=== PATIENT | female | born 1945 | race Caucasian/White ===

== ENCOUNTER 2018-11-27 19:16 | Inpatient (IN) | payer OTHER ==
[2018-11-27] MEDS ORDERED: ONDANSETRON 4 MG/2 ML VIAL IV PRN (20:01)
[2018-11-27] MEDS ORDERED: INSULIN -REGULAR HUMAN 50 UNIT/0.5 ML ML SQ SCH (21:00)
[2018-11-27] MEDS: NA CHLORIDE 0.9% 1,000 ML IV SCH ×2 (21:00→22:12)
[2018-11-27 21:30] VITALS: BMI 28.9
[2018-11-27] MEDS ORDERED: MELATONIN 5 MG TABLET PO PRN (21:59)
[2018-11-27] MEDS ORDERED: CEFTRIAXONE/SWI 1gm 1 GM/10 ML SYR IV SCH (22:00)
[2018-11-27] MEDS: PROMETHAZINE 25 MG/ML VIAL IV PRN (22:13)
[2018-11-27] MEDS: MORPHINE 4 MG/ML SYR IV PRN (22:13)
[2018-11-27] MEDS: GABAPENTIN 300 MG CAP PO SCH (22:57)
[2018-11-27] MEDS: METOPROLOL TAR 50 MG TAB PO SCH (23:43)
[2018-11-27] MEDS: DOXAZOSIN 2 MG TAB PO SCH (23:43)
[2018-11-28] MEDS: METRONIDAZOLE 500mg IVPB 500 MG/100 ML BAG IV SCH ×3 (00:41→16:52)
[2018-11-28] MEDS: INSULIN -REGULAR HUMAN 50 UNIT/0.5 ML ML SQ SCH ×5 (05:37→21:00)
[2018-11-28] MEDS: NA CHLORIDE 0.9% 1,000 ML IV SCH ×3 (05:38→16:51)
[2018-11-28 06:23] LABS: Protime INR 1.06
[2018-11-28 06:29] LABS: Absolute Lymphocytes (CBC) 13.5 K/uL (0.7-4.9); Basophils % 0.7 % (0-1.3); Lymphocytes % 73.7 % (15.3-44.8); RBC Red Blood Cell Count 4.12 M/uL (3.86-4.86)
[2018-11-28 06:36] LABS: ALT/SGPT 15 U/L (12-78); AST/SGOT 10 U/L (15-37); Albumin 3.3 g/dL (3.4-5.0); Alkaline Phosphatase 50 U/L (45-117); BUN Blood Urea Nitrogen 5 mg/dL (7-18); Bicarbonate 24 mmol/L (21-32); Bilirubin Total 0.4 mg/dL (0.2-1.0); Glucose Level 104 mg/dL (74-106); Magnesium 1.6 mg/dL (1.8-2.4); Potassium 3.6 mmol/L (3.5-5.1); Protein, Total 6.1 g/dL (6.4-8.2); Sodium Level 143 mmol/L (136-145)
--- NOTE | 2018-11-28 07:26 | EKG ---
Test Date: 2018-11-28 Test Time: 01:31:53 [place] Trapper: GURINDER MEASUREMENT RESULTS: Intervals: Rate: 58 AL: 154 QRSD: 92 QT: 424 QTc: 416 [place]: P: 23 AL: 154 QRS: 37 T: 38 INTERPRETIVE STATEMENTS: Sinus bradycardia Low voltage QRS Borderline ECG No previous ECG available for comparison Electronically Signed On 11-28-18 07:26:08 CDT by Kapil Sprague
--- NOTE | 2018-11-28 07:46 | P.HP ---
Certification for Inpatient Patient admitted to: Inpatient With expected LOS: >2 Midnights Patient will require the following post-hospital care: None Practitioner: I am a practitioner with admitting privileges, knowledge of patient current condition, hospital course, and medical plan of care. Services: Services provided to patient in accordance with Admission requirements found in Title 42 Section 412.3 of the Code of Federal Regulations Patient History Date of Service: 11/27/18 Reason for admission: Abdominal pain/acute cholecystitis/pyelonephritis History of Present Illness: Patient is a 73-year-old female with a history of CLL and a prior left nephrectomy who comes into the hospital with complaints of abdominal pain and right flank pain. This is been going on for the last few days. She went to [facility] for further evaluation. She was told by her PCP, Dr. Roberson, that she had acute cholecystitis. She also was told she had a kidney infection. She was evaluated by surgery and brought to our hospital for further intervention. Currently, patient's labs are unremarkable. She is scheduled for a HIDA scan in the morning. Will make her NPO after midnight and hold her pain medications. Full liquid diet for now. Allergies levofloxacin [From Levaquin] Adverse Reaction (Verified 11/27/18 21:12) joint pain Penicillins Adverse Reaction (Verified 11/27/18 21:12) swealling Home Medications: Aspirin [Aspirin EC 81 MG] 1 tab PO DAILY 11/27/18 CEFTRIAXONE/SWI 1gm [Rocephin 1 gm/10 ml Swi Ivp] 1 gm IV Q24H 11/27/18 Cholecalciferol (Vitamin D3) [Vitamin D3] 1 cap PO DAILY 11/27/18 Clopidogrel Bisulfate [Plavix*] 1 tab PO DAILY 11/27/18 Cyclobenzaprine [Flexeril*] 1 tab PO Q8HP PRN 11/27/18 Doxazosin [Cardura*] 1 tab PO BID 11/27/18 Gabapentin 600 mg PO QID 11/27/18 Levothyroxine Sodium [Synthroid] 125 mcg PO DAILY 11/27/18 Lisinopril [Prinivil*] 1 tab PO DAILY 11/27/18 Metformin ER [Glucophage ER*] 1 tab PO BID 11/27/18 Metoprolol Tartrate 100 mg PO BID 11/27/18 Morphine [Morphine Sulfate*] 4 mg IV Q6HP PRN 11/27/18 Promethazine Inj [Phenergan -Inj*] 12.5 mg IV Q6HP PRN 11/27/18 Zolpidem Tartrate [Ambien] 10 mg PO BEDTIME 11/27/18 - Past Medical/Surgical History Has patient received pneumonia vaccine in the past: Yes Diabetic: Yes -: CLL -: DM -: neuropathy -: hypertension -: hypothyroid -: left kidney removed -: back surgeries -: hyterectomy -: hiatal hernia - Family History Mother Medical History: Cancer Father Medical History: Cancer - Social History Smoking Status: Former smoker Alcohol use: No CD- Drugs: No Caffeine use: Yes Place of Residence: Home Review of Systems 10-point ROS is otherwise unremarkable Physical Examination - Vital Signs Temperature: 98.6 F Blood Pressure: 171/74 Pulse: 55 Respirations: 19 Pulse Ox (%): 90 - Physical Exam General: Alert, In no apparent distress, Oriented x3 HEENT: Atraumatic, PERRLA, Mucous membr. moist/pink, EOMI, Sclerae nonicteric Neck: Supple, 2+ carotid pulse no bruit, No LAD, Without JVD or thyroid abnormality Respiratory: Clear to auscultation bilaterally, Normal air movement Cardiovascular: Regular rate/rhythm, Normal S1 S2, No murmurs Gastrointestinal: Normal bowel sounds, Soft and benign, Non-distended, Tenderness (Right flank tenderness and positive Huizar sign) Musculoskeletal: No clubbing, No swelling, No tenderness Integumentary: No rashes Neurological: Normal gait, Normal speech, Normal strength at 5/5 x4 extr, Normal tone, Sensation intact, Cranial nerves 3-12 intact, Normal affect Lymphatics: No axilla or inguinal lymphadenopathy - Studies Laboratory Data (last 24 hrs) 11/28/18 20:01: Lipase Cancelled 11/28/18 05:49: Sodium 143, Potassium 3.6, BUN 5 L, Creatinine 0.58, Glucose 104 , Phosphorus 3.0, Magnesium 1.6 L, Total Bilirubin 0.4, AST 10 L, ALT 15, Alkaline Phosphatase 50 11/28/18 05:49: PT 12.5, INR 1.06 11/28/18 05:49: WBC 18.3 H, Hgb 13.2, Hct 39.0, Plt Count 215 11/28/18 05:00: Triglycerides Cancelled, Cholesterol Cancelled, HDL Cholesterol Cancelled, Cholesterol/HDL Ratio Cancelled Assessment & Plan - Problems (Diagnosis) (1) Acute cholecystitis Current Visit: Yes Status: Acute (2) Pyelonephritis Current Visit: Yes Status: Acute (3) History of chronic lymphocytic leukemia Current Visit: Yes Status: Acute (4) History of chronic pain Current Visit: Yes Status: Acute (5) Hypertension Current Visit: Yes Status: Acute Qualifiers: Hypertension type: essential hypertension Qualified Code(s): I10 - Essential (primary) hypertension (6) Hypothyroidism Current Visit: Yes Status: Acute - Plan Plan: 1. IV hydration 2. Pain control 3. IV antibiotics 4. HIDA scan in the morning 5. General surgery has seen the patient and planning to do lap choly in a.m. pending HIDA scan 6. GI and DVT prophylaxis Discharge Plan: Home Plan to discharge in: Greater than 2 days - Advance Directives Does patient have a Living Will: No Does patient have a Durable POA for Healthcare: No - Code Status/Comfort Care Code Status Assessed: Yes Code Status: Full Code Critical Care: No Time Spent Managing PTS Care (In Minutes): 45
[2018-11-28] MEDS: PROMETHAZINE 25 MG/ML VIAL IV PRN ×2 (07:48→17:01)
[2018-11-28] MEDS: MORPHINE 4 MG/ML SYR IV PRN ×3 (07:49→21:14)
[2018-11-28] MEDS ORDERED: KCL 20 MEQ/100 mL IVPB 20 MEQ/100 ML BAG IV SCH (08:00)
[2018-11-28] MEDS: CEFTRIAXONE/SWI 1gm 1 GM/10 ML SYR IV SCH ×2 (08:00→21:14)
[2018-11-28] MEDS: LEVOTHYROXINE SOD 0.125 MG TAB PO SCH (08:00)
[2018-11-28] MEDS: GABAPENTIN 300 MG CAP PO SCH ×4 (08:01→21:13)
[2018-11-28] MEDS: METOPROLOL TAR 50 MG TAB PO SCH ×2 (08:01→21:12)
[2018-11-28] MEDS: DOXAZOSIN 2 MG TAB PO SCH ×2 (08:02→21:13)
--- NOTE | 2018-11-28 08:02 | RAD REPORT ---
EXAM DESCRIPTION: Bernabet Single View11/27/2018 8:40 pm CLINICAL HISTORY: Preop COMPARISON: none FINDINGS: Mild left lung opacities may represent areas of subsegmental atelectasis. The right lung appears clear of acute infiltrate. Heart is normal size Scoliosis involves the thoracolumbar spine
[2018-11-28] MEDS ORDERED: CEFTRIAXONE 1 GM/NS 50 ML 1 GM/50 ML BAG IV SCH (09:00)
--- NOTE | 2018-11-28 09:03 | RAD REPORT ---
EXAM DESCRIPTION: NM - Hepatobiliary System W/ Ph - 11/28/2018 7:56 am CLINICAL HISTORY: Abdominal pain TECHNIQUE: The patient was administered 6.3 millicuries technetium Choletec intravenous and images o f the abdomen obtained for 43 minutes. Patient was given 1.7 micrograms Kinevac intravenously and tanja ges of the gallbladder obtained for 30 minutes FINDINGS: Liver demonstrates prompt radiotracer uptake. Activity is seen within the gallbladder by 30 minutes. Uptake is not initially seen within small bowel but is then visualized after the administration of CC K After the administration of cck gallbladder ejection fraction equals 69 % (normal values greater than 35% Patient was asymptomatic prior to CCK. During the administration patient complained of pain 9 out of 10 and nausea IMPRESSION: No evidence of acute cholecystitis Gallbladder ejection fraction equals 69% which is within normal limits
--- NOTE | 2018-11-28 09:33 | CON ---
Date of Consultation: 11/27/2018 Brief History Of Present Illness: Patient is a 73-year-old female with history of CLL and a prior left nephrectomy, who comes to the hospital with complaints of abdominal pain, persistent nazia sea, vomiting, and right flank pain for several days prior to her admission to [facility]. She was seen in [facility] by Dr. Rm, who was concerned she might have acute cholecystitis and as such, he ordered a workup to include an ultrasound and a CT scan, which showed evidence of possible prominence of the gallbladder wall, but no obvious gallstones on that finding. Therefore, she was in need of a HIDA scan and as such, she was transferred to this facility for continued workup and possi ble cholecystectomy. She presented to the hospital with the above-stated complaints. She has had so me fever, chills, night sweats. She said she was severely dehydrated and she had very dark urine and some urinary tract symptoms which were treated at [facility]. Her hydration status was signifi cantly improved by her report and her voiding was much improved and her symptoms of urinary tract inf ections such as the itching and burning and frequency were resolved. She continued to have a global abdominal pain however and as such, she wanted to continue the workup. Past Medical History: Significant for CLL, diabetes, neuropathy, hypertension, hypothyroid. Past Surgical History: Includes a left nephrectomy, hysterectomy, oophorectomy, open hiatal hernia r epair, multiple back surgeries. Her mother and father both had cancer. She is a former smoker. She denies alcohol or recreational drug use. Home Medications: Include aspirin, vitamin D3, Plavix, Flexeril, Cardura, gabapentin, Synthroid, Ayse nivil, Glucophage, metoprolol, and Ambien. Physical Examination: Vital Signs: At time of my examination, her blood pressure is 160/80, pulse is 80, respiratory rate 16, temperature 98.4. General: She is awake, alert, oriented. Psychiatric: She is appropriate and conversive. HEENT: She is normocephalic. Sclerae icteric. Mucous membranes are moist. Oropharynx clear. Neck: Supple. No JVD. Chest: Normal expansion and excursion. Cardiovascular: Regular rate and rhythm. Pulmonary: Clear to auscultation bilaterally. Abdomen: Soft with mild global tenderness to palpation, worse in the epigastric area. No rebound. No guarding. No focal peritonitis. Negative Huizar sign. Extremities: No clubbing, cyanosis, or edema. Laboratory Data: Reveals a white blood count of 18.3, hemoglobin 13.2, hematocrit 39.0, platelet cou nt is 215, neutrophils 21%. PT 12.5, INR 1.06. Her sodium 143, potassium 3.6, chloride 111, carbon dioxide 24, BUN 5, creatinine 0.58, glucose was 104, phos is 3.0, magnesium is 1.6, total bilirubin 0 .4, AST 10, ALT 15, alkaline phosphatase is 50. Her lipase is currently pending. She had a HIDA sca n performed and a chest x-ray performed. The HIDA scan is currently pending and she had a chest x-ra y performed. The chest x-ray officially shows mild left lung opacities, may represent subsegmental a telectasis. Right lung appears to be clear of acute infiltrate. Heart is normal size. Scoliosis in volving the thoracolumbar spine. Assessment/plan: This 73-year-old female with possible early acute cholecystitis. 1.IV fluid hydration. 2.Antibiotic coverage. 3.Await HIDA scan results. 4.I have explained the risks, benefits, and alternatives of laparoscopic, possible open cholecystect kali including but not limited to bleeding, infection, damage to surrounding tissue, need for further operation or procedures. Patient agrees to proceed as indicated. FAVIO/LIAN Voice ID: [id number] Report ID: [id number]
[2018-11-28 09:41] LABS: Blood Morphology Comment NOT SEEN (NOT SEEN); Platelet Estimate ADEQ
--- NOTE | 2018-11-28 10:23 | P.PN ---
Subjective Date of Service: 11/28/18 Chief Complaint: Abdominal pain/acute cholecystitis/pyelonephritis Subjective: Improving (Patient feels much better today, no pain, no nausea or emesis, passing gas, appetite returning) Physical Examination - Vital Signs Temperature: 97.3 F Blood Pressure: 148/84 Pulse: 59 Respirations: 18 Pulse Ox (%): 95 - Physical Exam General: Alert, In no apparent distress, Oriented x3 HEENT: Atraumatic, Mucous membr. moist/pink Neck: Supple Respiratory: Clear to auscultation bilaterally Cardiovascular: No edema, Regular rate/rhythm Gastrointestinal: Soft and benign, Non-distended, No tenderness, No masses, No rebound, No guarding - Studies Laboratory Data (last 24 hrs) 11/28/18 20:01: Lipase Cancelled 11/28/18 05:49: Sodium 143, Potassium 3.6, BUN 5 L, Creatinine 0.58, Glucose 104 , Phosphorus 3.0, Magnesium 1.6 L, Total Bilirubin 0.4, AST 10 L, ALT 15, Alkaline Phosphatase 50 11/28/18 05:49: PT 12.5, INR 1.06 11/28/18 05:49: WBC 18.3 H, Hgb 13.2, Hct 39.0, Plt Count 215 11/28/18 05:00: Triglycerides Cancelled, Cholesterol Cancelled, HDL Cholesterol Cancelled, Cholesterol/HDL Ratio Cancelled Assessment And Plan - Plan Possible Enteritis, HIDA negative for cholecystitis - start clears and advance as tolerated - continue medical managmenet - likely DC in AM, will need outpatient endoscopy - I have discussed with patient
[2018-11-28] MEDS ORDERED: INFLUENZA VACCINE (for 3y+) 0.5 ML DOSE IMVAC ONE (13:00)
[2018-11-29] MEDS: PROMETHAZINE 25 MG/ML VIAL IV PRN ×3 (00:19→18:39)
[2018-11-29] MEDS: METRONIDAZOLE 500mg IVPB 500 MG/100 ML BAG IV SCH ×3 (00:19→16:26)
[2018-11-29] MEDS: NA CHLORIDE 0.9% 1,000 ML IV SCH ×3 (00:30→13:06)
[2018-11-29] MEDS: MORPHINE 4 MG/ML SYR IV PRN ×3 (04:35→19:25)
[2018-11-29 06:33] LABS: Absolute Lymphocytes (CBC) 10.9 K/uL (0.7-4.9); Basophils % 1.2 % (0-1.3); Hematocrit 38.3 % (36.0-45.0); Lymphocytes % 66.9 % (15.3-44.8); MPV 9.4 fL (7.6-11.3); RBC Red Blood Cell Count 4.09 M/uL (3.86-4.86)
[2018-11-29] MEDS: INSULIN -REGULAR HUMAN 50 UNIT/0.5 ML ML SQ SCH ×4 (07:30→21:00)
[2018-11-29 07:43] LABS: Potassium 3.7 mmol/L (3.5-5.1)
--- NOTE | 2018-11-29 08:45 | P.PN ---
Subjective Date of Service: 11/29/18 Chief Complaint: Abdominal pain/acute cholecystitis/pyelonephritis Subjective: Improving (Patient has no abdominal pain, but continues to have RIGHT flank pain, she believes to be kidney pain. Ambulatory, tolerating diet well. passing gas.) Physical Examination - Vital Signs Temperature: 97.9 F Blood Pressure: 172/82 Pulse: 65 Respirations: 18 Pulse Ox (%): 94 - Physical Exam General: Alert, In no apparent distress, Cooperative Gastrointestinal: Other (soft, mild Global abdominal TTP, more so on the RIGHT than left abdomen, but present in RUQ, RLQ. negative murphys, no rebound, no guarding) - Studies Laboratory Data (last 24 hrs) 11/29/18 06:57: Sodium 143, Potassium 3.7, BUN 7, Creatinine 0.67, Glucose 154 H 11/29/18 06:19: WBC 16.3 H, Hgb 13.0, Hct 38.3, Plt Count 243 11/28/18 20:03: Lipase 44 L 11/28/18 05:49: WBC 18.3 H, Hgb 13.2, Hct 39.0, Plt Count 215 Assessment And Plan - Plan Patient with Abdominal pain - HIDA negative for cholecystitis or biliary dyskinesia - will repeat ultrasound of Gallbladder, as ultrasound from outside facility showed possible GB wall thickening, but not stones - check hepatic panel, add pro-calcitonin level - serial exams - after ultrasound will re-assess - patient was scheduled for cardiac stress test on Saturday
[2018-11-29] MEDS: METOPROLOL TAR 50 MG TAB PO SCH ×2 (08:48→20:13)
[2018-11-29] MEDS: LEVOTHYROXINE SOD 0.125 MG TAB PO SCH (08:49)
[2018-11-29] MEDS: GABAPENTIN 300 MG CAP PO SCH ×4 (08:49→20:12)
[2018-11-29] MEDS: CEFTRIAXONE/SWI 1gm 1 GM/10 ML SYR IV SCH ×2 (08:49→20:14)
[2018-11-29] MEDS: DOXAZOSIN 2 MG TAB PO SCH ×2 (08:49→20:12)
[2018-11-29] MEDS ORDERED: POTASSIUM CL SA 10 MEQ TAB PO ONE (09:00)
[2018-11-29 09:08] LABS: ALT/SGPT 14 U/L (12-78); AST/SGOT 11 U/L (15-37); Albumin 3.3 g/dL (3.4-5.0); Alkaline Phosphatase 52 U/L (45-117); Bilirubin Direct < 0.1 mg/dL (0-0.2); Bilirubin Total 0.2 mg/dL (0.2-1.0); Protein, Total 6.3 g/dL (6.4-8.2)
--- NOTE | 2018-11-29 12:01 | RAD REPORT ---
EXAM DESCRIPTION: US - Abdomen Exam Complete - 11/29/2018 11:53 am CLINICAL HISTORY: Abdominal pain. abd pain, possible cholecystitis COMPARISON: Hepatobiliary System W/ Ph dated 11/28/2018 FINDINGS: The liver is normal in size, shape and echotexture. No focal liver lesions or intrahepatic biliary dilatation is seen. The gallbladder demonstrates no gallstones, pericholecystic fluid or gallbladder wall thickening. Co mmon bile duct is normal in caliber measuring 5 millimeters. The left kidney is absent. The right kidney is normal in size, shape and echotexture. No hydronephros is, focal lesion of concern or perinephric fluid. The spleen is normal in size measuring 12 cm. The pancreas and aorta are obscured by bowel gas. The visualized aspects of the IVC are grossly normal. IMPRESSION: Unremarkable study except for limited assessment of the pancreas and aorta due to bowel gas. The left kidney is absent.
[2018-11-29] MEDS ORDERED: ZOLPIDEM TARTRATE 10 MG TABLET PO PRN (21:52)
[2018-11-29 23:41] VITALS: O2SAT 96
[2018-11-30] MEDS: NA CHLORIDE 0.9% 1,000 ML IV SCH ×2 (00:17→09:00)
[2018-11-30] MEDS: METRONIDAZOLE 500mg IVPB 500 MG/100 ML BAG IV SCH ×2 (00:17→10:06)
[2018-11-30 03:44] LABS: Urine Appearance CLEAR; Urine Bilirubin NEGATIVE (NEG); Urine Blood NEGATIVE (NEG); Urine Color YELLOW; Urine Glucose NEGATIVE (NEG); Urine Protein NEGATIVE (NEG); Urine Specific Gravity <=1.005 (1.005-1.030); Urine Urobilinogen 0.2 mg/dL (0.2-1.0)
[2018-11-30 04:02] LABS: Urine Microscopic Reflex NO UMIC
[2018-11-30 07:07] LABS: Basophils % 0.7 % (0-1.3); Lymphocytes % 71.8 % (15.3-44.8); MPV 9.1 fL (7.6-11.3); RBC Red Blood Cell Count 4.09 M/uL (3.86-4.86)
[2018-11-30 07:11] LABS: ALT/SGPT 16 U/L (12-78); AST/SGOT 12 U/L (15-37); Albumin 3.3 g/dL (3.4-5.0); Alkaline Phosphatase 53 U/L (45-117); BUN Blood Urea Nitrogen 7 mg/dL (7-18); Bicarbonate 26 mmol/L (21-32); Bilirubin Total 0.3 mg/dL (0.2-1.0); Glucose Level 139 mg/dL (74-106); Magnesium 1.6 mg/dL (1.8-2.4); Phosphorus 3.1 mg/dL (2.5-4.9); Potassium 3.9 mmol/L (3.5-5.1); Protein, Total 6.1 g/dL (6.4-8.2); Sodium Level 143 mmol/L (136-145)
[2018-11-30] MEDS: MORPHINE 4 MG/ML SYR IV PRN (07:28)
[2018-11-30] MEDS: PROMETHAZINE 25 MG/ML VIAL IV PRN (07:28)
[2018-11-30] MEDS: INSULIN -REGULAR HUMAN 50 UNIT/0.5 ML ML SQ SCH ×2 (07:30→11:30)
[2018-11-30 09:40] VITALS: BP 177/84; TEMP 96.8
[2018-11-30] MEDS: GABAPENTIN 300 MG CAP PO SCH (10:04)
[2018-11-30] MEDS: LEVOTHYROXINE SOD 0.125 MG TAB PO SCH (10:05)
[2018-11-30] MEDS: DOXAZOSIN 2 MG TAB PO SCH (10:05)
[2018-11-30] MEDS: METOPROLOL TAR 50 MG TAB PO SCH (10:05)
[2018-11-30] MEDS: CEFTRIAXONE/SWI 1gm 1 GM/10 ML SYR IV SCH (10:06)
--- NOTE | 2018-11-30 10:08 | P.DS ---
Admission Date: 11/29/18 Discharge Date: 11/30/18 Disposition: ROUTINE DISCHARGE Discharge Condition: GOOD Reason for Admission: Abdominal pain/acute cholecystitis/pyelonephritis Consultations: hospitalist Procedures: None Brief History of Present Illness: Patient is a 73 year old woman who was transferred from [facility] with abdominal pain and several other medical issues. Hospital Course: Patient had a HIDA scan as well as a repeat ultrasound to rule out cholecystitis , and both were negative for biliary disease. Her symptoms improved and she only had some mild RIGHT flank pain and back pain which was more chronic. She has no other complaints and was tolerating diet well, ambulatory. Vital Signs/Physical Exam: Temp Pulse Resp BP Pulse Ox 96.8 F 67 18 177/84 H 94 11/30/18 08:00 11/30/18 08:00 11/30/18 08:00 11/30/18 08:00 11/30/18 08:00 General: Alert, In no apparent distress, Cooperative HEENT: Mucous membr. moist/pink Respiratory: Clear to auscultation bilaterally, Normal air movement Cardiovascular: No edema Gastrointestinal: Soft and benign, Non-distended, No ascites, No tenderness, No masses, No rebound, No guarding Musculoskeletal: No clubbing, No swelling Integumentary: No rashes Neurological: Normal speech Laboratory Data at Discharge: WBC 15.3 K/uL (4.3-10.9) H 11/30/18 06:41 Hgb 12.8 g/dL (12.0-15.0) 11/30/18 06:41 Hct 38.0 % (36.0-45.0) 11/30/18 06:41 Plt Count 229 K/uL (152-406) 11/30/18 06:41 PT 12.5 SECONDS (9.5-12.5) 11/28/18 05:49 INR 1.06 11/28/18 05:49 Sodium 143 mmol/L (136-145) 11/30/18 06:41 Potassium 3.9 mmol/L (3.5-5.1) 11/30/18 06:41 BUN 7 mg/dL (7-18) 11/30/18 06:41 Creatinine 0.57 mg/dL (0.55-1.3) 11/30/18 06:41 Glucose 139 mg/dL (74-106) H 11/30/18 06:41 Phosphorus 3.1 mg/dL (2.5-4.9) 11/30/18 06:41 Magnesium 1.6 mg/dL (1.8-2.4) L 11/30/18 06:41 Total Bilirubin 0.3 mg/dL (0.2-1.0) 11/30/18 06:41 AST 12 U/L (15-37) L 11/30/18 06:41 ALT 16 U/L (12-78) 11/30/18 06:41 Alkaline Phosphatase 53 U/L (45-117) 11/30/18 06:41 Triglycerides Cancelled 11/28/18 05:00 Cholesterol Cancelled 11/28/18 05:00 HDL Cholesterol Cancelled 11/28/18 05:00 Cholesterol/HDL Ratio Cancelled 11/28/18 05:00 Lipase 44 U/L (73-393) L 11/28/18 20:03 Home Medications: Aspirin [Aspirin EC 81 MG] 1 tab PO DAILY 11/27/18 CEFTRIAXONE/SWI 1gm [Rocephin 1 gm/10 ml Swi Ivp] 1 gm IV Q24H 11/27/18 Cholecalciferol (Vitamin D3) [Vitamin D3] 1 cap PO DAILY 11/27/18 Clopidogrel Bisulfate [Plavix*] 1 tab PO DAILY 11/27/18 Cyclobenzaprine [Flexeril*] 1 tab PO Q8HP PRN 11/27/18 Doxazosin [Cardura*] 1 tab PO BID 11/27/18 Gabapentin 600 mg PO QID 11/27/18 Levothyroxine Sodium [Synthroid] 125 mcg PO DAILY 11/27/18 Lisinopril [Prinivil*] 1 tab PO DAILY 11/27/18 Metformin ER [Glucophage ER*] 1 tab PO BID 11/27/18 Metoprolol Tartrate 100 mg PO BID 11/27/18 Morphine [Morphine Sulfate*] 4 mg IV Q6HP PRN 11/27/18 Promethazine Inj [Phenergan -Inj*] 12.5 mg IV Q6HP PRN 11/27/18 Zolpidem Tartrate [Ambien] 10 mg PO BEDTIME 11/27/18 Patient Discharge Instructions: -Follow up in [place] in 1-2 weeks Diet: [place] Activity: Ad ann Followup: Clay Reynolds MD [ACTIVE - CAN ADMIT] -
[2018-11-30] MEDS ORDERED: TRAMADOL HCL 50 MG TAB PO ONE (12:00)
--- NOTE | 2018-11-30 12:08 | P.PN ---
Subjective Date of Service: 11/29/18 Chief Complaint: Abdominal pain/acute cholecystitis/pyelonephritis Patient seen and examined at bedside. No family at bedside. Chart reviewed and case discussed with nursing staff. Improved, no complaints this morning Review of Systems 10-point ROS is otherwise unremarkable Physical Examination - Vital Signs Temperature: 96.8 F Blood Pressure: 177/84 Pulse: 67 Respirations: 18 Pulse Ox (%): 94 - Physical Exam General: Alert, In no apparent distress, Oriented x3 HEENT: Atraumatic, PERRLA, EOMI Neck: Supple, JVD not distended Respiratory: Clear to auscultation bilaterally, Normal air movement Cardiovascular: Regular rate/rhythm, Normal S1 S2 Gastrointestinal: Normal bowel sounds, No tenderness Musculoskeletal: No tenderness Integumentary: No rashes Neurological: Normal speech, Normal tone, Normal affect Lymphatics: No axilla or inguinal lymphadenopathy - Studies Laboratory Data (last 24 hrs) 11/30/18 06:41: Sodium 143, Potassium 3.9, BUN 7, Creatinine 0.57, Glucose 139 H , Phosphorus 3.1, Magnesium 1.6 L, Total Bilirubin 0.3, AST 12 L, ALT 16, Alkaline Phosphatase 53 11/30/18 06:41: WBC 15.3 H, Hgb 12.8, Hct 38.0, Plt Count 229 Assessment And Plan - Current Problems (Diagnosis) (1) Acute cholecystitis Current Visit: Yes Status: Acute (2) Hypertension Current Visit: Yes Status: Acute Qualifiers: Hypertension type: essential hypertension Qualified Code(s): I10 - Essential (primary) hypertension (3) Hypothyroidism Current Visit: Yes Status: Acute (4) Pyelonephritis Current Visit: Yes Status: Acute - Plan - general surgery consulted, recommendations appreciated - continue IV antibiotics, pain control on IV hydration - HIDA negative for cholecystitis or biliary dyskinesia - Repeat ultrasound of Gallbladder pending, as ultrasound from outside facility showed possible GB wall thickening, but not stones - serial abdominal exams - advance diet, per surgery
--- NOTE | 2018-11-30 12:10 | P.PN ---
Subjective Date of Service: 11/30/18 Chief Complaint: Abdominal pain/acute cholecystitis/pyelonephritis Subjective: No C/O voiced, Improving Patient seen and examined at bedside. No family at bedside. Chart reviewed and case discussed with nursing staff. Improved, no complaints this morning Tolerating a diet, no complaints of abdominal pain or nausea at this time. Complains of back pain, which is more chronic for her. Review of Systems 10-point ROS is otherwise unremarkable Physical Examination - Vital Signs Temperature: 96.8 F Blood Pressure: 177/84 Pulse: 67 Respirations: 18 Pulse Ox (%): 94 - Physical Exam General: Alert, In no apparent distress, Oriented x3 HEENT: Atraumatic, PERRLA, EOMI Neck: Supple, JVD not distended Respiratory: Clear to auscultation bilaterally, Normal air movement Cardiovascular: Regular rate/rhythm, Normal S1 S2 Gastrointestinal: Normal bowel sounds, No tenderness Musculoskeletal: No tenderness Integumentary: No rashes Neurological: Normal speech, Normal tone, Normal affect Lymphatics: No axilla or inguinal lymphadenopathy - Studies Laboratory Data (last 24 hrs) 11/30/18 06:41: Sodium 143, Potassium 3.9, BUN 7, Creatinine 0.57, Glucose 139 H , Phosphorus 3.1, Magnesium 1.6 L, Total Bilirubin 0.3, AST 12 L, ALT 16, Alkaline Phosphatase 53 11/30/18 06:41: WBC 15.3 H, Hgb 12.8, Hct 38.0, Plt Count 229 Assessment And Plan - Current Problems (Diagnosis) (1) Acute cholecystitis Current Visit: Yes Status: Acute (2) Hypertension Current Visit: Yes Status: Acute Qualifiers: Hypertension type: essential hypertension Qualified Code(s): I10 - Essential (primary) hypertension (3) Hypothyroidism Current Visit: Yes Status: Acute (4) Pyelonephritis Current Visit: Yes Status: Acute - Plan - general surgery consulted, recommendations appreciated - HIDA negative for cholecystitis or biliary dyskinesia - Repeat ultrasound negative for biliary disease Patient seen and examined this morning at bedside. She seems to be doing well, endorses no complaints of abdominal pain and nausea. Tolerating a oral diet. She is hemodynamically stable. Labs also stable. Repeat imaging negative for acute cholecystitis or biliary disease. Patient complained more of back pain, which is more chronic for her. She was instructed to follow up with her primary care physician, resume home medications and also follow up with general surgery in 1-2 weeks. She is cleared discharge from medical point of view.
== END 2018-11-30 12:02 | disposition home or self-care (01) | DRG 392 ==
LOC: 2ND 19:16 → INTOOBSV 19:16 → OBSVTOIN 11-29 14:52
PROVIDERS: ADMIT Surgery; ATTEND Hospitalist
DX: K52.9 Noninfective gastroenteritis and colitis, unspecified (principal); N10 Acute pyelonephritis; I10 Essential (primary) hypertension; E03.9 Hypothyroidism, unspecified; Z85.6 Personal history of leukemia; Z90.5 Acquired absence of kidney; E11.9 Type 2 diabetes mellitus without complications; Z88.0 Allergy status to penicillin; Z79.82 Long term (current) use of aspirin; Z23 Encounter for immunization
CPT/HCPCS: 36415; 71045; 76700; 78227; 80048; 80053; 80076; 81003; 82962; 83690; 83735; 84100; 84145; 85025; 85610; 90471; 93005; A9537; J0696; J2550; J2805; J7030; Q2035

== ENCOUNTER 2021-11-06 14:18 | Observation (INO) | payer OTHER ==
--- OUTSIDE RECORDS SUMMARY | 2021-11-06 14:24 | XMS REPORT | Continuity of Care Document ---
:1945 Author Organization [facility] Address [address] [place] [address] Care Team Providers Name Role Phone Rick Harrison Attending Clinician Unavailable Rick Harrison Attending Clinician Unavailable Tk Fermin Attending Clinician Unavailable REBA_T Attending Clinician Unavailable Clay Reynolds Attending Clinician [phone] Jamie Lora Attending Clinician Unavailable Jamie Lora Attending Clinician Unavailable Rick Harrison Admitting Clinician Unavailable Tk Fermin Admitting Clinician Unavailable MYKE Admitting Clinician Unavailable Jamie Lora Admitting Clinician Unavailable Payers Payer Name Policy Type Policy Number Effective Date Expiration Date Barby suggs AEMyrtleHOMERO (POS) [id number] 2015 00:00:00 MEDICARE B-[place]: [id number] 2011 [employer] 00:00:00 Problems This patient has no known problems. Allergies, Adverse Reactions, Alerts Allergy Allergy Status Severity Reaction(s) Onset Inactive Treating Comm ents Source Name Type Date Date Clinician [place] DA Active [place] 2019-02 [facility] 04[facility]: [place] [facility] levoflox DA Active [place] 2019- [facility] [place] 00:[facility]: [address] Pen[place] DA Active [place] HIVES 2019- [facility] 04[facility] 00:00: [address] levoflox DA Active [place] JOINT PAIN 2019- [facility] 00:[facility]: [address] penicill Drug Active [facility] in [facility] Levaquin Drug Active [facility] penicill Drug Active [facility] in [facility] Levaquin Drug Active [facility] penicill Drug Active [facility] in [facility] Lev[facility] Drug Active [facility] penicill [facility] Drug Active [facility]ic[facility] Drug Active [facility] penic[facility] Lev[facility] Drug Active [facility] penicill [facility] Drug Active [facility] penicill [facility] Levaquin Drug Active [facility] penicill [facility] Levaquin Drug Active [facility] penicill [facility] Levaquin Drug Active [facility] penicill [facility] Levaquin Drug Active [facility] penicill [facility] Levaquin Drug Active [facility] penicill [facility] Levaquin Drug Active [facility] penicill [facility] Levaquin Drug Active [facility] penicill [facility] Drug [facility] Levaquin Drug Active [facility] penicill [facility] Leva[facility] Drug Active [facility] penicill [facility] Levaquin Drug Active [facility] penicill Drug Active [facility] in [facility] Levaquin Drug Active [facility] penicill Drug Active [facility] in [facility] Levaquin Drug Active [facility] Medications This patient has no known medications. Vital Signs Vital Name Observation Time Observation Value Comments Source Height/Length Measured 2019-03-17 23:20:55 Height/Length Measured 2021-03-07 09:11:22 157 cm Weight Dosing 2021-03-07 09:11:22 75.00 kg Height/Length Measured 2021-03-07 08:54:18 157 cm Weight Dosing 2021-03-07 08:54:18 75.00 kg Height/Length Measured 2021-03-07 08:52:18 157 cm Weight Dosing 2021-03-07 08:52:18 75.00 kg Height/Length Measured 2021-03-07 08:51:33 157 cm Weight Dosing 2021-03-07 08:51:33 75.00 kg Height/Length Measured 2021-03-07 08:50:37 157 cm Weight Dosing 2021-03-07 08:50:37 75.00 kg Height/Length Measured 2021-03-07 08:50:29 157 cm Weight Dosing 2021-03-07 08:50:29 75.00 kg Height/Length Measured 2021-03-07 08:50:24 157 cm Weight Dosing 2021-03-07 08:50:24 75.00 kg Height/Length Measured 2021-03-07 08:50:23 157 cm Weight Dosing 2021-03-07 08:50:23 75.00 kg Height/Length Measured 2021-03-07 08:50:22 157 cm Weight Dosing 2021-03-07 08:50:22 75.00 kg Height/Length Measured 2021-03-07 08:50:20 157 cm Weight Dosing 2021-03-07 08:50:20 75.00 kg Height/Length Measured 2021-03-07 08:50:09 157 cm Weight Dosing 2021-03-07 08:50:09 75.00 kg Height/Length Measured 2021-03-07 08:50:00 157 cm Weight Dosing 2021-03-07 08:50:00 75.00 kg Height/Length Measured 2021-03-07 08:49:44 157 cm Weight Dosing 2021-03-07 08:49:44 75.00 kg Height/Length Measured 2021-03-07 11:52:07 157.48 cm Weight Dosing 2021-03-07 11:52:07 69.399 kg Height/Length Measured 2019-10-02 07:52:55 Weight Dosing 2019-10-02 07:52:55 Procedures Procedure Date / Time Performed Performing Clinician Sour pippa [id number] 2020-02-10 00:00:00 [facility] [id number] 2020-02-10 00:00:00 [facility] [id number] 2020-02-10 00:00:00 [facility] [id number] 2020-02-10 00:00:00 [facility] Encounters Start End Encounter Admission Attending Care Care Encounter Source Date/Time Date/Time Type Type Clinicians Facility Department ID 2020-02-07 Inpatient [facility] INA [id number] [facility] 21:10:00 07 [facility] 2019-03-17 Inpatient 2 Chan Harrisoned [facility] TEL [id number] 21:33:00 Rick Harrison -[id number] [facility] 2019-03-17 [id number] 16:03:00 [facility] 2021-03-10 2021-03-10 Outpatient KOVACEV_T [facility] 9929- [place] 05:34:00 05:34:00 [facility] 2020-09-08 2020-09-08 Outpatient KOVACEV_T [facility] 9929- [id number] [place] 11:50:00 11:50:00 [facility] 2020-09-08 2020-09-08 Outpatient KOVACEV_T [facility] 9929- [id number] [place] 11:50:00 11:50:00 [facility] 2020-08-31 2020-08-31 Outpatient KOVACEV_T [facility] 9929- [id number] [place] 06:16:00 06:16:00 [facility] 2020-08-09 2020-08-09 Outpatient KOVACEV_T [facility] 9929- [place] 05:02:00 05:02:00 [facility] 2020-07-15 2020-07-15 Outpatient KOVACEV_T [facility] 9929- [place] 05:19:00 05:19:00 [facility] 2020-07-07 2020-07-07 Outpatient KOVACEV_T [facility] 9929- [place] 06:28:00 06:28:00 [facility] 2020-05-27 2020-05-27 Outpatient KOVACEV_T [facility] 9929- [place] 06:08:00 06:08:00 409 [facility] 2020-05-16 2020-05-16 Outpatient KOVACEV_T [facility] 9929- [place] 05:20:00 05:20:00 [facility] 2020-05-13 2020-05-13 Outpatient KOVACEV_T [facility] 9929- [place] 04:29:00 04:29:00 [facility] 2020-04-19 2020-04-19 Outpatient GERARDVACEV_T [facility] 9929- [place] 10:52:00 10:52:00 [facility] 2020-04-19 2020-04-19 Outpatient Reba [facility] [id number] 00:00:00 00:00:00 Clay [id number] Snyder [id number] 2020-03-17 2020-03-17 Outpatient KOVACEV_T [facility] 9929- [place] 05:08:00 05:08:00 [facility] 2020-03-17 2020-03-17 Outpatient Gerardconi [facility] [id number] 00:00:00 00:00:00 Clay [id number] Snyder [id number] 2020-03-14 2020-03-14 Outpatient KOVACEV_T [facility] 9929- [id number] [place] 03:51:00 03:51:00 126 [facility] 2020-03-14 2020-03-14 Outpatient KOVACEV_T [facility] 9929- [id number] [place] 03:51:00 03:51:00 125 [facility] 2020-03-11 2020-03-11 Outpatient KOVACEV_T [facility] 9929- [id number] [place] 12:48:00 12:48:00 122 [facility] 2020-03-09 2020-03-09 Outpatient KOVACEV_T [facility] 9929- [id number] [place] 11:15:00 11:15:00 120 [facility] 2020-02-25 2020-02-25 Outpatient KOVACEV_T [facility] 9929- [id number] [place] 03:36:00 03:36:00 107 [facility] 2020-02-25 2020-02-25 Outpatient Reba [facility] [id number] 00:00:00 00:00:00 Clay [id number] Snyder [id number] 2020-02-02 2020-02-02 Outpatient Reba [facility] [id number] 00:00:00 00:00:00 Clay [id number] Snyder [id number] 2019-10-02 2019-10-02 Outpatient 3 [facility]THEW [id number] 05:32:00 13:20:00 [facility] 2019-10-02 2019-10-02 Outpatient 3 [facility]THEW [id number] 05:32:00 05:32:00 Jamie Lora -[id number] [address] [place] [address] 2018-12-18 2018-12-18 Outpatient 3 Jamie Lora [facility]BS [id number] 09:52:00 23:59:00 GenoJamie [facility] Results Test Description Test Time Test Comments Results Result Comments Source GLUCOSE BEDSIDE TESTING 2020-03-02 10:23:00 Test Item Value Reference Range Interpretation [facility] GLUCOSE BEDSIDE TESTING (test code = GLUBED) 126 MG/DL 60-99 H COLON,[id number] 15:59:00 Test Item Value Reference Range Interpretation Comments COLON,BIOPSY (test code = COLONBX) -----RUN DATE: 02/11/20 [place] [employer] [facility] PAGE 1 RUN TIME: 1600 Specimen Inquiry RUN USER: INTERFACE -----PATIENT: RAO CADENA LOC: Z5 U #: [id number] AGE/SX: 74/F ROOM: [facility] RE02/07/20REG DR: Tayla Turcios MD : 46 BED: A DIS: 02/10/20 STATUS: DIS IN TLOC: ----- SPEC #: [id number]:[id number] RECD: 02/10/20 STATUS: ALLEN NAVARRO #: [id number] DENIS: 02/10/[address] [facility] [address]: Tayla Turcios MD ENTERED: 02/10/20 SP TYPE: COLONBX OTHR DR: No Primary or Family Physician Self Referred Mark Treviño MD, Eseroghene MD Rance, Ronald MDORDERED: SURG PATH LVL 4 CODES: [id number] - DESCENDING COLO BIOPSY, NOS [id number] - DESCENDING COLO INFLAMMATION, N COPIES TO: No Primary or Family Physician Self Referred Tayla Turcios MD [address] [facility] [place] [address] [place] [address] [facility] [address] [place] [address] Michelle Muñoz MD [address] [address] Brian Nuñez MD [address] [facility] [address] [place] [address] PROCEDURES: SURG PATH LVL 4 (02/10/20) TISSUES: A. DESCENDING COLON - DESCENDING COLON BX CONTINUED ON NEXT PAGE -----RUN DATE: 02/11/20 [facility] PAGE 2 RUN TIME: 1600 Specimen Inquiry RUN USER: INTERFACE -----SPEC #: [id number]:[id number] PATIENT: RAO CADENA #[id number] (Continued) CPT CODES CPT CODE(S): 84824 , , , , , , FINAL DIAGNOSIS Colon, descending, biopsy: CONSISTENT WITH RESOLVING COLITIS GROSS DESCRIPTION Descending colon biopsy. The specimen consists of three fragments measuring 1 mm, 1 mm and 2 mm, submitted as A1. /tc/pdb MICROSCOPIC DESCRIPTION Descending colon biopsy. The colonic mucosa displays an intact crypt architecture. There is mild expansion of the lamina propria. A lymphoplasmacytic infiltrate is seen and focal neutrophils and lymphocytes are present in the surface epithelium. The collagen table is of normal thickness and significantly increased numbers of intraepithelial lymphocytes are not identified. Granulomas are not present. There is no evidence of dysplasia or malignancy. /pdb --------- Signed SIGNATURE ON FILE China Rasmussenissa 02/11/20 1559 ----- END OF REPORT GLUCOSE BEDSIDE [id number] 15:37:00 Test Item Value Reference Range Interpretation Comments GLUCOSE BEDSIDE TESTING (test code 134 MG/DL 60-99 H = GLUBED) BASIC METABOLIC [id number] 12:30:00 Test Item Value Reference Range Interpretation Comments SODIUM (test code = 138 MMOL/L 137-145 N NA) POTASSIUM (test code = 3.4 MMOL/L 3.5-5.1 L K) CHLORIDE (test code = 105 MMOL/L 98-107 N CL) CARBON DIOXIDE (test 28 MMOL/L 22-30 N code = CO2) GLUCOSE (test code = 154 MG/DL 74-106 H GLU) BLOOD UREA NITROGEN 6 MG/DL 7-17 L (test code = BUN) GLOMERULAR FILTRATION > 60 Report ing units: RATE (test code = GFR) ml/mi n/1.73 m2 (Modified MDRD Formula)Referen ce Range: > or = 6 0 ml/min/1.73 m2 CREATININE (test code 0.50 MG/DL 0.52-1.04 L = CREAT) CALCIUM (test code = 8.0 MG/DL 8.4-10.2 L CA) BASIC METABOLIC [id number] 12:27:00 Test Item Value Reference Range Interpretation Comments SODIUM (test code = NA) 138 MMOL/L 137-145 N POTASSIUM (test code = K) 3.4 MMOL/L 3.5-5.1 L CHLORIDE (test code = CL) 105 MMOL/L 98-107 N CARBON DIOXIDE (test code = CO2) MMOL/L 22-30 GLUCOSE (test code = GLU) MG/DL 74-106 BLOOD UREA NITROGEN (test code = MG/DL 7-17 BUN) GLOMERULAR FILTRATION RATE (test code = GFR) CREATININE (test code = CREAT) MG/DL 0.52-1.04 CALCIUM (test code = CA) MG/DL 8.7-9.7 GLUCOSE BEDSIDE [id number] 10:38:00 Test Item Value Reference Range Interpretation Comments GLUCOSE BEDSIDE TESTING (test code 153 MG/DL 60-99 H = GLUBED) CBC W/O [id number] 08:45:00 Test Item Value Reference Range Interpretation Comments WHITE BLOOD CELL (test code = 27.3 K/MM3 3.8-9.8 H WBC) RED BLOOD CELL (test code = 3.44 M/MM3 3.58-4.97 L RBC) HEMOGLOBIN (test code = HGB) 10.5 G/DL 11.2-14.9 L HEMATOCRIT (test code = HCT) 33.4 % 33.2-43.5 MEAN CELL VOLUME (test code = 97 fL 80.7-99.1 N MCV) MEAN CELL HGB (test code = MCH) 30.5 pg 27.0-34.1 N MEAN CELL HGB CONCETRATION 31.4 % 32.2-35.7 L (test code = MCHC) RED CELL DISTRIBUTION WIDTH 15.2 % 12.1-15.2 N (test code = RDW) PLATELET COUNT (test code = 268 K/MM3 129-368 N PLT) NEUTROPHIL # (test code = NT#) 5.23 K/mm3 2.0-7.6 N IMMATURE GRANULOCYTE # (test 0.23 x10 3/uL 0-0.03 H code = IG#) LYMPHOCYTE # (test code = LY#) 19.58 K/mm3 1.0-3.8 H MONOCYTE # (test code = MO#) 1.94 K/mm3 0.1-0.8 H EOSINOPHIL # (test code = EO#) 0.17 K/mm3 0.0-0.2 N BASOPHIL # (test code = BA#) 0.10 K/mm3 0.0-0.2 N NUCLEATED RBC # (test code = 0.00 K/mm3 0.0-0.1 N NRBC#) WBC [id number] 08:45:00 Test Item Value Reference Range Interpretation Comments RBC MORPHOLOGY REQUIRED (test code NORMAL = RBCM) TOTAL CELLS COUNTED (test code = 130 #CELLS TCC) SEGMENTED NEUTROPHILS (test code = 38.5 % 36.2-73.8 N SEG) BAND NEUTROPHIL (test code = BAND) 5.8 % 0-10 N LYMPHOCYTE (test code = LYMPH) 45.2 % 12.9-45.1 H ATYPICAL LYMPH (test code = 2.9 % 0-0 H ALYMPH) MONOCYTE (test code = MON) 5.8 % 0-11 N EOSINOPHIL (test code = EOS) 0.9 % 1-7 L MYELOCYTE (test code = MYELO) 0.9 % 0-0 H PLATELET ESTIMATE (test code = ADEQUATE ADEQUATE PLTEST) PLATELET MORPHOLOGY (test code = NORMAL NORMAL PLTMORPH) BASIC METABOLIC [id number] 06:55:00 Test Item Value Reference Range Interpretation Comments SODIUM (test code = 139 MMOL/L 137-145 N NA) POTASSIUM (test code = 2.6 MMOL/L 3.5-5.1 LL GRIER D TO ANIYA L & K) READBACK ON AT 0654 BY Rolando Hanks CHLORIDE (test code = 106 MMOL/L 98-107 N CL) CARBON DIOXIDE (test 27 MMOL/L 22-30 N code = CO2) ANION GAP (test code = 9 MMOL/L 14-24 L GAP) GLUCOSE (test code = 170 MG/DL 74-106 H GLU) BLOOD UREA NITROGEN 6 MG/DL 7-17 L (test code = BUN) GLOMERULAR FILTRATION > 60 Report ing units: RATE (test code = GFR) ml/mi n/1.73 m2 (Modified MDRD Formula)Referen ce Range: > or = 6 0 ml/min/1.73 m2 CREATININE (test code 0.50 MG/DL 0.52-1.04 L = CREAT) CALCIUM (test code = 7.9 MG/DL 8.4-10.2 L CA) [id number] 06:55:00 Test Item Value Reference Range Interpretation Comments MAGNESIUM (test code = MAG) 2.0 MG/DL 1.6-2.3 N GLUCOSE BEDSIDE [id number] 06:08:00 Test Item Value Reference Range Interpretation Comments GLUCOSE BEDSIDE TESTING (test code 150 MG/DL 60-99 H = GLUBED) CBC W/O [id number] 05:51:00 Test Item Value Reference Range Interpretation Comments WHITE BLOOD CELL (test code = 27.3 K/MM3 3.8-9.8 H WBC) RED BLOOD CELL (test code = 3.44 M/MM3 3.58-4.97 L RBC) HEMOGLOBIN (test code = HGB) 10.5 G/DL 11.2-14.9 L HEMATOCRIT (test code = HCT) 33.4 % 33.2-43.5 MEAN CELL VOLUME (test code = 97 fL 80.7-99.1 N MCV) MEAN CELL HGB (test code = MCH) 30.5 pg 27.0-34.1 N MEAN CELL HGB CONCETRATION 31.4 % 32.2-35.7 L (test code = MCHC) RED CELL DISTRIBUTION WIDTH 15.2 % 12.1-15.2 N (test code = RDW) PLATELET COUNT (test code = 268 K/MM3 129-368 N PLT) NEUTROPHIL # (test code = NT#) 5.23 K/mm3 2.0-7.6 N IMMATURE GRANULOCYTE # (test 0.23 x10 3/uL 0-0.03 H code = IG#) LYMPHOCYTE # (test code = LY#) 19.58 K/mm3 1.0-3.8 H MONOCYTE # (test code = MO#) 1.94 K/mm3 0.1-0.8 H EOSINOPHIL # (test code = EO#) 0.17 K/mm3 0.0-0.2 N BASOPHIL # (test code = BA#) 0.10 K/mm3 0.0-0.2 N NUCLEATED RBC # (test code = 0.00 K/mm3 0.0-0.1 N NRBC#) WBC [id number] 05:51:00 Test Item Value Reference Range Interpretation Comments RBC MORPHOLOGY REQUIRED (test code = RBCM) TOTAL CELLS COUNTED (test code = TCC) #CELLS SEGMENTED NEUTROPHILS (test code = % 36.2-73.8 SEG) LYMPHOCYTE (test code = LYMPH) % 12.9-45.1 MONOCYTE (test code = MON) % 0-11 PLATELET ESTIMATE (test code = ADEQUATE PLTEST) PLATELET MORPHOLOGY (test code = NORMAL PLTMORPH) CBC W/AUTO [id number] 05:51:00 Test Item Value Reference Range Interpretation Comments WHITE BLOOD CELL (test code = 27.3 K/MM3 3.8-9.8 H WBC) RED BLOOD CELL (test code = 3.44 M/MM3 3.58-4.97 L RBC) HEMOGLOBIN (test code = HGB) 10.5 G/DL 11.2-14.9 L HEMATOCRIT (test code = HCT) 33.4 % 33.2-43.5 MEAN CELL VOLUME (test code = 97 fL 80.7-99.1 N MCV) MEAN CELL HGB (test code = MCH) 30.5 pg 27.0-34.1 N MEAN CELL HGB CONCETRATION 31.4 % 32.2-35.7 L (test code = MCHC) RED CELL DISTRIBUTION WIDTH 15.2 % 12.1-15.2 N (test code = RDW) PLATELET COUNT (test code = 268 K/MM3 129-368 N PLT) MEAN PLATELET VOLUME (test code 10.8 fl 7.4-10.4 H = MPV) NEUTROPHIL % (test code = NT%) 19.2 % 43-75 L IMMATURE GRANULOCYTE % (test 0.8 % 0.0-2.0 N code = IG%) LYMPHOCYTE % (test code = LY%) 71.9 % 14-44 H MONOCYTE % (test code = MO%) 7.1 % 4-13 N EOSINOPHIL % (test code = EO%) 0.6 % 0-6 N BASOPHIL % (test code = BA%) 0.4 % 0-2 N NUCLEATED RBC % (test code = 0.0 % 0-1.0 N NRBC%) NEUTROPHIL # (test code = NT#) 5.23 K/mm3 2.0-7.6 N IMMATURE GRANULOCYTE # (test 0.23 x10 3/uL 0-0.03 H code = IG#) LYMPHOCYTE # (test code = LY#) 19.58 K/mm3 1.0-3.8 H MONOCYTE # (test code = MO#) 1.94 K/mm3 0.1-0.8 H EOSINOPHIL # (test code = EO#) 0.17 K/mm3 0.0-0.2 N BASOPHIL # (test code = BA#) 0.10 K/mm3 0.0-0.2 N NUCLEATED RBC # (test code = 0.00 K/mm3 0.0-0.1 N NRBC#) WBC [id number] 05:51:00 Test Item Value Reference Range Interpretation Comments RBC MORPHOLOGY REQUIRED (test code = RBCM) TOTAL CELLS COUNTED (test code = TCC) #CELLS SEGMENTED NEUTROPHILS (test code = % 36.2-73.8 SEG) LYMPHOCYTE (test code = LYMPH) % 12.9-45.1 MONOCYTE (test code = MON) % 0-11 PLATELET ESTIMATE (test code = ADEQUATE PLTEST) PLATELET MORPHOLOGY (test code = NORMAL PLTMORPH) GLUCOSE BEDSIDE [id number] 20:09:00 Test Item Value Reference Range Interpretation Comments GLUCOSE BEDSIDE TESTING (test code 181 MG/DL 60-99 H = GLUBED) GLUCOSE BEDSIDE [id number] 16:00:00 Test Item Value Reference Range Interpretation Comments GLUCOSE BEDSIDE TESTING (test code 151 MG/DL 60-99 H = GLUBED) CBC W/O [id number] 12:34:00 Test Item Value Reference Range Interpretation Comments WHITE BLOOD CELL (test code = 25.0 K/MM3 3.8-9.8 H WBC) RED BLOOD CELL (test code = 3.96 M/MM3 3.58-4.97 N RBC) HEMOGLOBIN (test code = HGB) 12.0 G/DL 11.2-14.9 N HEMATOCRIT (test code = HCT) 38.0 % 33.2-43.5 N MEAN CELL VOLUME (test code = 96 fL 80.7-99.1 N MCV) MEAN CELL HGB (test code = MCH) 30.3 pg 27.0-34.1 N MEAN CELL HGB CONCETRATION 31.6 % 32.2-35.7 L (test code = MCHC) RED CELL DISTRIBUTION WIDTH 15.3 % 12.1-15.2 H (test code = RDW) PLATELET COUNT (test code = 303 K/MM3 129-368 N PLT) NEUTROPHIL # (test code = NT#) 7.35 K/mm3 2.0-7.6 N IMMATURE GRANULOCYTE # (test 0.20 x10 3/uL 0-0.03 H code = IG#) LYMPHOCYTE # (test code = LY#) 14.85 K/mm3 1.0-3.8 H MONOCYTE # (test code = MO#) 2.46 K/mm3 0.1-0.8 H EOSINOPHIL # (test code = EO#) 0.02 K/mm3 0.0-0.2 N BASOPHIL # (test code = BA#) 0.11 K/mm3 0.0-0.2 N NUCLEATED RBC # (test code = 0.03 K/mm3 0.0-0.1 N NRBC#) WBC [id number] 12:34:00 Test Item Value Reference Range Interpretation Comments RBC MORPHOLOGY REQUIRED (test code NORMAL = RBCM) TOTAL CELLS COUNTED (test code = 130 #CELLS TCC) SEGMENTED NEUTROPHILS (test code = 29.8 % 36.2-73.8 L SEG) BAND NEUTROPHIL (test code = BAND) 16.7 % 0-10 H LYMPHOCYTE (test code = LYMPH) 43.8 % 12.9-45.1 ATYPICAL LYMPH (test code = 0.0 % 0-0 N ALYMPH) MONOCYTE (test code = MON) 7.0 % 0-11 N BASOPHIL (test code = BASO) 0.9 % 0-2 N MYELOCYTE (test code = MYELO) 0.9 % 0-0 H PLASMA CELL (test code = LORENZO) 0.9 % 0-0 H ANISOCYTOSIS (test code = ANISO) SLIGHT NONE PLATELET ESTIMATE (test code = ADEQUATE ADEQUATE PLTEST) PLATELET MORPHOLOGY (test code = NORMAL NORMAL PLTMORPH) GLUCOSE BEDSIDE [id number] 10:47:00 Test Item Value Reference Range Interpretation Comments GLUCOSE BEDSIDE TESTING (test code 219 MG/DL 60-99 H = GLUBED) BASIC METABOLIC [id number] 07:26:00 Test Item Value Reference Range Interpretation Comments SODIUM (test code = 134 MMOL/L 137-145 L NA) POTASSIUM (test code = 3.5 MMOL/L 3.5-5.1 N K) CHLORIDE (test code = 104 MMOL/L 98-107 N CL) CARBON DIOXIDE (test 21 MMOL/L 22-30 L code = CO2) ANION GAP (test code = 13 MMOL/L 14-24 L GAP) GLUCOSE (test code = 250 MG/DL 74-106 H GLU) BLOOD UREA NITROGEN 12 MG/DL 7-17 N (test code = BUN) GLOMERULAR FILTRATION > 60 Report ing units: RATE (test code = GFR) ml/mi n/1.73 m2 (Modified MDRD Formula)Referen ce Range: > or = 6 0 ml/min/1.73 m2 CREATININE (test code 0.60 MG/DL 0.52-1.04 N = CREAT) CALCIUM (test code = 8.0 MG/DL 8.4-10.2 L CA) [id number] 07:26:00 Test Item Value Reference Range Interpretation Comments MAGNESIUM (test code = MAG) 2.6 MG/DL 1.6-2.3 H BASIC METABOLIC [id number] 07:05:00 Test Item Value Reference Range Interpretation Comments SODIUM (test code = 134 MMOL/L 137-145 L NA) POTASSIUM (test code = 3.5 MMOL/L 3.5-5.1 N K) CHLORIDE (test code = 104 MMOL/L 98-107 N CL) CARBON DIOXIDE (test 21 MMOL/L 22-30 L code = CO2) ANION GAP (test code = 13 MMOL/L 14-24 L GAP) GLUCOSE (test code = 250 MG/DL 74-106 H GLU) BLOOD UREA NITROGEN 12 MG/DL 7-17 N (test code = BUN) GLOMERULAR FILTRATION > 60 Report ing units: RATE (test code = GFR) ml/mi n/1.73 m2 (Modified MDRD Formula)Referen ce Range: > or = 6 0 ml/min/1.73 m2 CREATININE (test code 0.60 MG/DL 0.52-1.04 N = CREAT) CALCIUM (test code = 8.0 MG/DL 8.4-10.2 L CA) [id number] 07:05:00 Test Item Value Reference Range Interpretation Comments MAGNESIUM (test code = MAG) MG/DL 1.6-2.3 PROTHROMBIN [id number] 06:16:00 Test Item Value Reference Range Interpretation Comments PROTHROMBIN TIME 12.6 SECONDS 9.4-12.5 H PATIENT (test code = PTP) INTERNATIONAL NORMAL 1.1 The INR is to be RATIO (test code = used only for INR) monitoring oral anticoagulantth erap y. INDICATION I NR VALUE ---- ---- ---- -------1. Prophylaxis, de ep venous thrombos is, including high risk surgery. 2.0 - 3.0 2. Prophylaxis, deep venous thrombosis, hip surgery, treatm ent for deep venous thrombosis or pulmonary prevention of systemic emboli sm in patients wit h valvular heart disease, atrial fibrillation, tissue heart va lve, or acute myocar dial infarction. 2.0 - 3.0 3. Couturiere al prosthesis hear t valves, recurre nt systemic emboli sm. 3.0 - 4.5 Comments to [employer]: ON PLAVIX AT HOME AND LOVENOX IN THE HOSPPTT ACTIVATED 2020-02-09 06:16:00 Test Item Value Reference Range Interpretation Comments PTT ACTIVATED (test code = APTT) 27.9 SECONDS 25.1-36.5 N Comments to [employer]: ON PLAVIX AT HOME AND LOVENOX IN THE HOSPCBC W/O DIFF 2020-02-09 06:05:00 Test Item Value Reference Range Interpretation Comments WHITE BLOOD CELL (test code = 25.0 K/MM3 3.8-9.8 H WBC) RED BLOOD CELL (test code = 3.96 M/MM3 3.58-4.97 N RBC) HEMOGLOBIN (test code = HGB) 12.0 G/DL 11.2-14.9 N HEMATOCRIT (test code = HCT) 38.0 % 33.2-43.5 N MEAN CELL VOLUME (test code = 96 fL 80.7-99.1 N MCV) MEAN CELL HGB (test code = MCH) 30.3 pg 27.0-34.1 N MEAN CELL HGB CONCETRATION 31.6 % 32.2-35.7 L (test code = MCHC) RED CELL DISTRIBUTION WIDTH 15.3 % 12.1-15.2 H (test code = RDW) PLATELET COUNT (test code = 303 K/MM3 129-368 N PLT) NEUTROPHIL # (test code = NT#) 7.35 K/mm3 2.0-7.6 N IMMATURE GRANULOCYTE # (test 0.20 x10 3/uL 0-0.03 H code = IG#) LYMPHOCYTE # (test code = LY#) 14.85 K/mm3 1.0-3.8 H MONOCYTE # (test code = MO#) 2.46 K/mm3 0.1-0.8 H EOSINOPHIL # (test code = EO#) 0.02 K/mm3 0.0-0.2 N BASOPHIL # (test code = BA#) 0.11 K/mm3 0.0-0.2 N NUCLEATED RBC # (test code = 0.03 K/mm3 0.0-0.1 N NRBC#) WBC [id number] 06:05:00 Test Item Value Reference Range Interpretation Comments RBC MORPHOLOGY REQUIRED (test code = RBCM) TOTAL CELLS COUNTED (test code = TCC) #CELLS SEGMENTED NEUTROPHILS (test code = % 36.2-73.8 SEG) LYMPHOCYTE (test code = LYMPH) % 12.9-45.1 MONOCYTE (test code = MON) % 0-11 PLATELET ESTIMATE (test code = ADEQUATE PLTEST) PLATELET MORPHOLOGY (test code = NORMAL PLTMORPH) CBC W/AUTO [id number] 06:05:00 Test Item Value Reference Range Interpretation Comments WHITE BLOOD CELL (test code = 25.0 K/MM3 3.8-9.8 H WBC) RED BLOOD CELL (test code = 3.96 M/MM3 3.58-4.97 N RBC) HEMOGLOBIN (test code = HGB) 12.0 G/DL 11.2-14.9 N HEMATOCRIT (test code = HCT) 38.0 % 33.2-43.5 N MEAN CELL VOLUME (test code = 96 fL 80.7-99.1 N MCV) MEAN CELL HGB (test code = MCH) 30.3 pg 27.0-34.1 N MEAN CELL HGB CONCETRATION 31.6 % 32.2-35.7 L (test code = MCHC) RED CELL DISTRIBUTION WIDTH 15.3 % 12.1-15.2 H (test code = RDW) PLATELET COUNT (test code = 303 K/MM3 129-368 N PLT) MEAN PLATELET VOLUME (test code 10.9 fl 7.4-10.4 H = MPV) NEUTROPHIL % (test code = NT%) 29.5 % 43-75 L IMMATURE GRANULOCYTE % (test 0.8 % 0.0-2.0 N code = IG%) LYMPHOCYTE % (test code = LY%) 59.4 % 14-44 H MONOCYTE % (test code = MO%) 9.8 % 4-13 N EOSINOPHIL % (test code = EO%) 0.1 % 0-6 N BASOPHIL % (test code = BA%) 0.4 % 0-2 N NUCLEATED RBC % (test code = 0.1 % 0-1.0 N NRBC%) NEUTROPHIL # (test code = NT#) 7.35 K/mm3 2.0-7.6 N IMMATURE GRANULOCYTE # (test 0.20 x10 3/uL 0-0.03 H code = IG#) LYMPHOCYTE # (test code = LY#) 14.85 K/mm3 1.0-3.8 H MONOCYTE # (test code = MO#) 2.46 K/mm3 0.1-0.8 H EOSINOPHIL # (test code = EO#) 0.02 K/mm3 0.0-0.2 N BASOPHIL # (test code = BA#) 0.11 K/mm3 0.0-0.2 N NUCLEATED RBC # (test code = 0.03 K/mm3 0.0-0.1 N NRBC#) WBC [id number] 06:05:00 Test Item Value Reference Range Interpretation Comments RBC MORPHOLOGY REQUIRED (test code = RBCM) TOTAL CELLS COUNTED (test code = TCC) #CELLS SEGMENTED NEUTROPHILS (test code = % 36.2-73.8 SEG) LYMPHOCYTE (test code = LYMPH) % 12.9-45.1 MONOCYTE (test code = MON) % 0-11 PLATELET ESTIMATE (test code = ADEQUATE PLTEST) PLATELET MORPHOLOGY (test code = NORMAL PLTMORPH) GLUCOSE BEDSIDE [id number] 05:55:00 Test Item Value Reference Range Interpretation Comments GLUCOSE BEDSIDE TESTING (test code 231 MG/DL 60-99 H = GLUBED) GLUCOSE BEDSIDE [id number] 22:14:00 Test Item Value Reference Range Interpretation Comments GLUCOSE BEDSIDE TESTING (test code 221 MG/DL 60-99 H = GLUBED) COVID 19 Asymptomatic IH [id number] 17:16:00 Test Item Value Reference Range Interpretation Comments COVID 19 NEGATIVE Negative "Negative resul ts from Asymptomatic IH AG patients with symptom (test code = onset beyondfiv e days, COVNONPUIAG) should be treat ed as presumptive, andconfirmation with a molecular assay , if necessary forpa tient management may be performed. Nega tive results do notr ule out COVID-19 and sh ould not be used as the sole basisfor treatm ent or patient managem ent decisions, includinginfect ion control decisio ns. Negative result s should beconsidered in the context of a pa tients recent exposure s,history, and the presenc e of clinical signs and symptomsconsist ent with COVID-19.This t est detects both vi able andnon-viable S ARS-CoV and SARS CoV-2. Test performance dep endson the amount of virus (antigen) in the sample." URINALYSIS [id number] 05:11:00 Test Item Value Reference Range Interpretation Comments UA COLOR (test code = YELLOW YELLOW COLU) UA APPEARANCE (test code CLEAR CLEAR = APPU) UA GLUCOSE DIPSTICK (test 50 MG/DL NORMAL A code = DGLUU) UA BILIRUBIN DIPSTICK NEGATIVE MG/DL NEGATIVE (test code = BILU) UA KETONE DIPSTICK (test 150 MG/DL NEGATIVE A code = KETU) UA SPECIFIC GRAVITY (test 1.010 1.003-1.030 N code = SGU) UA BLOOD DIPSTICK (test 25 Jamison/mm3 NEGATIVE A code = LUIS) UA PH DIPSTICK (test code 5.0 5.0-9.0 N = NEENA) UA PROTEIN DIPSTICK (test NEGATIVE MG/DL NEGATIVE code = PROU) UA UROBILINIOGEN DIPSTICK NORMAL MG/DL NORMAL (test code = URO) UA NITRITE DIPSTICK (test NEGATIVE NEGATIVE code = FARIBA) UA LEUKOCYTE ESTERASE TRACE /mm3 NEGATIVE A DIPSTICK (test code = LEUU) UA CULTURE NEEDED? (test NO, WBC<10 Criteria Culture Chk code = UACULT) Spec Comments: FROM [facility] URINE: FREDERICK CATHETERUA MICROSCOPIC 2020-02-08 05:11:00 Test Item Value Reference Range Interpretation Comments UA RBC (test code = RBCU) 3-5 RBC/HPF 0-3 A UA WBC (test code = XWBCU) 3-5 WBC/HPF 0-5 UA EPITHELIAL CELLS (test code = RARE EPI/HPF FEW EPIU) UA BACTERIA (test code = XBACU) RARE NONE Spec Comments: FROM [facility] URINE: FREDERICK CATHETERURINALYSIS COMPLETE 2020-02-08 04:43:00 Test Item Value Reference Range Interpretation Comments UA COLOR (test code = COLU) YELLOW YELLOW UA APPEARANCE (test code = CLEAR CLEAR APPU) UA GLUCOSE DIPSTICK (test code 50 MG/DL NORMAL A = DGLUU) UA BILIRUBIN DIPSTICK (test NEGATIVE MG/DL NEGATIVE code = BILU) UA KETONE DIPSTICK (test code 150 MG/DL NEGATIVE A = KETU) UA SPECIFIC GRAVITY (test code 1.010 1.003-1.030 N = SGU) UA BLOOD DIPSTICK (test code = 25 Jamison/mm3 NEGATIVE A LUIS) UA PH DIPSTICK (test code = 5.0 5.0-9.0 N NEENA) UA PROTEIN DIPSTICK (test code NEGATIVE MG/DL NEGATIVE = PROU) UA UROBILINIOGEN DIPSTICK NORMAL MG/DL NORMAL (test code = URO) UA NITRITE DIPSTICK (test code NEGATIVE NEGATIVE = FARIBA) UA LEUKOCYTE ESTERASE DIPSTICK TRACE /mm3 NEGATIVE A (test code = LEUU) UA CULTURE NEEDED? (test code Criteria Culture Chk = UACULT) Spec Comments: [facility]: FREDERICK CATHETERUA MICROSCOPIC 2020-02-08 04:43:00 Test Item Value Reference Range Interpretation Comments UA RBC (test code = RBCU) RBC/HPF 0-3 UA WBC (test code = XWBCU) WBC/HPF 0-5 UA EPITHELIAL CELLS (test code = EPI/HPF FEW EPIU) UA BACTERIA (test code = XBACU) NONE Spec Comments: [facility] UR[facility]: FREDERICK CATHETERURINALYSIS COMPLETE 2020-02-08 04:43:00 Test Item Value Reference Range Interpretation Comments UA COLOR (test code = COLU) YELLOW YELLOW UA APPEARANCE (test code = CLEAR CLEAR APPU) UA GLUCOSE DIPSTICK (test code 50 MG/DL NORMAL A = DGLUU) UA BILIRUBIN DIPSTICK (test NEGATIVE MG/DL NEGATIVE code = BILU) UA KETONE DIPSTICK (test code 150 MG/DL NEGATIVE A = KETU) UA SPECIFIC GRAVITY (test code 1.010 1.003-1.030 N = SGU) UA BLOOD DIPSTICK (test code = 25 Jamison/mm3 NEGATIVE A LUIS) UA PH DIPSTICK (test code = 5.0 5.0-9.0 N NEENA) UA PROTEIN DIPSTICK (test code NEGATIVE MG/DL NEGATIVE = PROU) UA UROBILINIOGEN DIPSTICK NORMAL MG/DL NORMAL (test code = URO) UA NITRITE DIPSTICK (test code NEGATIVE NEGATIVE = FARIBA) UA LEUKOCYTE ESTERASE DIPSTICK TRACE /mm3 NEGATIVE A (test code = LEUU) UA CULTURE NEEDED? (test code Criteria Culture Chk = UACULT) Spec Comments: FROM [facility] URINE: FREDERICK CATHETERUA MICROSCOPIC 2020-02-08 04:43:00 Test Item Value Reference Range Interpretation Comments UA RBC (test code = RBCU) RBC/HPF 0-3 UA WBC (test code = XWBCU) WBC/HPF 0-5 UA EPITHELIAL CELLS (test code = EPI/HPF FEW EPIU) UA BACTERIA (test code = XBACU) NONE Spec Comments: [facility] URINE: FREDERICK CATHETERCBC W/O DIFF 2020-02-07 23:55:00 Test Item Value Reference Range Interpretation Comments WHITE BLOOD CELL (test code = 25.6 K/MM3 3.8-9.8 H WBC) RED BLOOD CELL (test code = 3.91 M/MM3 3.58-4.97 N RBC) HEMOGLOBIN (test code = HGB) 12.1 G/DL 11.2-14.9 N HEMATOCRIT (test code = HCT) 37.0 % 33.2-43.5 N MEAN CELL VOLUME (test code = 95 fL 80.7-99.1 N MCV) MEAN CELL HGB (test code = MCH) 30.9 pg 27.0-34.1 N MEAN CELL HGB CONCETRATION 32.7 % 32.2-35.7 N (test code = MCHC) RED CELL DISTRIBUTION WIDTH 15.0 % 12.1-15.2 N (test code = RDW) PLATELET COUNT (test code = 270 K/MM3 129-368 N PLT) NEUTROPHIL # (test code = NT#) 7.21 K/mm3 2.0-7.6 N IMMATURE GRANULOCYTE # (test 0.10 x10 3/uL 0-0.03 H code = IG#) LYMPHOCYTE # (test code = LY#) 17.08 K/mm3 1.0-3.8 H MONOCYTE # (test code = MO#) 1.08 K/mm3 0.1-0.8 H EOSINOPHIL # (test code = EO#) 0.02 K/mm3 0.0-0.2 N BASOPHIL # (test code = BA#) 0.06 K/mm3 0.0-0.2 N NUCLEATED RBC # (test code = 0.00 K/mm3 0.0-0.1 N NRBC#) WBC [id number] 23:55:00 Test Item Value Reference Range Interpretation Comments RBC MORPHOLOGY REQUIRED (test code NORMAL = RBCM) TOTAL CELLS COUNTED (test code = 130 #CELLS TCC) SEGMENTED NEUTROPHILS (test code = 18.3 % 36.2-73.8 L SEG) BAND NEUTROPHIL (test code = BAND) 29.6 % 0-10 H LYMPHOCYTE (test code = LYMPH) 1.7 % 12.9-45.1 L ATYPICAL LYMPH (test code = 42.6 % 0-0 H ALYMPH) MONOCYTE (test code = MON) 7.8 % 0-11 N PLATELET ESTIMATE (test code = ADEQUATE ADEQUATE PLTEST) PLATELET MORPHOLOGY (test code = NORMAL NORMAL PLTMORPH) - CT ABD PELVIS [id number] 23:23:00 [facility] 1945 Sex: F Patient Name: RAO CADENA Unit No: [id number] EXAMS: CPT CODE: [id number] CT ABD PELVIS W/CONT 25814 CT OF THE ABDOMEN AND PELVIS WITH CONTRAST Location code:J9 CLINICAL HISTORY:abd pain/n/v COMPARISON: None TECHNIQUE:Multiple transaxial images of the abdomen and pelvis were obtained after 100 mL of Isovue 300 contrast . Coronal reformatted images were obtained. CT imaging performed at this location utilizes radiation dose optimization techniques which include one or more of the following: -Automated exposure control -Adjustment of the mA and/or kV according to patient size -Use of iterative reconstruction technique CT Radiation Dose DLP mGy-cm FINDINGS: Abdomen There is bibasilar atelectasis and scarring. Soft t issue swelling with fat stranding is noted in the right breast. The gallbladder is distended. No gallbladder wall thickening or pericholecystic fluid. Low- attenuation indeterminate right adrenal gland mass is noted measuring 2.3 x 3.6 cm. Low-attenuation left adrenal gland mass is noted measuring 1.7 x 1.6 cm. The left kidney is not identified. The liver, spleen, pancreas, right kidney are within normal limits. No bowel obstruction. The colon is distended with gas and stool measuring up to 10 cm. Nomesenteric or retroperitoneal lymphadenopathy is found. There is no free intraperitoneal air or fluid. Visualized abdominal aorta is within normal limits. FINDINGS: Pelvis Prior hysterectomy. Urinary bladder contains contrast and is partially collapsed runner Frederick catheter. No evidence of acute fracture. Marked levoscoliosis of the lower lumbar spine is noted. Scoliosis surgery hardware is noted. IMPRESSION: 1. Distention of the colon is noted concerning for constipation. No bowel obstruction. 2. Bilateral indeterminate adrenal gland lesions are noted. Consider further evaluation with contrast-enhanced adrenal gland protocol CT or [facility] NAME: RAO CADENA PHYS: [place] [address] : 1945 AGE: 74 SEX: F LOC: [facility] PHONE #: [phone] EXAM DATE: 02/07/2020 STATUS: REG ER FAX #: [phone] RAD #: D/C DT PAGE 1 Signed R eport (CONTINUED) Patient Name: RAO CADENA Unit No: [id number] EXAMS: CPT CODE: [id number] CT ABD PELVIS W/CONT 97856 (Continued) MRI. 3. Soft tissue swelling of the right breast is noted. Asymmetry correlate with mammographic history. at 2323 Reported and signed by: Conner Muniz M.D. CC: Alfred Arevalo MD Technologist: Mando Estrada RT (R) (CT); [place] CTDI: DLP: Trnscrpt: 02/07/2020 (2323) [id number] [facility] NAME: RAO CADENA PHYS: [place] [address] : 1945 AGE: 74 SEX: F LOC: [facility] PHONE #: [phone] EXAM DATE: 02/07/2020 STATUS: REG ER FAX #: [phone] RAD #: D/C DT PAGE 2 Signed Report Patient Name: RAO CADENA Unit No: [id number] EXAMS: CPT CODE: [id number] CT ABD PELVIS W/CONT 88510 (Continued) Orig Print D/T: S: 02/07/2020 (2326) [facility] NAME: RAO CADENA PHYS: [place] [address] : 1945 AGE: 74 SEX:F LOC: [facility] PHONE #: [phone] EXAM DATE: 02/07/2020 STATUS: REG ER FAX #:[phone] RAD #: D/C DT PAGE 3 Signed ReportCOMPREHENSIVE METABOLIC [id number] 22:32:00 Test Item Value Reference Range Interpretation Comments SODIUM (test code 135 MMOL/L 137-145 L = NA) POTASSIUM (test 3.5 MMOL/L 3.5-5.1 N code = K) CHLORIDE (test 106 MMOL/L 98-107 N code = CL) CARBON DIOXIDE 21 MMOL/L 22-30 L (test code = CO2) ANION GAP (test 12 MMOL/L 14-24 L code = GAP) GLUCOSE (test 161 MG/DL 74-106 H code = GLU) BLOOD UREA 15 MG/DL 7-17 N NITROGEN (test code = BUN) GLOMERULAR > 60 Reporting units : FILTRATION RATE ml/min/1.73 m2 (Modified (test code = GFR) MDRD Formu la)Reference Range: > or = 6 0 ml/min/1.73 m2 CREATININE (test 0.70 MG/DL 0.52-1.04 N code = CREAT) TOTAL PROTEIN 6.0 G/DL 6.3-8.2 L [facility] Clinical Diagnostic (test code = has made us fernie re of a PROT) newinformation regarding the potential i nterference ofEltrombopag a (Bone marrow stimulan t used to treatthrombocyt onmenia and aplastic anemia ) with specific assays on the Vitros 5600 of which Total Protein is one of thoseassays per formed in our lab.Interfe rence testing perform ed at Ortho determined that Eltrombopag does interfere with Vitros Total Protein asfollowsEltrom bopag Interference fo r Vitros Product Total Protein:======= Eltrombopag Max Observed Av g. BiasConcentrati on Concentration Concentration== ==== 2.5 mg/dl 6.0 g/dl +0.41 +0.34 3.5 mg/dl 6.0 g/dl +0.50 +0.45 5 mg/dl 6 .0 g/dl +0.73 +0.65 2.5 mg/dl 8.0 g/dl +0.44 +0.4 1 3.5 mg/dl 8.0 g/dl +0.55 +0.52 5 mg/dl 8.0 g/dl +0.86 +0.77 ALBUMIN (test 3.3 G/DL 3.5-5.0 L code = ALB) CALCIUM (test 7.9 MG/DL 8.4-10.2 L code = CA) BILIRUBIN TOTAL 0.5 MG/DL 0.2-1.3 N Eltrombopag Interference (test code = for Vitros Prod uct TBil, BILT) BuBc: Assa y Eltrombopag Nita lyte/ Max Observed Avg. B ias Concentration C oncentration Concentration== ====TBil 7mg/dl TBil/ 1. 2mg/dl +0.23mg.dl +0.2 0mg/dlBuBc 3.5mg/dl Bu/0.8 mg/dl +0.25mg/dl +0.2 4mg/dlBuBc 7 mg/dl Bu/14.2mg /dl +0.38mg/dl +0.2 5mg/dlBuBc 5mg/dl Bc/0mg/d l +0.25mg/dl +0.15mg/dlBuBc 3.5mg/dl Bc/2.8mg/dl +0. 25mg/dl +0.23mg/dl SGOT/AST (test 19 UNITS/L 14-36 N code = AST) SGPT/ALT (test 7 UNITS/L <35 code = ALT) ALKALINE 74 UNITS/L 38-126 N PHOSPHATASE (test code = ALKP) [id number] 22:32:00 Test Item Value Reference Range Interpretation Comments TROPONIN-I (test code = TROPI) < 0.012 NG/ML 0.012-0.033 L URINALYSIS [id number] 22:21:00 Test Item Value Reference Range Interpretation Comments UA COLOR (test code = ABEL YELLOW COLU) UA APPEARANCE (test code CLEAR CLEAR = APPU) UA GLUCOSE DIPSTICK (test 250 MG/DL NORMAL A code = DGLUU) UA BILIRUBIN DIPSTICK NEGATIVE MG/DL NEGATIVE (test code = BILU) UA KETONE DIPSTICK (test 150 MG/DL NEGATIVE A code = KETU) UA SPECIFIC GRAVITY (test 1.025 1.003-1.030 N code = SGU) UA BLOOD DIPSTICK (test 25 Jamison/mm3 NEGATIVE A code = LUIS) UA PH DIPSTICK (test code 5.0 5.0-9.0 N = NEENA) UA PROTEIN DIPSTICK (test 30 MG/DL NEGATIVE A code = PROU) UA UROBILINIOGEN DIPSTICK NORMAL MG/DL NORMAL (test code = URO) UA NITRITE DIPSTICK (test NEGATIVE NEGATIVE code = FARIBA) UA LEUKOCYTE ESTERASE TRACE /mm3 NEGATIVE A DIPSTICK (test code = LEUU) UA CULTURE NEEDED? (test NO, WBC<10 Criteria Culture Chk code = UACULT) SOURCE OF URINE: CLEAN CATCHUA [id number] 22:21:00 Test Item Value Reference Range Interpretation Comments UA RBC (test code = RBCU) 0-3 RBC/HPF 0-3 UA WBC (test code = XWBCU) 3-5 WBC/HPF 0-5 UA EPITHELIAL CELLS (test code = FEW EPI/HPF FEW EPIU) UA BACTERIA (test code = XBACU) FEW NONE SOURCE OF URINE: CLEAN CATCHCOMPREHENSIVE METABOLIC [id number] 22:19:00 Test Item Value Reference Range Interpretation Comments SODIUM (test code 135 MMOL/L 137-145 L = NA) POTASSIUM (test 3.5 MMOL/L 3.5-5.1 N code = K) CHLORIDE (test 106 MMOL/L 98-107 N code = CL) CARBON DIOXIDE 21 MMOL/L 22-30 L (test code = CO2) ANION GAP (test 12 MMOL/L 14-24 L code = GAP) GLUCOSE (test 161 MG/DL 74-106 H code = GLU) BLOOD UREA 15 MG/DL 7-17 N NITROGEN (test code = BUN) GLOMERULAR > 60 Reporting units : FILTRATION RATE ml/min/1.73 m2 (Modified (test code = GFR) MDRD Formu la)Reference Range: > or = 6 0 ml/min/1.73 m2 CREATININE (test 0.70 MG/DL 0.52-1.04 N code = CREAT) TOTAL PROTEIN 6.0 G/DL 6.3-8.2 L [facility] Clinical Diagnostic (test code = has made us fernie re of a PROT) newinformation regarding the potential i nterference ofEltrombopag a (Bone marrow stimulan t used to treatthrombocyt onmenia and aplastic anemia ) with specific assays on the Vitros 5600 of which Total Protein is one of thoseassays per formed in our lab.Interfe rence testing perform ed at Ortho determined that Eltrombopag does interfere with Vitros Total Protein asfollowsEltrom bopag Interference fo r Vitros Product Total Protein:======= Eltrombopag Max Observed Av g. BiasConcentrati on Concentration Concentration== ==== 2.5 mg/dl 6.0 g/dl +0.41 +0.34 3.5 mg/dl 6.0 g/dl +0.50 +0.45 5 mg/dl 6 .0 g/dl +0.73 +0.65 2.5 mg/dl 8.0 g/dl +0.44 +0.4 1 3.5 mg/dl 8.0 g/dl +0.55 +0.52 5 mg/dl 8.0 g/dl +0.86 +0.77 ALBUMIN (test 3.3 G/DL 3.5-5.0 L code = ALB) CALCIUM (test 7.9 MG/DL 8.4-10.2 L code = CA) BILIRUBIN TOTAL 0.5 MG/DL 0.2-1.3 N Eltrombopag Interference (test code = for Vitros Prod uct TBil, BILT) BuBc: Assa y Eltrombopag Ntia lyte/ Max Observed Avg. B ias Concentration C oncentration Concentration== ====TBil 7mg/dl TBil/ 1. 2mg/dl +0.23mg.dl +0.2 0mg/dlBuBc 3.5mg/dl Bu/0.8 mg/dl +0.25mg/dl +0.2 4mg/dlBuBc 7 mg/dl Bu/14.2mg /dl +0.38mg/dl +0.2 5mg/dlBuBc 5mg/dl Bc/0mg/d l +0.25mg/dl +0.15mg/dlBuBc 3.5mg/dl Bc/2.8mg/dl +0. 25mg/dl +0.23mg/dl SGOT/AST (test 19 UNITS/L 14-36 N code = AST) SGPT/ALT (test 7 UNITS/L <35 code = ALT) ALKALINE 74 UNITS/L 38-126 N PHOSPHATASE (test code = ALKP) [id number] 22:19:00 Test Item Value Reference Range Interpretation Comments TROPONIN-I (test code = TROPI) NG/ML 0.0-0.045 CBC W/O [id number] 21:56:00 Test Item Value Reference Range Interpretation Comments WHITE BLOOD CELL (test code = 25.6 K/MM3 3.8-9.8 H WBC) RED BLOOD CELL (test code = 3.91 M/MM3 3.58-4.97 N RBC) HEMOGLOBIN (test code = HGB) 12.1 G/DL 11.2-14.9 N HEMATOCRIT (test code = HCT) 37.0 % 33.2-43.5 N MEAN CELL VOLUME (test code = 95 fL 80.7-99.1 N MCV) MEAN CELL HGB (test code = MCH) 30.9 pg 27.0-34.1 N MEAN CELL HGB CONCETRATION 32.7 % 32.2-35.7 N (test code = MCHC) RED CELL DISTRIBUTION WIDTH 15.0 % 12.1-15.2 N (test code = RDW) PLATELET COUNT (test code = 270 K/MM3 129-368 N PLT) NEUTROPHIL # (test code = NT#) 7.21 K/mm3 2.0-7.6 N IMMATURE GRANULOCYTE # (test 0.10 x10 3/uL 0-0.03 H code = IG#) LYMPHOCYTE # (test code = LY#) 17.08 K/mm3 1.0-3.8 H MONOCYTE # (test code = MO#) 1.08 K/mm3 0.1-0.8 H EOSINOPHIL # (test code = EO#) 0.02 K/mm3 0.0-0.2 N BASOPHIL # (test code = BA#) 0.06 K/mm3 0.0-0.2 N NUCLEATED RBC # (test code = 0.00 K/mm3 0.0-0.1 N NRBC#) WBC [id number] 21:56:00 Test Item Value Reference Range Interpretation Comments RBC MORPHOLOGY REQUIRED (test code = RBCM) TOTAL CELLS COUNTED (test code = TCC) #CELLS SEGMENTED NEUTROPHILS (test code = % 36.2-73.8 SEG) LYMPHOCYTE (test code = LYMPH) % 12.9-45.1 MONOCYTE (test code = MON) % 0-11 PLATELET ESTIMATE (test code = ADEQUATE PLTEST) PLATELET MORPHOLOGY (test code = NORMAL PLTMORPH) URINALYSIS [id number] 21:56:00 Test Item Value Reference Range Interpretation Comments UA COLOR (test code = COLU) ABEL YELLOW UA APPEARANCE (test code = CLEAR CLEAR APPU) UA GLUCOSE DIPSTICK (test code 250 MG/DL NORMAL A = DGLUU) UA BILIRUBIN DIPSTICK (test NEGATIVE MG/DL NEGATIVE code = BILU) UA KETONE DIPSTICK (test code 150 MG/DL NEGATIVE A = KETU) UA SPECIFIC GRAVITY (test code 1.025 1.003-1.030 N = SGU) UA BLOOD DIPSTICK (test code = 25 Jamison/mm3 NEGATIVE A LUIS) UA PH DIPSTICK (test code = 5.0 5.0-9.0 N NEENA) UA PROTEIN DIPSTICK (test code 30 MG/DL NEGATIVE A = PROU) UA UROBILINIOGEN DIPSTICK NORMAL MG/DL NORMAL (test code = URO) UA NITRITE DIPSTICK (test code NEGATIVE NEGATIVE = FARIBA) UA LEUKOCYTE ESTERASE DIPSTICK TRACE /mm3 NEGATIVE A (test code = LEUU) UA CULTURE NEEDED? (test code Criteria Culture Chk = UACULT) SOURCE OF URINE: CLEAN CATCHUA [id number] 21:56:00 Test Item Value Reference Range Interpretation Comments UA RBC (test code = RBCU) RBC/HPF 0-3 UA WBC (test code = XWBCU) WBC/HPF 0-5 UA EPITHELIAL CELLS (test code = EPI/HPF FEW EPIU) UA BACTERIA (test code = XBACU) NONE SOURCE OF URINE: CLEAN CATCHCBC W/AUTO [id number] 21:56:00 Test Item Value Reference Range Interpretation Comments WHITE BLOOD CELL (test code = 25.6 K/MM3 3.8-9.8 H WBC) RED BLOOD CELL (test code = 3.91 M/MM3 3.58-4.97 N RBC) HEMOGLOBIN (test code = HGB) 12.1 G/DL 11.2-14.9 N HEMATOCRIT (test code = HCT) 37.0 % 33.2-43.5 N MEAN CELL VOLUME (test code = 95 fL 80.7-99.1 N MCV) MEAN CELL HGB (test code = MCH) 30.9 pg 27.0-34.1 N MEAN CELL HGB CONCETRATION 32.7 % 32.2-35.7 N (test code = MCHC) RED CELL DISTRIBUTION WIDTH 15.0 % 12.1-15.2 N (test code = RDW) PLATELET COUNT (test code = 270 K/MM3 129-368 N PLT) MEAN PLATELET VOLUME (test code 10.4 fl 7.4-10.4 N = MPV) NEUTROPHIL % (test code = NT%) 28.3 % 43-75 L IMMATURE GRANULOCYTE % (test 0.4 % 0.0-2.0 N code = IG%) LYMPHOCYTE % (test code = LY%) 66.8 % 14-44 H MONOCYTE % (test code = MO%) 4.2 % 4-13 N EOSINOPHIL % (test code = EO%) 0.1 % 0-6 N BASOPHIL % (test code = BA%) 0.2 % 0-2 N NUCLEATED RBC % (test code = 0.0 % 0-1.0 N NRBC%) NEUTROPHIL # (test code = NT#) 7.21 K/mm3 2.0-7.6 N IMMATURE GRANULOCYTE # (test 0.10 x10 3/uL 0-0.03 H code = IG#) LYMPHOCYTE # (test code = LY#) 17.08 K/mm3 1.0-3.8 H MONOCYTE # (test code = MO#) 1.08 K/mm3 0.1-0.8 H EOSINOPHIL # (test code = EO#) 0.02 K/mm3 0.0-0.2 N BASOPHIL # (test code = BA#) 0.06 K/mm3 0.0-0.2 N NUCLEATED RBC # (test code = 0.00 K/mm3 0.0-0.1 N NRBC#) WBC [id number] 21:56:00 Test Item Value Reference Range Interpretation Comments RBC MORPHOLOGY REQUIRED (test code = RBCM) TOTAL CELLS COUNTED (test code = TCC) #CELLS SEGMENTED NEUTROPHILS (test code = % 36.2-73.8 SEG) LYMPHOCYTE (test code = LYMPH) % 12.9-45.1 MONOCYTE (test code = MON) % 0-11 PLATELET ESTIMATE (test code = ADEQUATE PLTEST) PLATELET MORPHOLOGY (test code = NORMAL PLTMORPH) URINALYSIS [id number] 21:56:00 Test Item Value Reference Range Interpretation Comments UA COLOR (test code = COLU) ABEL YELLOW UA APPEARANCE (test code = CLEAR CLEAR APPU) UA GLUCOSE DIPSTICK (test code 250 MG/DL NORMAL A = DGLUU) UA BILIRUBIN DIPSTICK (test NEGATIVE MG/DL NEGATIVE code = BILU) UA KETONE DIPSTICK (test code 150 MG/DL NEGATIVE A = KETU) UA SPECIFIC GRAVITY (test code 1.025 1.003-1.030 N = SGU) UA BLOOD DIPSTICK (test code = 25 Jamison/mm3 NEGATIVE A LUIS) UA PH DIPSTICK (test code = 5.0 5.0-9.0 N NEENA) UA PROTEIN DIPSTICK (test code 30 MG/DL NEGATIVE A = PROU) UA UROBILINIOGEN DIPSTICK NORMAL MG/DL NORMAL (test code = URO) UA NITRITE DIPSTICK (test code NEGATIVE NEGATIVE = FARIBA) UA LEUKOCYTE ESTERASE DIPSTICK TRACE /mm3 NEGATIVE A (test code = LEUU) UA CULTURE NEEDED? (test code Criteria Culture Chk = UACULT) SOURCE OF URINE: CLEAN CATCHUA [id number] 21:56:00 Test Item Value Reference Range Interpretation Comments UA RBC (test code = RBCU) RBC/HPF 0-3 UA WBC (test code = XWBCU) WBC/HPF 0-5 UA EPITHELIAL CELLS (test code = EPI/HPF FEW EPIU) UA BACTERIA (test code = XBACU) NONE SOURCE OF URINE: CLEAN CATCHManual [id number] 11:30:29 Test Item Value Reference Range Interpretation Comments Segs Man (test code = 15.0 % 36.0-70.0 L Segs Man) Band Man (test code = 2.0 % 0.0-6.0 Band Man) Lymph Man (test code 76.0 % 12.0-44.0 H = Lymph Man) Monocyte Man (test 6.0 % 0.0-11.0 code = Monocyte Man) Eos Man (test code = 1.0 % 0.0-7.0 Eos Man) Basophil Man (test 0.0 0.0-2.0 code = Basophil Man) Neut Man Abs (test 4.6 x10 1.6-7.4 code = Neut Man Abs) Lymph Man Abs (test 20.4 x10 0.5-4.6 H code = Lymph Man Abs) [place] Man Abs (test 1.6 x10 0.0-1.2 H code = [place] Man Abs) Eos Man Abs (test 0.27 x10 0.00-0.74 code = Eos Man Abs) Baso Man Abs (test 0.00 x10 0.00-0.21 code = Baso Man Abs) RBC Morph (test code Normal Normal = RBC Morph) Hypochromia (test None Seen None Seen code = Hypochromia) Anisocyte (test code None None = Anisocyte) Microcyte (test code None Seen None Seen = Microcyte) Macrocyte (test code None Seen None Seen = Macrocyte) Poik (test code = None Seen None Seen Poik) Polychrom (test code None Seen None Seen = Polychrom) Acanthocyte (test None Seen None Seen code = Acanthocyte) Baso Stippling RBC None Seen None Seen (test code = Baso Stippling RBC) Plt Estimation (test Normal Normal code = Plt Estimation) Path Rev (test code = Indicated A There is leukocytosis Path Rev) with absolute lymphocytosis consisting of citculating aty pical lymphocytes. 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 IG [id number] 11:30:29 Test Item Value Reference Range Interpretation Comments IG (test code = IG) 0.4 % 0.0-5.0 IG Abs (test code = IG Abs) 0 x10 N Partial Thromboplastin [id number] 08:31:14 Test Item Value Reference Range Interpretation Comments Partial Thromboplastin Time 31.30 seconds 24.39-37.25 (test code = Partial Thromboplastin Time) Prothrombin Time and [id number] 08:31:12 Test Item Value Reference Range Interpretation Comments Prothrombin Time (test code = 11.6 seconds 9.8-13.4 Prothrombin Time) INR (test code = INR) 1.0 ratio 0.6-1.2 Comprehensive Metabolic [id number] 08:29:31 Test Item Value Reference Range Interpretation Comments Sodium Level (test code = Sodium 142.0 mmol/L 136.0-145.0 Level) Potassium Level (test code = 4.20 mmol/L 3.50-5.10 Potassium Level) Chloride Level (test code = 109.0 mmol/L 98.0-107.0 H Chloride Level) CO2 (test code = CO2) 25 mmol/L 20-31 Anion Gap (test code = Anion 7.7 mmol/L 5.0-15.0 Gap) BUN (test code = BUN) 14 mg/dL 9-23 Creatinine Level (test code = 0.71 mg/dL 0.55-1.02 Creatinine Level) BUN/Creat Ratio (test code = 19.7 ratio 10.0-20.0 BUN/Creat Ratio) Glucose Level (test code = 188 mg/dL 74-106 H Glucose Level) Calcium Level (test code = 8.9 mg/dL 8.3-10.6 Calcium Level) Alk Phos (test code = Alk Phos) 62 U/L 46-116 Bilirubin Total (test code = 0.2 mg/dL 0.2-1.1 Bilirubin Total) Albumin Level (test code = 4.3 g/dL 3.2-4.8 Albumin Level) Protein Total (test code = 6.2 g/dL 5.7-8.2 Protein Total) ALT (test code = ALT) 7 U/L 10-49 L AST (test code = AST) 11 U/L <=34 Globulin (test code = Globulin) 1.9 g/dL 2.3-3.5 L A/G Ratio (test code = A/G 2.3 g/dL 0.8-2.0 H Ratio) Hemolysis (test code = 0 g/dL 1-2 H Hemolysis) Icterus (test code = Icterus) 0 g/dL 1-2 H Lipemia (test code = Lipemia) 0 g/dL 1-2 H Comprehensive Metabolic [id number] 08:29:31 Test Item Value Reference Range Interpretation Comments Sodium Level (test 142.0 mmol/L 136.0-145.0 code = Sodium Level) Potassium Level 4.20 mmol/L 3.50-5.10 (test code = Potassium Level) Chloride Level (test 109.0 mmol/L 98.0-107.0 H code = Chloride Level) CO2 (test code = 25 mmol/L 20-31 CO2) Anion Gap (test code 7.7 mmol/L 5.0-15.0 = Anion Gap) BUN (test code = 14 mg/dL 9-23 BUN) Creatinine Level 0.71 mg/dL 0.55-1.02 (test code = Creatinine Level) BUN/Creat Ratio 19.7 ratio 10.0-20.0 (test code = BUN/Creat Ratio) Glucose Level (test 188 mg/dL 74-106 H code = Glucose Level) Calcium Level (test 8.9 mg/dL 8.3-10.6 code = Calcium Level) Alk Phos (test code 62 U/L 46-116 = Alk Phos) Bilirubin Total 0.2 mg/dL 0.2-1.1 (test code = Bilirubin Total) Albumin Level (test 4.3 g/dL 3.2-4.8 code = Albumin Level) Protein Total (test 6.2 g/dL 5.7-8.2 code = Protein Total) ALT (test code = 7 U/L 10-49 L ALT) AST (test code = 11 U/L <=34 AST) Globulin (test code 1.9 g/dL 2.3-3.5 L = Globulin) A/G Ratio (test code 2.3 g/dL 0.8-2.0 H = A/G Ratio) eGFR AA (test code = >60 >=60 eGFR (e stimated eGFR AA) mL/min/1.73 m2 Glomerular Filtration Rate ) is an estimated va lue, calculated from the patient's serum creatinine usin g the MDRD equation. It is NOT the patient 's actual GFR. The eGFR provides a more clinically usef ul measure of kidn ey disease than se rum creatinine alone.This calculation андрей es sex and race in to account, if the information is provided. If th e race is not provided, and t he patient is -Марина n, multiply by 1.2 12. If sex is not provided, and t he patient is fema le, multiply by 0.7 42. Results for pat ients <18 years of ag e have not been validated by th e MDRD study and should be interpreted wit h caution. eGFR R esult Interpretation: eGFR > or = 60 is in the Normal RangeeGF R < 60 may mean kid kiran diseaseeGFR < 1 5 may mean kidney failure Rang es recommended by the National Kidney Foundation, http://nkdep.ni h.gov Hemolysis (test code 0 g/dL 1-2 H = Hemolysis) Icterus (test code = 0 g/dL 1-2 H Icterus) Lipemia (test code = 0 g/dL 1-2 H Lipemia) Comprehensive Metabolic [id number] 08:29:31 Test Item Value Reference Range Interpretation Comments Sodium Level (test 142.0 mmol/L 136.0-145.0 code = Sodium Level) Potassium Level 4.20 mmol/L 3.50-5.10 (test code = Potassium Level) Chloride Level (test 109.0 mmol/L 98.0-107.0 H code = Chloride Level) CO2 (test code = 25 mmol/L 20-31 CO2) Anion Gap (test code 7.7 mmol/L 5.0-15.0 = Anion Gap) BUN (test code = 14 mg/dL 9-23 BUN) Creatinine Level 0.71 mg/dL 0.55-1.02 (test code = Creatinine Level) BUN/Creat Ratio 19.7 ratio 10.0-20.0 (test code = BUN/Creat Ratio) Glucose Level (test 188 mg/dL 74-106 H code = Glucose Level) Calcium Level (test 8.9 mg/dL 8.3-10.6 code = Calcium Level) Alk Phos (test code 62 U/L 46-116 = Alk Phos) Bilirubin Total 0.2 mg/dL 0.2-1.1 (test code = Bilirubin Total) Albumin Level (test 4.3 g/dL 3.2-4.8 code = Albumin Level) Protein Total (test 6.2 g/dL 5.7-8.2 code = Protein Total) ALT (test code = 7 U/L 10-49 L ALT) AST (test code = 11 U/L <=34 AST) Globulin (test code 1.9 g/dL 2.3-3.5 L = Globulin) A/G Ratio (test code 2.3 g/dL 0.8-2.0 H = A/G Ratio) eGFR AA (test code = >60 >=60 eGFR (e stimated eGFR AA) mL/min/1.73 m2 Glomerular Filtration Rate ) is an estimated va lue, calculated from the patient's serum creatinine usin g the MDRD equation. It is NOT the patient 's actual GFR. The eGFR provides a more clinically usef ul measure of kidn ey disease than se rum creatinine alone.This calculation андрей es sex and race in to account, if the information is provided. If th e race is not provided, and t he patient is -Марина n, multiply by 1.2 12. If sex is not provided, and t he patient is fema le, multiply by 0.7 42. Results for pat ients <18 years of ag e have not been validated by [facility] MDRD study and should be interpreted wit h caution. eGFR R esult Interpretation: eGFR > or = 60 is in the Normal RangeeGF R < 60 may mean kid kiran diseaseeGFR < 1 5 may mean kidney failure Rang es recommended by the National Kidney Foundation, http://nkdep.ni h.gov eGFR Non-AA (test >60.00 >=60.00 eGFR (ava mated code = eGFR Non-AA) mL/min/1.73 m2 Glomer ular Filtration Rate ) is an estimated va lue, calculated from the patient's serum creatinine usin g the MDRD equation. It is NOT the patient 's actual GFR. The eGFR provides a more clinically usef ul measure of kidn ey disease than se rum creatinine alone.This calculation андрей es sex and race in to account, if the information is provided. If th e race is not provided, and t he patient is -Марина n, multiply by 1.2 12. If sex is not provided, and t he patient is fema le, multiply by 0.7 42. Results for pat ients <18 years of ag e have not been validated by [facility] MDRD study and should be interpreted wit h caution. eGFR R esult Interpretation: eGFR > or = 60 is in the Normal RangeeGF R < 60 may mean kid kiran diseaseeGFR < 1 5 may mean kidney failure Rang es recommended by the National Kidney Foundation, http://nkdep.ni h.gov Hemolysis (test code 0 g/dL 1-2 H = Hemolysis) Icterus (test code = 0 g/dL 1-2 H Icterus) Lipemia (test code = 0 g/dL 1-2 H Lipemia) Complete Blood Count with [id number] 08:08:50 Test Item Value Reference Range Interpretation Comments WBC (test code = WBC) 26.9 x10 4.4-10.5 H RBC (test code = RBC) 3.90 x10 3.75-5.20 Hgb (test code = Hgb) 12.8 g/dL 12.2-14.8 Hct (test code = Hct) 39.2 % 36.5-44.4 MCV (test code = MCV) 100.50 fL 80.00-100.00 H MCHC (test code = 32.70 g/dL 32.00-37.50 MCHC) RDW CV (test code = 14.2 % 11.5-14.5 RDW CV) MCH (test code = MCH) 32.8 pg 27.0-32.5 H Platelets (test code = 262.0 x10 140.0-440.0 Platelets) MPV (test code = MPV) 10.2 fL N Slide Review (test Manual Auto A Result cr eated by code = Slide Review) GL_SJM_ SLIDE_REV_AUTO GL_SJM_XN_RFLX IPF (test code = IPF) 0 % N Complete Blood Count with [id number] 08:08:50 Test Item Value Reference Range Interpretation Comments WBC (test code = WBC) 26.9 x10 4.4-10.5 H RBC (test code = RBC) 3.90 x10 3.75-5.20 Hgb (test code = Hgb) 12.8 g/dL 12.2-14.8 Hct (test code = Hct) 39.2 % 36.5-44.4 MCV (test code = MCV) 100.50 fL 80.00-100.00 H MCHC (test code = 32.70 g/dL 32.00-37.50 MCHC) RDW CV (test code = 14.2 % 11.5-14.5 RDW CV) MCH (test code = MCH) 32.8 pg 27.0-32.5 H Platelets (test code = 262.0 x10 140.0-440.0 Platelets) MPV (test code = MPV) 10.2 fL N Slide Review (test Manual Auto A Result cr eated by code = Slide Review) GL_SJM_ SLIDE_REV_AUTO GL_SJM_XN_RFLX nRBC (test code = 0 N nRBC) NRBC Abs (test code = 0.00 x10 N NRBC Abs) Pos Diff XN (test code A N = Pos Diff XN) Pos Morph XN (test A N code = Pos Morph XN) Pos Count XN (test A N code = Pos Count XN) IPF (test code = IPF) 0 % N Resp Virus Panel (RVP) PCR [id number] 08:14:35 Test Item Value Reference Range Interpretation Comments Influenza A (test code = Positive Negative A Pos itive for Influenza A) Influenza A 200 9 H1N1 Influenza B (test code = Negative Negative N Influenza B) RSV A (test code = RSV A) Negative Negative N RSV B (test code = RSV B) Negative Negative N Parainfluenza 1 (test code Negative Negative N = Parainfluenza 1) Parainfluenza 2 (test code Negative Negative N = Parainfluenza 2) Parainfluenza 3 (test code Negative Negative N = Parainfluenza 3) Rhinovirus (test code = Negative Negative N Rhinovirus) Metapneumovirus (test code Negative Negative N = Metapneumovirus) Adenovirus (test code = Negative Negative N Perf ormed At: [facility] Adenovirus) [facility] [id number] ra Zak DAILEY Ph:[phone] POC [id number] 08:24:15 Test Item Value Reference Range Interpretation Comments Glucose POC (test 79 mg/dL 70-115 Notify RN or MDIf you code = Glucose POC) consider your patient critically ill, the Sukhdev-Accu Chec k Infrom II meter should not be used for Glucos e determination. Draw a venous Glucose and send to the main Lab for analysis. Respiratory Culture w/ Gram [id number] 06:44:30 Test Item Value Reference Range Interpretation Comments Final Report (test Normal angela at 24 hours code = Final Report) Normal angela at 48 hours Few Yeast Gram Stain Report Few epithelial cells (test code = Gram Grams morphology Stain Report) consistent with normal angela with: Moderate White Blood Cells POC [id number] 20:50:19 Test Item Value Reference Range Interpretation Comments Glucose POC (test 85 mg/dL 70-115 If you con component design engineer your code = Glucose POC) patient critically ill, the Sukhdev-Accu Check Infrom II meter should not be used for Glucose determination. Draw a venous Glucose and send to the main Lab for analysis. POC [id number] 17:42:46 Test Item Value Reference Range Interpretation Comments Glucose POC (test 69 mg/dL 70-115 L Notify RN or MDIf you code = Glucose POC) consider your patient critically ill, the Sukhdev-Accu Chec k Infrom II meter should not be used for Glucos e determination. Draw a venous Glucose and send to the main Lab for analysis. POC [id number] 12:21:21 Test Item Value Reference Range Interpretation Comments Glucose POC (test 76 mg/dL 70-115 If you con component design engineer your code = Glucose POC) patient critically ill, the Sukhdev-Accu Check Infrom II meter should not be used for Glucose determination. Draw a venous Glucose and send to the main Lab for analysis. POC [id number] 09:01:48 Test Item Value Reference Range Interpretation Comments Glucose POC (test 89 mg/dL 70-115 If you con component design engineer your code = Glucose POC) patient critically ill, the Sukhdev-Accu Check Infrom II meter should not be used for Glucose determination. Draw a venous Glucose and send to the main Lab for analysis. Basic Metabolic [id number] 08:53:37 Test Item Value Reference Range Interpretation Comments Sodium Level (test code = Sodium 139.0 mmol/L 135.0-145.0 Level) Potassium Level (test code = 3.9 mmol/L 3.5-5.1 Potassium Level) Chloride Level (test code = 106 mmol/L 98-105 H Chloride Level) CO2 (test code = CO2) 21 mmol/L 22-29 L Anion Gap (test code = Anion 12 mmol/L 7-16 Gap) BUN (test code = BUN) 14.00 mg/dL 8.00-23.00 Creatinine Level (test code = 0.50 mg/dL 0.50-0.90 Creatinine Level) BUN/Creat Ratio (test code = 28 N BUN/Creat Ratio) Glucose Level (test code = 100 mg/dL 70-115 Glucose Level) Calcium Level (test code = 8.2 mg/dL 8.3-10.5 L Calcium Level) Basic Metabolic [id number] 08:53:37 Test Item Value Reference Range Interpretation Comments Sodium Level (test 139.0 mmol/L 135.0-145.0 code = Sodium Level) Potassium Level 3.9 mmol/L 3.5-5.1 (test code = Potassium Level) Chloride Level (test 106 mmol/L 98-105 H code = Chloride Level) CO2 (test code = 21 mmol/L 22-29 L CO2) Anion Gap (test code 12 mmol/L 7-16 = Anion Gap) BUN (test code = 14.00 mg/dL 8.00-23.00 BUN) Creatinine Level 0.50 mg/dL 0.50-0.90 (test code = Creatinine Level) BUN/Creat Ratio 28 N (test code = BUN/Creat Ratio) Glucose Level (test 100 mg/dL 70-115 code = Glucose Level) Calcium Level (test 8.2 mg/dL 8.3-10.5 L code = Calcium Level) eGFR AA (test code = >60 N eGFR (e stimated eGFR AA) mL/min/1.73 m2 Glomerular Filtration Rate ) is an estimated va lue, calculated from the patient's serum creatinine usin g the MDRD equation. It is NOT the patient 's actual GFR. The eGFR provides a more clinically usef ul measure of kidn ey disease than se rum creatinine alone.This calculation андрей es sex and race in to account, if the information is provided. If th e race is not provided, and t he patient is -Марина n, multiply by 1.2 12. If sex is not provided, and t he patient is fema le, multiply by 0.7 42. Results for pat ients <18 years of ag e have not been validated by th e MDRD study and should be interpreted wit h caution. eGFR R esult Interpretation: eGFR > or = 60 is in the Normal RangeeGF R < 60 may mean kid kiran diseaseeGFR < 1 5 may mean kidney failure Rang es recommended by the National Kidney Foundation, http://nkdep.ni h.gov Basic Metabolic [id number] 08:53:37 Test Item Value Reference Range Interpretation Comments Sodium Level (test 139.0 mmol/L 135.0-145.0 code = Sodium Level) Potassium Level 3.9 mmol/L 3.5-5.1 (test code = Potassium Level) Chloride Level (test 106 mmol/L 98-105 H code = Chloride Level) CO2 (test code = 21 mmol/L 22-29 L CO2) Anion Gap (test code 12 mmol/L 7-16 = Anion Gap) BUN (test code = 14.00 mg/dL 8.00-23.00 BUN) Creatinine Level 0.50 mg/dL 0.50-0.90 (test code = Creatinine Level) BUN/Creat Ratio 28 N (test code = BUN/Creat Ratio) Glucose Level (test 100 mg/dL 70-115 code = Glucose Level) Calcium Level (test 8.2 mg/dL 8.3-10.5 L code = Calcium Level) eGFR AA (test code = >60 N eGFR (e stimated eGFR AA) mL/min/1.73 m2 Glomerular Filtration Rate ) is an estimated va lue, calculated from the patient's serum creatinine usin g the MDRD equation. It is NOT the patient 's actual GFR. The eGFR provides a more clinically usef ul measure of kidn ey disease than se rum creatinine alone.This calculation андрей es sex and race in to account, if the information is provided. If th e race is not provided, and t he patient is -Марина n, multiply by 1.2 12. If sex is not provided, and t he patient is fema le, multiply by 0.7 42. Results for pat ients <18 years of ag e have not been validated by th e MDRD study and should be interpreted wit h caution. eGFR R esult Interpretation: eGFR > or = 60 is in the Normal RangeeGF R < 60 may mean kid kiran diseaseeGFR < 1 5 may mean kidney failure Rang es recommended by the National Kidney Foundation, http://nkdep.ni h.gov eGFR Non-AA (test >60.00 N eGFR (ava mated code = eGFR Non-AA) mL/min/1.73 m2 Glomer ular Filtration Rate ) is an estimated va lue, calculated from the patient's serum creatinine usin g the MDRD equation. It is NOT the patient 's actual GFR. The eGFR provides a more clinically usef ul measure of kidn ey disease than se rum creatinine alone.This calculation андрей es sex and race in to account, if the information is provided. If th e race is not provided, and t he patient is -Марина n, multiply by 1.2 12. If sex is not provided, and t he patient is fema le, multiply by 0.7 42. Results for pat ients <18 years of ag e have not been validated by th e MDRD study and should be interpreted wit h caution. eGFR R esult Interpretation: eGFR > or = 60 is in the Normal RangeeGF R < 60 may mean kid kiran diseaseeGFR < 1 5 may mean kidney failure Rang es recommended by the National Kidney Foundation, http://nkdep.ni h.gov Complete Blood Count without [id number] 06:22:01 Test Item Value Reference Range Interpretation Comments WBC (test code = WBC) 14.9 x10 4.4-10.5 H RBC (test code = RBC) 3.45 x10 3.75-5.20 L Hgb (test code = Hgb) 11.0 g/dL 12.2-14.8 L Hct (test code = Hct) 33.0 % 36.5-44.4 L MCV (test code = MCV) 95.70 fL 80.00-100.00 MCH (test code = MCH) 31.9 pg 27.0-32.5 MCHC (test code = MCHC) 33.30 g/dL 32.00-37.50 RDW CV (test code = RDW CV) 14.7 % 11.5-14.5 H Platelets (test code = Platelets) 220.0 x10 140.0-440.0 MPV (test code = MPV) 10.4 fL N nRBC (test code = nRBC) 0 N NRBC Abs (test code = NRBC Abs) 0.00 x10 N IPF (test code = IPF) 0 % N POC [id number] 20:35:15 Test Item Value Reference Range Interpretation Comments Glucose POC (test 122 mg/dL 70-115 H If you con component design engineer your code = Glucose POC) patient critically ill, the Sukhdev-Accu Check Infrom II meter should not be used for Glucose determination. Draw a venous Glucose and send to the main Lab for analysis. Urinalysis with Culture, if [id number] 18:32:30 Test Item Value Reference Range Interpretation Comments UA Color (test code = YELLO Yellow UA Color) UA Appear (test code = CLEAR Clear UA Appear) UA pH (test code = UA 5 N pH) UA Spec Grav (test 1.016 1.001-1.035 code = UA Spec Grav) UA Glucose (test code 100 mg/dL Negative A = UA Glucose) UA Bili (test code = NEG Negative UA Bili) UA Ketones (test code 5 mg/dL Negative = UA Ketones) UA Blood (test code = NEG Negative UA Blood) UA Protein (test code NEG Negative = UA Protein) UA Urobilinogen (test 0.2 mg/dL N code = UA Urobilinogen) UA Nitrite (test code NEG Negative = UA Nitrite) UA Leuk Est (test code NEG Negative = UA Leuk Est) UA Micro Ind? (test Not Indicated Not Indicated Result created by code = UA Micro Ind?) rule GL_SJM_UA_MICRO _IN D POC [id number] 17:51:41 Test Item Value Reference Range Interpretation Comments Glucose POC (test 112 mg/dL 70-115 If you con component design engineer your code = Glucose POC) patient critically ill, the Sukhdev-Accu Check Infrom II meter should not be used for Glucose determination. Draw a venous Glucose and send to the main Lab for analysis. POC [id number] 12:25:12 Test Item Value Reference Range Interpretation Comments Glucose POC (test 133 mg/dL 70-115 H If you con component design engineer your code = Glucose POC) patient critically ill, the Sukhdev-Accu Check Infrom II meter should not be used for Glucose determination. Draw a venous Glucose and send to the main Lab for analysis. POC [id number] 08:57:45 Test Item Value Reference Range Interpretation Comments Glucose POC (test 92 mg/dL 70-115 If you con component design engineer your code = Glucose POC) patient critically ill, the Sukhdev-Accu Check Infrom II meter should not be used for Glucose determination. Draw a venous Glucose and send to the main Lab for analysis. Troponin [id number] 08:30:54 Test Item Value Reference Range Interpretation Comments Troponin-T (test 50.130 ng/L 0.000-14.000 Critical re sults called code = Troponin-T) to nurse Kelly Navarrete at 03/18/2019 08 :30:47 LAP CUTTER by SOPHIE. Read back and verified? YESTh e CV of the assay at 99 th percentile for both male and female abdulaziz ent population is < 10%. A rise and fall i n THOMAS with at least o ne value above the 99th percentile with clinical evidence of leo cardial ischemia would support a diagnosis of AM I. A delta of at [address] st 20% is recommended to assess acute changes i n results above the 99th percentile in s erial measurements. S table THOMAS levels (<20%) d elta above the 99th percentile URL would support a diagn osis of chronic myocard ial injury. Basic Metabolic [id number] 08:17:38 Test Item Value Reference Range Interpretation Comments Sodium Level (test code = Sodium 141.0 mmol/L 135.0-145.0 Level) Potassium Level (test code = 4.5 mmol/L 3.5-5.1 Potassium Level) Chloride Level (test code = 109 mmol/L 98-105 H Chloride Level) CO2 (test code = CO2) 20 mmol/L 22-29 L Anion Gap (test code = Anion 12 mmol/L 7-16 Gap) BUN (test code = BUN) 11.90 mg/dL 8.00-23.00 Creatinine Level (test code = 0.40 mg/dL 0.50-0.90 L Creatinine Level) BUN/Creat Ratio (test code = 30 N BUN/Creat Ratio) Glucose Level (test code = 88 mg/dL 70-115 Glucose Level) Calcium Level (test code = 8.5 mg/dL 8.3-10.5 Calcium Level) Basic Metabolic [id number] 08:17:38 Test Item Value Reference Range Interpretation Comments Sodium Level (test 141.0 mmol/L 135.0-145.0 code = Sodium Level) Potassium Level 4.5 mmol/L 3.5-5.1 (test code = Potassium Level) Chloride Level (test 109 mmol/L 98-105 H code = Chloride Level) CO2 (test code = 20 mmol/L 22-29 L CO2) Anion Gap (test code 12 mmol/L 7-16 = Anion Gap) BUN (test code = 11.90 mg/dL 8.00-23.00 BUN) Creatinine Level 0.40 mg/dL 0.50-0.90 L (test code = Creatinine Level) BUN/Creat Ratio 30 N (test code = BUN/Creat Ratio) Glucose Level (test 88 mg/dL 70-115 code = Glucose Level) Calcium Level (test 8.5 mg/dL 8.3-10.5 code = Calcium Level) eGFR AA (test code = >60 N eGFR (e stimated eGFR AA) mL/min/1.73 m2 Glomerular Filtration Rate ) is an estimated va lue, calculated from the patient's serum creatinine usin g the MDRD equation. It is NOT the patient 's actual GFR. The eGFR provides a more clinically usef ul measure of kidn ey disease than se rum creatinine alone.This calculation андрей es sex and race in to account, if the information is provided. If th e race is not provided, and t he patient is -Марина n, multiply by 1.2 12. If sex is not provided, and t he patient is fema le, multiply by 0.7 42. Results for pat ients <18 years of ag e have not been validated by th e MDRD study and should be interpreted wit h caution. eGFR R esult Interpretation: eGFR > or = 60 is in the Normal RangeeGF R < 60 may mean kid kiran diseaseeGFR < 1 5 may mean kidney failure Rang es recommended by the National Kidney Foundation, http://nkdep.ni h.gov Basic Metabolic [id number] 08:17:38 Test Item Value Reference Range Interpretation Comments Sodium Level (test 141.0 mmol/L 135.0-145.0 code = Sodium Level) Potassium Level 4.5 mmol/L 3.5-5.1 (test code = Potassium Level) Chloride Level (test 109 mmol/L 98-105 H code = Chloride Level) CO2 (test code = 20 mmol/L 22-29 L CO2) Anion Gap (test code 12 mmol/L 7-16 = Anion Gap) BUN (test code = 11.90 mg/dL 8.00-23.00 BUN) Creatinine Level 0.40 mg/dL 0.50-0.90 L (test code = Creatinine Level) BUN/Creat Ratio 30 N (test code = BUN/Creat Ratio) Glucose Level (test 88 mg/dL 70-115 code = Glucose Level) Calcium Level (test 8.5 mg/dL 8.3-10.5 code = Calcium Level) eGFR AA (test code = >60 N eGFR (e stimated eGFR AA) mL/min/1.73 m2 Glomerular Filtration Rate ) is an estimated va lue, calculated from the patient's serum creatinine usin g the MDRD equation. It is NOT the patient 's actual GFR. The eGFR provides a more clinically usef ul measure of kidn ey disease than se rum creatinine alone.This calculation андрей es sex and race in to account, if the information is provided. If th e race is not provided, and t he patient is -Марина n, multiply by 1.2 12. If sex is not provided, and t he patient is fema le, multiply by 0.7 42. Results for pat ients <18 years of ag e have not been validated by [facility] MDRD study and should be interpreted wit h caution. eGFR R esult Interpretation: eGFR > or = 60 is in the Normal RangeeGF R < 60 may mean kid kiran diseaseeGFR < 1 5 may mean kidney failure Rang es recommended by the National Kidney Foundation, http://nkdep.ni h.gov eGFR Non-AA (test >60.00 N eGFR (ava mated code = eGFR Non-AA) mL/min/1.73 m2 Glomer ular Filtration Rate ) is an estimated va lue, calculated from the patient's serum creatinine usin g the MDRD equation. It is NOT the patient 's actual GFR. The eGFR provides a more clinically usef ul measure of kidn ey disease than se rum creatinine alone.This calculation андрей es sex and race in to account, if the information is provided. If th e race is not provided, and t he patient is -Марина n, multiply by 1.2 12. If sex is not provided, and t he patient is fema le, multiply by 0.7 42. Results for pat ients <18 years of ag e have not been validated by [facility] MDRD study and should be interpreted wit h caution. eGFR R esult Interpretation: eGFR > or = 60 is in the Normal RangeeGF R < 60 may mean kid kiran diseaseeGFR < 1 5 may mean kidney failure Rang es recommended by the National Kidney Foundation, http://nkdep.ni h.gov Manual [id number] 07:40:33 Test Item Value Reference Range Interpretation Comments Segs Man (test code = Segs Man) 49.0 % 36.0-70.0 Band Man (test code = Band Man) 0.0 % 0.0-6.0 Lymph Man (test code = Lymph Man) 48.0 % 12.0-44.0 H Monocyte Man (test code = Monocyte 2.0 % 0.0-11.0 Man) Eos Man (test code = Eos Man) 0.0 % 0.0-7.0 Basophil Man (test code = Basophil 0.0 0.0-2.0 Man) Lymph, Atyp Manual (test code = 1.0 % 0.0-0.0 H Lymph, Atyp Manual) Neut Man Abs (test code = Neut Man 5.9 x10 1.6-7.4 Abs) Lymph Man Abs (test code = Lymph Man 5.8 x10 0.5-4.6 H Abs) [place] Man Abs (test code = [place] Man 0.2 x10 0.0-1.2 Abs) RBC Morph (test code = RBC Morph) Normal Normal Plt Estimation (test code = Plt Normal Normal Estimation) Complete Blood Count with [id number] 06:50:27 Test Item Value Reference Range Interpretation Comments WBC (test code = WBC) 12.1 x10 4.4-10.5 H RBC (test code = RBC) 3.33 x10 3.75-5.20 L Hgb (test code = Hgb) 10.5 g/dL 12.2-14.8 L MCV (test code = MCV) 96.40 fL 80.00-100.00 Hct (test code = Hct) 32.1 % 36.5-44.4 L MCHC (test code = 32.70 g/dL 32.00-37.50 MCHC) RDW CV (test code = 14.9 % 11.5-14.5 H RDW CV) MCH (test code = MCH) 31.5 pg 27.0-32.5 Platelets (test code = 212.0 x10 140.0-440.0 Platelets) MPV (test code = MPV) 10.4 fL N Slide Review (test Manual Auto A Result cr eated by code = Slide Review) GL_SJM_ SLIDE_REV_AUTO GL_SJM_XN_RFLX nRBC (test code = 0 N nRBC) NRBC Abs (test code = 0.00 x10 N NRBC Abs) Pos Diff XN (test code A N = Pos Diff XN) Pos Morph XN (test A N code = Pos Morph XN) IPF (test code = IPF) 0 % N IG [id number] 06:50:27 Test Item Value Reference Range Interpretation Comments IG (test code = IG) 0.2 % 0.0-5.0 IG Abs (test code = IG Abs) 0 x10 N XR Chest 1 View [id number] 02:24:19Patient: RAO CADENA Date/Time03/18/2019 02:17 CSTReason for ExamChest painReportL ocation: [id number], FRONTAL VIEWHISTORY: Chest painCOMPARISON: NoneFINDINGS:The lungs are underinflated with scattered areas of atelectasis. The more focal opacity in the right upper lobe. The heart size is normal. Mild scoliosis.IMPRESSION:Possible right upper lobe pneumonia. Final Dictated by: MD Graeme, Susana DT/TM: 03/18/2019 2:23 amSigned by: MD Graeme, Tiffanie(Electronic Signature): 03/18/2019 2:24 amComprehensive Metabolic [id number] 00:39:20 Test Item Value Reference Range Interpretation Comments Sodium Level (test code = Sodium 138.0 mmol/L 135.0-145.0 Level) Potassium Level (test code = 4.7 mmol/L 3.5-5.1 Potassium Level) Chloride Level (test code = 105 mmol/L 98-105 Chloride Level) CO2 (test code = CO2) 22 mmol/L 22-29 Anion Gap (test code = Anion 11 mmol/L 7-16 Gap) BUN (test code = BUN) 12.90 mg/dL 8.00-23.00 Creatinine Level (test code = 0.60 mg/dL 0.50-0.90 Creatinine Level) BUN/Creat Ratio (test code = 22 N BUN/Creat Ratio) Glucose Level (test code = 104 mg/dL 70-115 Glucose Level) Calcium Level (test code = 8.4 mg/dL 8.3-10.5 Calcium Level) Alk Phos (test code = Alk Phos) 42 U/L 35-104 Bilirubin Total (test code = <0.1 mg/dL 0.1-0.9 Bilirubin Total) Albumin Level (test code = 3.2 g/dL 3.5-5.2 L Albumin Level) Protein Total (test code = 5.1 g/dL 6.4-8.3 L Protein Total) ALT (test code = ALT) 8 U/L 1-33 AST (test code = AST) 15 U/L 1-32 Globulin (test code = Globulin) 1.9 g/dL 2.9-3.1 L A/G Ratio (test code = A/G 1.7 ratio N Ratio) Thyroid Stimulating [id number] 00:39:20 Test Item Value Reference Range Interpretation Comments TSH (test code = TSH) 0.656 mIU/mL 0.270-4.200 Comprehensive Metabolic [id number] 00:39:20 Test Item Value Reference Range Interpretation Comments Sodium Level (test 138.0 mmol/L 135.0-145.0 code = Sodium Level) Potassium Level 4.7 mmol/L 3.5-5.1 (test code = Potassium Level) Chloride Level (test 105 mmol/L 98-105 code = Chloride Level) CO2 (test code = 22 mmol/L 22-29 CO2) Anion Gap (test code 11 mmol/L 7-16 = Anion Gap) BUN (test code = 12.90 mg/dL 8.00-23.00 BUN) Creatinine Level 0.60 mg/dL 0.50-0.90 (test code = Creatinine Level) BUN/Creat Ratio 22 N (test code = BUN/Creat Ratio) Glucose Level (test 104 mg/dL 70-115 code = Glucose Level) Calcium Level (test 8.4 mg/dL 8.3-10.5 code = Calcium Level) Alk Phos (test code 42 U/L 35-104 = Alk Phos) Bilirubin Total <0.1 mg/dL 0.1-0.9 (test code = Bilirubin Total) Albumin Level (test 3.2 g/dL 3.5-5.2 L code = Albumin Level) Protein Total (test 5.1 g/dL 6.4-8.3 L code = Protein Total) ALT (test code = 8 U/L 1-33 ALT) AST (test code = 15 U/L 1-32 AST) Globulin (test code 1.9 g/dL 2.9-3.1 L = Globulin) A/G Ratio (test code 1.7 ratio N = A/G Ratio) eGFR AA (test code = >60 N eGFR (e stimated eGFR AA) mL/min/1.73 m2 Glomerular Filtration Rate ) is an estimated va lue, calculated from the patient's serum creatinine usin g the MDRD equation. It is NOT the patient 's actual GFR. The eGFR provides a more clinically usef ul measure of kidn ey disease than se rum creatinine alone.This calculation андрей es sex and race in to account, if the information is provided. If e race is not provided, and t he patient is -Марина n, multiply by 1.2 12. If sex is not provided, and t he patient is fema le, multiply by 0.7 42. Results for pat ients <18 years of ag e have not been validated by [facility] MDRD study and should be interpreted wit h caution. eGFR R esult Interpretation: eGFR > or = 60 is in the Normal RangeeGF R < 60 may mean kid kiran diseaseeGFR < 1 5 may mean kidney failure Rang es recommended by the National Kidney Foundation, http://nkdep.ni h.gov Troponin [id number] 00:39:20 Test Item Value Reference Range Interpretation Comments Troponin-T (test 57.940 ng/L 0.000-14.000 Critical re sults called code = Troponin-T) to bobbi roy at 03/18/2019 00:39:13 LAP CUTTER by og. Read back and verifi ed? yesThe CV of e assay at 99th percent ile for both male and f emale patient populat ion is < 10%. A rise and fall in THOMAS with at [address] one value above the 99th percentile with clinical evidence of leo cardial ischemia would support a diagnosis of AM I. A delta of at [address] 20% is recommended to assess acute changes i n results above the 99th percentile in s erial measurements. S table THOMAS levels (<20%) d elta above the 99th percentile URL would support a diagn osis of chronic myocard ial injury. Comprehensive Metabolic [id number] 00:39:20 Test Item Value Reference Range Interpretation Comments Sodium Level (test 138.0 mmol/L 135.0-145.0 code = Sodium Level) Potassium Level 4.7 mmol/L 3.5-5.1 (test code = Potassium Level) Chloride Level (test 105 mmol/L 98-105 code = Chloride Level) CO2 (test code = 22 mmol/L 22-29 CO2) Anion Gap (test code 11 mmol/L 7-16 = Anion Gap) BUN (test code = 12.90 mg/dL 8.00-23.00 BUN) Creatinine Level 0.60 mg/dL 0.50-0.90 (test code = Creatinine Level) BUN/Creat Ratio 22 N (test code = BUN/Creat Ratio) Glucose Level (test 104 mg/dL 70-115 code = Glucose Level) Calcium Level (test 8.4 mg/dL 8.3-10.5 code = Calcium Level) Alk Phos (test code 42 U/L 35-104 = Alk Phos) Bilirubin Total <0.1 mg/dL 0.1-0.9 (test code = Bilirubin Total) Albumin Level (test 3.2 g/dL 3.5-5.2 L code = Albumin Level) Protein Total (test 5.1 g/dL 6.4-8.3 L code = Protein Total) ALT (test code = 8 U/L 1-33 ALT) AST (test code = 15 U/L 1-32 AST) Globulin (test code 1.9 g/dL 2.9-3.1 L = Globulin) A/G Ratio (test code 1.7 ratio N = A/G Ratio) eGFR AA (test code = >60 N eGFR (e stimated eGFR AA) mL/min/1.73 m2 Glomerular Filtration Rate ) is an estimated va lue, calculated from the patient's serum creatinine usin g the MDRD equation. It is NOT the patient 's actual GFR. The eGFR provides a more clinically usef ul measure of kidn ey disease than se rum creatinine alone.This calculation андрей es sex and race in to account, if the information is provided. If th e race is not provided, and t he patient is -Марина n, multiply by 1.2 12. If sex is not provided, and t he patient is fema le, multiply by 0.7 42. Results for pat ients <18 years of ag e have not been validated by th e MDRD study and should be interpreted wit h caution. eGFR R esult Interpretation: eGFR > or = 60 is in the Normal RangeeGF R < 60 may mean kid kiran diseaseeGFR < 1 5 may mean kidney failure Rang es recommended by the National Kidney Foundation, http://nkdep.ni h.gov eGFR Non-AA (test >60.00 N eGFR (ava mated code = eGFR Non-AA) mL/min/1.73 m2 Glomer ular Filtration Rate ) is an estimated va lue, calculated from the patient's serum creatinine usin g the MDRD equation. It is NOT the patient 's actual GFR. The eGFR provides a more clinically usef ul measure of kidn ey disease than se rum creatinine alone.This calculation андрей es sex and race in to account, if the information is provided. If e race is not provided, and t he patient is -Марина n, multiply by 1.2 12. If sex is not provided, and t he patient is fema le, multiply by 0.7 42. Results for pat ients <18 years of ag e have not been validated by [facility] MDRD study and should be interpreted wit h caution. eGFR R esult Interpretation: eGFR > or = 60 is in the Normal RangeeGF R < 60 may mean kid kiran diseaseeGFR < 1 5 may mean kidney failure Rang es recommended by the National Kidney Foundation, http://nkdep. h.gov Manual [id number] 00:28:13 Test Item Value Reference Range Interpretation Comments Segs Man (test code = Segs Man) 40.0 % 36.0-70.0 Band Man (test code = Band Man) 0.0 % 0.0-6.0 Lymph Man (test code = Lymph Man) 55.0 % 12.0-44.0 H Monocyte Man (test code = Monocyte 4.0 % 0.0-11.0 Man) Eos Man (test code = Eos Man) 0.0 % 0.0-7.0 Basophil Man (test code = Basophil 0.0 0.0-2.0 Man) Jayess Man (test code = Jayess Man) 1 % 0-2 Neut Man Abs (test code = Neut Man 4.8 x10 1.6-7.4 Abs) Lymph Man Abs (test code = Lymph Man 6.5 x10 0.5-4.6 H Abs) [place] Man Abs (test code = [place] Man 0.5 x10 0.0-1.2 Abs) Eos Man Abs (test code = Eos Man 0.00 x10 0.00-0.74 Abs) Baso Man Abs (test code = Baso Man 0.00 x10 0.00-0.21 Abs) RBC Morph (test code = RBC Morph) Normal Normal Plt Estimation (test code = Plt Normal Normal Estimation) Prothrombin Time and [id number] 00:19:37 Test Item Value Reference Range Interpretation Comments Prothrombin Time (test code = 13.9 seconds 9.8-13.4 H Prothrombin Time) INR (test code = INR) 1.2 ratio 0.6-1.2 D-Dimer [id number] 00:17:40 Test Item Value Reference Range Interpretation Comments D Dimer, (Quant.) (test code = D 503 ng/mL 0-500 H Dimer, (Quant.)) Complete Blood Count with [id number] 00:01:05 Test Item Value Reference Range Interpretation Comments WBC (test code = WBC) 11.8 x10 4.4-10.5 H RBC (test code = RBC) 3.27 x10 3.75-5.20 L Hgb (test code = Hgb) 10.3 g/dL 12.2-14.8 L MCV (test code = MCV) 96.30 fL 80.00-100.00 Hct (test code = Hct) 31.5 % 36.5-44.4 L MCHC (test code = 32.70 g/dL 32.00-37.50 MCHC) RDW CV (test code = 14.8 % 11.5-14.5 H RDW CV) MCH (test code = MCH) 31.5 pg 27.0-32.5 Platelets (test code = 212.0 x10 140.0-440.0 Platelets) MPV (test code = MPV) 10.3 fL N Slide Review (test Manual Auto A Result cr eated by code = Slide Review) GL_SJM_ SLIDE_REV_AUTO GL_SJM_XN_RFLX nRBC (test code = 0 N nRBC) NRBC Abs (test code = 0.00 x10 N NRBC Abs) Pos Diff XN (test code A N = Pos Diff XN) Pos Morph XN (test A N code = Pos Morph XN) IPF (test code = IPF) 0 % N IG [id number] 00:01:05 Test Item Value Reference Range Interpretation Comments IG (test code = IG) 0.5 % 0.0-5.0 IG Abs (test code = IG Abs) 0 x10 N POC [id number] 21:01:45 Test Item Value Reference Range Interpretation Comments Glucose POC (test 160 mg/dL 70-115 H Notify RN or MDIf you code = Glucose POC) consider your patient critically ill, the Sukhdev-Accu Chec k Infrom II meter should not be used for Glucos e determination. Draw a venous Glucose and send to the main Lab for analysis. Lipid [id number] 20:18:39 Test Item Value Reference Range Interpretation Comments Cholesterol Total 164 mg/dL 0-200 RISK OF HE ART (test code = DISEASEPublishe d by Cholesterol Total) [place] [employer] Nita lyte Optimal Borderl ine Increased RiskC HOL <200 200-239 >240TRI G <150 150-199 >200HDL Male >60 <40HDL Fema le >60 <50LDL <100 130 -159 >160LDL [facility]129 Triglycerides (test 161 mg/dL 9-200 code = Triglycerides) HDL (test code = HDL) 45 mg/dL 50-60 L LDL (test code = LDL) 87 mg/dL 0-130 The eq uation being used in this calcula tion is LDL = (Chol - H DL) - (Trig / 5) VLDL (test code = 32 mg/dL 5-40 The equati on being used VLDL) in this calcula tion is VLDL = Trig / 5 Chol/HDL (test code = 3.6 ratio 0.0-4.4 Chol/HDL) LDL/HDL Ratio (test 2 N The equa tion being used code = LDL/HDL Ratio) in thi s calculation is LDL/HDL Ratio=L DL Calc/HDL Chol
[2021-11-06] MEDS ORDERED: ONDANSETRON 4 MG/2 ML VIAL IV PRN (14:28)
[2021-11-06] MEDS ORDERED: Levofloxacin 750mg IV 750 MG/150 ML BAG IV SCH (15:00)
[2021-11-06] MEDS: ACETAMINOPHEN 500 MG TAB PO PRN (15:10)
[2021-11-06 15:17] VITALS: BMI 25.0
[2021-11-06] MEDS: ALBUTEROL 2.5 MG/3 ML NEB SOL NEB SCH (20:50)
[2021-11-06] MEDS: IPRATROPIUM BROM 0.5MG/2.5ML NEB SCH (20:50)
[2021-11-06] MEDS ORDERED: BACLOFEN 10 MG TAB PO PRN (22:53)
[2021-11-06] MEDS: lisinopriL 20 MG TAB PO SCH (23:45)
[2021-11-07] MEDS: GABAPENTIN 300 MG CAP PO SCH ×6 (00:07→21:30)
[2021-11-07] MEDS: BACLOFEN 10 MG TAB PO PRN ×2 (00:08→21:29)
[2021-11-07] MEDS: ZOLPIDEM TARTRATE 10 MG TABLET PO PRN ×2 (00:08→21:29)
[2021-11-07] MEDS: IPRATROPIUM BROM 0.5MG/2.5ML NEB SCH ×4 (02:48→20:40)
[2021-11-07] MEDS: ALBUTEROL 2.5 MG/3 ML NEB SOL NEB SCH ×4 (02:48→20:40)
[2021-11-07 04:00] LABS: Absolute Lymphocytes (CBC) 24.1 K/uL (0.7-4.9); Hematocrit 28.7 % (36.0-45.0); Lymphocytes % 74.5 % (15.3-44.8); MCV 96.8 fL (80-100); MPV 7.8 fL (7.6-11.3); RBC Red Blood Cell Count 2.96 M/uL (3.86-4.86)
[2021-11-07 04:08] LABS: Albumin 3.1 g/dL (3.4-5.0); Bilirubin Total 0.2 mg/dL (0.2-1.0); Magnesium 2.3 mg/dL (1.8-2.4); Potassium 4.4 mmol/L (3.5-5.1); Protein, Total 5.9 g/dL (6.4-8.2)
[2021-11-07] MEDS ORDERED: NA CHLORIDE 0.9% 1,000 ML IV ONE (04:51)
[2021-11-07] MEDS ORDERED: DIPHENHYDRAMINE 50 MG/ML VIAL IV PRN (04:58)
[2021-11-07 05:01] LABS: Blood Morphology Comment NOT SEEN (NOT SEEN); Platelet Estimate ADEQ; Smudge Cells 20
--- NOTE | 2021-11-07 07:00 | RAD REPORT ---
EXAM DESCRIPTION: RAD - Chest Single View - 11/07/2021 5:32 am CLINICAL HISTORY: pneumonia COMPARISON: Portable 11/27/2018 TECHNIQUE: AP portable chest image was obtained 11/07/2021 5:32 am . FINDINGS: Lung volumes are very low. No dense consolidation is seen. Interstitial and patchy alveola r opacities are present in the right lung field believed be mostly affects of shallow inspiration. Li near atelectasis is present. Heart and vasculature are normal. No measurable pleural effusion and no pneumothorax. No acute bony abnormality seen. No acute aortic findings suspected. IMPRESSION: No dense consolidation is seen though right lung markings are increased slightly. A mild right lung infiltrate is not excluded. If tolerable by the patient, follow-up two view imaging could be performed for better overall evaluat ion.
[2021-11-07] MEDS: LEVOTHYROXINE SOD 0.125 MG TAB PO SCH (07:28)
[2021-11-07] MEDS: METFORMIN ER 500 MG TAB PO SCH ×2 (08:00→17:00)
[2021-11-07] MEDS: ENOXAPARIN 40 MG/0.4 ML SQ SCH (08:59)
[2021-11-07] MEDS: lisinopriL 20 MG TAB PO SCH ×2 (09:00→21:30)
[2021-11-07] MEDS ORDERED: CEFEPIME 1 GM in NA CHLORIDE 0.9% 100 ML IV SCH ×4 (09:00)
[2021-11-07] MEDS ORDERED: lisinopriL 20 MG TAB PO SCH (09:00)
[2021-11-07] MEDS ORDERED: CEFEPIME 1 GM in NA CHLORIDE 0.9% 100 ML IV ONE (11:00)
--- NOTE | 2021-11-07 12:02 | P.CNS ---
Date of Consult: 11/07/21 Reason for Consult: Shortness of breath Chief Complaint: Shortness of breath and cough History of Present Illness: Patient is 76 years of age heavy smoker admitted with acute onset of shortness of breath chest congestion cough happened right after congregational on Saturday admitted to the emergency room is feeling better. She has had a last history of bronchitis about a year ago similar episode does have intermittent episodes of bronchitis and never been diagnosed with COPD does not take any inhalers at home Allergies cefepime Allergy (Verified 11/07/21 10:35) Anaphylaxis levofloxacin [From Levaquin] Adverse Reaction (Verified 11/27/18 21:12) joint pain Penicillins Adverse Reaction (Verified 11/27/18 21:12) swealling Home Medications: Aspirin [Aspirin EC 81 MG] 1 tab PO DAILY 11/27/18 Clopidogrel Bisulfate [Plavix*] 1 tab PO DAILY 11/27/18 Doxazosin [Cardura*] 1 tab PO BID 11/27/18 Gabapentin 600 mg PO QID 11/27/18 Levothyroxine Sodium [Synthroid] 125 mcg PO DAILY 11/27/18 Metformin ER [Glucophage ER*] 2 tab PO BID 11/27/18 Metoprolol Tartrate 100 mg PO BID 11/27/18 Zolpidem Tartrate [Ambien] 10 mg PO BEDTIME 11/27/18 lisinopriL [Prinivil*] 1 tab PO BID 11/27/18 Baclofen [Lioresal] 10 mg PO BID PRN 11/06/21 Semaglutide [Ozempic] 5 mg SQ SEECOM 11/06/21 Zolpidem Tartrate 5 mg PO BEDTIME 11/06/21 - Past Medical/Surgical History Diabetic: Yes -: CLL -: DM -: neuropathy -: hypertension -: hypothyroid -: HLD -: left kidney removed -: back surgeries -: hyterectomy -: hiatal hernia -: 2 stents placed in 2019 - Family History Mother Medical History: Cancer Father Medical History: Cancer - Social History Alcohol use: No CD- Drugs: No Caffeine use: Yes Place of Residence: Home Review of Systems 10-point ROS is otherwise unremarkable General: Weakness Respiratory: Cough, Shortness of Breath Physical Examination Temp Pulse Resp BP Pulse Ox 98.3 F 92 H 16 127/60 95 11/07/21 08:00 11/07/21 09:00 11/07/21 08:00 11/07/21 09:00 11/07/21 08:00 General: Alert, In no apparent distress, Cooperative Neck: Supple Respiratory: Expiratory wheezes Gastrointestinal: Normal bowel sounds, Soft and benign, No tenderness Musculoskeletal: No clubbing Integumentary: No rashes, No breakdown Laboratory Data (last 24 hrs) 11/07/21 03:32: Sodium 136, Potassium 4.4, BUN 30 H, Creatinine 1.20, Glucose 369 H, Magnesium 2.3, Total Bilirubin 0.2, AST 6 L, ALT 12, Alkaline Phosphatase 60, Triglycerides 119, Cholesterol 214 H, HDL Cholesterol 37 L, Cholesterol/HDL Ratio 5.78 11/07/21 03:32: WBC 32.40 H*, Hgb 9.6 L, Hct 28.7 L, Plt Count 211 - Problems (1) COPD exacerbation Current Visit: Yes Status: Acute Plan: Patient is 76 years of age heavy smoker admitted with COPD exacerbation chest x- ray reduced lung volumes labs reviewed white count is elevated no evidence of sepsis change to p.o. doxycycline patient is allergic to levofloxacin and cefepime changed to p.o. prednisone discharge tomorrow follow-up with me in 2 weeks will need outpatient PFT has been counseled not to smoke labs reviewed
[2021-11-07 12:19] LABS: Specific Gravity 1.026 (1.005-1.030); Urine Bilirubin NEGATIVE (Negative); Urine Blood Negative (Negative); Urine Clarity Clear (Clear); Urine Color Light-Yellow (Yellow); Urine Glucose 4+ (Over) (Negative); Urine Protein NEGATIVE (Negative); Urine Urobilinogen Normal (Normal); Urine pH 5.5 (5.0-7.0)
--- NOTE | 2021-11-07 13:06 | P.HP ---
Certification for Inpatient Patient admitted to: Observation With expected LOS: <2 Midnights Patient will require the following post-hospital care: None Practitioner: I am a practitioner with admitting privileges, knowledge of patient current condition, hospital course, and medical plan of care. Services: Services provided to patient in accordance with Admission requirements found in Title 42 Section 412.3 of the Code of Federal Regulations Patient History Date of Service: 11/06/21 Reason for admission: Shortness of breath and cough History of Present Illness: Patient is a 76-year-old female who was transferred from [facility] because of cough and congestion. She had a history of COPD and was having a COPD exacerbation. Her white count was elevated but she has a history of CLL. This is uncommon. She is feeling well and she is wanting to go home. She is slightly hypoxic on arrival but today she looks like she is doing really well. We will check room air O2 sats. If her room air O2 sats are greater than 92% she should be stable for discharge. She will continue with nebs, steroids, and antibiotics at discharge. She will follow-up with pulmonary. She also need to follow-up with hematology/oncology for her CLL. Allergies cefepime Allergy (Verified 11/07/21 10:35) Anaphylaxis levofloxacin [From Levaquin] Adverse Reaction (Verified 11/27/18 21:12) joint pain Penicillins Adverse Reaction (Verified 11/27/18 21:12) swealling Home Medications: Aspirin [Aspirin EC 81 MG] 1 tab PO DAILY 11/27/18 Clopidogrel Bisulfate [Plavix*] 1 tab PO DAILY 11/27/18 Doxazosin [Cardura*] 1 tab PO BID 11/27/18 Gabapentin 600 mg PO QID 11/27/18 Levothyroxine Sodium [Synthroid] 125 mcg PO DAILY 11/27/18 Metformin ER [Glucophage ER*] 2 tab PO BID 11/27/18 Metoprolol Tartrate 100 mg PO BID 11/27/18 Zolpidem Tartrate [Ambien] 10 mg PO BEDTIME 11/27/18 lisinopriL [Prinivil*] 1 tab PO BID 11/27/18 Baclofen [Lioresal] 10 mg PO BID PRN 11/06/21 Semaglutide [Ozempic] 5 mg SQ SEECOM 11/06/21 Zolpidem Tartrate 5 mg PO BEDTIME 11/06/21 - Past Medical/Surgical History Has patient received pneumonia vaccine in the past: Yes Diabetic: Yes -: CLL -: DM -: neuropathy -: hypertension -: hypothyroid -: HLD -: left kidney removed -: back surgeries -: hyterectomy -: hiatal hernia -: 2 stents placed in 2019 - Family History Mother Medical History: Cancer Father Medical History: Cancer - Social History Smoking Status: Never smoker Alcohol use: No CD- Drugs: No Caffeine use: Yes Place of Residence: Home Review of Systems 10-point ROS is otherwise unremarkable Physical Examination - Vital Signs Temperature: 97.4 F Blood Pressure: 113/53 Pulse: 95 Respirations: 16 Pulse Ox (%): 94 - Physical Exam General: Alert, In no apparent distress, Oriented x3 HEENT: Atraumatic, PERRLA, Mucous membr. moist/pink, EOMI, Sclerae nonicteric Neck: Supple, 2+ carotid pulse no bruit, No LAD, Without JVD or thyroid abnormality Respiratory: Diminished, Expiratory wheezes Cardiovascular: Regular rate/rhythm, Normal S1 S2, No murmurs Gastrointestinal: Normal bowel sounds, Soft and benign, Non-distended, No tenderness Musculoskeletal: No clubbing, No swelling, No tenderness Integumentary: No rashes Neurological: Normal gait, Normal speech, Normal strength at 5/5 x4 extr, Normal tone, Sensation intact, Cranial nerves 3-12 intact, Normal affect Lymphatics: No axilla or inguinal lymphadenopathy - Studies Laboratory Data (last 24 hrs) 11/07/21 03:32: Sodium 136, Potassium 4.4, BUN 30 H, Creatinine 1.20, Glucose 369 H, Magnesium 2.3, Total Bilirubin 0.2, AST 6 L, ALT 12, Alkaline Phosphatase 60, Triglycerides 119, Cholesterol 214 H, HDL Cholesterol 37 L, Cholesterol/HDL Ratio 5.78 11/07/21 03:32: WBC 32.40 H*, Hgb 9.6 L, Hct 28.7 L, Plt Count 211 Assessment & Plan - Problems (Diagnosis) (1) COPD exacerbation Current Visit: Yes Status: Acute (2) History of chronic lymphocytic leukemia Current Visit: No Status: Acute (3) Hypertension Current Visit: No Status: Acute Qualifiers: Hypertension type: essential hypertension Qualified Code(s): I10 - Essential (primary) hypertension (4) Hypothyroidism Current Visit: No Status: Acute - Plan Plan: 1. Continue with albuterol and Atrovent nebs 2. Continue with IV steroids 3. Outpatient pulmonary function testing 4. Pulmonary follow-up if symptoms do not improve 5. Room air O2 sats 6. Repeat chest x-ray in the morning 7. GI and DVT prophylaxis Discharge Plan: Home Plan to discharge in: 24 Hours - Advance Directives Does patient have a Living Will: No Does patient have a Durable POA for Healthcare: No - Code Status/Comfort Care Code Status Assessed: Yes Code Status: Full Code Critical Care: No Time Spent Managing PTS Care (In Minutes): 35
[2021-11-07] MEDS ORDERED: GLUCAGON 1 MG/VIAL IM PRN (17:35)
[2021-11-07] MEDS ORDERED: INSULIN 70/30 100 UNITS/ML SQ ONE (17:48)
[2021-11-07] MEDS ORDERED: DEXTROSE 10%-WATER 500 ML IV BAG IV PRN (17:49)
[2021-11-07] MEDS ORDERED: CEFEPIME 2 GM in NA CHLORIDE 0.9% 100 ML IV SCH (21:00)
[2021-11-07] MEDS: DOXYCYCLINE 100 MG CAP PO SCH (21:29)
[2021-11-07] MEDS: predniSONE 20 MG TAB PO SCH (21:30)
[2021-11-08] MEDS: IPRATROPIUM BROM 0.5MG/2.5ML NEB SCH ×3 (02:08→15:03)
[2021-11-08] MEDS: ALBUTEROL 2.5 MG/3 ML NEB SOL NEB SCH ×3 (02:08→15:03)
[2021-11-08] MEDS: ACETAMINOPHEN 500 MG TAB PO PRN ×2 (05:35→09:34)
[2021-11-08] MEDS: LEVOTHYROXINE SOD 0.125 MG TAB PO SCH (07:30)
[2021-11-08 08:35] VITALS: BP 135/64; TEMP 97.8
[2021-11-08] MEDS: GABAPENTIN 300 MG CAP PO SCH ×2 (08:56→11:56)
[2021-11-08] MEDS: METFORMIN ER 500 MG TAB PO SCH (08:56)
[2021-11-08] MEDS: ENOXAPARIN 40 MG/0.4 ML SQ SCH (08:56)
[2021-11-08] MEDS: DOXYCYCLINE 100 MG CAP PO SCH (08:56)
[2021-11-08] MEDS: predniSONE 20 MG TAB PO SCH (08:56)
[2021-11-08] MEDS: lisinopriL 20 MG TAB PO SCH (08:57)
[2021-11-08 10:16] VITALS: O2SAT 96
[2021-11-08] MEDS: BACLOFEN 10 MG TAB PO PRN (11:00)
[2021-11-08] MEDS ORDERED: ACETAMIN/CAFFEINE/BUTALB TAB PO ONE (11:25)
--- NOTE | 2021-11-08 12:00 | P.PN ---
Subjective Date of Service: 11/08/21 Chief Complaint: COPD exacerbation Subjective: Improving (Patient is improving doing well has hypoxic awaiting O2) Review of Systems General: Weakness Respiratory: Cough, Shortness of Breath Physical Examination - Vital Signs Temperature: 97.8 F Blood Pressure: 135/64 Pulse: 89 Respirations: 18 Pulse Ox (%): 97 - Physical Exam General: Alert, In no apparent distress, Oriented x3 Respiratory: Expiratory wheezes Cardiovascular: No edema, Regular rate/rhythm Assessment And Plan - Current Problems (Diagnosis) (1) COPD exacerbation Current Visit: Yes Status: Acute Plan: Patient admitted with presumed COPD exacerbation doing better plan to discharge home on low-dose prednisone inhaled bronchodilator White count was elevated recheck again is 96% on room air vital signs stable stable for discharge plan to follow-up with me in 2 weeks need outpatient work-up still not to smoke
[2021-11-08] MEDS ORDERED: METOPROLOL TAR 50 MG TAB PO ONE (14:05)
[2021-11-08 14:43] LABS: Absolute Lymphocytes (CBC) 19.7 K/uL (0.7-4.9); Hematocrit 31.7 % (36.0-45.0); Lymphocytes % 67.3 % (15.3-44.8); MCV 98.8 fL (80-100); MPV 8.3 fL (7.6-11.3); RBC Red Blood Cell Count 3.21 M/uL (3.86-4.86)
[2021-11-08] MEDS ORDERED: INSULIN 70/30 100 UNITS/ML SQ ONE (15:59)
== END 2021-11-08 16:22 | disposition home or self-care (01) ==
LOC: 4TH 14:18 → INTOOBSV 14:18
PROVIDERS: ADMIT Hospitalist; ATTEND Hospitalist
DX: J44.1 Chronic obstructive pulmonary disease with (acute) exacerbation (principal); R09.02 Hypoxemia; E11.40 Type 2 diabetes mellitus with diabetic neuropathy, unspecified; I10 Essential (primary) hypertension; C91.10 Chronic lymphocytic leukemia of B-cell type not having achieved remission; R53.1 Weakness; E03.9 Hypothyroidism, unspecified; E78.5 Hyperlipidemia, unspecified; F17.210 Nicotine dependence, cigarettes, uncomplicated; Z71.6 Tobacco abuse counseling; Z79.82 Long term (current) use of aspirin; Z79.02 Long term (current) use of antithrombotics/antiplatelets; Z79.899 Other long term (current) drug therapy; Z88.1 Allergy status to other antibiotic agents; Z90.710 Acquired absence of both cervix and uterus; Z90.5 Acquired absence of kidney; Z88.0 Allergy status to penicillin; Z80.9 Family history of malignant neoplasm, unspecified
CPT/HCPCS: 87040; 85025 ×2; 36415 ×2; 83735; 80061; 82947 ×8; 83605 ×2; 81003; 80053; 83880; 71045; 94640 ×8; 94760 ×6; G0379; J1200; J1815 ×2; J7512 ×2; J1650 ×2; J7030; J0692; G0378 ×3

== ENCOUNTER → 2022-08-13 | Day surgery (SDC) | payer OTHER ==
[2022-08-06 16:15] LABS: Absolute Lymphocytes (CBC) 69.4 K/uL (0.7-4.9); Hematocrit 34.2 % (36.0-45.0); Lymphocytes % 90.5 % (15.3-44.8); MCV 97.6 fL (80-100); MPV 7.3 fL (7.6-11.3)
[2022-08-06 16:27] LABS: Potassium 4.4 mEq/L (3.5-5.1)
[2022-08-06 20:21] LABS: Blood Morphology Comment NOT SEEN (NOT SEEN)
[2022-08-06 20:23] LABS: Platelet Estimate ADEQ
--- NOTE | 2022-08-06 20:29 | RAD REPORT ---
EXAM DESCRIPTION: Elsa Pa And Lat (2 Views)08/06/2022 4:01 pm CLINICAL HISTORY: pre op pending proctoscopy. Hypertension COMPARISON: Chest Single View dated 11/07/2021; Chest Single View dated 11/27/2018 TECHNIQUE: Portable AP view of the chest. FINDINGS: The lungs are clear. No pneumothorax or effusion. The cardiomediastinal contours are unre markable. Stable midthoracic scoliosis. Thoracolumbar ronda in place. IMPRESSION: No acute cardiopulmonary process.
[~2022-08-13] MED LIST: CEFAZOLIN SODIUM 1 GM/VIAL ONE; HYDROCODONE/APAP 5/325 MG TAB ONE; HYDROMORPHONE HCL 1 MG/ML INJ ONE; KETOROLAC 30 MG/ML INJ ONE; LIDOCAINE 2% MPF 5 ML VIAL ONE; METRONIDAZOLE 500mg IVPB 500 MG/100 ML BAG IV ONE; NA CHLORIDE 0.9% 1,000 ML ONE; ONDANSETRON 4 MG/2 ML VIAL ONE; dexAMETHasone 4 MG/ML VIAL ONE; propofoL 200 MG/20 ML VIAL IV ONE
--- NOTE | 2022-08-13 12:59 | P.BOP ---
Preoperative diagnosis: perianal pain, fissure, prolapse thrombosed hemorrhoid, Postoperative diagnosis: same Primary procedure: EUA, anoscopy, rigid proctoscopy, hemorrhoidectomy external one bundle Estimated blood loss: <10cc Specimen: hemorrhoid Findings: as above , internal and external hemorrhoids Anesthesia: General Complications: None Drain(s): Other (surgicell) Transferred to: Recovery Room Condition: Good
[2022-08-13] MEDS: FENTANYL CITR 100 MCG/2 ML ONE ×4 (13:11→13:28)
--- NOTE | 2022-08-13 13:25 | OP ---
Date of Procedure: 08/13/2022 Surgeon: Santi Reich MD Preoperative Diagnoses: Perianal pain, fissure, prolapsed and thrombosed hemorrhoid. Postoperative Diagnoses: Perianal pain, fissure, prolapsed and thrombosed hemorrhoid. Procedures: Examination under anesthesia, anoscopy, rigid proctoscopy, hemorrhoidectomy external. Estimated Blood Loss: Less than 10 mL. Specimen: Hemorrhoids. Finding: As above plus internal and external hemorrhoids. Anesthesia: General plus local. Complications: None. Packing: Surgicel, gauze. Indication: This is the case of a 77-year-old patient, who comes to us due to perianal tenderness. She was seen several months ago at [facility] with prolapsed bleeding hemorrhoids. We treated h er with steroid creams. At that moment, she also had a fissure. We recommended her to have colonosc opies done and also have an EUA, anoscopy, rigid proctoscopy, possible hemorrhoidectomy or fistulecto my found. At that moment, it was difficult to see. She was therefore some other problems including the leg issue, so now we have a better visualization of the area. The patient has been trying to con trol any constipation, avoid any damage to that region. The benefits, alternatives, and risks of EUA , anoscopy, rigid proctoscopy, possible hemorrhoidectomy fully explained, which include, but not limi holly to infection, bleeding, damage to adjacent structures, anesthesia complication, anal stricture, a nal incontinence, NH, and even . She also understands this may not relieve any symptoms. She m ight need more than one surgical intervention. She understood and signed a consent. Procedure In Detail: The patient was brought to the operating room, placed in supine position. Anes thesia was done without complication. The patient was placed in lithotomy position with proper prote ction. Perianal area was prepped and draped in the usual sterile fashion. A time-out was called. F irst, we did a rigid proctoscopy all the way to about 12-15 cm. No masses found in the area. We fou nd internal and external hemorrhoids. The area that previously we were concerned several months ago has still prolapsed hemorrhoid present, friable bleeding by touch, so that area we are going to remov e today. We did an anoscopy with a window on the side. This allowed me to once again confirm the fi ndings. At that moment, I proceeded to open the anoderm in that region, separate the hemorrhoid from the sphincter and transect the hemorrhoidal plexus with the help of Harmonic Scalpel. Hemostasis wa s obtained. The anoderm was approximated with 3-0 chromic. A Surgicel placed over that area. The p atient tolerated the procedure well. No bleeding. Sponge count, instrument counts correct. The pat ient sent to recovery in stable condition. ADILIA/LIAN Voice ID: [id number] Report ID: [id number]
--- NOTE | 2022-08-13 13:25 | DS ---
Diagnoses: Perianal pain, fissure, prolapsed thrombosed hemorrhoid, internal and external hemorrhoid s. Procedures: EUA, anoscopy, rigid proctoscopy, hemorrhoidectomy. Disposition: Home. Activity: As tolerated. No heavy lifting. Plan: Follow up in my office in 1 week. Sitz baths 4 times a day and after every bowel movement. W e are going to give her Flagyl and Vicodin for medications. ADILIA/LIAN Voice ID: [id number] Report ID: [id number]
[2022-08-13 14:46] VITALS: O2SAT 99
[2022-08-13 14:47] VITALS: BP 153/93; TEMP 98
== END | disposition home or self-care (01) ==
LOC: OR 09:23
PROVIDERS: ATTEND Surgery
PROC: 06BY0ZC Excision of Hemorrhoidal Plexus, Open Approach (ICD-10-PCS; 2022-08-13)
PROC: 0DJD8ZZ Inspection of Lower Intestinal Tract, Via Natural or Artificial Opening Endoscopic (ICD-10-PCS; principal; 2022-08-13 12:30)
DX: K64.5 Perianal venous thrombosis (principal); K62.89 Other specified diseases of anus and rectum; K60.2 Anal fissure, unspecified; K64.8 Other hemorrhoids
CPT/HCPCS: 85025; 80048; 36415 ×2; 84295; 82947 ×2; 88304; 71046; 45300; 46320; J2704; J1100; J2001; J3010; J1170; J2405; J7030; J0690

== ENCOUNTER 2022-09-30 18:51 | Inpatient (IN) | payer OTHER ==
--- OUTSIDE RECORDS SUMMARY | 2022-09-30 18:58 | XMS REPORT | Continuity of Care Document ---
:1945 Author Organization [facility] t Address [address] [place] [address] Care Team Providers Name Role Phone Karol GALAN MD, Tristian Zuñiga Primary Care Physician [phone] Hunter, Rick H Attending Clinician Unavailable Hunter, Rick H Attending Clinician Unavailable Tk Fermin Attending Clinician Unavailable Gena Webster MA Attending Clinician Unavailable Amaya Garcia MA Attending Clinician Unavailable Nahid Oseguera MD Attending Clinician Alexandre Rivas MD Attending Clinician ESTEBAN EVANS Attending Clinician Unavailable LEI HUANG Attending Clinician Unavailable Ishan Valenzuela MD Attending Clinician Gianni Enamorado MD Attending Clinician Yuli Piper Attending Clinician Provider, Unknown Attending Clinician Unavailable Shubham Sprague MD Attending Clinician Kajal Garibay Attending Clinician Nicolas Cox MA Attending Clinician Unavailable JUVENTINO DE LEON Attending Clinician Unavailable Jaylen Lora Attending Clinician Unavailable Jaylen Lora Attending Clinician Unavailable Hunter, Rick H Admitting Clinician Unavailable kT Fermin Admitting Clinician Unavailable JUAN OCONNELL Admitting Clinician Unavailable ISHAN VALENZUELA Admitting Clinician Unavailable Jaylen Lora Admitting Clinician Unavailable Payers Payer Name Policy Type Policy Number Effective Date Expiration Date Corey GUZMAN CHOICE POS [id number] 2020 00:00:00 II Problems Condition Condition Condition Status Onset Resolution Last Treating Co mments Source Name Details Category Date Date Treatment Clinician Date Primary Primary Disease Active 2021-02 [facility] osteoarthr osteoarthr 03-21 [facility] 00:[facility]: Hospita left hip left hip 00 l Allergies, Adverse Reactions, Alerts Allergy Allergy Status Severity Reaction(s) Onset Inactive Treating Comm ents Source Name Type Date Date Clinician Levoflox Propensi Active Other (See Sever Me thodi acin ty to Comments) 1-[address] adverse 00:00: pains Hospita reaction 00 l s to drug Penicill Propensi Active Swelling 2021-02 Meth racheal ins ty to 02-24 st adverse 00:00: Hospita reaction 00 l s to drug Penicill DA Active [place] 2019-02 [facility] [place] 00:[facility]: [address] levoflox DA Active [place] 2019-02 [facility] acin [facility] [place] 00:[facility]: [address] Penicill DA Active [place] HIVES 2019-02 [facility] [place] 00:[facility]: [address] levoflox DA Active MO JOINT PAIN 2019-02 [facility] acin 2-20 [place] 00:00: [address] Penicill Propensi Active Swelling Meth racheal in G ty to 9-10 st adverse 00:00: Hospita reaction 00 l s to drug penicill Drug Active [facility]. in [facility] Levaquin Drug Active [facility] penicill Drug Active [facility] in [facility] Levaquin Drug Active [facility] penicill Drug Active [facility] Levaquin Drug Active [facility] penicill Drug [facility] Levaquin Drug Active [facility] penicill Drug Active [facility] in [facility] Levaquin Drug Active [facility] penicill Drug Active [facility] in [facility] Levaquin Drug Active [facility] penicill Drug Active [facility] in [facility] Lev[facility]quin Drug Active [facility] penicill Drug Active [facility] in [facility] Levaquin Drug Active [facility] penicill Drug Active [facility] in [facility] Levaquin Drug Active [facility] penicill Drug Active [facility] in [facility] Levaquin Drug Active [facility] penicill Drug [facility] Levaquin Drug Active [facility] penicill Drug [facility] Levaquin Drug Active [facility] penicill Drug [facility] Levaquin Drug Active [facility] penicill Drug [facility] Levaquin Drug Active [facility] penicill Drug [facility] Levaquin Drug Active [facility] penicill Drug [facility] Levaquin Drug Active [facility] penicill Drug [facility] Levaquin Drug Active [facility] penicill Drug [facility] Levaquin Drug Active [facility] penicill Drug [facility] in [facility] Levaquin Drug Active [facility] penicill Drug Active [facility] in [facility] Levaquin Drug Active [facility] penicill Drug Active [facility] in [facility] Levaquin Drug Active [facility] Family History Family Member Diagnosis Comments Start Date Stop Date Source Natural father Cancer [facility] Natural father Diabetes [facility] Grandchild Diabetes [facility] Natural mother Cancer [facility] Natural son Cancer [facility] Natural son Diabetes [facility] Social History Social Habit Start Date Stop Date Quantity Comments Source Gender identity 2018-10-24 Identifies as [facility] 09:19:13 female gender Hospital (finding) Sexual orientation 2018-10-24 Heterosexual [facility]ist 09:19:13 (finding) Hospital History of tobacco Smokes tobacco [facility] use daily Hospital Alcohol intake 2022-06-15 2022-06-15 Lifetime Sabianism 00:00:00 00:00:00 non-drinker Hospital (finding) History of Social 2022-06-15 2022-06-[address] function 00:00:00 00:00:00 Hospital Tobacco use and 2022-01-26 2022-01-26 Smokeless tobacco [facility] exposure 00:00:00 00:00:00 non-user Hospital Sex Ass[birth year] At [birth year] ROSA Shaikh kecorey 00:00:00 [facility]00 [facility] Smoking Status Start Date Stop Date Source Smokes tobacco daily 2022-01-26 00:00:00 [facility] Medications Ordered Filled Start Stop Current Ordering Indication Dosage Frequency Signature Comments Components Source Medication Medication Date Date Medication? Clinician (SIG) Name Name aspirin Yes 81mg QD Take 1 [facility] (ECOTRIN) - tablet (81 st 81 MG 14:00: mg total) Hospita enteric 59 by mouth l coated daily. tablet Last dose 03/18/22 in prep for surgery per cardiologi esther n. semaglutide Yes 1{tbl} QD Take 1 Me thodi (Rybelsus) -[address] 3 mg tablet 14:00: mouth Hospi ta 59 daily l before breakfast. baclofen Yes 10mg Take 1 [facility] (LIORESAL) - tablet (10 st 10 MG 14:00: mg total) Hospita tablet 59 by mouth l as needed for muscle spasms. primidone Yes 250mg QD Take 1 Metho di (MYSOLINE) 4-[address] 250 MG 14:00: (250 mg Hospita tablet 59 total) by l mouth nightly. Takes nightly for tremors insulin Yes Inject Methodi ASPART - under the st (NovoLOG) 14:00: skin as Hospi ta 100 unit/mL 59 needed for l injection high blood sugar (uses sliding scale). Only takes if elevated sugar. Hasn't needed in months. Sugar running around 140. insulin Yes Inject [facility]i DETEMIR -[address] (Levemir 14:00: skin. Hospita FlexPen) 59 l 100 unit/mL (3 mL) insulin pen metoprolol Yes bid Methodi [place]-hydrochl - st orothiaz 14:00: Hospita 100-12.5 mg 59 l tablet extended release 24 hr tamsulosin 0 Yes .4mg QD Take 1 Metho di (FLOMAX) 4-[address] 0.4 mg 14:00: (0.4 mg Hospita capsule 59 total) by l mouth daily with dinner. atorvastati 0 Yes 20mg QD Take 1 Meth racheal n (LIPITOR) 4-28 tablet (20 st 20 mg 14:00: mg total) Hospita tablet 59 by mouth l daily. temazepam 0 Yes 7.5mg QD Take 1 Metho di (RESTORIL) 4-[address] 7.5 MG 14:00: (7.5 mg Hospita capsule 59 total) by l mouth nightly as needed for sleep. Lactobacill Yes Take by Met ara us 4-[address] acidophilus 14:00: Hospit a (Probiotic) 59 l 10 billion cell capsule cyanocobala 0 Yes 100ug QD Take 1 Met bettiei min 100 MCG 4-[address] tablet 14:00: (100 mcg Hospita 59 total) by l mouth daily. cetirizine 0 Yes 10mg QD Take 1 Metho di (ZyrTEC) 10 4-28 tablet (10 st MG tablet 14:00: mg total) Hos hermes 59 by mouth l daily. pumpkin 0 Yes Take by Methodi seed 4-[address] extract/soy 14:00: Hospit a germ (AZO 59 l BLADDER CONTROL ORAL) diphenhydra 0 Yes Take by Met ara mine HCl 4-[address] (BENADRYL 14:00: Hospita ALLERGY 59 l ORAL) clopidogreL 0 Yes 75mg QD Take 1 Meth racheal (PLAVIX) 75 4-28 tablet (75 st mg tablet 14:00: mg total) Hos hermes 59 by mouth l daily. Last dose 03/18/22 in prep for surgery per cardiologi st montserratio n. levothyroxi 0 Yes 150ug QD Take 1 Met hodi ne 4-[address] (SYNTHROID) 14:00: (150 mcg Ho spita 150 mcg 59 total) by l tablet mouth daily. doxazosin 0 Yes 4mg QD Take 1 Method i (CARDURA) 4 06-15 tablet (4 st MG tablet 14:00: mg total) Hos hermes 59 by mouth l nightly. gabapentin Yes 600mg Q.25D Take 1 Met hodi (NEURONTIN) 06-[address] 600 mg 14:00: (600 mg Hospita tablet 59 total) by l mouth 4 (four) times a day. metoprolol 2022- No 100mg Q.5D Take 1 Met hodi tartrate 06-[address] (LOPRESSOR) 14:00: 00:00 (100 mg Ho spita 100 mg 58 :00 total) by l tablet mouth 2 (two) times a day. metFORMIN 2022- No 1000mg Q.5D Take 2 Met hodi (GLUCOPHAGE 06-[address] ) 500 mg 14:00: 00:00 (1,000 mg Hos hermes tablet 48 :00 total) by l mouth 2 (two) times a day with meals. lisinopriL 2022- No 1{tbl} Q.5D Take 1 Me thodi 20 mg 06-[address] tablet 20 14:00: 00:00 mouth 2 Hosp sudha mg, 37 :00 (two) l hydroCHLORO times a thiazide 25 day. MG tablet 12.5 mg HYDROcodone 2022- [place] [address] 1{tbl} Q6H Take 1 Methodi -acetaminop 06-[address] hen (NORCO) 13:53: 00:00 mouth Hosp sudha 5-325 mg 08 :00 every 6 l per tablet (six) hours as needed for moderate pain .acute pain. Pt takes mostly at bedtime only if needed Max Daily Amount: 4 tablets evolocumab 2022- No 140mg Q14D Inject 1 M ethodi (Repatha 06-15 mL ([address] SureClick) 13:53: 00:00 total) Hosp sudha 140 mg/mL 01 :00 under the l pen skin every injector 14 injection (fourteen) days. Takes every 2 weeks levothyroxi 2022- No Metho di ne -[address] (SYNTHROID) 14:05: 00:00 Hospi ta 125 mcg 44 :00 l tablet zolpidem 2022- No 5mg QD Take 1 Method i (AMBIEN) 5 03-05 tablet (5 st MG tablet 10:27: 00:00 mg total) Ho spita 49 :00 by mouth l nightly as needed for sleep. GABAPENTIN 2022- No Method i ENACARBIL 03-05 st ORAL 07:35: 00:00 Hospita 48 :00 l clopidogrel 2022- No Metho di bisulfate 03-05 st (CLOPIDOGRE 07:35: 00:00 Hospi ta L ORAL) 38 :00 l lidocaine 2021-02- No 1{patch QD Place 1 M ethodi (LIDODERM) 02-24 } patch on st 5 % 00:00: 05:59 the skin Hospita 00 :00 daily for l 30 days. Remove & Discard patch within 12 hours or as directed by lisinopriL 2018-02 Yes 20mg 1 tablet Met hodi (PRINIVIL) 0-10 ([address] 20 mg 00:00: total). Hospita tablet 00 l zolpidem 2022- No QD nightly as Me thodi (AMBIEN) 10 10-[address] mg tablet 00:00: 00:00 Hospita 00 :00 l metoprolol 2022- No Method i tartrate 8-30 03-05 st (LOPRESSOR) 00:00: 00:00 Hospi ta 100 mg 00 :00 l tablet simvastatin 2022- Metho di (ZOCOR) 40 7-20 03-05 st MG tablet 00:00: 00:00 Hospita 00 :00 l metFORMIN 2022- No Methodi XR 6-12 03-05 st (GLUCOPHAGE 00:00: 00:00 Hospi ta -XR) 500 mg 00 :00 l 24 hr tablet Immunizations Ordered Immunization Filled Immunization Date Status Commen ts Source Name Name [employer] COVID-19 MRNA 2020-11-23 Completed [facility] VACCINATION 00:00:00 [facility] [employer] COVID-19 MRNA 2020-05-23 Completed [facility] VACCINATION 00:00:00 [facility] [employer] COVID-19 MRNA 2020-04-29 Completed [facility] VACCINATION 00:00:00 Hospital Vital Signs Vital Name Observation Time Observation Value Comments Source Height/Length 2019-03-17 23:20:55 Measured Height/Length 2021-03-07 09:11:22 157 cm Measured Weight Dosing 2021-03-07 09:11:22 75.00 kg Height/Length 2021-03-07 08:54:18 157 cm Measured Weight Dosing 2021-03-07 08:54:18 75.00 kg Height/Length 2021-03-07 08:52:18 157 cm Measured Weight Dosing 2021-03-07 08:52:18 75.00 kg Height/Length 2021-03-07 08:51:33 157 cm Measured Weight Dosing 2021-03-07 08:51:33 75.00 kg Height/Length 2021-03-07 08:50:37 157 cm Measured Weight Dosing 2021-03-07 08:50:37 75.00 kg Height/Length 2021-03-07 08:50:29 157 cm Measured Weight Dosing 2021-03-07 08:50:29 75.00 kg Height/Length 2021-03-07 08:50:24 157 cm Measured Weight Dosing 2021-03-07 08:50:24 75.00 kg Height/Length 2021-03-07 08:50:23 157 cm Measured Weight Dosing 2021-03-07 08:50:23 75.00 kg Height/Length 2021-03-07 08:50:22 157 cm Measured Weight Dosing 2021-03-07 08:50:22 75.00 kg Height/Length 2021-03-07 08:50:20 157 cm Measured Weight Dosing 2021-03-07 08:50:20 75.00 kg Height/Length 2021-03-07 08:50:09 157 cm Measured Weight Dosing 2021-03-07 08:50:09 75.00 kg Height/Length 2021-03-07 08:50:00 157 cm Measured Weight Dosing 2021-03-07 08:50:00 75.00 kg Height/Length 2021-03-07 08:49:44 157 cm Measured Weight Dosing 2021-03-07 08:49:44 75.00 kg Height/Length 2021-03-07 11:52:07 157.48 cm Measured Weight Dosing 2021-03-07 11:52:07 69.399 kg Height/Length 2019-10-02 07:52:55 Measured Weight Dosing 2019-10-02 07:52:55 Systolic blood 2022-06-15 19:07:00 155 mm[Hg] [facility] pressure Diastolic blood 2022-06-15 19:07:00 70 mm[Hg] [facility] pressure Heart rate 2022-06-15 19:07:00 65 /min [facility] Body temperature 2022-06-15 19:07:[address] [facility] Respiratory rate 2022-06-15 19:07:00 16 /min [facility] Body height 2022-06-15 19:07:00 157.5 cm [facility] Body weight 2022-06-15 19:07:00 60.328 kg [facility] BMI 2022-06-15 19:07:00 24.33 kg/m2 [facility] Oxygen saturation in 2022-06-15 19:07:00 100 /min [facility] Arterial blood by Pulse oximetry Procedures Procedure Date / Time Performing Clinician Source Performed CBC WITH PLATELET AND 2022-06-15 19:25:[address] [facility] DIFFERENTIAL COMPREHENSIVE METABOLIC 2022-06-15 19:25:00 Kevin Treviño Irma [facility] PANEL HEMOGLOBIN A1C 2022-06-15 19:25:00 Irma Arechiga [facility] TYPE AND SCREEN 2022-06-15 19:25:00 Irma Arechiga [facility] ESTIMATED GFR 2022-06-15 19:25:00 Irma Arechiga [facility] MANUAL DIFFERENTIAL 2022-06-15 19:25:[address] [facility] PATHOLOGIST REVIEW OF 2022-06-15 19:25:[address] [facility] PERIPHERAL SMEAR URINE CULTURE 2022-03-19 21:20:00 Irma Arechiga [facility] URINALYSIS SCREEN AND 2022-03-19 21:20:[address] [facility] MICROSCOPY, WITH REFLEX TO CULTURE CBC WITH PLATELET AND 2022-03-19 21:15:[address] [facility] DIFFERENTIAL COMPREHENSIVE METABOLIC 2022-03-19 21:15:[address] [facility] PANEL HEMOGLOBIN A1C 2022-03-19 21:15:00 Irma Arechiga Hospital TYPE AND SCREEN 2022-03-19 21:15:00 Irma Arechiga [facility] ESTIMATED GFR 2022-03-19 21:15:00 Irma Arechiga Hospital MANUAL DIFFERENTIAL 2022-03-19 21:15:[address] [facility] OR [place] < 1 HOUR 2022-03-05 15:20:00 Ishan Valenzuela ospital INJECTION, STEROID, 2022-03-05 [facility] SPINE, LUMBAR, EPIDURAL, SINGLE POC GLUCOSE 2022-03-05 13:38:[address] LUMBAR SPINE WO 2022-03-01 21:33:02 [facility] CONTRAST MRI THORACIC SPINE WO 2022-03-01 20:54:53 [facility] CONTRAST MRI LUMBAR SPINE WO 2022-01-03 17:55:00 Shubham Sprague [facility] CONTRAST MRI LOWER EXTREMITY 2022-01-03 17:55:00 Shubham Sprague Met [facility] JOINT WO CONTRAST LEFT XR HIP 4 VIEWS LEFT 2021-12-25 18:33:55 Shubham Sprague Met [facility] [id number] 2020-02-10 00:00:[address] [facility] [id number] 2020-02-10 00:00:[address] [facility] [id number] 2020-02-10 00:00:[address] [facility] [id number] 2020-02-10 00:00:[address] [facility] Plan of Care Planned Activity Planned Date Details Comments Source Future Scheduled 2022-09-19 65+ PNEUMOCOCCAL [facility] Test 22:42:09 VACCINE (1 - PCV) [code = 65+ PNEUMOCOCCAL VACCINE (1 - PCV)] Future Scheduled 2022-09-19 DIABETES: RETINAL EYE [facility] Test 22:42:09 EXAM [code = DIABETES: RETINAL EYE EXAM] Future Scheduled 2022-09-19 DIABETIC FOOT EXAM [facility] Test 22:42:09 [code = DIABETIC FOOT EXAM] Future Scheduled 2022-09-19 Hepatitis C screening [facility] Test 22:42:09 (procedure) [code = 654273709] Future Scheduled 2022-09-19 SHINGLES VACCINES (1 Met [facility] Test 22:42:09 of 2) [code = SHINGLES VACCINES (1 of 2)] Future Scheduled 2022-09-19 COVID-19 VACCINE (4 - [facility] Test 22:42:09 Booster for Pfizer series) [code = COVID-19 VACCINE (4 - Booster for Pfizer series)] Future Scheduled 2022-09-19 INFLUENZA VACCINE [facility] Test 22:42:09 [code = INFLUENZA VACCINE] Encounters Start End Encounter Admission Attending Care Care Encounter Source Date/Time Date/Time Type Type Clinicians Facility Department ID 2022-09-30 [facility] [id number] [facility] 00:00:00 Encounter [facility] 2022-04-23 Outpatient [facility] [id number] [place] 16:29:37 [id number] [facility] 2022-04-18 Outpatient [facility] [id number] [place] 10:46:18 [id number] [facility] 2022-04-17 Outpatient [facility] [id number] [place] 11:43:29 [id number] [facility] 2022-04-10 Outpatient [facility] [id number] [place] 12:20:21 [id number] [facility] 2020-02-07 Inpatient [facility] [id number] [facility] 21:10:[address] [place] [address] 2019-03-17 Inpatient 2 Rcik Harrison [facility] TEL [id number] 21:33:00 Rick Harrison -[id number] [facility] 2019-03-17 Inpatient 2 Zander [facility] MED [id number] St. 16:03:00 [facility] 2022-07-09 2022-07-09 Telephone Eleanor, 1.2.840.1 [id number] Methodi 00:00:00 00:00:[address] 3.430.2.7 Hospit a .3.911168 l .8 2022-07-02 2022-07-02 Telephone Jose, 1.2.840.1 [id number] Methodi 00:00:00 00:00:[address] 3.430.2.7 Hospit a .3.752478 l .8 2022-06-15 2022-06-15 Pre-Admiss Tim, 1.2.840.1 [id number] Methodi 11:40:00 12:40:00 ion Nahid 52353.1.[address] Testing Kapil 3.430.2.7 Hospit a .3.295873 l .8 2022-06-15 2022-06-15 Office Tim, 1.2.840.1 [id number] Methodi 09:45:00 12:37:18 Visit Nahid 36995.1.[address] Kapil 3.430.2.7 Hospit a .3.031482 l .8 2022-06-15 2022-06-15 Telephone Tim, 1.2.840.1 [id number] Methodi 00:00:00 00:00:[address] Kapil 3.430.2.7 Hospit a .3.331544 l .8 2022-06-15 2022-06-15 Travel 1.2.840.1 1.2.241.022 [id number] Methodi 00:00:00 00:00:[address] 3.430.2.7 0.2.7.3.698 Ho spita .3.165105 084.8 l .8 2022-06-15 2022-06-15 Outpatient [facility] [id number] [place] 00:00:00 00:00:00 NAHID [address] 2022-06-15 2022-06-15 Outpatient [facility] [id number] [place] 00:00:00 00:00:00 NAHID [address] 2022-06-15 2022-06-15 Outpatient TIM, [facility] [id number] [address] [place] 00:00:00 00:00:00 NAHID [address] 2022-06-11 2022-06-11 Telephone Tim, 1.2.840.1 [id number] Methodi 00:00:00 00:00:[address] Kapil 3.430.2.7 Hospit a .3.618630 l .8 2022-05-03 2022-05-03 Office Saifi, 1.2.840.1 [id number] Methodi 11:30:00 11:44:10 Visit Comron 89327.1.[address] 3.430.2.7 Hospit a .3.151595 l .8 2022-05-03 2022-05-03 Orders Saifi, 1.2.840.1 [id number] Methodi 00:00:00 00:00:00 Only Comron 27420.1.[address] 3.430.2.7 Hospit a .3.649014 l .8 2022-05-03 2022-05-03 Orders Saifi, 1.2.840.1 [id number] Methodi 00:00:00 00:00:00 Only Comron 95547.1.[address] 3.430.2.7 Hospit a .3.260739 l .8 2022-05-03 2022-05-03 Outpatient SAIFI, [facility] [id number] [place] 00:00:00 00:00:00 COMRON [address] 2022-05-03 2022-05-03 Outpatient SAIFI, [facility] [id number] [address] [place] 00:00:00 00:00:00 COMRON [address] 2022-04-18 2022-04-18 Outpatient CRISTINA [facility] [id number] [place] 10:30:00 10:30:00 [facility] 2022-04-05 2022-04-10 Inpatient U REINA, [facility] [id number] [facility] 13:37:00 16:11:00 LEI 2022-03-19 2022-03-19 Pre-Admiss Tim, 1.2.840.1 [id number] Methodi 13:20:00 14:20:00 ion Nahid 40794.1.[address] Testing Kapil 3.430.2.7 Hospit a .3.796608 l .8 2022-03-19 2022-03-19 Travel 1.2.840.1 1.2.196.273 [id number] Methodi 00:00:00 00:00:[address] 3.430.2.7 0.2.7.3.698 Ho spita .3.727123 084.8 l .8 2022-03-19 2022-03-19 Outpatient [facility] [id number] [place] 00:00:00 00:00:00 NAHID [address] 2022-03-05 2022-03-05 [facility] 1.2.840.1 [id number] Methodi 06:27:00 10:20:00 Encounter Ishan Davies 11082.1.[address] 3.430.2.7 Hospit a .3.852011 l .8 2022-03-05 2022-03-05 Anesthesia Kelsea Gianni 1.2.840.1 [id number] Methodi 09:01:00 09:20:00 Event Yuli Barron 54731.1.[address] 3.430.2.7 Hospit a .3.232267 l .8 2022-03-05 2022-03-05 Surgery [facility] 1.2.840.1 [id number] Methodi 08:33:00 08:44:00 Ishan Davies 15148.1.[address] 3.430.2.7 Hospit a .3.489767 l .8 2022-03-05 2022-03-05 Travel 1.2.840.1 1.2.095.252 [id number] Methodi 00:00:00 00:00:[address] 3.430.2.7 0.2.7.3.698 Ho spita .3.428518 084.8 l .8 2022-03-05 2022-03-05 Outpatient VALENZUELA, [facility] [id number] [address] [place] 00:00:00 00:00:00 ISHAN [address] 2022-03-01 2022-03-01 [facility], 1.2.840.1 [id number] Methodi 12:59:55 23:59:00 Encounter Comron 07859.1.[address] 3.430.2.7 Hospit a .3.515422 l .8 2022-03-01 2022-03-01 [facility], 1.2.840.1 [id number] Methodi 12:59:30 23:59:00 Encounter Comron [address]358.1.[address] 3.430.2.7 Hospit a .3.559387 l .8 2022-03-01 2022-03-01 Travel 1.2.840.1 1.2.478.395 [id number] Methodi 00:00:00 00:00:[address] 3.430.2.7 0.2.7.3.698 Ho spita .3.311372 084.8 l .8 2022-03-01 2022-03-01 [facility], [facility] [id number] [address] [place] 00:00:00 00:00:00 COMRON 690 Method i 2022-03-01 2022-03-01 Outpatient [facility], [facility] [id number] [address] [place] 00:00:00 00:00:00 COMRON [address] 2022-02-28 2022-02-28 Documentat Provider, 1.2.840.1 [id number] Methodi 00:00:00 00:00:00 ion Unknown 26813.1.[address] 3.430.2.7 Hospit a .3.453658 l .8 2022-02-28 2022-02-28 Jana Garcia, 1.2.840.1 [id number] Methodi 00:00:00 00:00:00 Only Amaya 48542.1.[address] 3.430.2.7 Hospit a .3.445239 l .8 2022-02-13 2022-02-13 Travel 1.2.840.1 1.2.712.227 [id number] Methodi 00:00:00 00:00:[address] 3.430.2.7 0.2.7.3.698 Ho spita .3.069484 084.8 l .8 2022-01-26 2022-01-26 Office Saifi, 1.2.840.1 [id number] Methodi 09:30:00 12:00:18 Visit Comron 54832.1.[address] 3.430.2.7 Hospit a .3.836338 l .8 2022-01-26 2022-01-26 Orders Saifi, 1.2.840.1 [id number] [id number] 7633 Methodi 00:00:00 00:00:00 Only [place] [address]258.1.[address] 3.430.2.7 Hospit a .3.099779 l .8 2022-01-26 2022-01-26 Orders Saifi, 1.2.840.1 [id number] 599059 3025 Methodi 00:00:00 00:00:00 Only [place] [address]509.1.[address] 3.430.2.7 Hospit a .3.416843 l .8 2022-01-26 2022-01-26 Outpatient SAIFI, [facility] [id number] [address] [place] 00:00:00 00:00:00 [place] [address] 2022-01-26 2022-01-26 Outpatient SAIFI, [facility] [id number] [address] [place] 00:00:00 00:00:00 COMRON [address] 2022-01-18 2022-01-18 Office Brown, 1.2.840.1 [id number] 7881 Methodi 11:00:00 11:30:00 Visit Nahid 62749.1.[address] Kapil 3.430.2.7 Hospit a .3.121611 l .8 2022-01-18 2022-01-18 Travel 1.2.840.1 1.2.107.106 4150 [id number] Methodi 00:00:00 00:00:[address] 3.430.2.7 0.2.7.3.698 Ho spita .3.102421 084.8 l .8 2022-01-18 2022-01-18 Outpatient [facility] [id number] [address] 00:00:00 00:00:00 NAHID [address] 2022-01-03 2022-01-03 [facility], 1.2.840.1 [id number] 47821 60104 Methodi 10:43:22 23:59:00 Encounter Shubham 80859.1.[address] Kervin 3.430.2.7 Hospit a .3.314078 l .8 2022-01-03 2022-01-03 [facility], 1.2.840.1 [id number] 11917 Methodi 10:12:03 10:42:00 Encounter Shubham 24088.1.[address] Kervin 3.430.2.7 Hospit a .3.592711 l .8 2022-01-03 2022-01-03 Travel 1.2.840.1 1.2.593.716 5915 171999 Methodi 00:00:00 00:00:[address] 3.430.2.7 0.2.7.3.698 Ho spita .3.358779 084.8 l .8 2022-01-03 2022-01-03 Outpatient [facility] [id number] [address] [place] 00:00:00 00:00:00 SHUBHAM [address] 2022-01-03 2022-01-03 Outpatient [facility] [id number] [address] [place] 00:00:00 00:00:00 SHUBHAM [address] 2021-12-25 2021-12-25 Office [place], 1.2.840.1 [id number] 2100 574887 Methodi 12:00:00 14:50:29 Visit Kajal 13358.1.[address] 3.430.2.7 Hospit a .3.037648 l .8 2021-12-25 2021-12-25 Travel 1.2.840.1 1.2.785.053 0909 [id number] Methodi 00:00:00 00:00:[address] 3.430.2.7 0.2.7.3.698 Ho spita .3.245458 084.8 l .8 2021-12-25 2021-12-25 Outpatient [facility] [id number] [address] [place] 00:00:00 00:00:[address] 2021-12-25 2021-12-25 Outpatient SPRAGUE, [facility] [id number] [address] [place] 00:00:00 00:00:00 SHUBHAM [address] 2021-12-21 2021-12-21 Orders Kenny 1.2.840.1 [id number] 032 [id number] Methodi 00:00:00 00:00:00 Only Nicolas 61204.1.[address] 3.430.2.7 Hospit a .3.604938 l .8 2021-12-19 2021-12-19 Jana Cox 1.2.840.1 [id number] 677 [id number] Methodi 00:00:00 00:00:00 Only Nicolas 86438.1.[address] 3.430.2.7 Hospit a .3.927567 l .8 2020-11-23 2020-11-23 Outpatient [facility] [id number] [address] [place] 00:00:00 00:00:[address] 2020-05-23 2020-05-23 Outpatient HALEY [facility] [id number] [address] [place] 00:00:00 00:00:00 JUVENTINO 944 [address] th[address] 2020-04-29 2020-04-29 Outpatient [facility] [id number] [address] [place] 00:00:00 00:00:[address] 2019-10-02 2019-10-02 Outpatient 3 [facility] MATTHEW [id number] 05:32:00 13:20:00 Geno, [facility] 2019-10-02 2019-10-02 Outpatient 3 [facility] MATTHEW [id number] 05:32:00 05:32:00 [facility] -[id number] [address] [place] [address] 2018-12-18 2018-12-18 Outpatient 3 [facility] LBS [id number] 09:52:00 23:59:00 [facility] Results Test Description Test Time Test Comments Results Result Comments Source Urine culture 2022-03-19 23:42:00 Test Item Value Reference Range Interpretation Comme nts Urine culture (test code = 1154416) SEE COMMENT Bacteriuria screen negative. [facility] [id number] 13:39:00 Test Item Value Reference Range Interpretation Comments POC glucose (test code 173 mg/dL 65-99 H Opera tor Name: Robel = [id number]) Savanna Chin D: [id number] able: RN Notified Lab Interpretation Abnormal (test code = 77255-0) [facility] [id number] 10:23:00 Test Item Value Reference Range Interpretation Comments GLUCOSE BEDSIDE TESTING (test code 126 MG/DL 60-99 H = GLUBED) COLON,[id number] 15:59:00 Test Item Value Reference Range Interpretation Comments COLON,BIOPSY (test code = COLONBX) -----RUN DATE: 02/11/20 [place] - LAB PAGE 1 RUN TIME: 1600 Specimen Inquiry RUN USER: INTERFACE -----PATIENT: ADRIANA CADENA LOC: Z.5MU U #: [id number] AGE/SX: 74/F ROOM: [facility] RE02/07/20REG DR: Tayla Turcios MD : 46 BED: A DIS: 02/10/20 STATUS: DIS IN TLOC: ----- SPEC #: [id number]:FELDMAN:[id number] RECD: 02/10/20 STATUS: ALLEN REQ #: [id number] DENIS: 02/10/20 [facility] DR: Tayla Turcios MD ENTERED: 02/10/20 SP TYPE: COLONBX OTHR DR: No Primary or Family Physician Self Referred Mark Treviño MD, Eseroghene MD Rance, Ronald MDORDERED: SURG PATH LVL 4 CODES: [id number] - DESCENDING COLO BIOPSY, NOS [id number] - DESCENDING COLO INFLAMMATION, N COPIES TO: No Primary or Family Physician Self Referred Tayla Turcios MD [address] [place], [place] [address] [place] [address] [facility] [address] [place], [place] [id number] Michelle Muñoz MD [address] [place] [address] Brian Nuñez MD [address] [facility] [address] [place], [place] [id number] PROCEDURES: SURG PATH LVL 4 (02/10/20-1621) TISSUES: A. DESCENDING COLON - DESCENDING COLON BX CONTINUED ON NEXT PAGE -----RUN DATE: 02/11/20 [place] - LAB PAGE 2 RUN TIME: 1600 Specimen Inquiry RUN USER: INTERFACE -----SPEC #: [id number]:FELDMAN:[id number] PATIENT: ADRIANA CADENA #[id number] (Continued) CPT CODES CPT CODE(S): 50186 , , , , , , FINAL [...] or malignancy. /pdb --------- Signed SIGNATURE ON Arin Butcher 02/11/20 1559 ----- END OF REPORT GLUCOSE BEDSIDE [id number] 15:37:00 Test Item Value Reference Range Interpretation Comments GLUCOSE BEDSIDE TESTING (test code 134 MG/DL 60-99 H = GLUBED) BASIC METABOLIC [id number] 12:30:00 Test Item Value Reference Range Interpretation [...] 8.0 MG/DL 8.4-10.2 L CA) BASIC METABOLIC [id number] 12:27:00 Test Item Value Reference Range Interpretation [...] code = CA) MG/DL 8.7-9.7 GLUCOSE BEDSIDE [id number] 10:38:00 Test Item Value Reference Range Interpretation Comments GLUCOSE BEDSIDE TESTING (test code 153 MG/DL 60-99 H = GLUBED) CBC W/O [id number] 08:45:00 Test Item Value Reference Range Interpretation [...] = 0.00 K/mm3 0.0-0.1 N NRBC#) WBC [id number] 08:45:00 Test Item Value Reference Range Interpretation [...] code = NORMAL NORMAL PLTMORPH) BASIC METABOLIC [id number] 06:55:00 Test Item Value Reference Range Interpretation Comments SODIUM (test code = 139 MMOL/L 137-145 N NA) POTASSIUM (test code = 2.6 MMOL/L 3.5-5.1 LL GRIER D TO LIEZEL L & K) READBACK ON AT 0654 [...] code = 7.9 MG/DL 8.4-10.2 L CA) [id number] 06:55:00 Test Item Value Reference Range Interpretation Comments MAGNESIUM (test code = MAG) 2.0 MG/DL 1.6-2.3 N GLUCOSE BEDSIDE [id number] 06:08:00 Test Item Value Reference Range Interpretation Comments GLUCOSE BEDSIDE TESTING (test code 150 MG/DL 60-99 H = GLUBED) CBC W/O [id number] 05:51:00 Test Item Value Reference Range Interpretation [...] = 0.00 K/mm3 0.0-0.1 N NRBC#) WBC [id number] 05:51:00 Test Item Value Reference Range Interpretation Comments RBC MORPHOLOGY REQUIRED (test code = RBCM) TOTAL CELLS COUNTED (test code = TCC) #CELLS SEGMENTED NEUTROPHILS (test code = % 36.2-73.8 SEG) LYMPHOCYTE (test code = LYMPH) % 12.9-45.1 MONOCYTE (test code = MON) % 0-11 PLATELET ESTIMATE (test code = ADEQUATE PLTEST) PLATELET MORPHOLOGY (test code = NORMAL PLTMORPH) CBC W/AUTO [id number] 05:51:00 Test Item Value Reference Range Interpretation [...] = 0.00 K/mm3 0.0-0.1 N NRBC#) WBC [id number] 05:51:00 Test Item Value Reference Range Interpretation Comments RBC MORPHOLOGY REQUIRED (test code = RBCM) TOTAL CELLS COUNTED (test code = TCC) #CELLS SEGMENTED NEUTROPHILS (test code = % 36.2-73.8 SEG) LYMPHOCYTE (test code = LYMPH) % 12.9-45.1 MONOCYTE (test code = MON) % 0-11 PLATELET ESTIMATE (test code = ADEQUATE PLTEST) PLATELET MORPHOLOGY (test code = NORMAL PLTMORPH) GLUCOSE BEDSIDE [id number] 20:09:00 Test Item Value Reference Range Interpretation Comments GLUCOSE BEDSIDE TESTING (test code 181 MG/DL 60-99 H = GLUBED) GLUCOSE BEDSIDE [id number] 16:00:00 Test Item Value Reference Range Interpretation Comments GLUCOSE BEDSIDE TESTING (test code 151 MG/DL 60-99 H = GLUBED) CBC W/O [id number] 12:34:00 Test Item Value Reference Range Interpretation [...] = 0.03 K/mm3 0.0-0.1 N NRBC#) WBC [id number] 12:34:00 Test Item Value Reference Range Interpretation [...] code = NORMAL NORMAL PLTMORPH) GLUCOSE BEDSIDE [id number] 10:47:00 Test Item Value Reference Range Interpretation Comments GLUCOSE BEDSIDE TESTING (test code 219 MG/DL 60-99 H = GLUBED) BASIC METABOLIC [id number] 07:26:00 Test Item Value Reference Range Interpretation [...] code = 8.0 MG/DL 8.4-10.2 L CA) [id number] 07:26:00 Test Item Value Reference Range Interpretation Comments MAGNESIUM (test code = MAG) 2.6 MG/DL 1.6-2.3 H BASIC METABOLIC [id number] 07:05:00 Test Item Value Reference Range Interpretation [...] code = 8.0 MG/DL 8.4-10.2 L CA) [id number] 07:05:00 Test Item Value Reference Range Interpretation Comments MAGNESIUM (test code = MAG) MG/DL 1.6-2.3 PROTHROMBIN [id number] 06:16:00 Test Item Value Reference Range Interpretation [...] myocar dial infarction. 2.0 - 3.0 3. Glass Tube Bender al prosthesis hear t valves, recurre nt systemic emboli sm. 3.0 - 4.5 Comments to Plant Quality Manager: ON PLAVIX AT HOME AND LOVENOX IN THE HOSPPTT ACTIVATED 2020-02-09 06:16:00 Test Item Value Reference Range Interpretation Comments PTT ACTIVATED (test code = APTT) 27.9 SECONDS 25.1-36.5 N Comments to Plant Quality Manager: ON PLAVIX AT HOME AND LOVENOX IN THE [facility] W/O DIFF 2020-02-09 06:05:00 Test Item Value [...] = 0.03 K/mm3 0.0-0.1 N NRBC#) WBC [id number] 06:05:00 Test Item Value Reference Range Interpretation Comments RBC MORPHOLOGY REQUIRED (test code = RBCM) TOTAL CELLS COUNTED (test code = TCC) #CELLS SEGMENTED NEUTROPHILS (test code = % 36.2-73.8 SEG) LYMPHOCYTE (test code = LYMPH) % 12.9-45.1 MONOCYTE (test code = MON) % 0-11 PLATELET ESTIMATE (test code = ADEQUATE PLTEST) PLATELET MORPHOLOGY (test code = NORMAL PLTMORPH) CBC W/AUTO [id number] 06:05:00 Test Item Value Reference Range Interpretation [...] = 0.03 K/mm3 0.0-0.1 N NRBC#) WBC [id number] 06:05:00 Test Item Value Reference Range Interpretation Comments RBC MORPHOLOGY REQUIRED (test code = RBCM) TOTAL CELLS COUNTED (test code = TCC) #CELLS SEGMENTED NEUTROPHILS (test code = % 36.2-73.8 SEG) LYMPHOCYTE (test code = LYMPH) % 12.9-45.1 MONOCYTE (test code = MON) % 0-11 PLATELET ESTIMATE (test code = ADEQUATE PLTEST) PLATELET MORPHOLOGY (test code = NORMAL PLTMORPH) GLUCOSE BEDSIDE [id number] 05:55:00 Test Item Value Reference Range Interpretation Comments GLUCOSE BEDSIDE TESTING (test code 231 MG/DL 60-99 H = GLUBED) GLUCOSE BEDSIDE [id number] 22:14:00 Test Item Value Reference Range Interpretation Comments GLUCOSE BEDSIDE TESTING (test code 221 MG/DL 60-99 H = GLUBED) COVID 19 Asymptomatic IH [id number] 17:16:00 Test Item Value Reference Range Interpretation [...] of virus (antigen) in the sample." URINALYSIS [id number] 05:11:00 Test Item Value Reference Range Interpretation [...] code = UACULT) Spec Comments: FROM THE FOLEYSOURCE OF URINE: FREDERICK CATHETERUA MICROSCOPIC 2020-02-08 05:11:00 Test Item Value Reference Range Interpretation Comments UA RBC (test code = RBCU) 3-5 RBC/HPF 0-3 A UA WBC (test code = XWBCU) 3-5 WBC/HPF 0-5 UA EPITHELIAL CELLS (test code = RARE EPI/HPF FEW EPIU) UA BACTERIA (test code = XBACU) RARE NONE Spec Comments: FROM THE FOLEYSOURCE OF URINE: FREDERICK CATHETERURINALYSIS COMPLETE 2020-02-08 04:43:00 [...] = XBACU) NONE Spec Comments: FROM THE FOLEYSOURCE OF URINE: FREDERICK CATHETERURINALYSIS COMPLETE 2020-02-08 04:43:00 [...] Chk = UACULT) Spec Comments: [facility]INE: FREDERICK CATHETERUA MICROSCOPIC 2020-02-08 04:43:00 Test Item Value Reference Range Interpretation Comments UA RBC (test code = RBCU) RBC/HPF 0-3 UA WBC (test code = XWBCU) WBC/HPF 0-5 UA EPITHELIAL CELLS (test code = EPI/HPF FEW EPIU) UA BACTERIA (test code = XBACU) NONE Spec Comments: [facility] URINE: FREDERICK CATHETERCBC W/O DIFF [...] = 0.00 K/mm3 0.0-0.1 N NRBC#) WBC [id number] 23:55:00 Test Item Value Reference Range Interpretation [...] NORMAL NORMAL PLTMORPH) - CT ABD PELVIS [id number] 23:23:00 [facility] : 1945 Sex: F Patient Name: ADRIANA CADENA Unit No: [id number] EXAMS: CPT CODE: [id number] CT ABD PELVIS W/CONT 22848 CT OF THE ABDOMEN AND PELVIS WITH [...] There is bibasilar atelectasis and scarring. Soft tissue swelling with fat stranding is noted in [...] gas and stool measuring up to 10 cm.No mesenteric or retroperitoneal lymphadenopathy is found. There is no free intraperitoneal air or fluid. Visualized abdominal aorta is within normal limits. FINDINGS: Pelvis Prior hysterectomy. Urinary bladder contains contrast and is partially collapsed runner Frederick catheter. No evidence of acute fracture. Marked levoscoliosis of the lower lumbar spine is noted. Scoliosis surgery hardware is noted.IMPRESSION: 1. Distention of the colon is noted concerning for constipation. No bowel obstruction. 2. Bilateral indeterminate adrenal gland lesions are noted. Consider further evaluation with contrast-enhanced adrenal gland protocol CT or [facility] NAME: ADRIANA CADENA [address] PHYS: [id number] - [place] [address] : 1945 AGE: 74 SEX: F LOC: TOM PHONE #: [phone] EXAM DATE: 02/07/2020 STATUS: REG ER FAX #: [phone] RAD #: D/C DT PAGE 1 Signed Report (CONTINUED) Patient Name: ADRIANA CADENA Unit No: [id number] EXAMS: CPT CODE: [id number] CT ABD PELVIS W/CONT 69625 (Continued) MRI. 3. Soft tissue swelling of the right breast is noted. Asymmetry correlate with mammographic history. at 2323 Reported and signed by: Conner Muniz M.D. CC: Alfred Arevalo MD Technologist: Mando Estrada RT (R) (CT); Bronson CTDI: DLP: Trnscrpt: 02/07/2020 (2323) [id number] [facility] NAME: ADRIANA CADENA [id number] PHYS: [id number] - Arevalo,[place] [address] : 1945 AGE: 74 SEX: F : TOM PHONE #: [phone] EXAM DATE: 02/07/2020 STATUS: REG ER FAX #: [phone] RAD #: D/C DT PAGE 2 Signed Report Patient Name: ADRIANA CADENA Unit No: [id number] EXAMS: CPT CODE: [id number] CT ABD PELVIS W/CONT 43861 (Continued) Orig Print D/T: S: 02/07/2020 (2325) [facility] NAME: HAYLIE CADENAE[address] PHYS: CARMEN - [place] [address] : 1945 AGE: 74 SEX: F LOC: HollieERS PHONE #: [phone] EXAM DATE: 02/07/2020 STATUS: REG ER FAX #: [phone] RAD #: D/C DT PAGE 3 Signed ReportCOMPREHENSIVE METABOLIC [id number] 22:32:00 Test Item Value Reference Range Interpretation [...] one of thoseassays per formed in our lab.[facility] testing perform ed at [facility] determined that Eltrombopag does interfere with Vitros Total Protein asfollowsEltrom bopag Interference fo r Vitros Product Total Protein:======= Eltrombopag Max Observed Av g. BiasConcentrati on Concentration Concentration== ==== 2.5 mg/dl 6.0 g/dl +0.41 +0.34 3.5 mg/dl 6.0 g /dl +0.50 +0.45 5 mg/dl 6 .0 g/dl +0.73 +0.65 2. 5 mg/dl 8.0 g/dl +0.44 +0.4 1 3.5 [...] 38-126 N PHOSPHATASE (test code = ALKP) [id number] 22:32:00 Test Item Value Reference Range Interpretation Comments TROPONIN-I (test code = TROPI) < 0.012 NG/ML 0.012-0.033 L URINALYSIS [id number] 22:21:00 Test Item Value Reference Range Interpretation [...] = UACULT) SOURCE OF URINE: CLEAN CATCHUA [id number] 22:21:00 Test Item Value Reference Range Interpretation Comments UA RBC (test code = RBCU) 0-3 RBC/HPF 0-3 UA WBC (test code = XWBCU) 3-5 WBC/HPF 0-5 UA EPITHELIAL CELLS (test code = FEW EPI/HPF FEW EPIU) UA BACTERIA (test code = XBACU) FEW NONE SOURCE OF URINE: CLEAN CATCHCOMPREHENSIVE METABOLIC [id number] 22:19:00 Test Item Value Reference Range Interpretation [...] our lab.Interfe rence testing perform ed at [facility] determined that Eltrombopag does interfere with Vitros Total Protein asfollowsEltrom bopag Interference fo r Vitros Product Total Protein:======= Eltrombopag Max Observed Av g. BiasConcentrati on Concentration Concentration== ==== 2.5 mg/dl 6.0 g/dl +0.41 +0.34 3.5 mg/dl 6.0 g /dl +0.50 +0.45 5 mg/dl 6 .0 g/dl +0.73 +0.65 2. 5 mg/dl 8.0 g/dl +0.44 +0.4 1 3.5 [...] 38-126 N PHOSPHATASE (test code = ALKP) [id number] 22:19:00 Test Item Value Reference Range Interpretation Comments TROPONIN-I (test code = TROPI) NG/ML 0.0-0.045 CBC W/O [id number] 21:56:00 Test Item Value Reference Range Interpretation [...] = 0.00 K/mm3 0.0-0.1 N NRBC#) WBC [id number] 21:56:00 Test Item Value Reference Range Interpretation Comments RBC MORPHOLOGY REQUIRED (test code = RBCM) TOTAL CELLS COUNTED (test code = TCC) #CELLS SEGMENTED NEUTROPHILS (test code = % 36.2-73.8 SEG) LYMPHOCYTE (test code = LYMPH) % 12.9-45.1 MONOCYTE (test code = MON) % 0-11 PLATELET ESTIMATE (test code = ADEQUATE PLTEST) PLATELET MORPHOLOGY (test code = NORMAL PLTMORPH) URINALYSIS [id number] 21:56:00 Test Item Value Reference Range Interpretation [...] = UACULT) SOURCE OF URINE: CLEAN CATCHUA [id number] 21:56:00 Test Item Value Reference Range Interpretation Comments UA RBC (test code = RBCU) RBC/HPF 0-3 UA WBC (test code = XWBCU) WBC/HPF 0-5 UA EPITHELIAL CELLS (test code = EPI/HPF FEW EPIU) UA BACTERIA (test code = XBACU) NONE SOURCE OF URINE: CLEAN CATCHCBC W/AUTO [id number] 21:56:00 Test Item Value Reference Range Interpretation [...] = 0.00 K/mm3 0.0-0.1 N NRBC#) WBC [id number] 21:56:00 Test Item Value Reference Range Interpretation Comments RBC MORPHOLOGY REQUIRED (test code = RBCM) TOTAL CELLS COUNTED (test code = TCC) #CELLS SEGMENTED NEUTROPHILS (test code = % 36.2-73.8 SEG) LYMPHOCYTE (test code = LYMPH) % 12.9-45.1 MONOCYTE (test code = MON) % 0-11 PLATELET ESTIMATE (test code = ADEQUATE PLTEST) PLATELET MORPHOLOGY (test code = NORMAL PLTMORPH) URINALYSIS [id number] 21:56:00 Test Item Value Reference Range Interpretation [...] = UACULT) SOURCE OF URINE: CLEAN CATCHUA [id number] 21:56:00 Test Item Value Reference Range Interpretation Comments UA RBC (test code = RBCU) RBC/HPF 0-3 UA WBC (test code = XWBCU) WBC/HPF 0-5 UA EPITHELIAL CELLS (test code = EPI/HPF FEW EPIU) UA BACTERIA (test code = XBACU) NONE SOURCE OF URINE: CLEAN CATCHManual [id number] 11:30:29 Test Item Value Reference Range Interpretation [...] 0.5-4.6 H code = Lymph Man Abs) [place] Man Abs (test 1.6 x10 0.0-1.2 H code = [place] Man Abs) Eos Man Abs (test 0.27 [...] co nsistent with 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 IG [id number] 11:30:29 Test Item Value Reference Range Interpretation Comments IG (test code = IG) 0.4 % 0.0-5.0 IG Abs (test code = IG Abs) 0 x10 N Partial Thromboplastin [id number] 08:31:14 Test Item Value Reference Range Interpretation Comments Partial Thromboplastin Time 31.30 seconds 24.39-37.25 (test code = Partial Thromboplastin Time) Prothrombin Time and [id number] 08:31:12 Test Item Value Reference Range Interpretation Comments Prothrombin Time (test code = 11.6 seconds 9.8-13.4 Prothrombin Time) INR (test code = INR) 1.0 ratio 0.6-1.2 Comprehensive Metabolic [id number] 08:29:31 Test Item Value Reference Range Interpretation [...] Lipemia) 0 g/dL 1-2 H Comprehensive Metabolic [id number] 08:29:31 Test Item Value Reference Range Interpretation [...] 0 g/dL 1-2 H Lipemia) Comprehensive Metabolic [id number] 08:29:31 Test Item Value Reference Range Interpretation [...] 1-2 H Lipemia) Complete Blood Count with [id number] 08:08:50 Test Item Value Reference Range Interpretation [...] 0 % N Complete Blood Count with [id number] 08:08:50 Test Item Value Reference Range Interpretation [...] % N Resp Virus Panel (RVP) PCR [id number] 08:14:35 Test Item Value Reference Range Interpretation [...] Negative N Perf ormed At: BN Adenovirus) [facility] [address] [place], [place] [id number] ra Zak DAILEY Ph:[phone] POC [id number] 08:24:15 Test Item Value Reference Range Interpretation Comments Glucose POC (test 79 mg/dL 70-115 Notify RN or MDIf you code = Glucose POC) consider your patient critically ill, the Sukhdev-Accu Chec k Infrom II meter should not be used for Glucos e determination. Draw a venous Glucose and send to the main Lab for analysis. Respiratory Culture w/ Gram [id number] 06:44:30 Test Item Value Reference Range Interpretation Comments Final Report (test Normal angela at 24 hours code = Final Report) Normal angela at 48 hours Few Yeast Gram Stain Report Few epithelial cells (test code = Gram Grams morphology Stain Report) consistent with normal angela with: Moderate White Blood Cells POC [id number] 20:50:19 Test Item Value Reference Range Interpretation Comments Glucose POC (test 85 mg/dL 70-115 If you con marine steward your code = Glucose POC) patient critically ill, the Sukhdev-Accu Check Infrom II meter should not be used for Glucose determination. Draw a venous Glucose and send to the main Lab for analysis. POC [id number] 17:42:46 Test Item Value Reference Range Interpretation Comments Glucose POC (test 69 mg/dL 70-115 L Notify RN or MDIf you code = Glucose POC) consider your patient critically ill, the Sukhdev-Accu Chec k Infrom II meter should not be used for Glucos e determination. Draw a venous Glucose and send to the main Lab for analysis. POC [id number] 12:21:21 Test Item Value Reference Range Interpretation Comments Glucose POC (test 76 mg/dL 70-115 If you con marine steward your code = Glucose POC) patient critically ill, the Sukhdev-Accu Check Infrom II meter should not be used for Glucose determination. Draw a venous Glucose and send to the main Lab for analysis. POC [id number] 09:01:48 Test Item Value Reference Range Interpretation Comments Glucose POC (test 89 mg/dL 70-115 If you con marine steward your code = Glucose POC) patient critically ill, the Sukhdev-Accu Check Infrom II meter should not be used for Glucose determination. Draw a venous Glucose and send to the main Lab for analysis. Basic Metabolic [id number] 08:53:37 Test Item Value Reference Range Interpretation [...] mg/dL 8.3-10.5 L Calcium Level) Basic Metabolic [id number] 08:53:37 Test Item Value Reference Range Interpretation [...] ag e have not been validated by e MDRD study and should be interpreted wit h caution. eGFR R esult Interpretation: eGFR > or = 60 is in the Normal RangeeGF R < 60 may mean kid kiran diseaseeGFR < 1 5 may mean kidney failure Rang es recommended by the [employer], http://nkdep.ni h.gov Basic Metabolic [id number] 08:53:37 Test Item Value Reference Range Interpretation [...] ag e have not been validated by [facility] MDRD study and should be interpreted wit [...] ag e have not been validated by [facility] MDRD study and should be interpreted wit h caution. eGFR R esult Interpretation: eGFR > or = 60 is in the Normal RangeeGF R < 60 may mean kid kiran diseaseeGFR < 1 5 may mean kidney failure Rang es recommended by the [employer], http://nkdep.ni h.gov Complete Blood Count without [id number] 06:22:01 Test Item Value Reference Range Interpretation [...] code = IPF) 0 % N POC [id number] 20:35:15 Test Item Value Reference Range Interpretation Comments Glucose POC (test 122 mg/dL 70-115 H If you con marine steward your code = Glucose POC) patient critically ill, the Sukhdev-Accu Check Infrom II meter should not be used for Glucose determination. Draw a venous Glucose and send to the main Lab for analysis. Urinalysis with Culture, if [id number] 18:32:30 Test Item Value Reference Range Interpretation [...] Micro Ind?) rule GL_SJM_UA_MICRO _IN D POC [id number] 17:51:41 Test Item Value Reference Range Interpretation Comments Glucose POC (test 112 mg/dL 70-115 If you con marine steward your code = Glucose POC) patient critically ill, the Sukhdev-Accu Check Infrom II meter should not be used for Glucose determination. Draw a venous Glucose and send to the main Lab for analysis. POC [id number] 12:25:12 Test Item Value Reference Range Interpretation Comments Glucose POC (test 133 mg/dL 70-115 H If you con marine steward your code = Glucose POC) patient critically ill, the Sukhdev-Accu Check Infrom II meter should not be used for Glucose determination. Draw a venous Glucose and send to the main Lab for analysis. POC [id number] 08:57:45 Test Item Value Reference Range Interpretation Comments Glucose POC (test 92 mg/dL 70-115 If you con marine steward your code = Glucose POC) patient critically ill, the Sukhdev-Accu Check Infrom II meter should not be used for Glucose determination. Draw a venous Glucose and send to the main Lab for analysis. Troponin [id number] 08:30:54 Test Item Value Reference Range Interpretation Comments Troponin-T (test 50.130 ng/L 0.000-14.000 Critical re sults called code = Troponin-T) to nurse Kelly Navarrete at 03/18/2019 08 :30:47 INDUSTRIAL SERVICES WORKER by SOPHIE. Read back and verified? YESTh [...] percentile in s erial measurements. S table TOHMAS levels (<20%) d elta above the 99th percentile URL would support a diagn osis of chronic myocard ial injury. Basic Metabolic [id number] 08:17:38 Test Item Value Reference Range Interpretation [...] 8.5 mg/dL 8.3-10.5 Calcium Level) Basic Metabolic [id number] 08:17:38 Test Item Value Reference Range Interpretation [...] National Kidney Foundation, http://nkdep.ni h.gov Basic Metabolic [id number] 08:17:38 Test Item Value Reference Range Interpretation [...] the National Kidney Foundation, http://nkdep.ni h.gov Manual [id number] 07:40:33 Test Item Value Reference Range Interpretation [...] Lymph Man 5.8 x10 0.5-4.6 H Abs) [place] Man Abs (test code = [place] Man 0.2 x10 0.0-1.2 Abs) RBC Morph (test code = RBC Morph) Normal Normal Plt Estimation (test code = Plt Normal Normal Estimation) Complete Blood Count with [id number] 06:50:27 Test Item Value Reference Range Interpretation [...] code = IPF) 0 % N IG [id number] 06:50:27 Test Item Value Reference Range Interpretation Comments IG (test code = IG) 0.2 % 0.0-5.0 IG Abs (test code = IG Abs) 0 x10 N XR Chest 1 View [id number] 02:24:19Patient: ADRIANA CADENA Date/Time03/18/2019 02:17 CSTReason for ExamChest painReportL ocation: [id number], FRONTAL VIEWHISTORY: Chest painCOMPARISON: NoneFINDINGS:The lungs are underinflated with scattered areas of atelectasis. The more focal opacity in the right upper lobe. The heart size is normal. Mild scoliosis.IMPRESSION:Possible right upper lobe pneumonia. Final Dictated by: MD Bedolla SankamanDictated DT/TM: 03/18/2019 2:23 amSigned by: MD Bedolla SankamanSigned(Electronic Signature): 03/18/2019 2:24 amComprehensive Metabolic [id number] 00:39:20 Test Item Value Reference Range Interpretation [...] A/G 1.7 ratio N Ratio) Thyroid Stimulating [id number] 00:39:20 Test Item Value Reference Range Interpretation Comments TSH (test code = TSH) 0.656 mIU/mL 0.270-4.200 Comprehensive Metabolic [id number] 00:39:20 Test Item Value Reference Range Interpretation [...] the National Kidney Foundation, http://nkdep.ni h.gov Troponin [id number] 00:39:20 Test Item Value Reference Range Interpretation Comments Troponin-T (test 57.940 ng/L 0.000-14.000 Critical re sults called code = Troponin-T) to bobbi roy at 03/18/2019 00:39:13 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 Read back and verifi ed? yesThe CV of th e assay at 99th percent ile for [...] of chronic myocard ial injury. Comprehensive Metabolic [id number] 00:39:20 Test Item Value Reference Range Interpretation [...] ag e have not been validated by [facility] MDRD study and should be interpreted wit [...] ag e have not been validated by [facility] MDRD study and should be interpreted wit h caution. eGFR R esult Interpretation: eGFR > or = 60 is in the Normal RangeeGF R < 60 may mean kid kiran diseaseeGFR < 1 5 may mean kidney failure Rang es recommended by the National Kidney Foundation, http://nkdep.ni h.gov Manual [id number] 00:28:13 Test Item Value Reference Range Interpretation [...] (test code = Basophil 0.0 0.0-2.0 Man) [place] Man (test code = [place] Man) 1 % 0-2 Neut Man Abs (test code = Neut Man 4.8 x10 1.6-7.4 Abs) Lymph Man Abs (test code = Lymph Man 6.5 x10 0.5-4.6 H Abs) [place] Man Abs (test code = [place] Man 0.5 x10 0.0-1.2 Abs) Eos Man Abs (test code = Eos Man 0.00 x10 0.00-0.74 Abs) Baso Man Abs (test code = Baso Man 0.00 x10 0.00-0.21 Abs) RBC Morph (test code = RBC Morph) Normal Normal Plt Estimation (test code = Plt Normal Normal Estimation) Prothrombin Time and [id number] 00:19:37 Test Item Value Reference Range Interpretation Comments Prothrombin Time (test code = 13.9 seconds 9.8-13.4 H Prothrombin Time) INR (test code = INR) 1.2 ratio 0.6-1.2 D-Dimer [id number] 00:17:40 Test Item Value Reference Range Interpretation Comments D Dimer, (Quant.) (test code = D 503 ng/mL 0-500 H Dimer, (Quant.)) Complete Blood Count with [id number] 00:01:05 Test Item Value Reference Range Interpretation [...] code = IPF) 0 % N IG [id number] 00:01:05 Test Item Value Reference Range Interpretation Comments IG (test code = IG) 0.5 % 0.0-5.0 IG Abs (test code = IG Abs) 0 x10 N POC [id number] 21:01:45 Test Item Value Reference Range Interpretation Comments Glucose POC (test 160 mg/dL 70-115 H Notify RN or MDIf you code = Glucose POC) consider your patient critically ill, the Sukhdev-Accu Chec k Infrom II meter should not be used for Glucos e determination. Draw a venous Glucose and send to the main Lab for analysis. Lipid [id number] 20:18:39 Test Item Value Reference Range Interpretation Comments Cholesterol Total 164 mg/dL 0-200 RISK OF HE ART (test code = DISEASEPublishe d by Cholesterol Total) [employer] Nita lyte Optimal Borderl ine Increased RiskC HOL <200 200-239 >240TRI G <150 150-199 >200HDL Male >60 <40HDL Fema le >60 <50LDL <100 130 -159 >160LDL Near op timal is 100-129 Triglycerides (test 161 mg/dL 9-200 [...] calculation is LDL/HDL Ratio=L DL Calc/HDL Chol Notes Date/Time Note Provider Source 2020-02-17 16:47:00-00:00 [id number] [place] [address] PATIENT NAME: ADRIANA CADENA ADMIT DATE: 02/07/20 ACCOUNT NO: [id number] ROOM NO: [facility] AGE: 75 REPORT TYPE: DISCHARGE SUMMARY REPORT SEX: F ADMITTING PHYSICIAN:Tayla Turcios MD ATTENDING PHYSICIAN:Tayla Turcios MD ADMISSION DATE: 02/07/2020 DISCHARGE DATE: 02/10/2020 DISCHARGE DIAGNOSES: 1. Urinary tract infection. 2. Constipation. 3. Hypertension. 4. Type 2 diabetes. 5. 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 HOSPITAL COURSE: This is a 74-year-old f emale who came in our institution from [facility] for further evaluation of paral ytic colon ileus and moderate degree of fecal burden. The patient underwent a colonoscopy. According to the results, no further intervention is needed. The patient was not discharged properly. The patient was advised to sta y and be observed in the next 24 hours as the patient's Plavix has been held from the [facility]. The patient appears to have a history of coronary ar phyllis disease. We advised the patient to stay overnight to resume the Plavix and make sure that there are no other complications; however, the patient is ada mant to go home. Hence, the patient was not discharged properly. Dictated By: Tyler Colón NP for Tayla Turcios MD WT: DS:NAIMA/ABHINAV/LIN Conf#: [id number]/DID#: [id number] Authenticated by Tyler Colón NP On 2020 11:34:17 AM Authenticated by Tayla Turcios MD On 02/23/2020 02:24:56 PM at 1425 at 1425 PATIENT NAME: ADRIANA CADENA 2020-02-10 16:36:00-00:00 [facility] General Surgery Progress Note REPORT#:[id number] REPORT STATUS: Signed DATE:02/10/20 TIME: 163 PATIENT: ADRIANA CADENA UNIT #: [id number] ROOM/BED: [address] : 46 AGE: 74 SEX: F ATTEND: Tayla Turcios MD ADM AUTHOR: Michelle Muñoz MD * ALL edits or amendments must be made on the [employer]/computer document * Subjective Patient reports: Yes: bowel movement, flatus. No: abdominal pain. Objective General VS/I O: Last Documented: Result Date Time Pulse Ox 94 02/09 1537 B/P 155/86 02/09 1537 B/P Mean 108.8 02/09 1537 O2 Delivery Room air 02/09 1537 Temp 97.5 02/09 1537 Pulse 98 02/09 1537 Resp 16 02/09 1537 O2 Flow Rate 10 02/09 1407 Vital Signs Date Temp Pulse Resp B/P B/P Mean Pulse Ox FiO2 02/08-02/09 97.1-98.2 82-112 15-24 129-162/63-96 88.3-115.7 91-98 24 hour I O ending at 0700: 02/09 0700 02/08 1900 Intake Total 1500.00 120.00 Output Total 400 400 Balance 1100.00 -280.00 Intake, IV 500.00 120.00 Intake, Other 1000 Number 5 5 Bowel Movements Output, Urine 400 400 PATIENT WEIGHT: Weight (lb): Weight (oz): Weight (kg): 70.455 Medications: Active Meds + DC'd Last 24 Hrs Aspirin 81 MG DAILY PO Clopidogrel Bisulfate 75 MG DAILY PO Atorvastatin Calcium 20 MG BEDTIME PO Doxazosin Mesylate 2 MG BID PO Famotidine 20 MG BID PO Metoprolol Tartrate 100 MG BID PO Gabapentin 600 MG QID PO Levothyroxine Sodium 125 MCG DAILY@0630 PO Lisinopril 20 MG DAILY PO Insulin Glargine 25 UNITS DAILY SUBQ Propofol 0 .STK-MED ONE .ROUTE (DC) Lidocaine HCl 5 ML .STK-MED ONE IV (DC) Propofol 0 .STK-MED ONE .ROUTE (DC) Clopidogrel Bisulfate 75 MG ONCE ONE PO (DC) Propofol 0 .STK-MED ONE .ROUTE (DC) Lidocaine HCl 5 ML .STK-MED ONE IV (DC) Potassium Chloride 40 MEQ NOW ONE PO (DC) Sodium Chloride 10 ML .STK-MED ONE IV (DC) Dextrose/Sodium Chloride 1,000 ML Q13H IV Potassium Chloride 100 ML Q2H IV (DC) Aztreonam 1,000 MG Q8H IV Sodium Chloride 10 ML Metoclopramide HCl 10 MG Q6HR IV Polyethylene Glycol 340 GM ASDIR PO (DC) Acetaminophen 650 MG Q4H PRN PRN PO Acetaminophen/Codeine Phosphate 1 UDTAB Q4H PRN PRN PO Labetalol HCl 5 MG Q6H PRN PRN IV Ondansetron HCl 4 MG Q6H PRN PRN IV Atorvastatin Calcium 80 MG BEDTIME PO (DC) Insulin Human Lispro LOW DOSE SLIDING SCALE AC HS SUBQ Dextrose/Water 12.5 GM ASDIR PRN IV Dextrose/Water 25 GM ASDIR PRN IV Aspirin 325 MG DAILY PO (DC) Famotidine 20 MG Q12HR IV (DC) Alprazolam 0.25 MG BID PRN PRN PO Dextrose/Sodium Chloride 1,000 ML Q13H IV (DC) Docusate Sodium 100 MG BID PRN PRN PO Hydralazine HCl 10 MG Q6H PRN PRN IV Morphine Sulfate 4 MG Q3H PRN PRN IV Enoxaparin Sodium 70 MG Q12H SUBQ Physical Exam General appearance: alert, awake, oriented Cardiovascular: normal S1/S2 Respiratory: clear to auscultation Abdomen: non-tender, normal bowel sounds, soft, no rebound Extremities: no edema Results Findings/Data: Laboratory Tests 02/10/20 1205: [Embedded Image Not Available] 02/10/20 0450: [Embedded Image Not Available] Laboratory Tests 02/09 02/09 02/09 02/09 02/09 1536 1205 1037 0607 0450 Chemistry Sodium (137 - 145 MMOL/L) 138 139 Potassium (3.5 - 5.1 MMOL/L) 3.4 L 2.6 *L Chloride (98 - 107 MMOL/L) 105 106 Carbon Dioxide (22 - 30 MMOL/L) 28 27 Anion Gap (14 - 24 MMOL/L) 9 L BUN (7 - 17 MG/DL) 6 L 6 L Creatinine (0.52 - 1.04 MG/DL) 0.50 L 0.50 L Glomerular Filtr Rate > 60 > 60 Glucose (74 - 106 MG/DL) 154 H 170 H POC Glucose (60 - 99 MG/DL) 134 H 153 H 150 H Calcium (8.4 - 10.2 MG/DL) 8.0 L 7.9 L Magnesium (1.6 - 2.3 MG/DL) 2.0 02/09 2008 Chemistry POC Glucose (60 - 99 MG/DL) 181 H Laboratory Tests 02/09 450 Hematology WBC (3.8 - 9.8 K/MM3) 27.3 H RBC (3.58 - 4.97 M/MM3) 3.44 L Hgb (11.2 - 14.9 G/DL) 10.5 L Hct (33.2 - 43.5 %) 33.4 MCV (80.7 - 99.1 fL) 97 MCH (27.0 - 34.1 pg) 30.5 MCHC (32.2 - 35.7 %) 31.4 L RDW (12.1 - 15.2 %) 15.2 Plt Count (129 - 368 K/MM3) 268 Neut # (Auto) (2.0 - 7.6 K/mm3) 5.23 Lymph # (Auto) (1.0 - 3.8 K/mm3) 19.58 H [place] # (Auto) (0.1 - 0.8 K/mm3) 1.94 H Eos # (Auto) (0.0 - 0.2 K/mm3) 0.17 Baso # (Auto) (0.0 - 0.2 K/mm3) 0.10 Total Counted (#CELLS) 130 Seg Neutrophils % (36.2 - 73.8 %) 38.5 Band Neutrophils % (0 - 10 %) 5.8 Lymphocytes % (Manual) (12.9 - 45.1 %) 45.2 H Atypical Lymphs % (0 - 0 %) 2.9 H Monocytes % (Manual) (0 - 11 %) 5.8 Eosinophils % (Manual) (1 - 7 %) 0.9 L Myelocytes (0 - 0 %) 0.9 H Nucleated RBCs # (Man) (0.0 - 0.1 K/mm3) 0.00 Platelet Estimate (ADEQUATE) ADEQUATE Plt Morphology Comment (NORMAL) NORMAL Diagnosis, Assessment Plan Problem List/A P: 1. Constipation Free Text A P: Colonoscopy results reviewed. Patient has divert iculosis with evidence of diverticular bleed. Patient also noted to have s everal areas of colonic ulceration without bleed. Patient has been start ed on regular diet. If she tolerates she can be discharged home. No surgica l intervention required. at 1638 RPT #:[id number] END OF REPORT 2020-02-10 12:43:00-00:00 [id number] [place] [address] PATIENT NAME: ADRIANA CADENA ADMIT DATE: 02/07/20 ACCOUNT NO: [id number] ROOM NO: Z.530 AGE: 74 REPORT TYPE: ENDOSCOPY REPORT SEX: F ADMITTING PHYSICIAN:Tayla Turcios MD ATTENDING PHYSICIAN:Tayla Turcios MD Endoscopy Patient Name: Adrinaa Cadena Procedure Date: 2019 12:43 PM Date of : 1945 Admit Type: Inpatient Age: 74 Room: Room 2 Gender: Female Attending MD: Brian Nuñez MD Instrument Name: [id number] Procedure: Colonoscopy Providers: Brian Nuñez MD, Ayesha Tate RN (Annalee trejo), Amanda Carrero (Registered Veterinary Technician) Referring MD: Self Referred Medicines: See the Anesthesia note for documenta tion of the administered medications Complications: No immediate complications. Procedure: Pre-Anesthesia Assessment: - Prior to the procedure, a History and Physica l was performed, and patient medications, allergies a nd sensitivities were reviewed. The patient's tole delvin of previous anesthesia was reviewed. - The risks and benefits of the procedure and t he sedation options and risks were discussed with the patient. All questions were answered and inform ed consent was obtained. - Patient identification and proposed procedure were verified prior to the procedure by the physicia n and the nurse. The procedure was verified in the proced ure room. - ASA Grade Assessment: IV - A patient with sev ere systemic disease that is a constant threat to l brayan. - Airway Examination: normal oropharyngeal airw ay and neck mobility. After I obtained informed consent, the scope wa s passed under direct vision. Throughout the procedure, the patient's blood pressure, pulse, and oxygen sat urations were monitored continuously. The Colonoscope wa s introduced through the anus and advanced to the ascending colon. The colonoscopy was performed without difficulty. The patient tolerated the procedure well. The quality of the bowel preparation was good. The PATIENT NAME: ADRIANA CADENA entire colon was well visualized. The quality o f the bowel preparation was evaluated using the BBPS ([place] Bowel Preparation Scale) with scores of: Right Colon = 3 (entire mucosa seen well with no residual stain ing, small fragments of stool or opaque liquid), Tra nsverse Colon = 3 (entire mucosa seen well with no resi dual staining, small fragments of stool or opaque li quid) and Left Colon = 3 (entire mucosa seen well with no residual staining, small fragments of stool or opaque li quid). The total BBPS score equals 9. The quality of t he bowel preparation was good. Findings: Multiple medium-mouthed diverticula were found in the sigmoid colon, descending colon and transverse colon. There wa s no evidence of diverticular bleeding. A continuous area of nonbleeding ulcerated muco sa with no stigmata of recent bleeding was present in the sigmoid colo n, in the descending colon and in the ascending colon. Biopsies were taken with a cold forceps for histology. Verification of patient identification for the specimen was done by the physician, nurse and t echnician using the patient's name, date and medical record n umber. Impression: - Diverticulosis in the sigmoid colo n, in the descending colon and in the transverse colon. There was no evidence of diverticular bleeding. - Mucosal ulceration. Biopsied. Recommendation: - Return patient to floor for on going care. - Continue present medications. - Resume previous diet. Procedure Code(s): --- Professional --- 55140, 52, Colonoscopy, flexible; with biopsy, single or multiple Diagnosis Code(s): --- Professional --- K63.3, Ulcer of intestine K57.30, Diverticulosis of large intestine witho ut perforation or abscess without bleeding CPT copyright 2018 [employer]. All rights reserved. The codes documented in this report are prelimin alfredo and upon road patcher review may be revised to meet current compliance requiremen ts. Brian Nuñez MD Brian Nuñez MD 02/10/2020 2:19:45 PM This report has been signed electronically. Number of Addenda: 0 Note Initiated On: 02/10/2020 12:43 PM Procedure Date: 02/10/2020 12:43:52 PM PATIENT NAME: ADRIANA CADENA Estimated Blood Loss: Estimated blood loss: none. [address] [address] Provation {[id number]}.pdf ProVation FT PDF Electronically Signed by Brian Nuñez MD on at 1420 PATIENT NAME: ADRIANA CADENA 7 2020-02-10 12:42:00-00:00 [id number] [place] [address] PATIENT NAME: ADRIANA CADENA ADMIT DATE: 02/07/20 ACCOUNT NO: [id number] ROOM NO: [facility] AGE: 74 REPORT TYPE: ENDOSCOPY REPORT SEX: F ADMITTING PHYSICIAN:Tayla Turcios MD ATTENDING PHYSICIAN:Tayla Turcios MD Endoscopy Patient Name: Adriana Cadena Procedure Date: 020 12:42 PM Date of : 1945 Admit Type: Inpatient Age: 74 Room: Room 2 Gender: Female Attending MD: Brian Nuñez MD Instrument Name: [id number] Procedure: Upper GI endoscopy Indications: Recent gastrointestinal bleeding Providers: Brian Nuñez MD, Ayesha Tate RN (N urse), Amanda Carrero (Registered Veterinary Technician) Referring MD: Self Referred Medicines: See the Anesthesia note for document ation of the administered medications Complications: No immediate complications. Procedure: Pre-Anesthesia Assessment: - Prior to the procedure, a History and Physica l was performed, and patient medications, allergies a nd sensitivities were reviewed. The patient's tole delvin of previous anesthesia was reviewed. - The risks and benefits of the procedure and the sedation options and risks were discussed with the patient. All questions were answered and inform ed consent was obtained. - Patient identification and proposed procedure were verified prior to the procedure by the physicia n and the nurse. The procedure was verified in the proced ure room. - ASA Grade Assessment: IV - A patient with sev ere systemic disease that is a constant threat to life. - Airway Examination: normal oropharyngeal airw ay and neck mobility. After obtaining informed consent, the endoscop e was passed under direct vision. Throughout the proc edure, the patient's blood pressure, pulse, and oxygen saturations were monitored continuously. The En doscope was introduced through the mouth, and advanced to the third part of duodenum. The upper GI endoscopy was accomplished without difficulty. The patient to lerated PATIENT NAME: ADRIANA CADENA the procedure well. Findings: LA Grade A (one or more mucosal breaks less kathrin n 5 mm, not extending between tops of 2 mucosal folds) esophagitis wi th no bleeding was found in the lower third of the esophagus. One localized, 2 mm non-bleeding erosion was fo und on the anterior wall of the stomach. There were no stigmata of recen t bleeding. A few localized erosions without bleeding were found in the duodenal bulb. Biopsies were taken with a cold forceps f or Helicobacter pylori testing. Impression: - LA Grade A reflux esophagitis. - Non-bleeding erosive gastropathy. - Duodenal erosions without bleeding. Biopsied. Recommendation: - Return patient to floor for on going care. - Resume previous diet. - Continue present medications. Procedure Code(s): --- Professional --- 41090, Esophagogastroduodenoscopy, flexible, tr ansoral; with biopsy, single or multiple Diagnosis Code(s): --- Professional --- K21.0, Gastro-esophageal reflux disease with es ophagitis K31.89, Other diseases of stomach and duodenum K26.9, Duodenal ulcer, unspecified as acute or chronic, without hemorrhage or perforation K92.2, Gastrointestinal hemorrhage, unspecified CPT copyright 2018 [employer]. All rights reserved. The codes documented in this report are prelimin alfredo and upon road patcher review may be revised to meet current compliance requiremen ts. Brian Nuñez MD Brian Nuñez MD 02/10/2020 2:12:17 PM This report has been signed electronically. Number of Addenda: 0 Note Initiated On: 02/10/2020 12:42 PM Procedure Date: 02/10/2020 12:42:30 PM Estimated Blood Loss: Estimated blood loss: none. [address] [place] [address] Provation {[id number]}.pdf ProVation FT PDF PATIENT NAME: ADRIANA CADENA Electronically Signed by Brian Nuñez MD on at 1412 PATIENT NAME: ADRIANA CADENA 2020-02-10 11:19:00-00:00 [id number] [place] [address] PATIENT NAME: ADRIANA CADENA ADMIT DATE: 02/07/20 ACCOUNT NO: [id number] ROOM NO: Z.530 AGE: 75 REPORT TYPE: PROGRESS NOTE SEX: F ADMITTING PHYSICIAN:Tayla Turcios MD ATTENDING PHYSICIAN:Tayla Turcios MD DATE: 02/10/2020 INTERNAL MEDICINE PROGRESS NOTE SUBJECTIVE: The patient was seen and examined at the bedside. The patient is still currently on NG tube, but not suction to the wall. The patient is pending an endoscopy as well as colonoscopy today. The p atient denies any new complaints. OBJECTIVE: VITAL SIGNS: Blood pressure 146/76, respirations 16, heart rate of 108, and temperature 97.5, and oxygen saturation is 95% o n room air. GENERAL: The patient does not appear in acute di stress. NEUROLOGIC: Awake, alert, and oriented x4. HEENT: Atraumatic and normocephalic. HEART: S1 and S2 are normal. LUNGS: Fair entry bilaterally. ABDOMEN: Soft. Normal bowel sounds. EXTREMITIES: No clubbing, no cyanosis and no gris ma noted. GENITOURINARY: With Frederick catheter. LABORATORY DATA: Has been reviewed. Magnesium of 2.0. Sodium 139, potassium 2.6, chloride 106, CO2 of 27, BUN of 6, creatini ne 0.50, and ____. Calcium level of 7.9. WBC count is 27.3, hemoglobin of 1 0.5, hematocrit of 33.4, and platelet of 268. Microbiology report is still pending. IMPRESSION: 1. Hypokalemia. 2. Leukocytosis. 3. Suspected urinary tract infection. Urinalysis positive for leukocyte esterase that is high. 4. Constipation. 5. Coronary artery disease with previous stents. 6. Hypertension. 7. Type 2 diabetes. 8. History of renal disease. 9. Suspected involving paralytic ileus. PLAN AND RECOMMENDATIONS: 1. For endoscopy as well as colonoscopy today. PATIENT NAME: ADRIANA CADENA 2. Replace potassium today with 40 mEq IV as wel l as 40 mEq p.o. per GI. 3. We will obtain blood culture x2 for the leuko cytosis. 4. Continue n.p.o. until the procedure. 5. We will follow recommendations from the GI in terms of the diet post-procedure. DISPOSITION: Inpatient. Discharge planning in the next 1 to 2 days. I do not think the patient is stable to be discharged yet as the patient's pot assium level is at 2.6. Case discussed with the patient, nursing staff, and torey Turcios. Dictated By: Tyler Colón NP for Tayla Turcios MD WT: PN:NAIMA/ASHLEY.ELEKENIA/NTS Conf#: [id number]/DID#: [id number] Authenticated by Tyler Colón NP On 2020 11:34:16 AM Authenticated by Tayla Turcios MD On 02/23/2020 02:24:55 PM at 1425 at 1425 PATIENT NAME: ADRIANA CADENA 2020-02-10 09:31:00-00:00 [phone] [place] [address] PATIENT NAME: ADRIANA CADENA ADMIT DATE: 02/07/20 ACCOUNT NO: [id number] ROOM NO: [facility] AGE: 74 REPORT TYPE: ECHOCARDIOGRAM SEX: F ADMITTING PHYSICIAN:Tayla Turcios MD ATTENDING PHYSICIAN:Tayla Turcios MD *[facility]* [address] [place] [id number] Transthoracic Echocardiogram Patient: Adriana Cadena Study Date: 02/08/2020 BP: 151 / 82 Location: [facility] URN: [id number] : 1945 Age: 74 Height: 62 in / 157.5 cm Gender: F Weight: 15 5 lb / 70.5 kg BMI/BSA: 28.4 kg/m 2 / 1.78 m 2 *Ordering Physician: * Mark Treviño MD *Interpreting Physician: * Mark Treviño MD *Supervisor Webbing: * Florinda Arevalo RVT Indications: Pre-operative Cardiovascular Evalua tion. Study data: Transthoracic echocardiogram. Proced ure: Transthoracic echocardiography was performed. Images were obta ined using a [employer] cardiac ultrasound machine. Image quality was suboptimal . Complete 2D, complete spectral Doppler, and color Doppler. Location: [facility]. Patient status: Inpatient. Patient room number: 530. Adrian dy status: Routine. Findings Left ventricle: The cavity size is normal. Wall thickness is normal. Systolic function is normal. The estimated eject ion fraction is 65-69%. Wall motion is normal; there are no regional wal l motion abnormalities. Doppler parameters are consistent with abnormal left ventricular relaxation (grade 1 diastolic dysfunction). Right ventricle: Poorly visualized. The cavity s ize is normal. Systolic PATIENT NAME: ADRIANA CADENA function is normal. Left atrium: The atrium is normal in size. Right atrium: The atrium is normal in size. Atrial septum: Not well visualized. Aorta: The aorta is not visualized. The aortic r oot is not dilated. Aortic valve: The leaflets are mildly thickened. Thickening, consistent with sclerosis. There is no evidence of stenosis. Mitral valve: The annulus is mildly calcified. T he leaflets are mildly thickened. There is no regurgitation. Tricuspid valve: Not well visualized. There is n o regurgitation. Pulmonic valve: Not well visualized. There is no regurgitation. Pericardium: A trivial pericardial effusion is i dentified. No evidence of pleural fluid accumulation. Systemic veins: Inferior vena cava: Not well visualized. Baseline ECG: Sinus tachycardia. Measurements Left ventricle Value Ref KEVIN, LAX 3.3 cm 3.8 - 5.2 ESD, LAX 2.3 cm 2.2 - 3.5 ESD/bsa, LAX 1.3 cm/m 2 1.3 - 2.1 FS, LAX 31 % 27 - 45 PW, ED 1.1 cm 0.6 - 0.9 PW, ES 1.3 cm --------- IVS/PW, ED 1 --------- EF 60 % 54 - 74 IVRT 93 ms --------- E', lat german, 10.0 cm/sec >=10.0 TDI E/e', lat german, 5 --------- TDI E', med german, 8.0 cm/sec >=7.0 TDI E/e', med german, 7 --------- TDI E', avg, TDI 9.0 cm/sec --------- E/e', avg, TDI 6 <=14 LVOT Value Ref Diam, S 1.91 cm --------- Area 2.9 cm 2 --------- Peak mani, S 1.14 m/sec --------- Mean mani, S 0.72 m/sec --------- VTI, S 20.4 cm --------- Peak grad, S 5 mm Hg --------- Mean grad, S 5 mm Hg --------- SV 59 ml --------- Qs 6.59 L/min --------- Qs/bsa 3.7 L/(min-m 2) --------- PATIENT NAME: ADRIANA CADENA 7 SV/bsa 33 ml/m 2 --------- Ventricular septum Value Ref IVS, ED 1.1 cm 0.6 - 0.9 IVS, ES 1.3 cm --------- Right ventricle Value Ref KEVIN, LAX 2.3 cm --------- RVOT Value Ref Peak v, S 1.1 m/sec --------- Peak grad, S 5 mm Hg --------- Left atrium Value Ref AP dim, ES 3.23 cm 2.70 - 3.80 Area ES, A4C 14 cm 2 <=20 AP dim, ES MM 3.6 cm 2.7 - 3.8 LA/Ao root 1.06 --------- ratio, MM Right atrium Value Ref Area, ES, A4C 10 cm 2 10 - 18 Aortic valve Value Ref Leaflet sep, MM 2.02 cm --------- Peak v, S 1.27 m/sec --------- Mean v, S 0.92 m/sec --------- VTI, S 20.6 cm --------- Mean grad, S 3.6 mm Hg --------- Peak grad, S 6.5 mm Hg --------- LVOT/AV, VTI 0.99 --------- ratio JENNYFER, VTI 2.84 cm 2 --------- LVOT/AV, Vpeak 0.9 --------- ratio JENNYFER, Vmax 2.58 cm 2 --------- Mitral valve Value Ref Peak E 0.55 m/sec --------- Peak A 1.13 m/sec --------- Mean v, D 1.02 m/sec --------- VTI leaflet 23.3 cm --------- coapt Decel time 65 ms --------- PHT 55 ms --------- Mean grad, D 4.6 mm Hg --------- Peak grad, D 10.1 mm Hg --------- Peak E/A ratio 0.49 --------- MVA, PHT 4.0 cm 2 --------- Pulmonic valve Value Ref DC v, ED 1.13 m/sec --------- DC grad, ED 5 mm Hg --------- PATIENT NAME: ADRIANA CADENA Aortic root Value Ref Root diam 3.2 cm <4.0 Root diam, ED 3.38 cm --------- MM Conclusions Summary: 1. Left ventricle: The cavity size is normal. Wa ll thickness is normal. Systolic function is normal. The estimated ejec tion fraction is 65-69%. Wall motion is normal; there are no reg ional wall motion abnormalities. Doppler parameters are consisten t with abnormal left ventricular relaxation (grade 1 diastolic dysfu nction). 2. Aortic valve: Thickening, consistent with scl erosis. 3. Pericardium, extracardiac: A trivial pericard ial effusion is identified. Prepared and electronically signed by Mark Treviño MD 02/10/2020 09:31 at 0932 PATIENT NAME: ADRIANA CADENA 2020-02-09 20:08:00-00:00 [facility] General Surgery Progress Note REPORT#:[id number] REPORT STATUS: Signed DATE:02/09/20 TIME: 2007 PATIENT: ADRIANA CADENA UNIT #: [id number] ROOM[facility]BED: [facility]-A : 46 AGE: 74 SEX: F ATTEND: Tayla Turcios MD ADM AUTHOR: Michelle Muñoz MD * ALL edits or amendments must be made on the [employer]/computer document * Subjective Patient reports: Yes: bowel movement, diarrhea, feeling better. Comments: Patient on golytely and having loose stool. She report less abdominal pain. Objective General VS/I O: Last Documented: Result Date Time Pulse Ox 93 02/08 1602 B/P 154/83 02/08 1602 B/P Mean 107.0 02/08 1602 O2 Delivery Room air 02/08 1602 Temp 97.9 02/08 1602 Pulse 115 02/08 1602 Resp 16 02/08 1602 Vital Signs Date Temp Pulse Resp B/P B/P Mean Pulse Ox FiO2 02/08 97.7-98.1 114-152 16 123-174/74-97 90.0-1 22.8 92-93 24 hour I O ending at 0700: 02/08 0700 02/07 1900 Intake Total 900.00 Output Total 650 Balance 250.00 Intake, IV 900.00 Number 2 Bowel Movements Output, 150 Gastric Drainage Output, Urine 500 PATIENT WEIGHT: Weight (lb): Weight (oz): Weight (kg): 70.455 Medications: Active Meds + DC'd Last 24 Hrs Aztreonam 1,000 MG Q8H IV Sodium Chloride 10 ML Polyethylene Glycol/Electrolytes 4,000 ML ONCE O NE PO (DC) Metoclopramide HCl 10 MG Q6HR IV Polyethylene Glycol 340 GM ASDIR PO (CKD) Acetaminophen 650 MG Q4H PRN PRN PO Acetaminophen/Codeine Phosphate 1 UDTAB Q4H PRN PRN PO Labetalol HCl 5 MG Q6H PRN PRN IV Ondansetron HCl 4 MG Q6H PRN PRN IV Digoxin 0.25 MG ONCE ONE IV (DC) Metoclopramide HCl 10 MG Q6HR IV (DC) Sodium Chloride 0 .STK-MED ONE IV (DC) Atorvastatin Calcium 80 MG BEDTIME PO Insulin Human Lispro LOW DOSE SLIDING SCALE AC HS SUBQ Polyethylene Glycol 340 GM ASDIR FEED-TUBE (DC) Dextrose/Water 12.5 GM ASDIR PRN IV Dextrose/Water 25 GM ASDIR PRN IV Aspirin 325 MG DAILY PO Famotidine 20 MG Q12HR IV Aztreonam 1,000 MG Q12HR IV (DC) Sodium Chloride 10 ML Alprazolam 0.25 MG BID PRN PRN PO Dextrose/Sodium Chloride 1,000 ML Q13H IV Docusate Sodium 100 MG BID PRN PRN PO Hydralazine HCl 10 MG Q6H PRN PRN IV Morphine Sulfate 4 MG Q3H PRN PRN IV Ondansetron HCl 4 MG Q6H PRN PRN IV (DC) Enoxaparin Sodium 70 MG Q12H SUBQ Physical Exam General appearance: alert, awake, oriented Cardiovascular: normal S1/S2 Respiratory: clear to auscultation Abdomen: non-tender, normal bowel sounds, soft, no rebound Extremities: no edema Results Findings/Data: Laboratory Tests 02/09/20423: [Embedded Image Not Available] Laboratory Tests 02/08 02/08 02/08 02/08 02/07 1600 1046 0553 0424 2212 Chemistry Sodium (137 - 145 MMOL/L) 134 L Potassium (3.5 - 5.1 MMOL/L) 3.5 Chloride (98 - 107 MMOL/L) 104 Carbon Dioxide (22 - 30 MMOL/L) 21 L Anion Gap (14 - 24 MMOL/L) 13 L BUN (7 - 17 MG/DL) 12 Creatinine (0.52 - 1.04 MG/DL) 0.60 Glomerular Filtr Rate > 60 Glucose (74 - 106 MG/DL) 250 H POC Glucose (60 - 99 MG/DL) 151 H 219 H 231 H 2 21 H Calcium (8.4 - 10.2 MG/DL) 8.0 L Magnesium (1.6 - 2.3 MG/DL) 2.6 H Laboratory Tests 02/09 424 Coagulation INR 1.1 APTT (25.1 - 36.5 SECONDS) 27.9 PT Patient/Control Mix (9.4 - 12.5 SECONDS) 12. 6 H Laboratory Tests 02/09 424 Hematology WBC (3.8 - 9.8 K/MM3) 25.0 H RBC (3.58 - 4.97 M/MM3) 3.96 Hgb (11.2 - 14.9 G/DL) 12.0 Hct (33.2 - 43.5 %) 38.0 MCV (80.7 - 99.1 fL) 96 MCH (27.0 - 34.1 pg) 30.3 MCHC (32.2 - 35.7 %) 31.6 L RDW (12.1 - 15.2 %) 15.3 H Plt Count (129 - 368 K/MM3) 303 Neut # (Auto) (2.0 - 7.6 K/mm3) 7.35 Lymph # (Auto) (1.0 - 3.8 K/mm3) 14.85 H [place] # (Auto) (0.1 - 0.8 K/mm3) 2.46 H Eos # (Auto) (0.0 - 0.2 K/mm3) 0.02 Baso # (Auto) (0.0 - 0.2 K/mm3) 0.11 Total Counted (#CELLS) 130 Seg Neutrophils % (36.2 - 73.8 %) 29.8 L Band Neutrophils % (0 - 10 %) 16.7 H Lymphocytes % (Manual) (12.9 - 45.1 %) 43.8 Atypical Lymphs % (0 - 0 %) 0.0 Monocytes % (Manual) (0 - 11 %) 7.0 Basophils % (Manual) (0 - 2 %) 0.9 Plasma Cell % (Manual) (0 - 0 %) 0.9 H Myelocytes (0 - 0 %) 0.9 H Nucleated RBCs # (Man) (0.0 - 0.1 K/mm3) 0.03 Platelet Estimate (ADEQUATE) ADEQUATE Plt Morphology Comment (NORMAL) NORMAL Anisocytosis (NONE) SLIGHT Diagnosis, Assessment Plan Problem List/A P: 1. Constipation Free Text A P: Patient has nearly completed golytely fo r prep. Dr. Nuñez's notes reviewed. He plan colonoscopy /EGD pending patient agreeing t o procedure tommorow. at 2010 RPT #:[id number] END OF REPORT 2020-02-09 12:40:00-00:00 [id number] [address] PATIENT NAME: ADRIANA CADENA ADMIT DATE: 02/07/20 ACCOUNT NO: [id number] ROOM NO: Z.530 AGE: 75 REPORT TYPE: CONSULTATION REPORT SEX: F ADMITTING PHYSICIAN:Tayla Turcios MD ATTENDING PHYSICIAN:Tayla Turcios MD CONSULTATION DATE: CONSULTING PHYSICIAN: Brian Nuñez MD HISTORY OF PRESENT ILLNESS: Comes in with cinthya garcia and generalized abdominal pain, nausea, vomiting, leukocytosis, hypertension, diabetes, and chronic back pain. Discussed with Dr. Muñoz, she has NG tube to suctioning. If we are able to evaluate the upper and lower GI t ract ____ prep her. She is denying any abdominal pain or nausea. Sh pippa has NG tube to suctioning and giving her prep through the NG tube; however, she is no w refusing. SOCIAL HISTORY: Does not smoke or drink. REVIEW OF SYSTEMS: A 14-point review of systems, no additional information. LABORATORY DATA: White count remains 25,000, 12 g hemoglobin, 38 hematocrit, 96 MCV, and 303,000 platelet count with nor mal coagulations. Chemistries, glucose 250, otherwise stable. PHYSICAL EXAMINATION: HEENT: PERRLA. Nonicteric sclerae. Nose and thro at negative. NECK: Supple. Nontender. No JVD, lymphadenopathy , or bruit palpable. LUNGS: Good air exchange. HEART: Regular rhythm, S1 and S2. There is no ga llop or murmur audible. ABDOMEN: Soft, nontender. No organomegaly palpab le. Bowel sounds are normal. EXTREMITIES: No cyanosis, clubbing, or edema. IMPRESSION: History of sinus tachycardia , cardiology involved. Suspect urinary tract infection, constipatio n, change in bowel habit, nausea, vomiting, possibly ____ colon. PLAN: Continue prep on her a nd evaluate the upper and lower GI tract pathology. At this point, she is refusing. I am going to t alk to her again to ____. If she does not, we will just treat conservatively and follow clinically. Dictated By: Brian Nuñez MD WT: CON:NAIMA/MARCY/LIN Conf#: [id number]/DID#: [id number] PATIENT NAME: ADRIANA CADENA 7 Authenticated by Brian Nuñez MD On 1 11:25:06 AM Electronically Signed by Brian Nuñez MD on at 1125 PATIENT NAME: ADRIANA CADENA 2020-02-09 12:09:00-00:00 [id number] [place] [id number] PATIENT NAME: ADRIANA CADENA ADMIT DATE: 02/07/20 ACCOUNT NO: [id number] ROOM NO: Z.530 AGE: 74 REPORT TYPE: ELECTROCARDIOGRAM SEX: F ADMITTING PHYSICIAN:Tayla Turcios MD ATTENDING PHYSICIAN:Tayla Turcios MD Order: [id number] Test Reason : ARRYTHMMIA Test Date/Time Stamp: SatFeb 09 2020 12:09:03 Blood Pressure : / mmHG Vent. Rate : 117 BPM Atrial Rate : 117 BPM P-R Int : 096 ms QRS Dur : 094 ms QT Int : 452 ms P-R-T Axes : 007 029 065 degree s QTc Int : 630 ms Sinus tachycardia with short DC Nonspecific T wave abnormality Abnormal ECG No previous ECGs available Confirmed by MD ECTOR, MARK EDWARD ([id number]) on 02/10/2020 9:34:47 AM Referred By: Tayla Turcios Confirmed by:MARK TREVIÑO MD at 0935 PATIENT NAME: ADRIANA CADENA 2020-02-09 11:29:00-00:00 [phone] [address] PATIENT NAME: ADRIANA CADENA ADMIT DATE: 02/07/20 ACCOUNT NO: [id number] ROOM NO: Z.530 AGE: 74 REPORT TYPE: PROGRESS NOTE SEX: F ADMITTING PHYSICIAN:Tayla Turcios MD ATTENDING PHYSICIAN:Tayla Turcios MD DATE: 02/09/2020 INTERNAL MEDICINE PROGRESS NOTE SUBJECTIVE: The patient was seen and examined at the bedside. I answered all the questions appropriately to my best o f knowledge. The patient is to undergo an EGD and colonoscopy. According to the nursing report, they are still doing the bowel preps. The patient denies any new acute events but still complaining of discomfort on the abdominal site. OBJECTIVE: VITAL SIGNS: Blood pressure of 149/81, respirati ons of 16, heart rate of 127, and temperature 36.7. Oxygen saturation 92% on room air. PHYSICAL EXAMINATION: GENERAL: The patient does not appear in acute di stress. NEUROLOGIC: Awake, alert, and oriented x4. NECK: No JVD. HEART: S1 and S2 normal. LUNGS: Fair entry bilaterally. ABDOMEN: Soft, nontender, and nondistended. Norm al bowel sounds. EXTREMITIES: No clubbing, no cyanosis. No edema noted. LABORATORY DATA: Reviewed. WBC count of 25, hemo globin of 12, hematocrit of 38, and platelets of 303, CO2 of 21, chl oride of 104. Sodium of 134, potassium of 3.5, chloride of 12, and creatinine of 0.60, blood glucose level of 250. IMPRESSION: 1. Sinus tachycardia. 2. Suspected urinary tract infection as the abdulaziz ent's urinalysis is positive for leukocyte esterase that is high. 3. Constipation. 4. Coronary artery disease with previous stents. 5. Hypertension. 6. Type 2 diabetes. 7. History of renal disease. 8. Suspected involving paralytic colonic ileus. PLAN AND RECOMMENDATIONS: 1. To keep the patient n.p.o. with NG tube sucti on to the wall. PATIENT NAME: ADRIANA CADENA 2. Plan for EGD and colonoscopy today. 3. Diet as recommended by the GI after the proce dure. 4. Appreciate recommendations from the general s urgeon. 5. To obtain EKG as the patient's heart rhythm i s elevated. 6. Continue with DVT prophylaxis of Lovenox. 7. GI prophylaxis of Pepcid 20 mg IV q. 12. 8. To increase the IV fluids to 100 mL per hour as the patient remains to be n.p.o. and the patient is currently on tachycard ia. DISPOSITION: Inpatient. Discharge planning in the next 3 to 5 days once the patient remains to be hemodynamically stable and cleared from all the consultants. Case discussed with the nursing team, the jakob george, and Dr. Tayla Turcios. Dictated By: Tyler Colón NP for Tayla Turcios MD WT: PN:NAIMA/ASHLEY.01-ELEJO/NTS Conf#: [id number]/DID#: [id number] Authenticated by Tayla Turcios MD On 02/09/2020 02:39:46 PM Authenticated by Tyler Colón NP On 2019 11:52:22 AM at 1152 at 1152 PATIENT NAME: ADRIANA CADENA 2020-02-08 13:56:00-00:00 [id number] [place] [address] PATIENT NAME: ADRIANA CADENA ADMIT DATE: 02/07/20 ACCOUNT NO: [id number] ROOM NO: Z.530 AGE: 75 REPORT TYPE: CONSULTATION REPORT SEX: F ADMITTING PHYSICIAN:Tayla Turcios MD ATTENDING PHYSICIAN:Tayla Turcios MD CONSULTATION DATE: 02/08/2020 CONSULTING PHYSICIAN: Michelle Muñoz MD REASON FOR CONSULTATION: Evaluation for constipa tion and ileus. HISTORY OF PRESENT ILLNESS: The patient is a 74- year-old female who was transferred from [place] for findings of ileus. A ccording to the ER physician, there was no gastroenterolog ist available, so the patient was transferred to our ER for further evaluation. T he patient reports 10 days of generalized abdominal pain associated with nausea and vomiting. She paulson s not had any bowel movements for the past 5 days. She has had a CT scan of abdomen and pelvis, which showed constipation with fec al impaction. The gallbladder was distended with no gallstones or pericholecystic fluid. She has no bowel obstruction. The colon is distended up to 10 cm wit h both gas and stool. The patient has a nasogastric tube in place. She has put out 400 mL from the l ast shift. Contents of the canister did not appear feculent. PAST MEDICAL HISTORY: Significant for: 1. Diabetes mellitus type 2. 2. Hypertension. 3. Chronic back pain. PAST SURGICAL HISTORY: Significant for: 1. Hiatal hernia repair. 2. Hysterectomy. 3. Spinal surgeries. MEDICATIONS: MAR reviewed. ALLERGIES: 1. PENICILLIN. 2. LEVAQUIN. FAMILY HISTORY: Significant for: 1. Colon cancer. 2. Lung cancer. 3. Diabetes mellitus type 1. 4. Diabetes mellitus type 2. REVIEW OF SYSTEMS: CONSTITUTIONAL: The patient denies fever or chil ls. PATIENT NAME: ADRIANA CADENA RESPIRATORY: Denies cough, wheezing, or sputum p roduction. CARDIOVASCULAR: She denies chest pain or palpita tions. GASTROINTESTINAL: Reports abdominal pain, consti pation, obstipation. Denies hematemesis. Did have vomiting. GENITOURINARY: Denies dysuria, hematuria, or maria isabel yuria. PHYSICAL EXAMINATION: GENERAL: The patient appears in no acute distres s. VITAL SIGNS: Show temperature 98.2, puls e 114, respirations 14, blood pressure 157/92. CARDIOVASCULAR: S1 and S2. LUNGS: Clear to auscultation. ABDOMEN: Diffusely tender. No guarding. No rebou nd. No masses appreciated. EXTREMITIES: No edema, clubbing, or cyanosis. LABORATORY DATA: White cell count 25.6, platelet count 270, hemoglobin 12.1, hematocrit 37. Sodium 135, potassium 3.5, chlori de 106, CO2 is 21, BUN 15, creatinine 0.7, glucose 161. ASSESSMENT: 1. Constipation. 2. Generalized abdominal pain. 3. Nausea and vomiting. 4. Leukocytosis. 5. Hypertension. 6. Diabetes mellitus type 2. 7. Chronic back pain. PLAN: GI has been consulted. The patient to be s cheduled for EGD and colonoscopy. I recommend continue laxative use t hrough NG tube. Dictated By: Michelle Muñoz MD WT: CON:NAIMA/OPAL/LIN Conf#: [id number]/DID#: [id number] Authenticated by Michelle Muñoz MD On 03/21/19 09:41:10 AM at 0941 PATIENT NAME: ADRIANA CADENA 2020-02-08 12:39:00-00:00 [facility] ([facility]) Cardiology Consultation REPORT#:[id number] REPORT STATUS: Signed DATE:02/08/20 TIME: 1239 PATIENT: ADRIANA CADENA UNIT #: [id number] ROOM/BED: [address] : 46 AGE: 74 SEX: F ATTEND: Tayla Turcios MD ADM AUTHOR: Mark Treviño MD * ALL edits or amendments must be made on the [employer]/computer document * History - Adult longitudinal Allergies: Coded Allergies: Penicillins (Intermediate, HIVES 02/07/20) levofloxacin (From LEVAQUIN) (Intermediate, JOIN T PAIN 02/07/20) Diagnosis, Assessment Plan Free Text DxA P Notes Free Text DxA P Notes: pt seen and examined. finds c/w paralytic ileus. ?bowel obstruction?? continue monitering support.full note dictated. at 1241 RPT #:[id number] END OF REPORT 2020-02-08 12:39:00-00:00 [id number] [place] [address] PATIENT NAME: ADRIANA CADENA ADMIT DATE: 02/07/20 ACCOUNT NO: [id number] ROOM NO: [facility] AGE: 74 REPORT TYPE: CONSULTATION REPORT SEX: F ADMITTING PHYSICIAN:Tayla Turcios MD ATTENDING PHYSICIAN:Tayla Turcios MD CONSULTATION DATE: CONSULTING PHYSICIAN: Mark Treviño MD CARDIOLOGY CONSULTATION HISTORY OF PRESENT ILLNESS: A 74-year-old female comes in through the [facility] referral involving paralytic colon, ile us, and a moderate degree of fecal burden with significant distention of the cecum and proximal ascending order colon without definite findings of obstruc tion. The patient is admitted for further observation and treatment for abdomi nal pain. PAST MEDICAL HISTORY: History of coronary artery disease, previous stents, history of hypertension, his tory of left renal removal. The patient has history of hypertension, diabetes mellitus type 2. REVIEW OF SYSTEMS: Denies chest pain, shortness of breath, or palpitations. Does have significant abdominal discomfort at th e time of my evaluation. PHYSICAL EXAMINATION: VITAL SIGNS: Include a blood pressure of 140/80, respiration rate 16, heart rate of 112-118, sinus tachycardia. GENERAL: She is an ill-appearing white female. SKIN: Normal. HEENT: Within normal limits. NECK: Supple. No JVD or carotid bruit. Trachea m idline. No thyromegaly. LUNGS: Clear to auscultation and percussion. HEART: Regular rhythm. S1 and S2 are normal with tachycardia. ABDOMEN: Obviously tender, especially with palpa tion. Bowel sounds were extremely hypoactive, but no rebound was noted. EXTREMITIES: Negative. NEUROLOGIC: Physiologic. IMPRESSION AND PLAN: Paralytic colonic ileus, qu estion of course is, should exploratory lap be entertained. The patient had a 2D echo with excellent ejection fraction. The patie nt is cleared for surgery or exploratory surgery at this time should that decision will be made. His tory of coronary artery disease, previous stents wit h ejection fraction, which is normal at 55%, history of hypertension, diabetes mellitus type 2, and history of renal disease with a left renal nephrectomy in the past. For now, we will continue to monitor. Agree with your management and discussed the drake e with the nurse. PATIENT NAME: ADRIANA CADENA Dictated By: Mark Treviño MD WT: CON:ZVINCENZO/LUIS ANGEL/LIN Conf#: [id number]/DID#: [id number] Authenticated by Mark Treviño MD On 020 01:20:09 PM at 1320 PATIENT NAME: ADRIANA CADENA 2020-02-08 08:45:00-00:00 [facility] ([facility]) Hospitalist Progress Note REPORT#:[id number] REPORT STATUS: Signed DATE:02/08/20 TIME: 0845 PATIENT: ADRIANA CADENA UNIT #: [id number] ROOM/BED: [address] : 46 AGE: 74 SEX: F ATTEND: Tayla Turcios MD ADM AUTHOR: Tyler Colón NP * ALL edits or amendments must be made on the el [employer]/computer document * Subjective Free Text Subj Notes Free Text Subj Notes: SEEN AND EXAMINED AT THE BEDSIDE. REVIEWED CHART FROM [facility] ON HER ACTUAL CHART. SPOKE TO THE NURSE. HP DICTATED [id number] MELIZA ALEXANDRO BIOSTATISTICIAN/ DR TAYLA TURCIOS Electronically Signed by Tyler Colón BIOSTATISTICIAN on 1 04/10/19 at 0846 RPT #:[id number] END OF REPORT 2020-02-08 08:45:00-00:00 [id number] [place] [address] PATIENT NAME: ADRIANA CADENA ADMIT DATE: 02/07/20 ACCOUNT NO: [id number] ROOM NO: [facility] AGE: 74 REPORT TYPE: HISTORY AND PHYSICAL SEX: F ADMITTING PHYSICIAN:Tayla Turcios MD ATTENDING PHYSICIAN:Tayla Turcios MD ADMISSION DATE: 02/07/2020 INTERNAL MEDICINE HISTORY AND PHYSICAL REASON FOR ADMISSION: Abdominal pain. HISTORY OF PRESENT ILLNESS: This is a 74-year-ol d female who does have past medical history of hypertension, coronar y artery disease with previous stents, status post kidney removal came into our institu tion with 10/10 generalized aching pain abdominal area. She had stated that she has been having her bowel movement every week, which i s normal for her. Yesterday morning she experienced a severe abdominal pain unrelieved by nothing, n ot worsened by anything. She was initially seen at [facility] with x-ra y of the abdomen showing probable evolving paralytic colonic ileus in add ition to significant moderate degree at least of fecal burden and significant distention of the cecum and proximal ascending colon to 11 to 12 cm in trans verse breath without definite free air identified. Her CT scan of the abdomen and pelvis also showed an evolving fecal burden particularly trans verse colon, no high-grade obstruction is seen, colonic diverticulosis without definite findings for acute diverticulitis. Absence of visualization again o f the left kidney was noted. No definite right renal mass or hydronephrosis. Coronary artery vascular calcification or possible stents in particular a long the distribution of the LAD. REVIEW OF SYSTEMS: A 14-point review of systems were all reviewed. The patient denies any chest pain. No shortness of breath. SOCIAL HISTORY: Positive for smoking. PAST MEDICAL HISTORY: 1. Hypertension. 2. Type 2 diabetes. 3. Renal disease. FAMILY HISTORY: Noncontributory. PHYSICAL EXAMINATION: VITAL SIGNS: Blood pressure 142/82, respirations 14, heart rate 112, temperature 97.5, and oxygen saturation 94% on r oom air. GENERAL: The patient does not appear in acute di stress. NEUROLOGIC: Awake, alert, and oriented x4. HEENT: Atraumatic, normocephalic. NG tube was no holly. Suction to the wall. PATIENT NAME: ADRIANA CADENA HEART: S1 and S2 are normal. Sinus tachycardia. LUNGS: Clear upon auscultation bilaterally. ABDOMEN: Tenderness noted upon palpation. Hypoac tive bowel sounds were noted. EXTREMITIES: No clubbing. No cyanosis. LABORATORY DATA: WBC count of 25.6, hemoglobin o f 12.1, hematocrit of 37, and platelets of 270. Sodium of 135, potassi um of 3.5, chloride of 106, CO2 of 21, BUN of 15, creatinine of 0.70. Blood sugar level of 161. IMPRESSION: 1. Suspected evolving paralytic colonic ileus. 2. Constipation. 3. Coronary artery disease with previous stents. 4. Hypertension. 5. Type 2 diabetes. 6. History of renal disease. PLAN AND RECOMMENDATIONS: 1. Based on above findings, the patient to be kept n.p.o. with NG tube suction to the wall until further recommendations from [facility] general surgeon as well as the GI doctor. 2. Consult made to the tie carrier, GI, and gen eral surgeon. 3. Continue with GI prophylaxis, PPI IV. 4. Deep venous thrombosis prophylaxis, SCDs. 5. Hold off any oral medications for now as the patient is currently n.p.o. 6. Continue with supportive care. The eliazar mulligan is currently on IV fluids normal saline at 75 mL per hour as well as morphine. Total time spent in this enc ounter is greater than 2 hours and 20 minutes which includes initiating the arevalo sfer from one hospital to the other; speaking to the transfer center household manager; coordinating p toño with the nursing team, consultants, and with my supervising physician, Dr. Tayla Turcios. Dictated By: Tyler Colón NP for Tayla Turcios MD WT: HP:NAIMA/CELSO-YOEL/LIN Conf#: [id number]/DID#: [id number] Authenticated by Tayla Turcios MD On 02/09/2020 02:39:44 PM Authenticated by Tyler Colón NP On 2019 11:52:21 AM at 1152 at 1152 PATIENT NAME: ADRIANA CADENA 2020-02-07 21:21:00-00:00 [facility] ([facility]) EMERGENCY PROVIDER REPORT REPORT#:[id number] REPORT STATUS: Signed DATE:02/07/20 TIME: 2120 PATIENT: ADRIANA CADENA UNIT #: [id number] ROOM/BED: [address] AGE: 74 SEX: F PCP PHYS: No Primary or Family Ph ysician SERVICE AUTHOR: Alfred Arevalo MD LOCATION: [facility] [place] * ALL edits or amendments must be made on the [employer]/computer document * HPI-Abd Pain F 40 and Over General Confirmed Patient Yes Patient Type New patient Initial Greet Date/Time 02/07/202111 Presentation Chief Complaint Abdominal pain Sudden in Onset? No Free Text HPI Notes Free Text HPI Notes This is a 74-year-old female with a history of leukemia, diabetes, hypertension who presents emergency department for 10 days of generalized abdominal pain, nausea, and vomiting fecal material. Elise schneider was transferred here from [facility] for ileus as well as obstipation. Patient states that she is able to pass gas but unable to have a bowel movement. Paperwork a t bedside reveals a CT scan showing fecal impaction of the left colon, eleva holly creatinine and elevated troponin. Patient denies any chest pain or short ness of breath at this time. Risk-Abd Pain F 40 and Over )( Abdominal Aortic Aneurysm Risk factors review ed Review of Systems ROS Statements All systems rev neg except as marked. Basic Review of Systems Basic ROS EYES: No redness, ENT: No sore throat, HEM: No bleeding/bruising, SKIN : No rash, NEURO: No change MS, NEURO: No focal deficit, PSYCH: NL thought content Past Medical History - Adult Stated Complaint TRANSFER, ABD PAIN R/O BOWEL OB STRUCTION Allergies Coded Allergies: Penicillins (Intermediate, HIVES 02/07/20) levofloxacin (From LEVAQUIN) (Intermediate, JOIN T PAIN 02/07/20) Pt reports no significant: Past medical history, Past surgical history, Family history, Social history Smoking status for patients 13 years old or olde r: Never Smoker Physical Exam Vital Signs Vital Signs First Documented: Result Date Time Pulse Ox 97 02/07 2140 B/P 154/67 02/07 2140 B/P Mean 96 02/07 2140 O2 Delivery Room air 02/07 2140 Temp 36.4 02/07 2140 Pulse 98 02/07 2140 Resp 02/06 Last Documented: Result Date Time Pulse Ox 97 02/07 2140 B/P 154/67 02/07 2140 B/P Mean 96 02/07 2140 O2 Delivery Room air 02/07 2140 Temp 36.4 02/07 2140 Pulse 98 02/07 2140 Resp 18 02/07 2140 Review of Vital Signs Reviewed Basic Physical Exam Basic PE HEAD: Atraumatic/NC, EYES: PERRL, conj clear, ENT: Membranes moist, NECK: Supple, EXT: No gross abnormality, SKIN: No rashes, warm/dry, NEURO: alert oriented, NEURO: gross movement NL Interpretation Diagnostics Lab Results Interpretation Results Laboratory Tests 02/07/202139: [Embedded Image Not Available] Laboratory Tests: 02/07 2140 Chemistry Sodium (137 - 145 MMOL/L) 135 L Potassium (3.5 - 5.1 MMOL/L) 3.5 Chloride (98 - 107 MMOL/L) 106 Carbon Dioxide (22 - 30 MMOL/L) 21 L Anion Gap (14 - 24 MMOL/L) 12 L BUN (7 - 17 MG/DL) 15 Creatinine (0.52 - 1.04 MG/DL) 0.70 Glomerular Filtr Rate > 60 Glucose (74 - 106 MG/DL) 161 H Calcium (8.4 - 10.2 MG/DL) 7.9 L Total Bilirubin (0.2 - 1.3 MG/DL) 0.5 AST (14 - 36 UNITS/L) 19 ALT (<35 UNITS/L) 7 Total Alk Phosphatase (38 - 126 UNITS/L) 74 Troponin I (0.012 - 0.033 NG/ML) < 0.012 L Total Protein (6.3 - 8.2 G/DL) 6.0 L Albumin (3.5 - 5.0 G/DL) 3.3 L Hematology WBC (3.8 - 9.8 K/MM3) 25.6 H RBC (3.58 - 4.97 M/MM3) 3.91 Hgb (11.2 - 14.9 G/DL) 12.1 Hct (33.2 - 43.5 %) 37.0 MCV (80.7 - 99.1 fL) 95 MCH (27.0 - 34.1 pg) 30.9 MCHC (32.2 - 35.7 %) 32.7 RDW (12.1 - 15.2 %) 15.0 Plt Count (129 - 368 K/MM3) 270 Neut # (Auto) (2.0 - 7.6 K/mm3) 7.21 Lymph # (Auto) (1.0 - 3.8 K/mm3) 17.08 H [place] # (Auto) (0.1 - 0.8 K/mm3) 1.08 H Eos # (Auto) (0.0 - 0.2 K/mm3) 0.02 Baso # (Auto) (0.0 - 0.2 K/mm3) 0.06 Nucleated RBCs # (Man) (0.0 - 0.1 K/mm3) 0.00 Urines Urine Color (YELLOW) ABEL Urine Appearance (CLEAR) CLEAR Urine pH (5.0 - 9.0) 5.0 Ur Specific [place] (1.003 - 1.030) 1.025 Urine Protein (NEGATIVE MG/DL) 30 H Urine Glucose (UA) (NORMAL MG/DL) 250 H Urine Ketones (NEGATIVE MG/DL) 150 H Urine Blood (NEGATIVE Jamison/mm3) 25 H Urine Nitrite (NEGATIVE) NEGATIVE Urine Bilirubin (NEGATIVE MG/DL) NEGATIVE Urine Urobilinogen (NORMAL MG/DL) NORMAL Ur Leukocyte Esterase (NEGATIVE /mm3) TRACE H Urine RBC (0 - 3 RBC/HPF) 0-3 Urine WBC (0 - 5 WBC/HPF) 3-5 Ur Epithelial Cells (FEW EPI/HPF) FEW Urine Bacteria (NONE) FEW Urine Culture Screen (Culture Chk Criteria) NO, WBC<10 Recent Impressions: CAT SCAN - CT ABD PELVIS W/CONT 02/06 2253 Report Impression - Status: SIGNED Entered: 02/07/20202325 IMPRESSION: 1. Distention of the colon is noted concerning f or constipation. No bowel obstruction. 2. Bilateral indeterminate adrenal gland lesions are noted. Consider further evaluation with contrast-enhanced adrena l gland protocol CT or MRI. 3. Soft tissue swelling of the right breast is n oted. Asymmetry correlate with mammographic history. Impression By: [email or web address] Ted Muniz M.D. Lab Imaging Statement Laboratory radiographic studies reviewed and co nsidered in the medical decision-making. ECG #1 Interpretation Date 02/07/20 Time 2155 Interpreted by ED physician NL ECG Interpretation No STEMI, Normal QRS, Adeq uate tracing Rate 102 Rhythm Tachycardia Re-Evaluation MDM Free Text MDM Notes Additional Text February 07, 2020, 2133, discussed case with general surgery recommend NG tube with GoLYTELY through tube. Discussed case with GI will require cardiac clearance before further intervention. Patient w ill likely need enema. )( Re-Evaluation/Progress #1 )( Re-Eval Status Improved ED Course Medication(s) Ordered Medication(s) Ordered: Anti-Infective Agents Sig/Blanca Start time Last Medication Dose Route Stop Time Status Admin Vancomycin HCl 0 .STK-MED ONE 02/06 2158 DC IV Cefepime HCl 1,000 MG X1ED STA 02/06 2133 DC Sodium Chloride 10 ML IV 02/06 Vancomycin HCl 1,000 MG X1ED STA 02/06 2133 DC 02/06 Sodium Chloride 250 ML IV 02/06 Blood Formation,Coagulation Sig/Blanca Start time Last Medication Dose Route Stop Time Status Admin Enoxaparin Sodium 70 MG Q12H 02/06 2200 AC 12/ 0 SUBQ 03/08 2201 2221 Enoxaparin Sodium 70 MG Q12H 02/06 2140 DC SUBQ 03/08 214 Diagnostic Agents Sig/Blanca Start time Last Medication Dose Route Stop Time Status Admin Iopamidol 100 ML .STK-MED ONE 02/06 2302 DC INJ 02/06 2303 2302 Electrolytic, Caloric, And Usman Sig/Blanca Start time Last Medication Dose Route Stop Time Status Admin Sodium Chloride 1,000 ML BOLUS ONCE ONE 02/06 2 135 DC 02/06 IV 02/06 2235 2203 Gastrointestinal Drugs Sig/Blanca Start time Last Medication Dose Route Stop Time Status Admin Polyethylene Glycol/ 240 ML X1ED STA 02/06 2235 DC Electrolytes FEED-TUBE 02/07 2236 Patient Discharge Departure Vital Signs/Condition Vital Signs First Documented: Result Date Time Pulse Ox 97 02/06 2140 B/P 154/67 02/06 2140 B/P Mean 96 02/06 2140 O2 Delivery Room air 02/06 214 Temp 36.4 02/06 214 Pulse 98 02/06 214 Resp 18 02/07 2140 Last Documented: Result Date Time Pulse Ox 97 02/06 2140 B/P 154/67 02/06 2140 B/P Mean 96 02/06 2140 O2 Delivery Room air 02/06 214 Temp 36.4 02/06 214 Pulse 98 02/07 2140 Resp 18 02/07 2140 All vital signs available at the time of this en try have been reviewed. Clinical Impression Clinical Impression Primary Impression: Dehydration Secondary Impressions: Constipation Disposition Decision Admit Admit Physician Name Tayla Turcios MD Admit Physician Hospitalist Request Time 2335 Request Date 02/07/20 )( Admission Accepts Yes )( Accepted Time 2335 )( Accepted Date 02/07/20 Call Information will see patient Electronically Signed by Alfred Arevalo MD on 01/19 07/07 at 1505 RPT #:[id number] END OF REPORT
[2022-09-30] MEDS ORDERED: ONDANSETRON 4 MG/2 ML VIAL IV PRN (20:14)
[2022-09-30] MEDS ORDERED: ALBUTEROL 2.5 MG/3 ML NEB SOL NEB PRN (20:14)
[2022-09-30] MEDS ORDERED: ACETAMINOPHEN 325 MG TABLET PO PRN (20:25)
--- NOTE | 2022-09-30 20:25 | P.HP ---
Date of Service: 09/30/22 Patient is a 77-year-old female who was transferred from outside hospital with COVID pneumonia. Patient was severely hypoxic during her hospitalization but she is improving. She had bilateral infiltrates on recent CT scan. Patient has been treated with antibiotics and steroids along with neb treatments. She has been slow to improve. Will continue with current plan of care at this time to treat her COVID pneumonia. This is complicated with her history of CLL and her severe lymphocytosis. She sees Dr. Calvo for her treatment of her CLL. Will check uric acid and phosphurus levels. We will also consult Pulmonary Dr. German for further care. Currently treated with antibiotics-check a procalcitonin level along with lactic acid level. If her procalcitonin is negative we should be able to discontinue her antibiotics. She is outside the window for Paxlovid. Will discuss with Pulmonary regarding starting Remdesivir even though it has been over 3 days since she has had COVID pneumonia.
[2022-09-30] MEDS ORDERED: Levofloxacin 750mg IV 750 MG/150 ML BAG IV SCH ×2 (21:00)
[2022-09-30] MEDS ORDERED: NA CHLORIDE 0.9% 1,000 ML IV SCH (21:00)
[2022-09-30 23:00] LABS: Absolute Lymphocytes (CBC) 46.7 K/uL (0.7-4.9); Hematocrit 27.9 % (36.0-45.0); MCV 96.3 fL (80-100); MPV 7.6 fL (7.6-11.3); Platelets 280 thou/uL (152-406)
[2022-09-30] MEDS ORDERED: DOXYCYCLINE 100 MG in NA CHLORIDE 0.9% 100 ML IVPB ONE (23:00)
[2022-09-30] MEDS ORDERED: PRIMIDONE 50 MG TAB PO ONE (23:00)
[2022-09-30] MEDS ORDERED: BACLOFEN 10 MG TAB PO PRN (23:40)
[2022-09-30 23:45] LABS: Albumin 2.3 g/dL (3.4-5.0); Bilirubin Total 0.3 mg/dL (0.2-1.0); Magnesium 1.9 mg/dL (1.6-2.4); Phosphorus 2.3 mg/dL (2.5-4.9); Potassium 4.2 mEq/L (3.5-5.1); Protein, Total 5.5 g/dL (6.4-8.2); Uric Acid 4.1 mg/dL (2.6-6.0)
[2022-09-30] MEDS ORDERED: GUAIFENESIN/CODEINE 5ML UCUP PO PRN (23:56)
[2022-10-01] MEDS ORDERED: ZOLPIDEM TARTRATE 10 MG TABLET PO ONE (00:15)
[2022-10-01] MEDS: FUROSEMIDE 40 MG/4 ML VIAL IV SCH (00:19)
[2022-10-01] MEDS: dexAMETHasone 4 MG/ML VIAL IV SCH ×3 (00:21→16:35)
[2022-10-01] MEDS: HYDROCODONE/APAP 5/325 MG TAB PO PRN ×4 (00:25→22:21)
[2022-10-01 00:35] LABS: Blood Morphology Comment NOT SEEN (NOT SEEN); Platelet Estimate ADEQ
[2022-10-01 03:13] VITALS: BMI 25.0
[2022-10-01 03:58] LABS: Absolute Lymphocytes (CBC) 24.7 K/uL (0.7-4.9); Hematocrit 24.7 % (36.0-45.0); MCV 95.1 fL (80-100); MPV 7.4 fL (7.6-11.3); Platelets 243 thou/uL (152-406)
[2022-10-01 04:09] LABS: Lymphocytes % 69.8 % (15.3-44.8)
[2022-10-01 04:29] LABS: Potassium 3.7 mEq/L (3.5-5.1)
[2022-10-01 04:30] LABS: Bilirubin Total 0.4 mg/dL (0.2-1.0); Magnesium 1.4 mg/dL (1.6-2.4); Phosphorus 1.8 mg/dL (2.5-4.9)
[2022-10-01] MEDS ORDERED: Magnesium Sulfate 2gm IVPB 2 G/50 ML BAG IV ONE (06:05)
[2022-10-01] MEDS ORDERED: POTASS/SODIUM PHOSPHATE 1 PKT POWD.PACK PO SCH (07:00)
--- NOTE | 2022-10-01 07:32 | RAD REPORT ---
EXAM DESCRIPTION: RADChest Single View10/01/2022 5:16 am CLINICAL HISTORY: pneumonia COMPARISON: Chest Pa And Lat (2 Views) dated 08/06/2022; Chest Single View dated 11/07/2021; Chest Sin gle View dated 11/27/2018 TECHNIQUE: Portable AP view of the chest. FINDINGS: Central interstitial prominence and basal predominant fluffy opacities with small bilatera l layering effusions. No pneumothorax. The cardiomediastinal contours are unremarkable. IMPRESSION: Findings suggestive of pulmonary edema as above.
[2022-10-01] MEDS: IPRATROPIUM BROM 0.5MG/2.5ML NEB PRN ×2 (08:05→13:45)
--- NOTE | 2022-10-01 08:12 | P.HP ---
Certification for Inpatient Patient admitted to: Inpatient With expected LOS: >2 Midnights Patient will require the following post-hospital care: None Practitioner: I am a practitioner with admitting privileges, knowledge of patient current condition, hospital course, and medical plan of care. Services: Services provided to patient in accordance with Admission requirements found in Title 42 Section 412.3 of the Code of Federal Regulations Patient History Date of Service: 10/01/22 Reason for admission: Dyspnea History of Present Illness: Patient is a 77-year-old female who was transferred from outside hospital with COVID pneumonia. Patient received COVID vaccine is when it 1st came mail. She received the Pfizer vaccine. She started having symptoms about 10 days ago. She went to local hospital but she was not started on any antiviral therapy. Patient was severely hypoxic during her hospitalization but she is improving. She had bilateral infiltrates on recent CT scan. Patient has been treated with antibiotics and steroids along with neb treatments. She has been slow to improve. Will continue with current plan of care at this time to treat her COVID pneumonia. This is complicated with her history of CLL and her severe lymphocytosis. She sees Dr. Calvo for her treatment of her CLL. Will check uric acid and phosphurus levels. We will also consult Pulmonary Dr. German for further care. Currently treated with antibiotics-check a procalcitonin level along with lactic acid level. If her procalcitonin is negative we should be able to discontinue her antibiotics. She is outside the window for Paxlovid. Will discuss with Pulmonary regarding starting Remdesivir even though it has been over 3 days since she has had COVID pneumonia. Allergies azithromycin Allergy (Verified 09/30/22 22:27) Anaphylaxis cefepime Allergy (Verified 09/30/22 22:29) Anaphylaxis levofloxacin [From Levaquin] Adverse Reaction (Verified 09/30/22 22:29) joint pain Penicillins Adverse Reaction (Verified 09/30/22 22:29) swelling Home Medications: Aspirin [Aspirin EC 81 MG] 1 tab PO DAILY 11/27/18 Clopidogrel Bisulfate [Plavix*] 1 tab PO DAILY 11/27/18 Gabapentin 600 mg PO BID 11/27/18 Levothyroxine Sodium [Synthroid] 150 mcg PO DAILY 11/27/18 Metoprolol Tartrate 100 mg PO BID 11/27/18 Baclofen [Lioresal*] 10 mg PO BID PRN 11/06/21 Lisinopril/Hydrochlorothiazide [Lisinopril-Hctz 20-12.5 mg Tab] 1 each PO BEDTIME 08/06/22 Primidone [Mysoline] 50 mg PO BID 08/06/22 Atorvastatin Calcium [Lipitor] 20 mg PO BEDTIME 09/30/22 Codeine Phosphate/Guaifenesin [Codeine-Guaifen 10-100 mg/5 ml] 5 ml PO Q4H PRN 09/30/22 Doxazosin [Cardura] 4 mg PO BEDTIME 09/30/22 Hydrocodone/Acetaminophen [Hydrocodon-Acetaminophen 5-325] 1 each PO Q6H PRN 09/30/22 Zolpidem Tartrate [Ambien] 10 mg PO BEDTIME 09/30/22 - Past Medical/Surgical History Has patient received pneumonia vaccine in the past: Yes Diabetic: Yes -: CLL -: DM -: neuropathy -: hypertension -: hypothyroid -: HLD -: left kidney removed -: back surgeries -: hyterectomy -: hiatal hernia -: 2 stents placed in 2019 - Family History Mother Medical History: Cancer Father Medical History: Cancer - Social History Smoking Status: Former smoker Alcohol use: No CD- Drugs: No Caffeine use: Yes Place of Residence: Home Review of Systems 10-point ROS is otherwise unremarkable Physical Examination - Vital Signs Temperature: 98.3 F Blood Pressure: 161/72 Pulse: 101 Respirations: 20 Pulse Ox (%): 92 - Physical Exam General: Alert, In no apparent distress, Oriented x3 HEENT: Atraumatic, PERRLA, Mucous membr. moist/pink, EOMI, Sclerae nonicteric Neck: Supple, 2+ carotid pulse no bruit, No LAD, Without JVD or thyroid abnormality Respiratory: Diminished, Expiratory wheezes Cardiovascular: Regular rate/rhythm, Normal S1 S2 Gastrointestinal: Normal bowel sounds, Soft and benign, Non-distended, No tenderness Musculoskeletal: No clubbing, No swelling, No tenderness Integumentary: No rashes Neurological: Normal gait, Normal speech, Normal strength at 5/5 x4 extr, Normal tone, Normal affect Lymphatics: No axilla or inguinal lymphadenopathy - Studies Laboratory Data (last 24 hrs) 10/01/22 10/01/22 09/30/22 03:25 03:25 22:45 WBC 35.40 H Hgb 8.0 L D Hct 24.7 L Plt Count 243 Sodium 137 137 Potassium 3.7 4.2 BUN 14 17 Creatinine 0.54 L 0.70 Glucose 198 H 194 H Uric Acid 4.1 Phosphorus 1.8 L 2.3 L Magnesium 1.4 L 1.9 Total Bilirubin 0.4 0.3 AST 8 L 13 L ALT 11 L 14 Alkaline Phosphatase 56 68 Triglycerides 82 Cholesterol 105 HDL Cholesterol 35 L Cholesterol/HDL Ratio 3.00 09/30/22 22:45 WBC 56.90 H Hgb 8.9 L Hct 27.9 L Plt Count 280 Sodium Potassium BUN Creatinine Glucose Uric Acid Phosphorus Magnesium Total Bilirubin AST ALT Alkaline Phosphatase Triglycerides Cholesterol HDL Cholesterol Cholesterol/HDL Ratio Assessment & Plan - Problems (Diagnosis) (1) Pneumonia due to COVID-19 virus Current Visit: Yes Status: Acute (2) COPD exacerbation Current Visit: No Status: Acute (3) History of chronic lymphocytic leukemia Current Visit: No Status: Acute (4) History of chronic pain Current Visit: No Status: Acute (5) Hypertension Current Visit: No Status: Acute (6) Hypothyroidism Current Visit: No Status: Acute - Plan 1. Continue with IV antibiotics; check procalcitonin 2. Awaiting sputum and blood culture 3. Repeat chest x-ray 4. Will proceed with CT scan of the chest if pneumonia is not improved to evaluate 5. Respiratory isolation 6. Continue with nebs as needed 7. O2 per protocol 8. Continue with gentle hydration; if BNP elevated Heplock and get Echo 9. Repeat labs including CBC and renal function in a.m. 10. Pulmonary consultation 11. GI and DVT prophylaxis Discharge Plan: Home Plan to discharge in: Greater than 2 days - Advance Directives Does patient have a Living Will: No Does patient have a Durable POA for Healthcare: No - Code Status/Comfort Care Code Status Assessed: Yes Code Status: Full Code Critical Care: No Time Spent Managing PTS Care (In Minutes): 45
[2022-10-01] MEDS ORDERED: ASPIRIN EC 81 MG TAB PO SCH (09:00)
[2022-10-01] MEDS: METOPROLOL TAR 50 MG TAB PO SCH ×2 (09:21→22:06)
[2022-10-01] MEDS: LEVOTHYROXINE SOD 0.075 MG TAB PO SCH (09:21)
[2022-10-01] MEDS: CLOPIDOGREL 75 MG TABLET PO SCH (09:21)
[2022-10-01] MEDS: GABAPENTIN 300 MG CAP PO SCH ×2 (09:21→22:06)
[2022-10-01] MEDS: PRIMIDONE 50 MG TAB PO SCH ×2 (09:21→22:07)
[2022-10-01] MEDS: DOXYCYCLINE 100 MG in NA CHLORIDE 0.9% 100 ML IVPB SCH ×2 (09:22→22:08)
[2022-10-01] MEDS: ENOXAPARIN 40 MG/0.4 ML SQ SCH (09:23)
[2022-10-01] MEDS ORDERED: FUROSEMIDE 20 MG/ 2ML VIAL IV ONE (12:00)
--- NOTE | 2022-10-01 12:02 | P.CNS ---
Date of Consult: 10/01/22 Reason for Consult: Shortness of breath Chief Complaint: Dyspnea History of Present Illness: Patient is 77 years of age was diagnosed with COVID about 2 weeks ago she has been sick complaining of cough congestion shortness of breath was in [facility] for 10 days and was discharged did not improve ended up here back in this hospital former smoker quit 3 years ago denies any fever chills history of coronary artery disease she had some stents placed Allergies azithromycin Allergy (Verified 09/30/22 22:27) Anaphylaxis cefepime Allergy (Verified 09/30/22 22:29) Anaphylaxis levofloxacin [From Levaquin] Adverse Reaction (Verified 09/30/22 22:29) joint pain Penicillins Adverse Reaction (Verified 09/30/22 22:29) swelling Home Medications: Aspirin [Aspirin EC 81 MG] 1 tab PO DAILY 11/27/18 Clopidogrel Bisulfate [Plavix*] 1 tab PO DAILY 11/27/18 Gabapentin 600 mg PO BID 11/27/18 Levothyroxine Sodium [Synthroid] 150 mcg PO DAILY 11/27/18 Metoprolol Tartrate 100 mg PO BID 11/27/18 Baclofen [Lioresal*] 10 mg PO BID PRN 11/06/21 Lisinopril/Hydrochlorothiazide [Lisinopril-Hctz 20-12.5 mg Tab] 1 each PO BEDTIME 08/06/22 Primidone [Mysoline] 50 mg PO BID 08/06/22 Atorvastatin Calcium [Lipitor] 20 mg PO BEDTIME 09/30/22 Codeine Phosphate/Guaifenesin [Codeine-Guaifen 10-100 mg/5 ml] 5 ml PO Q4H PRN 09/30/22 Doxazosin [Cardura] 4 mg PO BEDTIME 09/30/22 Hydrocodone/Acetaminophen [Hydrocodon-Acetaminophen 5-325] 1 each PO Q6H PRN 09/30/22 Zolpidem Tartrate [Ambien] 10 mg PO BEDTIME 09/30/22 - Past Medical/Surgical History Diabetic: Yes -: CLL -: DM -: neuropathy -: hypertension -: hypothyroid -: HLD -: Coronary artery disease -: left kidney removed -: back surgeries -: hyterectomy -: hiatal hernia -: 2 stents placed in 2019 - Family History Mother Medical History: Cancer Father Medical History: Cancer - Social History Alcohol use: No CD- Drugs: No Caffeine use: Yes Place of Residence: Home Review of Systems 10-point ROS is otherwise unremarkable General: Weakness Respiratory: Cough, Shortness of Breath Physical Examination Temp Pulse Resp BP Pulse Ox 98.3 F 101 H 20 161/72 H 93 10/01/22 08:11 10/01/22 08:11 10/01/22 10:25 10/01/22 08:11 10/01/22 10:25 General: Alert, Oriented x3, Moderate distress Respiratory: Crackles/rales, Expiratory wheezes Cardiovascular: No edema, Regular rate/rhythm, Normal S1 S2 Laboratory Data (last 24 hrs) 10/01/22 10/01/22 09/30/22 03:25 03:25 22:45 WBC 35.40 H Hgb 8.0 L D Hct 24.7 L Plt Count 243 Sodium 137 137 Potassium 3.7 4.2 BUN 14 17 Creatinine 0.54 L 0.70 Glucose 198 H 194 H Uric Acid 4.1 Phosphorus 1.8 L 2.3 L Magnesium 1.4 L 1.9 Total Bilirubin 0.4 0.3 AST 8 L 13 L ALT 11 L 14 Alkaline Phosphatase 56 68 Triglycerides 82 Cholesterol 105 HDL Cholesterol 35 L Cholesterol/HDL Ratio 3.00 09/30/22 22:45 WBC 56.90 H Hgb 8.9 L Hct 27.9 L Plt Count 280 Sodium Potassium BUN Creatinine Glucose Uric Acid Phosphorus Magnesium Total Bilirubin AST ALT Alkaline Phosphatase Triglycerides Cholesterol HDL Cholesterol Cholesterol/HDL Ratio - Problems (1) CHF exacerbation Current Visit: Yes Status: Acute Plan: Patient is 77 years of age with a history of coronary artery disease recently diagnosed with COVID was in [facility] for 10 days did not improve ended up here in the hospital still complaining of cough congestion former smoker history of CLL history of coronary artery disease x-ray shows presumed bilateral pleural effusions BNP significantly elevated probably has underlying CHF echocardiogram pending start Lasix add spironolactone DC IV fluids continue with doxycycline add aztreomicin high risk for hospital-acquired infection continue with steroid Qualifiers: Heart failure type: unspecified Qualified Code(s): I50.9 - Heart failure, unspecified
[2022-10-01] MEDS ORDERED: METHYLPREDNISOLONE 40 MG INJ IV SCH (12:11)
[2022-10-01] MEDS: SPIRONOLACTONE 25 MG TABLET PO SCH ×2 (12:11→22:07)
[2022-10-01] MEDS: AZTREONAM 2 GM in NA CHLORIDE 0.9% 100 ML IV SCH ×2 (12:17→20:00)
[2022-10-01] MEDS: THIAMINE 200 MG/2 ML INJ IVP SCH ×2 (12:26→22:06)
[2022-10-01] MEDS: ALBUTEROL 2.5 MG/3 ML NEB SOL NEB SCH ×2 (13:45→20:30)
[2022-10-01] MEDS: ARFORMOTEROL TARTRATE 15 MCG/2 ML VIAL.NEB NEB SCH ×2 (13:45→20:30)
--- NOTE | 2022-10-01 14:36 | ECHO ---
HEIGHT: 5 ft 2 in WEIGHT: 137 lb 0 oz DATE OF STUDY: 10/01/[address]: Sherman Ortiz MD 2-DIMENSIONAL: YES M.MODE: YES DOPPLER: YES COLOR FLOW: YES TDS: PORTABLE: YES DEFINITY: BUBBLE STUDY: DIAGNOSIS: CONGESTIVE HEART FAILURE CARDIAC HISTORY: CATHERIZATION: YES SURGERY: NO PROSTHETIC VALVE: NO PACEMAKER: NO MEASUREMENTS (cm) DIASTOLIC (NORMALS) SYSTOLIC (NORMALS) IVSd 1.1 (0.6-1.2) LA Diam 3.1 (1.9-4.0) LVEF 56% LVIDd 4.3 (3.5-5.7) LVIDs 3.0 (2.0-3.5) %FS 29% LVPWd 1.1 (0.6-1.2) Ao Diam 2.5 (2.0-3.7) 2 DIMENSIONAL ASSESSMENT: RIGHT ATRIUM: NORMAL LEFT ATRIUM: NORMAL RIGHT VENTRICLE: NORMAL LEFT VENTRICLE: NORMAL TRICUSPID VALVE: MILD TRICUSPID REGURGITATION MITRAL VALVE: MILD MITRAL REGURGITATION PULMONIC VALVE: MILD PULMONIC INSUFFICIENCY AORTIC VALVE: MILD AORTIC INSUFFICIENCY PERICARDIAL EFFUSION: SMALL AORTIC ROOT: NORMAL LEFT VENTRICULAR WALL MOTION: NORMAL DOPPLER/COLOR FLOW: SEE BELOW COMMENTS: 1. NORMAL LEFT VENTRICULAR EJECTION FRACTION 55-60% WITH NORMAL WALL MOTION 2. MODERATE DIASTOLIC DYSFUNCTION 3. MILD MITRAL REGURGITATION, TRICUSPID REGURGITATION, PULMONIC INSUFFICIENCY 4. SMALL PERICARDIAL EFFUSION TECHNOLOGIST: ROLF GRACE
[2022-10-01] MEDS: ZOLPIDEM TARTRATE 10 MG TABLET PO SCH (21:00)
[2022-10-01] MEDS ORDERED: DOXAZOSIN 4 MG TAB PO SCH (21:00)
[2022-10-01] MEDS ORDERED: FUROSEMIDE 20 MG/ 2ML VIAL IV SCH (21:00)
[2022-10-01] MEDS ORDERED: GLUCAGON 1 MG/VIAL IM PRN (21:49)
[2022-10-01] MEDS ORDERED: D50W 25 GM/50 ML SYRINGE IV PRN (21:49)
[2022-10-01] MEDS ORDERED: INSULIN -REGULAR HUMAN 50 UNIT/0.5 ML ML IV ONE (21:50)
[2022-10-01] MEDS ORDERED: D10W 125 ML IV PRN (21:55)
[2022-10-01] MEDS: ATORVASTATIN 10 MG TAB PO SCH (22:06)
[2022-10-01] MEDS: GLUCERNA SHAKE 237 ML CAN PO SCH (22:22)
[2022-10-02] MEDS: FUROSEMIDE 40 MG/4 ML VIAL IV SCH ×3 (00:41→16:56)
[2022-10-02] MEDS: dexAMETHasone 4 MG/ML VIAL IV SCH ×3 (00:41→20:39)
[2022-10-02] MEDS: ALBUTEROL 2.5 MG/3 ML NEB SOL NEB SCH ×2 (02:00→07:45)
[2022-10-02] MEDS: AZTREONAM 2 GM in NA CHLORIDE 0.9% 100 ML IV SCH ×2 (05:08→12:21)
[2022-10-02 06:18] LABS: Absolute Lymphocytes (CBC) 23.2 K/uL (0.7-4.9); Hematocrit 24.8 % (36.0-45.0); MCV 94.5 fL (80-100); MPV 7.5 fL (7.6-11.3); Platelets 252 thou/uL (152-406); RBC Red Blood Cell Count 2.63 M/uL (3.86-4.86)
[2022-10-02 06:30] LABS: Bilirubin Total 0.3 mg/dL (0.2-1.0); Phosphorus 2.6 mg/dL (2.5-4.9); Potassium 4.4 mEq/L (3.5-5.1); Protein, Total 5.3 g/dL (6.4-8.2)
[2022-10-02] MEDS: ARFORMOTEROL TARTRATE 15 MCG/2 ML VIAL.NEB NEB SCH ×2 (07:45→19:40)
[2022-10-02] MEDS: INSULIN -REGULAR HUMAN 50 UNIT/0.5 ML ML SQ SCH ×4 (08:22→21:19)
[2022-10-02] MEDS: METOPROLOL TAR 50 MG TAB PO SCH ×2 (08:23→20:38)
[2022-10-02] MEDS: ENOXAPARIN 40 MG/0.4 ML SQ SCH (08:23)
[2022-10-02] MEDS: CLOPIDOGREL 75 MG TABLET PO SCH (08:23)
[2022-10-02] MEDS: SPIRONOLACTONE 25 MG TABLET PO SCH ×2 (08:23→20:38)
[2022-10-02] MEDS: GABAPENTIN 300 MG CAP PO SCH ×2 (08:23→20:38)
[2022-10-02] MEDS: HYDROCODONE/APAP 5/325 MG TAB PO PRN ×3 (08:24→21:20)
[2022-10-02] MEDS: LEVOTHYROXINE SOD 0.075 MG TAB PO SCH (08:24)
[2022-10-02] MEDS: PRIMIDONE 50 MG TAB PO SCH ×2 (08:24→20:40)
[2022-10-02] MEDS: DOXYCYCLINE 100 MG in NA CHLORIDE 0.9% 100 ML IVPB SCH (08:25)
[2022-10-02] MEDS: GLUCERNA SHAKE 237 ML CAN PO SCH ×2 (08:25→20:40)
[2022-10-02] MEDS: THIAMINE 200 MG/2 ML INJ IVP SCH (08:26)
--- NOTE | 2022-10-02 11:18 | RAD REPORT ---
EXAM DESCRIPTION: Elsa Single View10/02/2022 11:12 am CLINICAL HISTORY: Chest pain COMPARISON: October 01, 2022 FINDINGS: No significant change in the moderate bilateral pulmonary opacities. There may be small pleural effusions. Heart remains enlarged IMPRESSION: No significant change in moderate bilateral pulmonary opacities. This may represent CHF
--- NOTE | 2022-10-02 12:48 | P.PN ---
Subjective Date of Service: 10/02/22 Chief Complaint: Dyspnea Subjective: Improving (Patient is improving feeling better today) Review of Systems General: Weakness Respiratory: Shortness of Breath Physical Examination - Vital Signs Temperature: 98.4 F Blood Pressure: 113/58 Pulse: 78 Respirations: 20 Pulse Ox (%): 90 - Physical Exam General: Alert, In no apparent distress, Oriented x3 Respiratory: Clear to auscultation bilaterally, Diminished Cardiovascular: No edema, Regular rate/rhythm, Normal S1 S2 - Studies Laboratory Data (last 24 hrs) 10/02/22 10/02/22 10/01/22 05:50 05:50 15:11 WBC 32.70 H Hgb 7.9 L Hct 24.8 L Plt Count 252 Sodium 133 L Potassium 4.4 D BUN 16 Creatinine 0.63 Glucose 227 H Phosphorus 2.6 Magnesium 2.1 Total Bilirubin 0.3 AST 8 L ALT 11 L Alkaline Phosphatase 64 Assessment And Plan - Current Problems (Diagnosis) (1) CHF exacerbation Current Visit: Yes Status: Acute Plan: Patient is feeling better today negative fluid balance continue with aggressive diuresis for now cardiogram shows diastolic dysfunction I ordered a CT of the chest blood sugars elevated reduce the dose of dexamethasone blood sugars are elevated reduce dose of Decadron patient has a history of CLL he is on aztreonam and doxycycline Qualifiers: Heart failure type: unspecified Qualified Code(s): I50.9 - Heart failure, unspecified
[2022-10-02] MEDS ORDERED: ALBUTEROL 2.5 MG/3 ML NEB SOL NEB PRN (12:50)
[2022-10-02] MEDS: INSULIN GLARGINE 100 UNIT/ML SQ SCH (13:34)
--- NOTE | 2022-10-02 13:37 | RAD REPORT ---
EXAM DESCRIPTION: CT - Thorax Wo Rogers - 10/02/2022 1:05 pm CLINICAL HISTORY: Bilateral pulmonary infiltrates history of COVID COMPARISON: Chest Single View dated 10/02/2022; Chest Single View dated 10/01/2022 TECHNIQUE: Axial thin cut images of the chest were obtained without IV contrast. Multiplanar reforma ts were generated and reviewed. All CT scans are performed using dose optimization technique as appropriate and may include automated exposure control or mA/KV adjustment according to patient size. FINDINGS: Bilateral moderate pleural effusions with underlying dependent segmental atelectasis or ai rspace disease. Anti dependent peripheral predominant ground-glass opacities and interstitial thicken ing throughout both upper lobes and the right middle lobe. No focal lung masses or suspicious nodules are visualized today. No pneumothorax. Prominent mediastinal lymph nodes, the largest measuring 2.8 x 2.2 cm in the pretracheal region. A si milarly sized pretracheal lymph node more inferiorly contains some coarse calcifications. Mildly prom inent bilateral hilar nodes as well, difficult to measure in the absence of IV contrast. Heart is nor mal in size. Mild pericardial effusion. No significant aortic or pulmonary artery findings. Assessmen t is limited in the absence of IV contrast. No chest wall mass or abnormal axillary lymphadenopathy. Evaluation of the solid abdominal structures reveals colonic diverticulosis. Two right adrenal nodule s, measuring 3.5 x 2.2 cm and 3.1 x 2.5 cm respectively, both demonstrating internal CT density less than 10 Hounsfield units, most compatible with lipid rich adenomas. A smaller left adrenal nodule alicia ws density above that level, measuring 2.4 x 1.8 cm, indeterminate, although evaluation is limited by streak artifact related to spinal fusion hardware. S shaped scoliosis with fixation hardware in place. IMPRESSION: Bilateral moderate pleural effusions with underlying dependent atelectasis or airspace d isease. Anti-dependent peripheral bilateral upper lobe and right middle lobe ground-glass opacities a nd interstitial thickening, most suggestive of infectious or inflammatory process. Short-term follow- up CT in 1-3 months is recommended to evaluate for resolution and exclude underlying suspicious nodul es. Small pericardial effusion. Prominent mediastinal and bilateral hilar lymph nodes, likely reactive. A prominent pretracheal lymph node contains some coarse calcifications, could be related to prior granulomatous infection. Incidental abdominal findings as above including bilateral adrenal nodules, with features suggestive of benign adenomas on the right. The small left adrenal nodule is not well characterized.
--- NOTE | 2022-10-02 18:56 | P.PN ---
Subjective Date of Service: 10/02/22 Chief Complaint: Dyspnea No acute events overnight. She reports that her breathing is gradually improving. She reports generalized weakness. She worked with PT yesterday, and was able to ambulate 16 feet. She denies any chest pain or palpitations. Review of Systems 10-point ROS is otherwise unremarkable General: Weakness (generalized) Respiratory: SOB with Excertion Physical Examination - Vital Signs Temperature: 98.8 F Blood Pressure: 123/64 Pulse: 76 Respirations: 20 Pulse Ox (%): 91 - Physical Exam General: Alert, In no apparent distress, Oriented x3 HEENT: Atraumatic, Mucous membr. moist/pink, Sclerae nonicteric Neck: JVD not distended Respiratory: Diminished, Crackles/rales, Rhonchi/gurgles Cardiovascular: Regular rate/rhythm, Normal S1 S2, No gallops, No rubs, No murmurs, Edema (1+ BLE) Gastrointestinal: Normal bowel sounds, Soft and benign, Non-distended, No tenderness, No rebound, No guarding Musculoskeletal: No clubbing Integumentary: No rashes Neurological: Normal speech, Normal affect - Studies Laboratory Data (last 24 hrs) 10/02/22 10/02/22 05:50 05:50 WBC 32.70 H Hgb 7.9 L Hct 24.8 L Plt Count 252 Sodium 133 L Potassium 4.4 D BUN 16 Creatinine 0.63 Glucose 227 H Phosphorus 2.6 Total Bilirubin 0.3 AST 8 L ALT 11 L Alkaline Phosphatase 64 Assessment And Plan - Plan # Acute on Chronic Decompensated Diastolic Congestive Heart Failure with Preserved Ejection Fraction # Bilateral Moderate Pleural Effusions - Consult Cardiology - recommendations appreciated - Transthoracic echocardiogram = "1. normal left ventricular ejection fraction 55-60% with normal wall motion 2. moderate diastolic dysfunction 3. mild mitral regurgitation, tricuspid regurgitation, pulmonic insufficiency 4. small pericardial effusion" - Diuresis with furosemide - Continue home metoprolol, spironolactone - Radiology: - Chest x-ray = "findings suggestive of pulmonary edema as above." - CT chest = "bilateral moderate pleural effusions with underlying dependent atelectasis or airspace disease. Anti-dependent peripheral bilateral upper lobe and right middle lobe ground-glass opacities and interstitial thickening, most suggestive of infectious or inflammatory process. Short-term follow-up CT in 1-3 months is recommended to evaluate for resolution and exclude underlying suspicious nodules. Small pericardial effusion." - Daily weights - Strict I/O - Cardiac diet, 1.5 L fluid restriction, 2 g Na restriction # Acute COPD Exacerbation with possible COVID-19 Pneumonia - Consulted Pulmonology and spoke with Dr. Mccain - recommendations appreciated - Bronchodilators and steroids per Pulm - Continue Aztreonam + Doxycycline due to allergies - Consulted Respiratory Therapy - Supplemental oxygen to maintain SpO2 > 92% - Encouraged incentive spirometry # Chronic Lymphocytic Leukemia # Prominent Mediastinal Lymph Nodes (largest measuring 2.8 cm x 2.2 cm in Pertracheal Region) - Follow-up with Dr. Calvo (Oncology) as an outpatient - Advised to have a repeat CT in 1-3 months per Radiology recs # Coronary Artery Disease s/p PCI # Hypertension # Hyperlipidemia - Continue home atorvastatin, clopidogrel # Hypothyroidism - Continue home levothyroxine # Two Right Adrenal Nodules (3.5 cm x 2.2 cm, 3.1 cm x 2.5 cm) - Likely Adenomas per Radiology - Outpatient follow-up Roe Castañeda M.D.
[2022-10-02] MEDS: DOXYCYCLINE 100 MG CAP PO SCH (20:39)
[2022-10-02] MEDS: ATORVASTATIN 10 MG TAB PO SCH (20:39)
[2022-10-02] MEDS: ZOLPIDEM TARTRATE 10 MG TABLET PO SCH (20:41)
[2022-10-03] MEDS: ARFORMOTEROL TARTRATE 15 MCG/2 ML VIAL.NEB NEB SCH (07:10)
[2022-10-03] MEDS: LEVOTHYROXINE SOD 0.075 MG TAB PO SCH (08:25)
[2022-10-03] MEDS: CLOPIDOGREL 75 MG TABLET PO SCH (08:25)
[2022-10-03] MEDS: DOXYCYCLINE 100 MG CAP PO SCH ×2 (08:25→20:06)
[2022-10-03] MEDS: HYDROCODONE/APAP 5/325 MG TAB PO PRN ×3 (08:25→22:28)
[2022-10-03] MEDS: METOPROLOL TAR 50 MG TAB PO SCH ×2 (08:25→20:05)
[2022-10-03] MEDS: GABAPENTIN 300 MG CAP PO SCH ×2 (08:26→20:05)
[2022-10-03] MEDS: ENOXAPARIN 40 MG/0.4 ML SQ SCH (08:26)
[2022-10-03] MEDS: dexAMETHasone 4 MG/ML VIAL IV SCH (08:26)
[2022-10-03] MEDS: FUROSEMIDE 40 MG/4 ML VIAL IV SCH (08:26)
[2022-10-03] MEDS: INSULIN -REGULAR HUMAN 50 UNIT/0.5 ML ML SQ SCH ×4 (08:27→20:04)
[2022-10-03] MEDS: INSULIN GLARGINE 100 UNIT/ML SQ SCH (08:27)
[2022-10-03] MEDS: PRIMIDONE 50 MG TAB PO SCH ×2 (08:31→20:06)
[2022-10-03] MEDS: SPIRONOLACTONE 25 MG TABLET PO SCH ×2 (08:31→20:06)
--- NOTE | 2022-10-03 08:31 | RAD REPORT ---
EXAM DESCRIPTION: RADChest Single View10/03/2022 5:14 am CLINICAL HISTORY: Pneumonia/CHF COMPARISON: Chest Single View dated 10/02/2022; Chest Single View dated 10/01/2022; Chest Pa And Lat ( 2 Views) dated 08/06/2022; Chest Single View dated 11/07/2021 TECHNIQUE: Portable AP view of the chest. FINDINGS: Stable central interstitial prominence and perihilar streaky opacities. Stable bibasilar c onfluent opacities and small effusions more pronounced on the left. No pneumothorax. The cardiomedias tinal contours are unremarkable. IMPRESSION: Stable findings suggestive of central venous congestion or decompensated CHF. Possibilit y of superimposed pneumonia would be difficult to exclude.
[2022-10-03] MEDS: GLUCERNA SHAKE 237 ML CAN PO SCH ×2 (08:32→20:04)
--- NOTE | 2022-10-03 11:52 | P.PN ---
Subjective Date of Service: 10/03/22 Chief Complaint: Congestive heart failure Subjective: Improving (Pain is improving doing much better chest congestion has improved still hypoxic) Review of Systems General: Weakness Respiratory: Shortness of Breath Physical Examination - Vital Signs Temperature: 97.8 F Blood Pressure: 158/65 Pulse: 77 Respirations: 20 Pulse Ox (%): 91 - Physical Exam General: Alert, In no apparent distress, Oriented x3 Respiratory: Clear to auscultation bilaterally, Diminished Cardiovascular: No edema, Regular rate/rhythm Assessment And Plan - Current Problems (Diagnosis) (1) CHF exacerbation Current Visit: Yes Status: Acute Plan: Most likely the patient has diastolic heart failure doing much better changed to p.o. Lasix 40 mg daily continue with spironolactone dose of Decadron to 2 mg daily change to an inhaler to ambulate continue with rehab labs are pending has CLL new p.o. doxycycline Qualifiers: Heart failure type: unspecified Qualified Code(s): I50.9 - Heart failure, unspecified
[2022-10-03 12:51] LABS: Magnesium 1.5 mg/dL (1.6-2.4); Potassium 4.4 mEq/L (3.5-5.1)
[2022-10-03] MEDS ORDERED: ALBUTEROL 2.5 MG/3 ML NEB SOL NEB PRN (14:00)
[2022-10-03] MEDS ORDERED: Magnesium Sulfate 2gm IVPB 2 G/50 ML BAG IV ONE (14:00)
--- NOTE | 2022-10-03 16:36 | P.PN ---
Subjective Date of Service: 10/03/22 Chief Complaint: Congestive heart failure No acute events overnight. She states that her breathing is much improved. She remains on 2 L nasal cannula, which we will attempt to wean. She has requested placement into inpatient rehab. Appreciate CM assistance. She denies any chest pain or palpitations. Review of Systems 10-point ROS is otherwise unremarkable General: Weakness (generalized) Respiratory: Shortness of Breath Physical Examination - Vital Signs Temperature: 98.2 F Blood Pressure: 111/54 Pulse: 70 Respirations: 18 Pulse Ox (%): 91 - Studies Laboratory Data (last 24 hrs) 10/03/22 11:55 Sodium 132 L Potassium 4.4 BUN 20 H Creatinine 0.74 Glucose 290 H Magnesium 1.5 L Assessment And Plan - Plan - Physical Exam General: Alert, In no apparent distress, Oriented x3 HEENT: Atraumatic, Mucous membr. moist/pink, Sclerae nonicteric Neck: JVD not distended Respiratory: Diminished, faint bibasilar crackles/rales Cardiovascular: Regular rate/rhythm, No murmurs, Edema (1+ BLE) Gastrointestinal: Normal bowel sounds, Soft, Non-distended, No tenderness Musculoskeletal: No clubbing Integumentary: No rashes Neurological: Normal speech, Normal affect # Acute on Chronic Decompensated Diastolic Congestive Heart Failure with Preserved Ejection Fraction # Bilateral Moderate Pleural Effusions - Consult Cardiology - recommendations appreciated - Transthoracic echocardiogram = "1. normal left ventricular ejection fraction 55-60% with normal wall motion 2. moderate diastolic dysfunction 3. mild mitral regurgitation, tricuspid regurgitation, pulmonic insufficiency 4. small pericardial effusion" - Diuresis with furosemide - Continue home metoprolol, spironolactone - Radiology: - Chest x-ray = "findings suggestive of pulmonary edema as above." - CT chest = "bilateral moderate pleural effusions with underlying dependent atelectasis or airspace disease. Anti-dependent peripheral bilateral upper lobe and right middle lobe ground-glass opacities and interstitial thickening, most suggestive of infectious or inflammatory process. Short-term follow-up CT in 1-3 months is recommended to evaluate for resolution and exclude underlying suspicious nodules. Small pericardial effusion." - Daily weights - Strict I/O - Cardiac diet, 1.5 L fluid restriction, 2 g Na restriction # Acute COPD Exacerbation with possible COVID-19 Pneumonia - Consulted Pulmonology and spoke with Dr. Mccain - recommendations appreciated - Bronchodilators and steroids per Pulm - Continue Aztreonam + Doxycycline due to allergies - Consulted Respiratory Therapy - Supplemental oxygen to maintain SpO2 > 92% - Encouraged incentive spirometry # Chronic Lymphocytic Leukemia # Prominent Mediastinal Lymph Nodes (largest measuring 2.8 cm x 2.2 cm in Pertracheal Region) - Follow-up with Dr. Calvo (Oncology) as an outpatient - Advised to have a repeat CT in 1-3 months per Radiology recs # Coronary Artery Disease s/p PCI # Hypertension # Hyperlipidemia - Continue home atorvastatin, clopidogrel # Hypothyroidism - Continue home levothyroxine # Two Right Adrenal Nodules (3.5 cm x 2.2 cm, 3.1 cm x 2.5 cm) - Likely adenomas per Radiology - Outpatient follow-up Roe Castañeda M.D.
[2022-10-03] MEDS: DULERA 200/5 (MOMETASONE/FORMOTEROL) INHALER IH SCH (20:05)
[2022-10-03] MEDS: ZOLPIDEM TARTRATE 10 MG TABLET PO SCH (20:06)
[2022-10-03] MEDS: ATORVASTATIN 10 MG TAB PO SCH (20:06)
[2022-10-04 05:14] LABS: Potassium 4.8 mEq/L (3.5-5.1)
--- NOTE | 2022-10-04 07:31 | RAD REPORT ---
EXAM DESCRIPTION: RADChest Single View10/04/2022 4:47 am CLINICAL HISTORY: Pneumonia/CHF COMPARISON: Chest Single View dated 10/03/2022; Chest Single View dated 10/02/2022; Chest Single View dated 10/01/2022; Chest Pa And Lat (2 Views) dated 08/06/2022 TECHNIQUE: Portable AP view of the chest. FINDINGS: Partially improved central interstitial prominence. Persistent small effusions and underly ing dependent airspace opacification. No pneumothorax or effusion. The cardiomediastinal contours are unremarkable. IMPRESSION: Improving central congestion/CHF, otherwise stable.
--- NOTE | 2022-10-04 08:43 | P.PN ---
Subjective Date of Service: 10/04/22 Chief Complaint: Congestive heart failure Subjective: Improving (Patient is doing much better today cough and congestion have declined feels a little weak) Review of Systems General: Weakness Respiratory: Shortness of Breath Physical Examination - Vital Signs Temperature: 97.4 F Blood Pressure: 140/59 Pulse: 72 Respirations: 18 Pulse Ox (%): 96 - Physical Exam General: Alert, Oriented x3 Respiratory: Clear to auscultation bilaterally, Diminished Cardiovascular: No edema, Regular rate/rhythm - Studies Laboratory Data (last 24 hrs) 10/04/22 10/03/22 10/03/22 04:12 19:38 11:55 Sodium 130 L 132 L Potassium 4.8 4.4 BUN 21 H 20 H Creatinine 0.72 0.74 Glucose 208 H 290 H Phosphorus 3.0 Magnesium 2.0 2.1 1.5 L Assessment And Plan - Current Problems (Diagnosis) (1) CHF exacerbation Current Visit: Yes Status: Acute Plan: Patient is doing much better improved significantly is a little weak continue with physical therapy presumed underlying COPD continue with [facility] outpatient pulmonary function testing and also continue with low-dose Decadron Qualifiers: Heart failure type: diastolic Qualified Code(s): I50.33 - Acute on chronic diastolic (congestive) heart failure
[2022-10-04] MEDS: GLUCERNA SHAKE 237 ML CAN PO SCH ×2 (10:58→21:00)
[2022-10-04] MEDS: dexAMETHasone 4 MG TAB PO SCH (10:59)
[2022-10-04] MEDS: GABAPENTIN 300 MG CAP PO SCH ×2 (10:59→20:59)
[2022-10-04] MEDS: DOXYCYCLINE 100 MG CAP PO SCH ×2 (10:59→20:59)
[2022-10-04] MEDS: FUROSEMIDE 40 MG TABLET PO SCH (11:00)
[2022-10-04] MEDS: CLOPIDOGREL 75 MG TABLET PO SCH (11:00)
[2022-10-04] MEDS: SPIRONOLACTONE 25 MG TABLET PO SCH ×2 (11:00→21:13)
[2022-10-04] MEDS: LEVOTHYROXINE SOD 0.075 MG TAB PO SCH (11:00)
[2022-10-04] MEDS: ENOXAPARIN 40 MG/0.4 ML SQ SCH (11:01)
[2022-10-04] MEDS: PRIMIDONE 50 MG TAB PO SCH ×2 (11:01→21:13)
[2022-10-04] MEDS: INSULIN -REGULAR HUMAN 50 UNIT/0.5 ML ML SQ SCH ×4 (11:02→21:00)
[2022-10-04] MEDS: INSULIN GLARGINE 100 UNIT/ML SQ SCH (11:02)
[2022-10-04] MEDS: DULERA 200/5 (MOMETASONE/FORMOTEROL) INHALER IH SCH ×2 (11:02→20:59)
[2022-10-04] MEDS: HYDROCODONE/APAP 5/325 MG TAB PO PRN ×2 (11:04→21:13)
[2022-10-04] MEDS: METOPROLOL TAR 50 MG TAB PO SCH ×2 (11:11→21:01)
--- NOTE | 2022-10-04 17:43 | P.PN ---
Subjective Date of Service: 10/04/22 Chief Complaint: Congestive heart failure No acute events overnight. She was breathing comfortably on room air this morning. She is pending insurance approval for inpatient rehab. Appreciate CM assistance. She denies any chest pain or palpitations. Review of Systems 10-point ROS is otherwise unremarkable General: Weakness (generalized) Physical Examination - Vital Signs Temperature: 97.4 F Blood Pressure: 144/64 Pulse: 82 Respirations: 18 Pulse Ox (%): 96 - Studies Laboratory Data (last 24 hrs) 10/04/22 10/03/22 04:12 19:38 Sodium 130 L Potassium 4.8 BUN 21 H Creatinine 0.72 Glucose 208 H Phosphorus 3.0 Magnesium 2.0 2.1 Assessment And Plan - Plan - Physical Exam General: Alert, In no apparent distress, Oriented x3 HEENT: Atraumatic, Mucous membr. moist/pink, Sclerae nonicteric Neck: JVD not distended Respiratory: Diminished, but clear to auscultation bilaterally Cardiovascular: Regular rate/rhythm, No murmurs, Edema (trace BLE) Gastrointestinal: Normal bowel sounds, Soft, Non-distended, No tenderness Musculoskeletal: No clubbing Integumentary: No rashes Neurological: Normal speech, Normal affect # Acute on Chronic Decompensated Diastolic Congestive Heart Failure with Preserved Ejection Fraction # Bilateral Moderate Pleural Effusions - Consult Cardiology - recommendations appreciated - Transthoracic echocardiogram = "1. normal left ventricular ejection fraction 55-60% with normal wall motion 2. moderate diastolic dysfunction 3. mild mitral regurgitation, tricuspid regurgitation, pulmonic insufficiency 4. small pericardial effusion" - Diuresis with furosemide - switch from IV to PO - Continue home metoprolol, spironolactone - Radiology: - Chest x-ray = "findings suggestive of pulmonary edema as above." - CT chest = "bilateral moderate pleural effusions with underlying dependent atelectasis or airspace disease. Anti-dependent peripheral bilateral upper lobe and right middle lobe ground-glass opacities and interstitial thickening, most suggestive of infectious or inflammatory process. Short-term follow-up CT in 1-3 months is recommended to evaluate for resolution and exclude underlying suspicious nodules. Small pericardial effusion." - Chest x-ray (10/04) = "improving central congestion/CHF, otherwise stable." - Daily weights - Strict I/O - Cardiac diet, 1.5 L fluid restriction, 2 g Na restriction # Acute COPD Exacerbation with possible COVID-19 Pneumonia - Consulted Pulmonology and spoke with Dr. Mccain - recommendations appreciated - Bronchodilators and steroids per Pulm - Continue Aztreonam + Doxycycline due to allergies - Consulted Respiratory Therapy - Supplemental oxygen to maintain SpO2 > 92% - Encouraged incentive spirometry # Chronic Lymphocytic Leukemia # Prominent Mediastinal Lymph Nodes (largest measuring 2.8 cm x 2.2 cm in Pertracheal Region) - Follow-up with Dr. Calvo (Oncology) as an outpatient - Advised to have a repeat CT in 1-3 months per Radiology recs # Coronary Artery Disease s/p PCI # Hypertension # Hyperlipidemia - Continue home atorvastatin, clopidogrel # Hypothyroidism - Continue home levothyroxine # Two Right Adrenal Nodules (3.5 cm x 2.2 cm, 3.1 cm x 2.5 cm) - Likely adenomas per Radiology - Outpatient follow-up Roe Castañeda M.D.
[2022-10-04] MEDS ORDERED: D50W 25 GM/50 ML SYRINGE IV PRN (19:59)
[2022-10-04] MEDS ORDERED: INSULIN -REGULAR HUMAN 50 UNIT/0.5 ML ML IV ONE (20:20)
[2022-10-04] MEDS: ZOLPIDEM TARTRATE 10 MG TABLET PO SCH (20:58)
[2022-10-04] MEDS: ATORVASTATIN 10 MG TAB PO SCH (20:59)
[2022-10-05 05:17] LABS: Magnesium 1.8 mg/dL (1.6-2.4); Phosphorus 3.9 mg/dL (2.5-4.9); Potassium 4.6 mEq/L (3.5-5.1)
[2022-10-05] MEDS: INSULIN -REGULAR HUMAN 50 UNIT/0.5 ML ML SQ SCH ×4 (07:30→21:33)
[2022-10-05] MEDS: GLUCERNA SHAKE 237 ML CAN PO SCH ×2 (09:00→21:00)
[2022-10-05] MEDS ORDERED: MAGNESIUM SULFATE 1 gm IVPB 1 GM/100 ML BAG IV ONE (09:00)
[2022-10-05] MEDS: PRIMIDONE 50 MG TAB PO SCH ×2 (10:09→21:31)
[2022-10-05] MEDS: DOXYCYCLINE 100 MG CAP PO SCH ×2 (10:09→21:30)
[2022-10-05] MEDS: CLOPIDOGREL 75 MG TABLET PO SCH (10:09)
[2022-10-05] MEDS: dexAMETHasone 4 MG TAB PO SCH (10:09)
[2022-10-05] MEDS: SPIRONOLACTONE 25 MG TABLET PO SCH ×2 (10:09→21:31)
[2022-10-05] MEDS: GABAPENTIN 300 MG CAP PO SCH ×2 (10:09→21:30)
[2022-10-05] MEDS: LEVOTHYROXINE SOD 0.075 MG TAB PO SCH (10:09)
[2022-10-05] MEDS: FUROSEMIDE 40 MG TABLET PO SCH (10:09)
[2022-10-05] MEDS: METOPROLOL TAR 50 MG TAB PO SCH ×2 (10:09→21:32)
[2022-10-05] MEDS: ENOXAPARIN 40 MG/0.4 ML SQ SCH (10:10)
[2022-10-05] MEDS: DULERA 200/5 (MOMETASONE/FORMOTEROL) INHALER IH SCH ×2 (10:11→21:00)
[2022-10-05] MEDS: INSULIN GLARGINE 100 UNIT/ML SQ SCH (10:26)
--- NOTE | 2022-10-05 16:30 | P.PN ---
Subjective Date of Service: 10/05/22 Chief Complaint: Congestive heart failure No acute events overnight. Her breathing continues to improve. This morning, she was on 1.5 L nasal cannula. Her insurance denied inpatient rehab, plan for [id number] today. From a strength standpoint, she continues to improve with PT services. She denies any chest pain or palpitations. Review of Systems 10-point ROS is otherwise unremarkable General: Weakness (generalized) Physical Examination - Vital Signs Temperature: 97.1 F Blood Pressure: 153/66 Pulse: 82 Respirations: 16 Pulse Ox (%): 91 - Studies Laboratory Data (last 24 hrs) 10/05/22 04:47 Sodium 133 L Potassium 4.6 BUN 23 H Creatinine 0.65 Glucose 78 Phosphorus 3.9 Magnesium 1.8 Assessment And Plan - Plan - Physical Exam General: Alert, In no apparent distress, Oriented x3 HEENT: Atraumatic, Mucous membr. moist/pink, Sclerae nonicteric Neck: JVD not distended Respiratory: Diminished, but clear to auscultation bilaterally Cardiovascular: Regular rate/rhythm, No murmurs, Edema (trace BLE) Gastrointestinal: Normal bowel sounds, Soft, Non-distended, No tenderness Musculoskeletal: No clubbing Integumentary: No rashes Neurological: Normal speech, Normal affect # Acute on Chronic Decompensated Diastolic Congestive Heart Failure with Preserved Ejection Fraction # Bilateral Moderate Pleural Effusions - Consult Cardiology - recommendations appreciated - Transthoracic echocardiogram = "1. normal left ventricular ejection fraction 55-60% with normal wall motion 2. moderate diastolic dysfunction 3. mild mitral regurgitation, tricuspid regurgitation, pulmonic insufficiency 4. small pericardial effusion" - Diuresis with furosemide - switch from IV to PO - Continue home metoprolol, spironolactone - Radiology: - Chest x-ray = "findings suggestive of pulmonary edema as above." - CT chest = "bilateral moderate pleural effusions with underlying dependent atelectasis or airspace disease. Anti-dependent peripheral bilateral upper lobe and right middle lobe ground-glass opacities and interstitial thickening, most suggestive of infectious or inflammatory process. Short-term follow-up CT in 1-3 months is recommended to evaluate for resolution and exclude underlying suspicious nodules. Small pericardial effusion." - Chest x-ray (10/04) = "improving central congestion/CHF, otherwise stable." - Daily weights - Strict I/O - Cardiac diet, 1.5 L fluid restriction, 2 g Na restriction # Acute COPD Exacerbation with possible COVID-19 Pneumonia - Consulted Pulmonology and spoke with Dr. Mccain - recommendations appreciated - Bronchodilators and steroids per Pulm - Continue Aztreonam + Doxycycline due to allergies - Consulted Respiratory Therapy - Supplemental oxygen to maintain SpO2 > 92% - Encouraged incentive spirometry # Chronic Lymphocytic Leukemia # Prominent Mediastinal Lymph Nodes (largest measuring 2.8 cm x 2.2 cm in Pertracheal Region) - Follow-up with Dr. Calvo (Oncology) as an outpatient - Advised to have a repeat CT in 1-3 months per Radiology recs # Coronary Artery Disease s/p PCI # Hypertension # Hyperlipidemia - Continue home atorvastatin, clopidogrel # Hypothyroidism - Continue home levothyroxine # Two Right Adrenal Nodules (3.5 cm x 2.2 cm, 3.1 cm x 2.5 cm) - Likely adenomas per Radiology - Outpatient follow-up # Deconditioning - Consulted PT - Recommended inpatient rehab- denied by insurance - P2P scheduled for today Roe Castañeda M.D.
[2022-10-05] MEDS: ZOLPIDEM TARTRATE 10 MG TABLET PO SCH (21:00)
[2022-10-05] MEDS: HYDROCODONE/APAP 5/325 MG TAB PO PRN (21:31)
[2022-10-05] MEDS: ATORVASTATIN 10 MG TAB PO SCH (21:32)
[2022-10-06 04:33] LABS: Magnesium 1.9 mg/dL (1.6-2.4); Phosphorus 3.6 mg/dL (2.5-4.9)
[2022-10-06] MEDS: GLUCERNA SHAKE 237 ML CAN PO SCH (09:00)
[2022-10-06] MEDS: SPIRONOLACTONE 25 MG TABLET PO SCH (09:57)
[2022-10-06] MEDS: DOXYCYCLINE 100 MG CAP PO SCH (09:57)
[2022-10-06] MEDS: PRIMIDONE 50 MG TAB PO SCH (09:57)
[2022-10-06] MEDS: CLOPIDOGREL 75 MG TABLET PO SCH (09:57)
[2022-10-06] MEDS: GABAPENTIN 300 MG CAP PO SCH (09:58)
[2022-10-06] MEDS: dexAMETHasone 4 MG TAB PO SCH (09:58)
[2022-10-06] MEDS: ENOXAPARIN 40 MG/0.4 ML SQ SCH (09:58)
[2022-10-06] MEDS: FUROSEMIDE 40 MG TABLET PO SCH (09:59)
[2022-10-06] MEDS: LEVOTHYROXINE SOD 0.075 MG TAB PO SCH (09:59)
[2022-10-06] MEDS: INSULIN GLARGINE 100 UNIT/ML SQ SCH (09:59)
[2022-10-06] MEDS: INSULIN -REGULAR HUMAN 50 UNIT/0.5 ML ML SQ SCH ×3 (09:59→16:30)
[2022-10-06] MEDS: METOPROLOL TAR 50 MG TAB PO SCH (10:00)
[2022-10-06] MEDS: DULERA 200/5 (MOMETASONE/FORMOTEROL) INHALER IH SCH (10:00)
[2022-10-06 13:20] VITALS: BP 122/60; TEMP 97.3
[2022-10-06 14:39] VITALS: O2SAT 84
--- NOTE | 2022-10-06 14:45 | P.DS ---
Admission Date: 09/30/22 Discharge Date: 10/06/22 Disposition: DC HOME/HOME HEALTH CARE Discharge Condition: GOOD Reason for Admission: Congestive heart failure Consultations: 1. Pulmonology 2. Cardiology Hospital Course: DIAGNOSES: # Acute on Chronic Decompensated Diastolic Congestive Heart Failure with Preserved Ejection Fraction # Acute COPD Exacerbation with possible COVID-19 Pneumonia # Bilateral Moderate Pleural Effusions # Chronic Lymphocytic Leukemia # Prominent Mediastinal Lymph Nodes (largest measuring 2.8 cm x 2.2 cm in Pertracheal Region) # Left Axillary Lymphadenopathy # Coronary Artery Disease s/p PCI # Hypertension # Hyperlipidemia # Hypothyroidism # Two Right Adrenal Nodules (3.5 cm x 2.2 cm, 3.1 cm x 2.5 cm) # Left Adrenal Nodule (2.4 cm x 1.8 cm) # Deconditioning HOSPITAL COURSE: Ms. Adriana Lopez is a pleasant 77 year old female with a past medical history significant for chronic lymphocytic leukemia, chronic obstructive pulmonary disease, chronic diastolic congestive heart failure, coronary artery disease s/p PCI, hypertension, hypothyroidism, and hyper lipidemia who was admitted to the [facility] on 10/01/2022 for dyspnea. She was admitted to the Medicine service. Upon further evaluation, her chest x- ray revealed "findings suggestive of pulmonary edema." Her transthoracic echocardiogram revealed, "1. normal left ventricular ejection fraction 55-60% with normal wall motion 2. moderate diastolic dysfunction 3. mild mitral regurgitation, tricuspid regurgitation, pulmonic insufficiency 4. small pericardial effusion." She tested positive for COVID-19; however, it was felt that her symptoms were likely secondary to a congestive heart failure exacerbation. Cardiology and Pulmonology were consulted and she was evaluated by Dr. Luther and Dr. Mccain, respectively. She was treated with IV diuretics and empiric IV antibiotics per their recommendations. Over the course of her hospita lization, her symptoms improved significantly. Her repeat chest x-ray revealed, "improving central congestion/CHF." Her CT chest angiogram revealed, "no evidence of acute central pulmonary emboli. Partially improved bilateral pleural layering effusions and geographic peripheral predominant groundglass opacities, which could relate to underlying central congestion/ CHF. Stable small pericardial effusion. Enlarging left axillary lymph nodes as above. Stable prominent mediastinal and right hilar lymph nodes." Despite improvement in her symptoms, her SpO2 levels would drop with exertion. With the assistance of case management, home oxygen was arranged. Incidentally, she was found to have prominent mediastinal/pretracheal/axillary lymphadenopathy as well as multiple adrenal nodules. She and her family were counseled on the potential for malignancy. She was advised to follow-up with her PCP and Oncologist for further evaluation and surveillance imaging. They verbalized understanding and agreed to make these follow-up appointments. On 10/06/2022, she was seen on morning rounds and deemed medically stable for discharge. She was discharged with instructions to schedule follow-up appointme nts with her PCP (Dr. Roberson), with Cardiology (Dr. Lora), with Pulmonlogy (Dr. Mccain), and with her Oncologist (Dr. Calvo). She was provided prescriptions for furosemide and spironolactone. She and her family members were given the opportunity to ask questions and reported no further questions. Furthermore, all questions were answered to the best of my ability. A copy of this discharge summary will be sent to the above providers to facilitate continuity of care. Today, I personally spent 25 minutes on her case, of which greater than 50% of the time was spent in patient education, counseling, and coordination of care as described above. - Physical Exam General: Alert, In no apparent distress, Oriented x3 HEENT: Atraumatic, Mucous membr. moist/pink, Sclerae nonicteric Neck: JVD not distended Respiratory: Diminished, but clear to auscultation bilaterally Cardiovascular: Regular rate/rhythm, No murmurs, Edema (trace BLE) Gastrointestinal: Normal bowel sounds, Soft, Non-distended, No tenderness Musculoskeletal: No clubbing Integumentary: No rashes Neurological: Normal speech, Normal affect Vital Signs/Physical Exam: Temp Pulse Resp BP Pulse Ox 97.3 F 77 17 122/60 97 10/06/22 12:00 10/06/22 12:00 10/06/22 12:00 10/06/22 12:10/06/22 12:00 Laboratory Data at Discharge: WBC 32.70 thou/uL (4.3-10.9) H 10/02/22 05:50 Hgb 7.9 g/dL (12.0-15.0) L 10/02/22 05:50 Hct 24.8 % (36.0-45.0) L 10/02/22 05:50 Plt Count 252 thou/uL (152-406) 10/02/22 05:50 Sodium 133 mEq/L (136-145) L 10/05/22 04:47 Potassium 4.6 mEq/L (3.5-5.1) 10/05/22 04:47 BUN 23 mg/dL (7-18) H 10/05/22 04:47 Creatinine 0.65 mg/dL (0.55-1.02) 10/05/22 04:47 Glucose 78 mg/dL (74-106) 10/05/22 04:47 Uric Acid 4.1 mg/dL (2.6-6.0) 09/30/22 22:45 Phosphorus 3.6 mg/dL (2.5-4.9) 10/06/22 04:03 Magnesium 1.9 mg/dL (1.6-2.4) 10/06/22 04:03 Total Bilirubin 0.3 mg/dL (0.2-1.0) 10/02/22 05:50 AST 8 U/L (15-37) L 10/02/22 05:50 ALT 11 U/L (13-56) L 10/02/22 05:50 Alkaline Phosphatase 64 U/L (45-117) 10/02/22 05:50 Triglycerides 82 mg/dL (<150) 10/01/22 03:25 Cholesterol 105 mg/dL (<200) 10/01/22 03:25 HDL Cholesterol 35 mg/dL (40-60) L 10/01/22 03:25 Cholesterol/HDL Ratio 3.00 10/01/22 03:25 Home Medications: Aspirin [Aspirin EC 81 MG] 1 tab PO DAILY 11/27/18 Clopidogrel Bisulfate [Plavix*] 1 tab PO DAILY 11/27/18 Gabapentin 600 mg PO BID 11/27/18 Levothyroxine Sodium [Synthroid] 150 mcg PO DAILY 11/27/18 Metoprolol Tartrate 100 mg PO BID 11/27/18 Baclofen [Lioresal*] 10 mg PO BID PRN 11/06/21 Primidone [Mysoline *] 50 mg PO BID 08/06/22 Atorvastatin Calcium [Lipitor*] 20 mg PO BEDTIME 09/30/22 Codeine Phosphate/Guaifenesin [Codeine-Guaifen 10-100 mg/5 ml] 5 ml PO Q4H PRN 09/30/22 Doxazosin [Cardura*] 4 mg PO BEDTIME 09/30/22 Hydrocodone/Acetaminophen [Hydrocodone-Acetamin 5-325 mg] 1 each PO Q6H PRN 09/30/22 Zolpidem Tartrate [Ambien] 10 mg PO BEDTIME 09/30/22 Furosemide [Lasix*] 40 mg PO DAILY #30 tab 10/06/22 Spironolactone [Aldactone*] 25 mg PO BID #60 tab 10/06/22 New Medications: Spironolactone [Aldactone*] 25 mg PO BID #60 tab Furosemide [Lasix*] 40 mg PO DAILY #30 tab Physician Discharge Instructions: 1. Please call and schedule a follow-up appointment with your PCP (Dr. Roberson) in 3-5 days - Please have Dr. Roberson repeat your kidney function and potassium level at this appointment 2. Please call and schedule a follow-up appointment with Pulmonology (Dr. Mccain) in 3-5 days 3. Please call and schedule a follow-up appointment with Cardiology (Dr. Luther) in 5-7 days 4. Please call and schedule a follow-up appointment with your Oncologist (Dr. Calvo) in 5-7 days - As we discussed, you were found to have enlarged lymph nodes in your chest as well as nodules on your adrenal glands. It is important to have these evaluated for cancer. Please have Dr. Calvo repeat your CT scan in 1 month. Diet: AHA Activity: Ad ann Followup: Tristian Roberson MD [COURTESY - CAN ADMIT] - Jaylen Lora MD [OUTSIDE PHYSICIAN] - Carter Mccain MD [ACTIVE - CAN ADMIT] - Yaritza Marte MD [ACTIVE - CAN ADMIT] - Time spent managing pt's care (in minutes): 25
--- NOTE | 2022-10-06 16:41 | RAD REPORT ---
EXAM DESCRIPTION: CT - Chest For Pe Angio - 10/06/2022 3:53 pm CLINICAL HISTORY: rule out PE - hypoxia COMPARISON: Thorax Wo Con dated 10/02/2022; Chest Single View dated 10/04/2022 TECHNIQUE: Thin axial CT images of the chest were obtained following administration of 90 mL Isovue 370 IV contrast. Multiplanar reconstructions, and maximum intensity projection reconstructions were g enerated and reviewed. Exam utilizes a protocol for optimal evaluation of pulmonary arterial tree. All CT scans are performed using dose optimization technique as appropriate and may include automated exposure control or mA/KV adjustment according to patient size. FINDINGS: Pulmonary arteries are normal. No emboli or other suspicious finding. No acute or signific ant aorta findings. Small residual bilateral layering effusions, marginally improved since the prior exam. Dependent segm ental atelectasis. Geographic peripheral predominant ground-glass opacities, more abundant in the upp er lobes, marginally improved since the prior exam. No pneumothorax. Heart remains mildly enlarged. Stable mild pericardial effusion. Stable right hilar and mediastinal adenopathy. 27 x 20 millimeter pretracheal lymph node appears stab le in size and contains foci of calcification. Left axillary lymph nodes, mildly increased in size si nce the prior exam, the largest now measures 18 x 13 millimeter. No chest wall mass or right axilliar y lymphadenopathy. Evaluation of the upper abdomen reveals stable hypoattenuating lesions which may be of adrenal or kristi al origin, not well evaluated. No suspicious osseous findings. dextroconvex midthoracic scoliosis again seen with interspinous lower thoracic fusion hardware. IMPRESSION: No evidence of acute central pulmonary emboli. Partially improved bilateral pleural layering effusions and geographic peripheral predominant ground- glass opacities, which could relate to underlying central congestion/ CHF. Stable small pericardial e ffusion. Enlarging left axillary lymph nodes as above. Stable prominent mediastinal and right hilar lymph node s.
== END 2022-10-06 18:00 | disposition home health service (06) | DRG 177 ==
LOC: 4TH 18:51
PROVIDERS: ADMIT Hospitalist; ATTEND Internal Medicine
DX: U07.1 COVID-19 (principal); I50.33 Acute on chronic diastolic (congestive) heart failure; J12.82 Pneumonia due to coronavirus disease 2019; C91.10 Chronic lymphocytic leukemia of B-cell type not having achieved remission; J44.1 Chronic obstructive pulmonary disease with (acute) exacerbation; J44.0 Chronic obstructive pulmonary disease with (acute) lower respiratory infection; I11.0 Hypertensive heart disease with heart failure; E78.5 Hyperlipidemia, unspecified; I08.1 Rheumatic disorders of both mitral and tricuspid valves; E03.9 Hypothyroidism, unspecified; G89.29 Other chronic pain; Z88.0 Allergy status to penicillin; Z88.1 Allergy status to other antibiotic agents; Z88.8 Allergy status to other drugs, medicaments and biological substances; Z95.5 Presence of coronary angioplasty implant and graft; Z79.82 Long term (current) use of aspirin; Z79.02 Long term (current) use of antithrombotics/antiplatelets; Z87.891 Personal history of nicotine dependence; Z79.890 Hormone replacement therapy; Z90.710 Acquired absence of both cervix and uterus; Z79.899 Other long term (current) drug therapy
CPT/HCPCS: 36415; 71045; 71250; 71275; 80048; 80053; 80061; 82947; 83605; 83735; 83880; 84100; 84145; 84550; 85025; 93306; 94640; 94760; 97110; 97116; 97161; 97165; 97530; J1100; J1650; J1815; J1940; J3411; J3475; J3535; J7030; J7605; J7613; J7644; J8540; Q9967

== ENCOUNTER 2022-10-07 17:48 | Emergency (ER) | payer OTHER ==
--- OUTSIDE RECORDS SUMMARY | 2022-10-07 17:55 | XMS REPORT | Continuity of Care Document ---
:1945 Author Organization [facility] t Address [address] [facility] [place] [address] Care Team Providers Name Role Phone SCOTT XIAO Primary Care Physician Unavailable Hunter, Rick H Attending Clinician Unavailable Hunter, Rick H Attending Clinician Unavailable Tk Fermin Attending Clinician Unavailable Hasmukh Attending Clinician Unavailable Gena Webster MA Attending Clinician Unavailable Amaya Garcia MA Attending Clinician Unavailable Nahid Oseguera MD Attending Clinician Alexandre Rivas MD Attending Clinician ESTEBAN EVANS Attending Clinician Unavailable LEI HUANG Attending Clinician Unavailable Ishan Hall MD Attending Clinician Gianni Enamorado MD Attending Clinician Yuli Piper Attending Clinician Provider, Unknown Attending Clinician Unavailable Shubham Sprague MD Attending Clinician Kajal Garbiay Attending Clinician Nicolas Cox MA Attending Clinician Unavailable CHASIDY BRUSH Attending Clinician Unavailable MYKE Attending Clinician Unavailable JUVENTINO DE LEON Attending Clinician Unavailable Holly Reynolds Attending Clinician [phone] Jamie Lora Attending Clinician Unavailable Jamie Lora Attending Clinician Unavailable Rick Harrison Admitting Clinician Unavailable Tk Fermin Admitting Clinician Unavailable Hasmukh Admitting Clinician Unavailable JUAN OCONNELL Admitting Clinician Unavailable ISHAN HALL Admitting Clinician Unavailable MYKE Admitting Clinician Unavailable Jamie Lora Admitting Clinician Unavailable Payers Payer Name Policy Type Policy Number Effective Date Expiration Date S ifeanyi AETNA CHOICE POS II [id number] 2020 00:00:00 AETNA (POS) [id number] 2020 00:00:00 [place]IC[place]: [id number] 2011 [employer] 00:00:00 AETNA COMMERCIAL [id number] 2021 OUT OF NETWORK 00:00:00 Problems Condition Condition Condition Status Onset Resolution Last Treating Co mments Source Name Details Category Date Date Treatment Clinician Date Retention Retention Problem Active Maria R ston of urine of Urine 6-14 [facility] 00:00: [facility] 00 Cigarette Cigarette Problem Active Maria R [facility]on smoker Smoker 6-14 [facility] 00:00: [facility] 00 Primary Primary Disease Active 2021-02 [facility] osteoarthr osteoarthr 2-01 [facility] itis of itis of 00:00: Hospita left hip left hip 00 l Neuropathy Neuropathy Disease Active U nivers 6-03 ity of 00:00: [address] Smoker Smoker Disease Active 2020-02 Univers 1-16 ity of 00:00: [address] Type 2 Type 2 Problem Active 2019-02 [place] diabetes Diabetes 2-10 Commun i mellitus Mellitus 00:00: ty 00 [facility]ospita l Clinics Neuropathy Neuropathy Problem Active 2019-02 S weeny 2-10 Communi 00:00: 00 Hospita l Clinics Disorder Disorder Problem Active 2020-1 [place] of vision of Vision 2-10 [facility] Hypertensi Hypertensi Problem Active 2019-02 S weeny ve ve 2-10 Communi disorder Disorder 00:00: ty 00 Hospita Clinics Hemorrhoid Hemorrhoid Problem Active 2019-02 S [place] s s 2-10 Communi 00:00: ty 00 [facility] Skin Skin Problem Active 2019-02 [place] lesion Lesion 2- Communi 00:00: ty 00 [facility] Clinics Bronchitis Bronchitis Disease Active U nivers 8-19 ity of 00:00: [place] 00 [facility] Coronary Coronary Disease Active Unive rs atheroscle atheroscle 10-06 it y of rosis rosis 00:00: [place] 00 [facility] Degenerati Degenerati Disease Active U nivers ve joint ve joint 8- ity of disease disease 00:00: [place] involving involving 00 Medi matthew multiple multiple Branch joints joints Type 2 Type 2 Disease Active Overview: Univer s diabetes diabetes 10-06 [place] ity of mellitus mellitus 00:00: g of this Blu as 00 note Medical might be Branch different from the original. Formattin g of this note might be different from the original. 2005. Neuropath y. 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 c [place] [facility] Allergies, Adverse Reactions, Alerts Allergy Allergy Status Severity Reaction(s) Onset Inactive Treating Comm ents Source Name Type Date Date Clinician Levoflox Propensi Active Other (See Sever Me thodi acin ty to Comments) 03-[address] adverse 00:00: pains Hospita reaction 00 l s to drug Penicill Propensi Active Swelling 2021-02 Meth racheal ins ty to 07 st adverse 00:00: Hospita reaction 00 l s to drug PENICILL Drug Active Swelling Univer s INS Class 6- ity of 00:00: [place] 00 Medical Branch Penicill Propensi Active Swelling Univ ers ins ty to 6- ity of adverse 00:00: [place] reaction 00 Medical s Branch Penicill DA Active MO 2019-02 [facility] ins 04-09 [facility]: [address] levoflox DA Active MO 2020-1 [facility] acin 2- [place] 00:00: [address] Penicill DA Active MO HIVES 2019-02 [facility] ins - 00:00: [address] levoflox DA Active MO JOINT PAIN 2019-02 [facility] acin - 00:00: [address] Penicill Propensi Active Swelling 2018-0 Meth racheal in G ty to 9-10 st adverse 00:00: Hospita reaction 00 l s to drug PENICILL Allergy Active [place] INS to Communi substan ty e Hospita l Clinics Levaquin Allergy Active Swelling [place] on to [facility] substan Urology e penicill Drug Active [facility] in [facility] Levaquin Drug Active [facility]icill [facility] penicill Drug [facility] penicill Drug [facility] penicill Drug [facility] Levaquin Drug Active [facility] penicill Drug [facility]quin Drug Active [facility]ill Drug [facility] Drug [facility] Active [facility] Drug [facility] penic[facility] Drug [facility] Levaquin Drug Active [facility] penicill Drug [facility]quin Drug Active [facility] Drug [facility] Drug [facility] penicill Drug [facility]quin Drug Active [facility] pen[facility]ill Drug [facility] Drug Active [facility] Drug [facility] pen[facility]ill Drug [facility] Levaquin Drug Active [facility] penic[facility] Drug [facility] in [facility] Levaquin Drug Active [facility] penicill Drug Active [facility] in [facility] Levaquin Drug Active [facility] penicill Drug Active [facility] in [facility] Leva[facility] Drug Active [facility] Family History Family Member Diagnosis Comments Start Date Stop Date Source Natural father Cancer [facility] Natural father Diabetes [facility] Grandchild [facility] Natural mother Cancer [facility] Natural son Cancer [facility] Natural son Diabetes [facility] Social History Social Habit Start Date Stop Date Quantity Comments Source Gender identity 2018-10-24 Identifies as Method ist 09:19:13 female gender Hospital (finding) Sexual orientation 2018-10-24 Heterosexual Meth odist 09:19:13 (finding) Hospital History of tobacco Smokes tobacco [facility] use daily Hospital Alcohol intake 2022-06-15 2022-06-15 Lifetime [facility] 00:00:00 00:00:00 non-drinker Hospital (finding) History of Social 2022-06-15 2022-06-[address] function 00:00:00 00:00:00 Hospital Tobacco use and 2022-01-26 2022-01-26 Smokeless tobacco [facility] exposure 00:00:00 00:00:00 non-user Hospital Exposure to 2021-07-11 2021-07-21 Not sure University of SARS-CoV-2 (event) 00:00:00 15:23:00 [facility] Cigarettes smoked 2021-07-21 2021-07-21 Univers ity of current (pack per 00:00:00 00:00:00 ) - Reported Branch Cigarette 2021-07-21 2021-07-21 University of pack-years 00:00:00 00:00:00 [facility] Sex [birth year] ROSA Shaikh kes 00:00:00 00:00:00 [facility] Smoking Status Start Date Stop Date Source Current Every Day Smoker [facility] Urolog Medications Ordered Filled Start Stop Current Ordering Indication Dosage Frequency Signature Comments Components Source Medication Medication Date Date Medication? Clinician (SIG) Name Name Ozempic Ozempic No Ozempic [place] 0.25 mg or 0.25 mg or 6-14 0.25 mg or [facility] 0.5 mg (2 0.5 mg (2 00:00: 0.5 mg (2 Urology mg/1.5 mL) mg/1.5 mL) 00 mg/1.5 mL) subcutaneou subcutaneou subcutaneo s pen s pen us pen injector injector injector INJECT 0.5 INJECT 0.5 INJECT 0.5 MG UNDER MG UNDER MG UNDER THE SKIN THE SKIN THE SKIN ONCE PER ONCE PER ONCE PER WEEK WEEK WEEK aspirin Yes 81mg QD Take 1 [facility] (ECOTRIN) 4-28 tablet (81 st 81 MG 14:00: mg total) Hospita enteric 59 by mouth l coated daily. tablet Last dose 03/18/22 in prep for surgery per cardiologi esther n. semaglutide Yes 1{tbl} QD Take 1 Me thodi (Rybelsus) -[address] 3 mg tablet 14:00: mouth Hospi ta 59 daily l before breakfast. baclofen Yes 10mg Take 1 [facility] (LIORESAL) -28 tablet (10 st 10 MG 14:00: mg total) Hospita tablet 59 by mouth l as needed for muscle spasms. primidone Yes 250mg QD Take 1 Metho di (MYSOLINE) 4-[address] 250 MG 14:00: (250 mg Hospita tablet 59 total) by l mouth nightly. Takes nightly for tremors insulin Yes Inject [facility] ASPART -[address] (NovoLOG) 14:00: skin as Hospi ta 100 unit/mL 59 needed for l injection high blood sugar (uses sliding scale). Only takes if elevated sugar. Hasn't needed in months. Sugar running around 140. insulin Yes Inject [facility] DETEMIR [address] (Levemir 14:00: skin. Hospita FlexPen) 59 l 100 unit/mL (3 mL) insulin pen metoprolol Yes bid [facility] [place]-hydrochl -28 st orothiaz 14:00: Hospita 100-12.5 mg 59 [...] (AZO 59 l BLADDER CONTROL ORAL) diphenhydra Yes Take by Met ara mine HCl [...] QD Take 1 Method i (CARDURA) 4 4-28 tablet (4 st MG tablet 14:00: mg total) Hos hermes 59 by mouth l nightly. gabapentin 2023-0 Yes 600mg Q.25D Take 1 Met hodi (NEURONTIN) 4-[address] 600 mg 14:00: (600 mg Hospita tablet 59 total) by l mouth 4 (four) times a day. clopidogreL 2023-0 Yes 75mg QD Take 1 Meth racheal (PLAVIX) 75 4-28 tablet (75 st mg tablet 14:00: mg total) Hos hermes 59 by mouth l daily. Last dose 03/18/22 in prep for surgery per cardiologi st instructio n. levothyroxi 2023-0 Yes 150ug QD Take 1 Met hodi ne 4-[address] (SYNTHROID) 14:00: (150 mcg Ho spita 150 mcg 59 total) by l tablet mouth daily. doxazosin 2023-0 Yes 4mg QD Take 1 Method i (CARDURA) 4 4-28 tablet (4 st MG tablet 14:00: mg total) Hos hermes 59 by mouth l nightly. gabapentin 2023-0 Yes 600mg Q.25D Take 1 Met hodi (NEURONTIN) 4-[address] 600 mg 14:00: (600 mg Hospita tablet 59 total) by l mouth 4 (four) times a day. aspirin 2023-0 Yes 81mg QD Take 1 [facility] (ECOTRIN) 4-28 tablet (81 st 81 MG 14:00: mg total) Hospita enteric 59 by mouth l coated daily. tablet Last dose 03/18/22 in prep for surgery per cardiologi st instructio n. semaglutide 3-0 Yes 1{tbl} QD Take 1 Me thodi (Rybelsus) 4-[address] 3 mg tablet 14:00: mouth Hospi ta 59 daily l before breakfast. baclofen 2023-0 Yes 10mg Take 1 [facility] (LIORESAL) 4-28 tablet (10 st 10 MG 14:00: mg total) Hospita tablet 59 by mouth l as needed for muscle spasms. primidone 2023-0 Yes 250mg QD Take 1 Metho di (MYSOLINE) 4-[address] 250 MG 14:00: (250 mg Hospita tablet 59 total) by l mouth nightly. Takes nightly for tremors insulin Yes Inject [facility] ASPART [address] (NovoLOG) 14:00: skin as Hospi ta 100 unit/mL 59 needed for l injection high blood sugar (uses sliding scale). Only takes if elevated sugar. Hasn't needed in months. Sugar running around 140. insulin Yes Inject [facility] DETEMIR 06-[address] (Levemir 14:00: skin. Hospita FlexPen) 59 l 100 unit/mL (3 mL) insulin pen metoprolol 0 Yes bid [facility] [place]-hydrochl 4-28 st orothiaz 14:00: Hospita 100-12.5 mg 59 l tablet extended release 24 hr tamsulosin Yes .4mg QD Take 1 Metho di (FLOMAX) - capsule st 0.4 mg 14:00: (0.4 mg Hospita capsule 59 total) by l mouth daily with dinner. atorvastati Yes 20mg QD Take 1 Meth racheal n (LIPITOR) - tablet (20 st 20 mg 14:00: mg total) Hospita tablet 59 by mouth l daily. temazepam Yes 7.5mg QD Take 1 Metho di (RESTORIL) - capsule st 7.5 MG 14:00: (7.5 mg Hospita capsule 59 total) by l mouth nightly as needed for sleep. Lactobacill Yes Take by Met hodi us 4-[address] acidophilus 14:00: Hospit a (Probiotic) 59 l 10 billion cell capsule cyanocobala Yes 100ug QD Take 1 Met hodi min 100 MCG -[address] tablet 14:00: (100 mcg Hospita 59 total) by l mouth daily. cetirizine 0 Yes 10mg QD Take 1 Metho di (ZyrTEC) 10 -28 tablet (10 st MG tablet 14:00: mg total) Hos hermes 59 by mouth l daily. pumpkin 0 Yes Take by Methodi seed 4-[address] extract/soy 14:00: Hospit a germ (AZO 59 l BLADDER CONTROL ORAL) diphenhydra Yes Take by Met hodi mine HCl 4-[address] (BENADRYL 14:00: Hospita ALLERGY 59 l ORAL) metoprolol 2022- No 100mg Q.5D Take 1 Met hodi tartrate 06-15- tablet st (LOPRESSOR) 14:00: 00:00 (100 mg Ho spita 100 mg 58 :00 total) by l tablet mouth 2 (two) times a day. metoprolol 2022- No 100mg Q.5D Take 1 Met hodi tartrate 06-15- tablet st (LOPRESSOR) 14:00: 00:00 (100 mg Ho spita 100 mg 58 :00 total) by l tablet mouth 2 (two) times a day. metFORMIN 2022- No 1000mg Q.5D Take 2 Met hodi (GLUCOPHAGE -15 06- tablets st ) 500 mg 14:00: 00:00 (1,000 mg Hos hermes tablet 48 :00 total) by l mouth 2 (two) times a day with meals. metFORMIN 0 2022- No 1000mg Q.5D Take 2 Met hodi (GLUCOPHAGE 06-15- tablets st ) 500 mg 14:00: 00:00 (1,000 mg Hos hermes tablet 48 :00 total) by l mouth 2 (two) times a day with meals. lisinopriL 2022- No 1{tbl} Q.5D Take 1 Me thodi 20 mg 06-[address] tablet 20 14:00: 00:00 mouth 2 Hosp sudha mg, 37 :00 (two) l hydroCHLORO times a thiazide 25 day. MG tablet 12.5 mg lisinopriL 2022- No 1{tbl} Q.5D Take 1 Me thodi 20 mg 06-15- tablet by st tablet 20 14:00: 00:00 mouth 2 Hosp sudha mg, 37 :00 (two) l hydroCHLORO times a thiazide 25 day. MG tablet 12.5 mg HYDROcodone 2022- [place] [id number] 1{tbl} Q6H Take 1 Methodi -acetaminop 06-[address] hen (NORCO) 13:53: 00:00 mouth Hosp sudha 5-325 mg 08 :00 every 6 l per tablet (six) hours as needed for moderate pain .acute pain. Pt takes mostly at bedtime only if needed Max Daily Amount: 4 tablets HYDROcodone 2022- No [id number] 1{tbl} Q6H Take 1 Methodi -acetaminop 06-15-[address] hen (NORCO) 13:53: 00:00 mouth Hosp sudha 5-325 mg 08 :00 every 6 l per tablet (six) hours as needed for moderate pain .acute pain. Pt takes mostly at bedtime only if needed Max Daily Amount: 4 tablets evolocumab 2022- No 140mg Q14D Inject 1 M ethodi (Repatha 06-15-28 mL ([address] SureClick) 13:53: 00:00 total) Hosp sudha 140 mg/mL 01 :00 under the l pen skin every injector 14 injection (fourteen) days. Takes every 2 weeks evolocumab 2022-2022- No 140mg Q14D Inject 1 M ethodi (Repatha 06-15-28 mL ([address] SureClick) 13:53: 00:00 total) Hosp sudha 140 mg/mL 01 :00 under the l pen skin every injector 14 injection (fourteen) days. Takes every 2 weeks levothyroxi 2022- No Metho di ne 03-19 st (SYNTHROID) 14:05: 00:00 Hospi ta 125 mcg 44 :00 l tablet levothyroxi 2022- No Metho di ne 03-19 st (SYNTHROID) 14:05: 00:00 Hospi ta 125 mcg 44 :00 l tablet zolpidem 2022- No 5mg QD Take 1 Method i (AMBIEN) 5 03-05 tablet (5 st MG tablet 10:27: 00:00 mg total) Ho spita 49 :00 by mouth l nightly as needed for sleep. zolpidem 2022- No 5mg QD Take 1 Method i (AMBIEN) 5 03-05 tablet (5 st MG tablet 10:27: 00:00 mg total) Ho spita 49 :00 by mouth l nightly as needed for sleep. GABAPENTIN 2022- No Method i ENACARBIL 03-05 st ORAL 07:35: 00:00 Hospita 48 :00 l GABAPENTIN 2022- No Method i ENACARBIL 03-05 st ORAL 07:35: 00:00 Hospita 48 :00 l clopidogrel 2022- No Metho di bisulfate 03-05 st (CLOPIDOGRE 07:35: 00:00 Hospi ta L ORAL) 38 :00 l clopidogrel 2022- No Metho di bisulfate 03-05 st (CLOPIDOGRE 07:35: 00:00 Hospi ta L ORAL) 38 :00 l lidocaine 2021-02- No 1{patch QD Place 1 M ethodi (LIDODERM) 02-24 } patch on st 5 % 00:00: 05:59 the skin Hospita 00 :00 daily for l 30 days. Remove & Discard patch within 12 hours or as directed by lidocaine 2021-02 No 1{patch QD Place 1 M ethodi (LIDODERM) 02-24 } patch on st 5 % 00:00: 05:59 the skin Hospita 00 :00 daily for l 30 days. Remove & Discard patch within 12 hours or as directed by aspirin 81 0 Yes at bed Unive rs mg chewable 6-03 time ity of tablet 16:00: [place] 36 Medical Branch insulin Yes Univers aspart 5-10 ity of U-100 100 00:00: [place] unit/mL (3 00 Medical mL) Branch injection metformin Yes 1000mg Take 1,000 Univers ER 500 mg 4-29 mg by ity of 24 hr 00:00: mouth 2 [place] tablet 00 (two) Medical times Branch daily. metoprolol Yes Univers tartrate 4-14 ity of 100 mg 00:00: [place] tablet 00 Medical Branch levothyroxi Yes Univer s ne 150 mcg 3-15 ity of tablet 00:00: [place] 00 Medical Branch linezolid 0 Yes TAKE 1 Univer s 600 mg 3-15 TABLET BY ity of tablet 00:00: MOUTH [place] 00 EVERY 12 Medical HOURS FOR Branch 7 DAYS clopidogreL Yes 75mg Take 75 mg Univers 75 mg 2-15 by mouth. ity of tablet 00:00: [place] [address] Medical Branch doxazosin 4 Yes 4mg Take 4 mg U nivers mg tablet 2-15 by mouth. ity o f 00:00: [place] [address] Medical Branch lisinopriL- Yes 1{tbl} Take 1 Un [place] hydrochloro 2-15 tablet by ity of thiazide 00:00: mouth [place] 20-12.5 mg 00 every Medical per tablet morning Branch and evening. gabapentin Yes TAKE 1 Unive rs 600 mg 7-23 TABLET BY ity of tablet 00:00: MOUTH 4 [place] 00 TIMES A Medical DAY Branch lisinopriL 2018-02 Yes 20mg 1 tablet Met hodi (PRINIVIL) 0-10 ([address] 20 mg 00:00: total). Hospita tablet 00 l lisinopriL 2018-02 Yes 20mg 1 tablet Met hodi (PRINIVIL) 0-10 ([address] 20 mg 00:00: total). Hospita tablet 00 l zolpidem 2022- No QD nightly as Me thodi (AMBIEN) 10 10-[address] mg tablet 00:00: 00:00 Hospita 00 :00 l zolpidem 2022- No QD nightly as Me thodi (AMBIEN) 10 10-[address] mg tablet 00:00: 00:00 Hospita 00 :00 l metoprolol 2022- No Method i tartrate 10-17- st (LOPRESSOR) 00:00: 00:00 Hospi ta 100 mg 00 :00 l tablet metoprolol 2022- No Method i tartrate 10-17-16 st (LOPRESSOR) 00:00: 00:00 Hospi ta 100 mg 00 :00 l tablet simvastatin 2022- No Metho di (ZOCOR) 40 7-20 -16 st MG tablet 00:00: 00:00 Hospita 00 :00 l simvastatin 2022- No Metho di (ZOCOR) 40 7-20 -16 st MG tablet 00:00: 00:00 Hospita 00 :00 l metFORMIN 2022- No Methodi XR 6-01 18-16 st (GLUCOPHAGE 00:00: 00:00 Hospi ta -XR) 500 mg 00 :00 l 24 hr tablet metFORMIN 2022- No Methodi XR 07-30 (GLUCOPHAGE 00:00: 00:00 Hospi ta -XR) 500 mg 00 :00 l 24 hr tablet Santyl 250 Santyl 250 No Santyl 250 [place] unit/gram unit/gram unit/gram Communi topical topical topical ty ointment ointment ointment Hos [facility]mes APPLY APPLY APPLY l NICKEL THIN NICKEL THIN NICKEL Clinics LAYER TO LAYER TO THIN LAYER CLEANSED CLEANSED TO AFFECTED AFFECTED CLEANSED AREA BY AREA BY AFFECTED TOPICAL TOPICAL AREA BY ROUTE ONCE ROUTE ONCE TOPICAL DAILY DAILY ROUTE ONCE DAILY Sterile Sterile No 1irriga Sterile Swe christal Saline 0.9 Saline 0.9 tion(s) Saline 0.9 Communi % % % ty irrigation irrigation irrigation Hospita solution solution solution l Take 1 Take 1 Take 1 Clinics irrigation irrigation irrigation by by by irrigation irrigation irrigation route for route for route for 14 days. 14 days. 14 days. Levemir Levemir No Levemir [place] FlexTouch FlexTouch FlexTouch Communi U-100 U-100 U-100 ty Insulin 100 Insulin 100 Insulin Hospita unit/mL (3 unit/mL (3 100 l mL) mL) unit/mL (3 Clinics subcutaneou subcutaneou mL) s pen s pen subcutaneo us pen Santyl 250 Santyl 250 No Santyl 250 [place] unit/gram unit/gram unit/gram Communi topical topical topical ty ointment ointment ointment Hos [facility]mes APPLY APPLY APPLY l NICKEL THIN NICKEL THIN NICKEL Clinics LAYER TO LAYER TO THIN LAYER CLEANSED CLEANSED TO AFFECTED AFFECTED CLEANSED AREA BY AREA BY AFFECTED TOPICAL TOPICAL AREA BY ROUTE ONCE ROUTE ONCE TOPICAL DAILY DAILY ROUTE ONCE DAILY Sterile Sterile No 1irriga Sterile Swe christal Saline 0.9 Saline 0.9 tion(s) Saline 0.9 Communi % % % ty irrigation irrigation irrigation Hospita solution solution solution l Take 1 Take 1 Take 1 Clinics irrigation irrigation irrigation by by by irrigation irrigation irrigation route for route for route for 14 days. 14 days. 14 days. gabapentin gabapentin No gabapentin [place] 600 mg 600 mg 600 mg Communi tablet tablet tablet ty Hospita l Clinics Levemir Levemir No Levemir [place] FlexTouch FlexTouch FlexTouch Communi U-100 U-100 U-100 ty Insulin 100 Insulin 100 Insulin Hospita unit/mL (3 unit/mL (3 100 l mL) mL) unit/mL (3 Clinics subcutaneou subcutaneou mL) s pen s pen subcutaneo us pen mupirocin 2 mupirocin 2 No mupirocin [place] % topical % topical 2 % Commu ni ointment ointment topical ty APPLY A APPLY A ointment Hospi ta SMALL SMALL APPLY A l AMOUNT TO AMOUNT TO SMALL Clin ics THE THE AMOUNT TO AFFECTED AFFECTED THE AREA BY AREA BY AFFECTED TOPICAL TOPICAL AREA BY ROUTE 3 ROUTE 3 TOPICAL TIMES PER TIMES PER ROUTE 3 DAY DAY TIMES PER DAY Santyl 250 Santyl 250 No Santyl 250 [place] unit/gram unit/gram unit/gram Communi topical topical topical ty ointment ointment ointment [facility] APPLY APPLY APPLY l NICKEL THIN NICKEL THIN NICKEL Clinics LAYER TO LAYER TO THIN LAYER CLEANSED CLEANSED TO AFFECTED AFFECTED CLEANSED AREA BY AREA BY AFFECTED TOPICAL TOPICAL AREA BY ROUTE ONCE ROUTE ONCE TOPICAL DAILY DAILY ROUTE ONCE DAILY simvastatin simvastatin No simvastati [place] 40 mg 40 mg n 40 mg Communi tablet tablet tablet ty [facility] Clinics Sterile Sterile No 1irriga Sterile Swe christal Saline 0.9 Saline 0.9 tion(s) Saline 0.9 Communi % % % ty irrigation irrigation irrigation Hospita solution solution solution l Take 1 Take 1 Take 1 Clinics irrigation irrigation irrigation by by by irrigation irrigation irrigation route for route for route for 14 days. 14 days. 14 days. clopidogrel clopidogrel No clopidogre [place] 75 mg 75 mg l 75 mg Communi tablet tablet tablet ty [facility] clotrimazol clotrimazol No clotrimazo [place] e-betametha e-betametha le-betamet Communi sone 1 sone 1 hasone 1 ty %-0.05 % %-0.05 % %-0.05 % Hos [facility] topical topical topical l cream cream cream Clinics gabapentin gabapentin No gabapentin [place] 600 mg 600 mg 600 mg Communi tablet tablet tablet ty [facility] Levemir Levemir No Levemir [place] FlexTouch FlexTouch FlexTouch Communi U-100 U-100 U-100 ty Insulin 100 Insulin 100 Insulin Hospita unit/mL (3 unit/mL (3 100 l mL) mL) unit/mL (3 Clinics subcutaneou subcutaneou mL) s pen s pen subcutaneo us pen lisinopril lisinopril No lisinopril [place] 20 mg 20 mg 20 mg Communi tablet tablet tablet ty Hospita l Clinics metformin metformin No metformin [place] ER 500 mg ER 500 mg ER 500 mg Communi tablet,exte tablet,exte tablet,ext ty nded nded ended Hospita release 24 release 24 release 24 l hr hr hr Clinics mupirocin 2 mupirocin 2 No mupirocin [place] % topical % topical 2 % Commu ni ointment ointment topical ty APPLY A APPLY A ointment Hospi ta SMALL SMALL APPLY A l AMOUNT TO AMOUNT TO SMALL Clin ics THE THE AMOUNT TO AFFECTED AFFECTED THE AREA BY AREA BY AFFECTED TOPICAL TOPICAL AREA BY ROUTE 3 ROUTE 3 TOPICAL TIMES PER TIMES PER ROUTE 3 DAY DAY TIMES PER DAY Santyl 250 Santyl 250 No Santyl 250 [place] unit/gram unit/gram unit/gram Communi topical topical topical ty ointment ointment ointment [facility] APPLY APPLY APPLY l NICKEL THIN NICKEL THIN NICKEL Clinics LAYER TO LAYER TO THIN LAYER CLEANSED CLEANSED TO AFFECTED AFFECTED CLEANSED AREA BY AREA BY AFFECTED TOPICAL TOPICAL AREA BY ROUTE ONCE ROUTE ONCE TOPICAL DAILY DAILY ROUTE ONCE DAILY simvastatin simvastatin No simvastati [place] 40 mg 40 mg n 40 mg Communi tablet tablet tablet ty [facility]ospita l Clinics Sterile Sterile No 1irriga Sterile Swe christal Saline 0.9 Saline 0.9 tion(s) Saline 0.9 Communi % % % ty irrigation irrigation irrigation Hospita solution solution solution l Take 1 Take 1 Take 1 Clinics irrigation irrigation irrigation by by by irrigation irrigation irrigation route for route for route for 14 days. 14 days. 14 days. aspirin 81 aspirin 81 No 1capsul Q1D aspirin 81 [place] mg capsule mg capsule e(s) mg capsule [facility] Take 1 Take 1 Take 1 Urology capsule capsule capsule every day every day every day by oral by oral by oral route. route. route. atorvastati atorvastati No atorvastat [place] n 20 mg n 20 mg in 20 mg [facility] tablet TAKE tablet TAKE tablet Urology 1 TABLET BY 1 TABLET BY TAKE 1 MOUTH AT MOUTH AT TABLET BY BEDTIME BEDTIME MOUTH AT BEDTIME baclofen 10 baclofen 10 No baclofen Victor mg tablet mg tablet 10 mg Metr o tablet Urology clopidogrel clopidogrel No clopidogre Victor 75 mg 75 mg l 75 mg [facility] tablet TAKE tablet TAKE tablet Urology 1 TABLET BY 1 TABLET BY TAKE 1 MOUTH EVERY MOUTH EVERY TABLET BY DAY DAY MOUTH EVERY DAY cyanocobala cyanocobala No cyanocobal Victor min (vit min (vit tovar (vit Me tro B-12) 1,000 B-12) 1,000 B-12) Urology mcg tablet mcg tablet 1,000 mcg tablet gabapentin gabapentin No gabapentin Victor 600 mg 600 mg 600 mg [facility] tablet TAKE tablet TAKE tablet Urology 1 TABLET BY 1 TABLET BY TAKE 1 MOUTH FOUR MOUTH FOUR TABLET BY TIMES DAILY TIMES DAILY MOUTH FOUR TIMES DAILY insulin insulin No insulin [place] aspart aspart aspart [facility] U-100 100 U-100 100 U-100 100 Urology unit/mL unit/mL unit/mL subcutaneou subcutaneou subcutaneo s solution s solution us USE PER USE PER solution SLIDING SLIDING USE PER SCALE AFTER SCALE AFTER SLIDING GLUCOMETER GLUCOMETER SCALE CHECK. MAX CHECK. MAX AFTER 28 UNITS 28 UNITS GLUCOMETER PER DAY. PER DAY. CHECK. MAX 28 UNITS PER DAY. ipratropium ipratropium No ipratropiu Victor bromide bromide m bromide Metr o 0.02 % 0.02 % 0.02 % Urology solution solution solution for for for inhalation inhalation inhalation USE 1 VIAL USE 1 VIAL USE 1 VIAL VIA VIA VIA NEBULIZER NEBULIZER NEBULIZER EVERY 6 EVERY 6 EVERY 6 HOURS HOURS HOURS levothyroxi levothyroxi No levothyrox Victor ne 150 mcg ne 150 mcg ine 150 [facility] tablet tablet mcg tablet Urolo gy lisinopril lisinopril No lisinopril Victor 20 20 20 [facility] mg-hydrochl mg-hydrochl mg-hydroch Urology orothiazide orothiazide lorothiazi 12.5 mg 12.5 mg de 12.5 mg tablet TAKE tablet TAKE tablet 1 TABLET BY 1 TABLET BY TAKE 1 MOUTH EVERY MOUTH EVERY TABLET BY DAY DAY MOUTH EVERY DAY lorazepam lorazepam No lorazepam Victor 0.5 mg 0.5 mg 0.5 mg [facility] tablet TAKE tablet TAKE tablet Urology 1 TABLET BY 1 TABLET BY TAKE 1 MOUTH 1 MOUTH 1 TABLET BY HOUR BEFORE HOUR BEFORE MOUTH 1 MRI. JUNE MRI. JUNE HOUR REPEAT REPEAT BEFORE EVERY 15 EVERY 15 MRI. MAY MINUTES. IF MINUTES. IF REPEAT STILL STILL EVERY 15 ANXIETY ANXIETY MINUTES. IF STILL ANXIETY metformin metformin No metformin [place] ER 500 mg ER 500 mg ER 500 mg [facility] tablet,exte tablet,exte tablet,ext Urology nded nded ended release 24 release 24 release 24 hr TAKE 2 hr TAKE 2 hr TAKE 2 TABLETS BY TABLETS BY TABLETS BY MOUTH 1 MOUTH 1 MOUTH 1 TIME EACH TIME EACH TIME EACH DAY WITH DAY WITH DAY WITH DINNER DINNER DINNER metoprolol metoprolol No metoprolol Victor tartrate tartrate tartrate Met ro 100 mg 100 mg 100 mg Urology tablet tablet tablet primidone primidone No primidone Victor 50 mg 50 mg 50 mg [facility] tablet TAKE tablet TAKE tablet Urology 1 TABLET BY 1 TABLET BY TAKE 1 MOUTH TWICE MOUTH TWICE TABLET BY DAILY DAILY MOUTH TWICE DAILY tamsulosin tamsulosin No tamsulosin Victor 0.4 mg 0.4 mg 0.4 mg [facility] capsule capsule capsule Urolog y temazepam temazepam No temazepam Victor 7.5 mg 7.5 mg 7.5 mg [facility] capsule capsule capsule Urolog y zolpidem 10 zolpidem 10 No zolpidem [place] mg tablet mg tablet 10 mg Metr o tablet Urology Immunizations Ordered Immunization Filled Immunization Date Status Commen ts Source Name Name COVID-19, mRNA, COVID-19, mRNA, 2020-12-19 Completed [place] [facility] LNP-S, PF, 30 LNP-S, PF, 30 00:00:00 Urology mcg/0.3 mL dose, mcg/0.3 mL dose, rm-sucrose rm-sucrose (Aprimo) (Aprimo) PFIZER COVID-19 MRNA 2020-11-23 Completed Meth odist VACCINATION 00:00:00 [facility] PFIZER COVID-19 MRNA 2020-11-23 Completed Meth odist VACCINATION 00:00:00 [facility] PFIZER COVID-19 MRNA 2020-05-23 Completed Meth odist VACCINATION 00:00:00 [facility] PFIZER COVID-19 MRNA 2020-05-23 Completed Meth odist VACCINATION 00:00:00 [facility] PFIZER COVID-19 MRNA 2020-04-29 Completed Meth odist VACCINATION 00:00:00 [facility] COVID-19 MRNA 2020-04-29 Completed Meth odist VACCINATION 00:00:00 Hospital COVID-19, mRNA, COVID-19, mRNA, 2020-04-06 Completed [place] [facility] LNP-S, PF, 30 LNP-S, PF, 30 00:00:00 Urology mcg/0.3 mL dose, mcg/0.3 mL dose, rm-sucrose rm-sucrose (Smart Plate[employer]NTech) (Aprimo) COVID-19, mRNA, COVID-19, mRNA, 2020-03-16 Completed [place] [facility] LNP-S, PF, 30 LNP-S, PF, 30 00:00:00 Urology mcg/0.3 mL dose, mcg/0.3 mL dose, rm-sucrose rm-sucrose (stylefruits-BioNTech) (Aprimo) Vital Signs Vital Name Observation Time Observation [...] Measured Weight Dosing 2021-03-07 08:49:44 75.00 kg BP Diastolic 2022-08-01 00:00:00 81 mm[Hg] [facility] Height 2022-08-01 00:00:00 62 [in_i] [facility] BMI (Body Mass 2022-08-01 00:00:00 23.8 kg/m2 [place] [facility] Index) Urology BP Systolic 2022-08-01 00:00:00 140 mm[Hg] [facility] Body Weight 2022-08-01 00:00:00 130 [lb_av] [facility] Systolic blood 2021-07-21 21:01:00 168 mm[Hg] [facility] Diastolic blood 2021-07-21 21:01:00 88 mm[facility]Hg[facility] 2021-07-21 21:01:00 55 /min [facility] Body temperature 2021-07-21 21:01:00 36.67 [facility]ad [facility] 2021-07-21 21:01:00 18 /min [facility] Body height 2021-07-21 21:01:00 157.5 cm [facility] Body weight 2021-07-21 21:01:00 64.411 kg [facility] BMI 2021-07-21 21:01:00 25.97 kg/m2 [facility] BP Diastolic 2020-04-19 00:00:00 88 mm[Hg] [facility] s Height 2020-04-19 00:00:00 62 [in_i] [facility] s BMI (Body Mass 2020-04-19 00:00:00 26.7 kg/m2 [facility]) [facility] BP Systolic 2020-04-19 00:00:00 142 mm[Hg] [facility] Body Weight 2020-04-19 00:00:00 2336 [oz_av] [facility] BP Diastolic 2020-03-17 00:00:00 79 mm[Hg] [facility] Height 2020-03-17 00:00:00 62 [in_i] [facility] s BP Systolic 2020-03-17 00:00:00 153 mm[Hg] [facility] BP Diastolic 2020-02-25 00:00:00 80 mm[Hg] [facility] Height 2020-02-25 00:00:00 62 [in_i] [facility] BMI (Body Mass 2020-02-25 00:00:00 27.8 kg/m2 [facility]) [facility] BP Systolic 2020-02-25 00:00:00 129 mm[Hg] [facility] Body Weight 2020-02-25 00:00:00 2432 [oz_av] [facility] Height/Length 2021-03-07 11:52:07 157.48 cm Measured Weight Dosing 2021-03-07 11:52:07 69.399 kg Height/Length 2019-10-02 07:52:55 Measured Weight Dosing 2019-10-02 07:52:55 Systolic blood 2022-06-15 19:07:00 155 mm[Hg] Method ist [facility] pressure Diastolic blood 2022-06-15 19:07:00 70 mm[Hg] [facility] pressure Heart rate 2022-06-15 19:07:00 65 /min Methodis t [facility] Body temperature 2022-06-15 19:07:00 36.67 Soledad [facility] Respiratory rate 2022-06-15 19:07:00 16 /min [facility] Body height 2022-06-15 19:07:00 157.5 cm [facility] Body weight 2022-06-15 19:07:00 60.328 kg [facility] BMI 2022-06-15 19:07:00 24.33 kg/m2 [facility] Oxygen saturation in 2022-06-15 19:07:00 100 /min [facility] Arterial blood by Pulse oximetry Procedures Procedure Date / Time Performing Clinician Source Performed CBC WITH PLATELET AND 2022-06-15 19:25[facility]00 [facility] METABOLIC 2022-06-15 19:25:00 [facility] HEMOGLOBIN A1C 2022-06-15 19:25:00 Irma Arechiga [facility] Hospital TYPE AND SCREEN 2022-06-15 19:25:00 Kevin Barney [facility] ESTIMATED GFR 2022-06-15 19:25:00 Irma Arechiga [facility] MANUAL DIFFERENTIAL 2022-06-15 19:25:00 Kevin Barney [facility] PATHOLOGIST REVIEW OF 2022-06-15 19:25:00 [facility] URINE CULTURE 2022-03-19 21:20:00 Kevin Barney [facility] URINALYSIS SCREEN AND 2022-03-19 21:20:00 [facility], WITH REFLEX TO CULTURE CBC WITH PLATELET AND 2022-03-19 21:15:00 [facility] DIFFERENTIAL COMPREHENSIVE METABOLIC 2022-03-19 21:15:00 Kevin Barney [facility] PANEL HEMOGLOBIN A1C 2022-03-19 21:15:00 Kevin Barney Irma [facility] Hospital TYPE AND SCREEN 2022-03-19 21:15:00 Kevin Barney [facility] ESTIMATED GFR 2022-03-19 21:15:00 Kevin Barney [facility] MANUAL DIFFERENTIAL 2022-03-19 21:15:00 [facility] [place] < 1 HOUR 2022-03-05 15:20:00 [facility] INJECTION, STEROID, 2022-03-05 15:01:00 Ishan Hall [facility] SPINE, LUMBAR, EPIDURAL, SINGLE POC GLUCOSE 2022-03-05 13:38:[address] [address] LUMBAR SPINE WO 2022-03-01 21:33:02 [facility] CONTRAST MRI THORACIC SPINE WO 2022-03-01 20:54:53 [facility], [facility] CONTRAST MRI LUMBAR SPINE WO 2022-01-03 17:55:00 Shubham Sprague [facility] CONTRAST MRI LOWER EXTREMITY 2022-01-03 17:55:00 Shubham Sprague [facility] JOINT WO CONTRAST LEFT XR HIP 4 VIEWS LEFT 2021-12-25 18:33:55 Shubham Sprague [facility] POCT URINALYSIS W/O 2021-07-21 00:00:00 Chasidy Brush [facility] [id number] 2020-02-10 00:00[facility]00 [facility] [id number] 2020-02-10 00:00:[address] [facility] [id number] 2020-02-10 00:00:[address] [facility] [id number] 2020-02-10 00:00:[address] [facility] CARDIO- Heart Surgery 2019-02-18 00:00:00 John n Faviola (Stents) Urology - Nephrectomy (Kidney 1998-02-18 00:00:00 Viral Salmeron Removal) Urology Colonoscopy 1920-02-06 00:00:00 [facility] App[facility] Back Surgery [facility] Hernia Repair [facility] Hysteroscopy [facility] Tonsillectomy [facility] Plan of Care Planned Activity Planned Date Details Comments Source Future Scheduled 2022-10-19 Influenza Vaccine (#1) [facility] 00:00:00 [code = Influenza Medical Ce nter Vaccine (#1)] Future Scheduled 2022-09-19 65+ [facility]OCOCCAL [facility] 22:42:09 VACCINE (1 - PCV) [code = 65+ PNEUMOCOCCAL VACCINE (1 - PCV)] Future Scheduled 2022-09-19 DIABETES: RETINAL EYE [facility] Test 22:42:09 EXAM [code = DIABETES: RETINAL EYE EXAM] Future Scheduled 2022-09-19 [facility]ABETIC FOOT EXAM [facility] Test 22:42:09 [code = DIABETIC FOOT EXAM] Future Scheduled 2022-09-19 Hepatitis C screening [facility] Test 22:42:09 (procedure) [code = 043091229] Future Scheduled 2022-09-19 SHINGLES VACCINES (1 [facility] Test 22:42:09 of 2) [code = SHINGLES VACCINES (1 of 2)] Future Scheduled 2022-09-19 COVID-19 VACCINE (4 - [facility] Test 22:42:09 Booster for Pfizer series) [code = COVID-19 VACCINE (4 - Booster for Pfizer series)] Future Scheduled 2022-09-19 INFLUENZA VACCINE [facility] Test 22:42:09 [code = INFLUENZA VACCINE] Future Scheduled 2022-09-19 65+ P[facility]UMOCOCCAL [facility] Test 22:42:09 VACCINE (1 - PCV) [code = 65+ PNEUMOCOCCAL VACCINE (1 - PCV)] Future Scheduled 2022-09-19 DIABETES: RETINAL EYE [facility] Test 22:42:09 EXAM [code = DIABETES: RETINAL EYE EXAM] Future Scheduled 2022-09-19 DIABETIC FOOT EXAM [facility] Test 22:42:09 [code = DIABETIC FOOT EXAM] Future Scheduled 2022-09-19 Hepatitis C screening [facility] Test 22:42:09 (procedure) [code = 792018537] Future Scheduled 2022-09-19 SHINGLES VACCINES (1 [facility] Test 22:42:09 of 2) [code = SHINGLES VACCINES (1 of 2)] Future Scheduled 2022-09-19 COVID-19 VACCINE (4 - [facility] Test 22:42:09 Booster for Pfizer series) [code = COVID-19 VACCINE (4 - Booster for Pfizer series)] Future Scheduled 2022-09-19 INFLUENZA VACCINE [facility] Test 22:42:09 [code = INFLUENZA VACCINE] Future Scheduled 2022-02-[address] [facility] Test 00:00:00 (12+) [code = Medical Center DEPRESSION SCREENING (12+)] Future Scheduled 2022-02-18 FALLS RISK SCREENING [facility] Test 00:00:00 [code = FALLS RISK Medical C enter SCREENING] Future Scheduled 2011 PNEUMOCOCCAL 65+ YRS [facility] Test 00:00:00 (1 - PCV) [code = Medical Ce nter PNEUMOCOCCAL 65+ YRS (1 - PCV)] Future Scheduled 1996-02-22 SHINGLES VACCINES ([address] [facility] Test 00:00:00 of 2) [code = SHINGLES Medic al Center VACCINES (1 of 2)] Future Scheduled 1965 DTAP/TDAP/TD VACCINES [facility] Test 00:00:00 (1 - Tdap) [code = Medical C enter DTAP/TDAP/TD VACCINES (1 - Tdap)] Future Scheduled 1964-02-22 HEPATITIS C SCREENING [facility] Test 00:00:00 [code = HEPATITIS C Medical Center SCREENING] Future Scheduled [address] [facility] Test 00:00:00 [facility] r Screening (12+) [code = Tobacco Cessation Counseling and Screening (12+)] Future Scheduled 1946 COVID-19 VACCINE (#1) [facility] Test 00:00:00 [code = COVID-[address] VACCINE (#1)] Future Scheduled 1945 DXA SCAN [code = DXA [facility] Test 00:00:00 SCAN] [facility] Encounters Start End Encounter Admission Attending Care Care Encounter Source Date/Time Date/Time Type Type Clinicians Facility Department ID 2022-09-30 [facility] [id number] [facility] 00:00:00 Encounter [facility] 2022-09-30 [facility] [id number] [facility] 00:00:00 Encounter [facility] 2022-04-23 Outpatient [facility] [id number] [place] 16:29:37 [id number] [facility] 2022-04-18 Outpatient [facility] [id number] [place] 10:46:18 [id number] [facility] 2022-04-17 Outpatient [facility] [id number] [place] 11:43:29 [id number] [facility] 2022-04-10 Outpatient [facility] [id number] [place] 12:20:21 [id number] [facility] 2020-02-07 Inpatient [facility] [id number] [facility] 21:10:00 07 [facility] 2019-03-17 Inpatient 2 Rick Harrison [facility] TEL [id number] 21:33:00 Rick Harrison -[id number] [facility] 2019-03-17 Inpatient 2 Zander [facility] MED [id number] St. 16:03:00 [facility] 2022-08-01 2022-08-[address] [facility] [id number] Victor 00:00:00 00:00:00 [id number] [facility] 2022-08-01 2022-08-01 [facility] - [id number] river 00:00:00 00:00:00 Tripp Li MD: [id number] [facility] [address], [place] [address] , Ph. 2022-07-18 2022-07-[address] [facility] [id number] Victor 00:00:00 00:00:00 [id number] [facility] 2022-07-09 2022-07-09 Telephone [place], 1.2.840.1 [id number] Methodi 00:00:00 00:00:[address] 3.430.2.7 Hospit a .3.621225 l .8 2022-07-09 2022-07-09 Telephone [place], 1.2.840.1 [id number] Methodi 00:00:00 00:00:[address] 3.430.2.7 Hospit a .3.001871 l .8 2022-07-02 2022-07-02 Telephone Garcia, 1.2.840.1 [id number] [id number] Methodi 00:00:00 00:00:[address] 3.430.2.7 Hospit a .3.266307 l .8 2022-07-02 2022-07-02 Telephone Jose, 1.2.840.1 [id number] Methodi 00:00:00 00:00:[address] 3.430.2.7 Hospit a .3.145174 l .8 2022-06-18 2022-06-[address] [facility] [id number] Victor 00:00:00 00:00:00 [id number] [facility] 2022-06-15 2022-06-15 Pre-Admiss Tim, 1.2.840.1 [id number] Methodi 11:40:00 12:40:00 ion Nahid 38271.1.[address] Testing Kapil 3.430.2.7 Hospit a .3.290272 l .8 2022-06-15 2022-06-15 Pre-Admiss Tim, 1.2.840.1 [id number] Methodi 11:40:00 12:40:00 ion Nahid 07865.1.[address] Testing Kapil 3.430.2.7 Hospit a .3.641195 l .8 2022-06-15 2022-06-15 Office Tim, 1.2.840.1 [id number] Methodi 09:45:00 12:37:18 Visit Nahid 21966.1.[address] Kapil 3.430.2.7 Hospit a .3.897590 l .8 2022-06-15 2022-06-15 Office Tim, 1.2.840.1 [id number] Methodi 09:45:00 12:37:18 Visit Nahid 26374.1.[address] Kpail 3.430.2.7 Hospit a .3.016973 l .8 2022-06-15 2022-06-15 Telephone Tim, 1.2.840.1 [id number] Methodi 00:00:00 00:00:[address] Kapil 3.430.2.7 Hospit a .3.679287 l .8 2022-06-15 2022-06-15 Travel 1.2.840.1 1.2.538.371 [id number] [id number] Methodi 00:00:00 00:00:[address] 3.430.2.7 0.2.7.3.698 Ho spita .3.358034 084.8 l .8 2022-06-15 2022-06-15 Outpatient [facility]ACED [facility] [id number] Victor 00:00:00 00:00:[address] 2022-06-15 2022-06-15 Telephone Tim, 1.2.840.1 [id number] [id number] Methodi 00:00:00 00:00:[address] Kapil 3.430.2.7 Hospit a .3.022749 l .8 2022-06-15 2022-06-15 Travel 1.2.840.1 1.2.688.524 [id number] [id number] Methodi 00:00:00 00:00:[address] 3.430.2.7 0.2.7.3.698 Ho spita .3.899577 084.8 l .8 2022-06-11 2022-06-11 Telephone Tim, 1.2.840.1 [id number] 2099 [id number] Methodi 00:00:00 00:00:[address] Kapil 3.430.2.7 Hospit a .3.756482 l .8 2022-06-11 2022-06-11 Telephone Tim, 1.2.840.1 [id number] [id number] Methodi 00:00:00 00:00:[address] Kapil 3.430.2.7 Hospit a .3.716429 l .8 2022-05-03 2022-05-03 Office Saifi, 1.2.840.1 [id number] Methodi 11:30:00 11:44:10 Visit Comron 92191.1.[address] 3.430.2.7 Hospit a .3.116181 l .8 2022-05-03 2022-05-03 Office Saifi, 1.2.840.1 [id number] Methodi 11:30:00 11:44:10 Visit Comron 85126.1.[address] 3.430.2.7 Hospit a .3.853547 l .8 2022-05-03 2022-05-03 Orders Saifi, 1.2.840.1 [id number] Methodi 00:00:00 00:00:00 Only Comron 46195.1.[address] 3.430.2.7 Hospit a .3.806758 l .8 2022-05-03 2022-05-03 Orders Saifi, 1.2.840.1 [id number] 7366 Methodi 00:00:00 00:00:00 Only [place]ron 11228.1.[address] 3.430.2.7 Hospit a .3.504167 l .8 2022-05-03 2022-05-03 Outpatient [facility] [id number] [address] [place] [address] 00:00:00 00:00:[address] [place] [address] 2022-05-03 2022-05-03 Orders Saifi, 1.2.840.1 [id number] Methodi 00:00:00 00:00:00 Only Comron 98354.1.[address] 3.430.2.7 Hospit a .3.064162 l .8 2022-05-03 2022-05-03 Orders Saifi, 1.2.840.1 [id number] [id number] Methodi 00:00:00 00:00:00 Only Comron 95917.1.[address] 3.430.2.7 Hospit a .3.213510 l .8 2022-04-18 2022-04-18 Outpatient CRISTINA [facility] [id number] [place] 10:30:00 10:30:00 [facility] 2022-04-05 2022-04-10 Inpatient [facility] [id number] [facility] 13:37:00 16:11:00 LEI 2022-03-19 2022-03-19 Pre-Admiss Tim, 1.2.840.1 [id number] Methodi 13:20:00 14:20:00 ion Nahid 08780.1.[address] Testing Kapil 3.430.2.7 Hospit a .3.770793 l .8 2022-03-19 2022-03-19 Pre-Admiss Tim, 1.2.840.1 [id number] [id number] Methodi 13:20:00 14:20:00 ion Nahid 94268.1.[address] Testing Kapil 3.430.2.7 Hospit a .3.833152 l .8 2022-03-19 2022-03-19 Travel 1.2.840.1 1.2.934.703 9936 [id number] Methodi 00:00:00 00:00:[address] 3.430.2.7 0.2.7.3.698 Ho spita .3.571831 084.8 l .8 2022-03-19 2022-03-19 Travel 1.2.840.1 1.2.948.170 [id number] Methodi 00:00:00 00:00:[address] 3.430.2.7 0.2.7.3.698 Ho spita .3.816771 084.8 l .8 2022-03-05 2022-03-05 [facility], 1.2.840.1 [id number] Methodi 06:27:00 10:20:00 Katie Davies 90716.1.[address] 3.430.2.7 Hospit a .3.758096 l .8 2022-03-05 2022-03-05 [facility], 1.2.840.1 [id number] Methodi 06:27:00 10:20:00 Katie Olmstead C. 59676.1.[address] 3.430.2.7 Hospit a .3.264912 l .8 2022-03-05 2022-03-05 Anesthesia Gianni Enamorado 1.2.840.1 [id number] [id number] Methodi 09:01:00 09:20:00 Event Yuli Barron 11093.1.[address] 3.430.2.7 Hospit a .3.113038 l .8 2022-03-05 2022-03-05 Anesthesia Gianni Enamorado 1.2.840.1 [id number] [id number] Methodi 09:01:00 09:20:00 Event Yuli Barron 22457.1.[address] 3.430.2.7 Hospit a .3.593926 l .8 2022-03-05 2022-03-05 [facility], 1.2.840.1 [id number] Methodi 08:33:00 08:44:00 Ishan Davies 04286.1.[address] 3.430.2.7 Hospit a .3.859147 l .8 2022-03-05 2022-03-05 [facility], 1.2.840.1 [id number] Methodi 08:33:00 08:44:00 Ishan Davies 01752.1.[address] 3.430.2.7 Hospit a .3.979710 l .8 2022-03-05 2022-03-05 Travel 1.2.840.1 1.2.129.011 8687 [id number] Methodi 00:00:00 00:00:[address] 3.430.2.7 0.2.7.3.698 Ho spita .3.376310 084.8 l .8 2022-03-05 2022-03-05 Travel 1.2.840.1 1.2.539.155 7098 180544 Methodi 00:00:00 00:00:[address] 3.430.2.7 0.2.7.3.698 Ho spita .3.497293 084.8 l .8 2022-03-01 2022-03-01 [facility], 1.2.840.1 [id number] 36888 Methodi 12:59:55 23:59:00 Encounter [facility] [address]90.1.[address] 3.430.2.7 Hospit a .3.113697 l .8 2022-03-01 2022-03-01 [facility], 1.2.840.1 [id number] 74 Methodi 12:59:55 23:59:00 Encounter [facility] [address]645.1.[address] 3.430.2.7 Hospit a .3.530310 l .8 2022-03-01 2022-03-01 [facility], 1.2.840.1 [id number] 90539 Methodi 12:59:30 23:59:00 Encounter [facility] [address]383.1.[address] 3.430.2.7 Hospit a .3.586893 l .8 2022-03-01 2022-03-01 [facility], 1.2.840.1 59898 Methodi 12:59:30 23:59:00 Encounter [facility] [address]74.1.[address] 3.430.2.7 Hospit a .3.655854 l .8 2022-03-01 2022-03-01 Travel 1.2.840.1 1.2.542.515 1034 591478 Methodi 00:00:00 00:00:[address] 3.430.2.7 0.2.7.3.698 Ho spita .3.608796 084.8 l .8 2022-03-01 2022-03-01 Travel 1.2.840.1 1.2.216.104 5961 283097 Methodi 00:00:00 00:00:[address] 3.430.2.7 0.2.7.3.698 Ho spita .3.173141 084.8 l .8 2022-02-28 2022-02-28 Documentat Provider, 1.2.840.1 [id number] 2 [id number] Methodi 00:00:00 00:00:00 ion Unknown 91234.1.[address] 3.430.2.7 Hospit a .3.341816 l .8 2022-02-28 2022-02-28 [facility], 1.2.840.1 [id number] 46632 Methodi 00:00:00 00:00:00 Only Amaya 32067.1.[address] 3.430.2.7 Hospit a .3.049718 l .8 2022-02-28 2022-02-28 Documentat Provider, 1.2.840.1 [id number] 2 [id number] Methodi 00:00:00 00:00:00 ion Unknown 90222.1.[address] 3.430.2.7 Hospit a .3.190262 l .8 2022-02-28 2022-02-28 [facility], 1.2.840.1 [id number] 68968 Methodi 00:00:00 00:00:00 Only Amaya 84004.1.[address] 3.430.2.7 Hospit a .3.688530 l .8 2022-02-13 2022-02-13 Travel 1.2.840.1 1.2.588.319 2524 096820 Methodi 00:00:00 00:00:[address] 3.430.2.7 0.2.7.3.698 Ho spita .3.858546 084.8 l .8 2022-02-13 2022-02-13 Travel 1.2.840.1 1.2.479.252 1902 338426 Methodi 00:00:00 00:00:[address] 3.430.2.7 0.2.7.3.698 Ho spita .3.936636 084.8 l .8 2022-01-26 2022-01-26 Office Saifi, 1.2.840.1 [id number] 759239 2059 Methodi 09:30:00 12:00:18 Visit Comron 53934.1.[address] 3.430.2.7 Hospit a .3.155798 l .8 2022-01-26 2022-01-26 Office Saifi, 1.2.840.1 [id number] 622999 2219 Methodi 09:30:00 12:00:18 Visit Comron 57357.1.[address] 3.430.2.7 Hospit a .3.843146 l .8 2022-01-26 2022-01-26 Orders Saifi, 1.2.840.1 [id number] 201362 3017 Methodi 00:00:00 00:00:00 Only Comron 32550.1.[address] 3.430.2.7 Hospit a .3.889708 l .8 2022-01-26 2022-01-26 Orders Saifi, 1.2.840.1 [id number] 136537 2208 Methodi 00:00:00 00:00:00 Only Comron 03931.1.[address] 3.430.2.7 Hospit a .3.000779 l .8 2022-01-26 2022-01-26 Orders Saifi, 1.2.840.1 [id number] 684094 6123 Methodi 00:00:00 00:00:00 Only Comron 99210.1.[address] 3.430.2.7 Hospit a .3.170896 l .8 2022-01-26 2022-01-26 Orders Saifi, 1.2.840.1 [id number] 318100 1066 Methodi 00:00:00 00:00:00 Only Comron 62204.1.[address] 3.430.2.7 Hospit a .3.295761 l .8 2022-01-26 2022-01-26 Outpatient SAIFI, [facility] [id number] [address] [place] [address] 00:00:00 00:00:00 COMRON [address] 2022-01-18 2022-01-18 Office Tim, 1.2.840.1 [id number] 600334 3181 Methodi 11:00:00 11:30:00 Visit Nahid 91798.1.[address] Kapil 3.430.2.7 Hospit a .3.888047 l .8 2022-01-18 2022-01-18 Office Tim, 1.2.840.1 [id number] 134090 7702 Methodi 11:00:00 11:30:00 Visit Nahid 53118.1.[address] Kapil 3.430.2.7 Hospit a .3.785797 l .8 2022-01-18 2022-01-18 Travel 1.2.840.1 1.2.399.993 3535 850444 Methodi 00:00:00 00:00:[address] 3.430.2.7 0.2.7.3.698 Ho spita .3.819553 084.8 l .8 2022-01-18 2022-01-18 Travel 1.2.840.1 1.2.498.879 3678 987570 Methodi 00:00:00 00:00:[address] 3.430.2.7 0.2.7.3.698 Ho spita .3.611928 084.8 l .8 2022-01-03 2022-01-03 [facility], 1.2.840.1 [id number] 04041 Methodi 10:43:22 23:59:00 Encounter Shubham 50304.1.[address] Kervin 3.430.2.7 Hospit a .3.537973 l .8 2022-01-03 2022-01-03 [facility], 1.2.840.1 [id number] 72786 Methodi 10:43:22 23:59:00 Encounter Shubham 44119.1.[address] Kervin 3.430.2.7 Hospit a .3.910389 l .8 2022-01-03 2022-01-03 [facility], 1.2.840.1 [id number] 76875 31389 Methodi 10:12:03 10:42:00 Encounter Shubham 76634.1.[address] Kerivn 3.430.2.7 Hospit a .3.967872 l .8 2022-01-03 2022-01-03 [facility], 1.2.840.1 [id number] 68106 88999 Methodi 10:12:03 10:42:00 Encounter Shubham 33352.1.[address] Kervin 3.430.2.7 Hospit a .3.547841 l .8 2022-01-03 2022-01-03 Travel 1.2.840.1 1.2.689.918 2780 265094 Methodi 00:00:00 00:00:[address] 3.430.2.7 0.2.7.3.698 Ho spita .3.737348 084.8 l .8 2022-01-03 2022-01-03 Travel 1.2.840.1 1.2.100.321 7970 072226 Methodi 00:00:00 00:00:[address] 3.430.2.7 0.2.7.3.698 Ho spita .3.013677 084.8 l .8 2021-12-25 2021-12-25 Office [place], 1.2.840.1 [id number] 2099 339207 Methodi 12:00:00 14:50:29 Visit Kajal 51029.1.[address] 3.430.2.7 Hospit a .3.234332 l .8 2021-12-25 2021-12-25 Office [place], 1.2.840.1 [id number] 2100 638501 Methodi 12:00:00 14:50:29 Visit Kajal 28103.1.[address] 3.430.2.7 Hospit a .3.309475 l .8 2021-12-25 2021-12-25 Travel 1.2.840.1 1.2.802.852 7853 709512 Methodi 00:00:00 00:00:[address] 3.430.2.7 0.2.7.3.698 Ho spita .3.719720 084.8 l .8 2021-12-25 2021-12-25 Travel 1.2.840.1 1.2.027.864 6045 096920 Methodi 00:00:00 00:00:[address] 3.430.2.7 0.2.7.3.698 Ho spita .3.221371 084.8 l .8 2021-12-25 2021-12-25 [facility] [id number] 208 [address] 00:00:00 00:00:00 SHUBHAM Chaparro Method i [facility] 2021-12-21 2021-12-21 Orders Kenny, 1.2.840.1 [id number] 887 [id number] Methodi 00:00:00 00:00:00 Only Nicolas 28473.1.[address] 3.430.2.7 Hospit a .3.243572 l .8 2021-12-21 2021-12-21 Jana Cox, 1.2.840.1 [id number] 742 9401984 Methodi 00:00:00 00:00:00 Only Nicolas 92314.1.[address] 3.430.2.7 Hospit a .3.351774 l .8 2021-12-19 2021-12-19 Jana Cox 1.2.840.1 [id number] 350 [id number] Methodi 00:00:00 00:00:00 Only Nicolas 22203.1.[address] 3.430.2.7 Hospit a .3.017894 l .8 2021-12-19 2021-12-19 Jana Cox 1.2.840.1 [id number] 661 7415004 Methodi 00:00:00 00:00:00 Only Nicolas 30557.1.[address] 3.430.2.7 Hospit a .3.207384 l .8 2021-08-25 2021-08-25 [facility] [id number] 0820 Univers 11:00:00 11:00:00 CHASIDY [facility] 2021-08-04 2021-08-04 Outpatient R [facility] [id number] Univers 09:00:00 09:00[facility]00 [facility] 2021-07-21 [email or web address] 1.2.840.114 60861 443 Univers 15:30:00 16:00:00 Visit Chasidy [place] 350.1.13.10 i ty [facility] 4.2.7.2.686 Lenore LLAMASIO [id number] Ia dical [address] 2021-07-21 2021-07-21 [facility]patient [facility] [id number] Univers 15:30:00 15:30:00 CHASIDY [facility] 2021-07-21 2021-07-21 [facility] [id number] 6419 Univers 15:30:00 15:30:00 CHASIDY [facility] 2021-03-10 2021-03-10 Outpatient KOVACEV_T [facility] 9929- 20366 [place] 05:34:00 05:34:00 [address] 2020-11-23 2020-11-23 Outpatient [facility] [id number] 477 [place] 00:00:00 00:00:[address] 2020-09-08 2020-09-08 Outpatient KOVACEV_T [facility] 9929- 56314 [place] 11:50:00 11:50:00 722 [facility] 2020-09-08 2020-09-08 Outpatient KOVACEV_T [facility] 9929- 29155 [place] 11:50:00 11:50:00 825 [facility] 2020-08-31 2020-08-31 Outpatient KOVACEV_T [facility] 9929- 09471 [place] 06:16:00 06:16:00 714 [facility] 2020-08-09 2020-08-09 Outpatient KOVACEV_T [facility] 9929- 21837 [place] 05:02:00 05:02:00 622 [facility] 2020-07-15 2020-07-15 Outpatient KOVACEV_T [facility] 9929- [place] 05:19:00 05:19:00 528 [facility] 2020-07-07 2020-07-07 Outpatient KOVACEV_T [facility] 9929- [place] 06:28:00 06:28:00 520 [facility] 2020-05-27 2020-05-27 Outpatient KOVACEV_T [facility] 9929- [place] 06:08:00 06:08:00 409 [facility] 2020-05-23 2020-05-23 Outpatient HALEY [facility] [id number] [address] [place] [address] 00:00:00 00:00:00 JUVENTINO Ashraf Ia thodi st 2020-05-16 2020-05-16 Outpatient KOVACEV_T [facility] 9929- [place] 05:20:00 05:20:00 329 [facility] 2020-05-13 2020-05-13 Outpatient KOVACEV_T [facility] 9929- [place] 04:29:00 04:29:00 326 [facility] 2020-04-29 2020-04-29 Outpatient [facility] [id number] [address] [place] [address] 00:00:00 00:00:[address] 2020-04-19 2020-04-19 Outpatient KOVACEV_T [facility] 9929- 98906 [place] 10:52:00 10:52:00 302 [facility] 2020-04-19 2020-04-19 Outpatient Rodolfo [facility] [id number] 28-2 00:00:00 00:00:00 Holly [id number]-[id number]-4 Lillian [id number] 958C30 2020-04-19 2020-04-19 Holly [facility] [place] [id number] 02 [place] 00:00:00 00:00:00 [facility] MD: [address] [facility] Noemy Specialty l [address], [place] [address] , Ph. 2020-03-17 2020-03-17 Outpatient KOVACEV_T [facility] 9929- [place] 05:08:00 05:08:00 128 Commun i [facility] Clinics 2020-03-17 2020-03-17 Outpatient Kovacev, [facility] [id number] 38-2 00:00:00 00:00:00 Holly 021-df65-4 [place] [id number] 958C30 2020-03-17 2020-03-17 [facility] [place] 00:00:00 00:00:00 [facility] MD: [address] [facility] [address], [place] [address] , Ph. 2020-03-14 2020-03-14 Outpatient KOVACEV_T [facility] 9929- [place] 03:51:00 03:51:00 126 Commun i ty Hosp[facility] Clinics 2020-03-14 2020-03-14 Outpatient KOVACEV_T [facility] 9929- [place] 03:51:00 03:51:00 125 Commun i ty Hosp[facility] Clinics 2020-03-11 2020-03-11 Outpatient KOVACEV_T [facility] 9929- [place] 12:48:00 12:48:00 122 Commun i ty Hospita [facility] Clinics 2020-03-09 2020-03-09 Outpatient KOVACEV_T [facility] 9929- [place] 11:15:00 11:15:00 120 Commun i ty Hospita [facility] Clinics 2020-02-25 2020-02-25 Outpatient KOVACEV_T [facility] 9929- [place] 03:36:00 03:36:00 107 Commun i ty Hosp[facility] Clinics 2020-02-25 2020-02-25 [facility] [id number] a9-2 00:00:00 00:00:00 Holly [id number] Lillian [id number] 958C30 2020-02-25 2020-02-25 [facility] [place] [id number] [place] 00:00:00 00:00:00 [facility] MD: [address] [place] [facility], Specialty l [address], [place] [address] , Ph. 2020-02-02 2020-02-02 [facility] [id number] 84-7 00:00:00 00:00:00 Holly [id number] Snyder [id number] [id number] 2020-02-02 2020-02-02 [facility] [place] [id number] [place] 00:00:00 00:00:00 [facility] MD: [address] LOU [facility] [address] [facility] , Ph. 2020-01-28 2020-01-28 [facility] [id number] [place] 00:00:00 00:00:00 [facility] MD: [address] NR[address] Lou [facility] [address], [place] [address] , Ph. 2019-10-02 2019-10-02 Outpatient 3 Jamie Lora [facility] [id number] 05:32:00 13:20:00 Geno [facility] 2019-10-02 2019-10-02 Outpatient 3 Jamie Lora [facility] [id number] 05:32:00 05:32:00 Jamie Lora [id number] [address] [place] [address] 2018-12-18 2018-12-18 Outpatient 3 Jamie Lora [facility] [id number] 09:52:00 23:59:00 Geno, [facility] Results Test Description Test Time Test Comments Results Result Comments Source Urine culture 2022-03-19 23:42:00 Test Item Value Reference Range Interpretation Comme nts Urine culture (test code = 7451626) SEE COMMENT Bacteriuria screen negative. [facility] [id number] 23:42:00 Test Item Value Reference Range Interpretation Comments Urine culture (test SEE COMMENT Bacteriu khadra screen code = 3933543) negative. [facility] [id number] 13:39:00 Test Item Value Reference Range Interpretation Comments POC glucose (test code 173 mg/dL 65-99 H Opera tor Name: Huston = 58944-9) RebeccaDevice I D: [id number] able: RN Notified Lab Interpretation Abnormal (test code = 33970-7) [facility] [id number] 13:39:00 Test Item Value Reference Range Interpretation Comments POC glucose (test code 173 mg/dL 65-99 H Opera tor Name: Huston = 44000-0) RebeccaDevice I D: [id number] able: RN Notified Lab Interpretation Abnormal (test code = 56132-0) [facility] URINALYSIS W/O SPECIFIC [id number] 21:14:00 Test Item Value Reference Range Interpretation Comments POCT PH U (test code = 3254) 5 mg/dl 5-8 POCT U LEUK EST (test code = negative Negative - Negative 3263) POCT U NIT (test code = 3262) negative Negative - Negative POCT U PROT (test code = 3259) trace Negative - Negative POCT U GLU (test code = 3256) Negative - Negative POCT U KETONE (test code = 3258) trace Negative - Negative POCT U BLD (test code = 3257) negative Negative - Negative [facility] [id number] 10:23:00 Test Item Value Reference Range Interpretation Comments GLUCOSE BEDSIDE TESTING (test code 126 MG/DL 60-99 H = GLUBED) COLON,[id number] 15:59:00 Test Item Value Reference Range Interpretation Comments COLON,BIOPSY (test code = COLONBX) -----RUN DATE: 02/11/20 [facility] PAGE 1 RUN TIME: 1600 Specimen Inquiry RUN USER: INTERFACE -----PATIENT: ADRIANA CADENA LOC: [facility] U #: [id number] AGE/SX: 74/F ROOM: [facility] RE02/07/20REG DR: Tayla Turcios MD : 46 BED: A DIS: 02/10/20 STATUS: DIS IN TLOC: ----- SPEC #: [id number]:FELDMAN:[id number] RECD: 02/10/20 STATUS: ALLEN REMaritza #: [id number] DENIS: 02/10/[address]: Tayla Turcios MD ENTERED: 02/10/20 SP TYPE: COLONBX OT DR: No Primary or Family Physician Self Referred Mark Barney MD, Eseroghene MD Rance, Ronald MDORDERED: SURG PATH LVL 4 CODES: C97342 - DESCENDING COLO BIOPSY, NOS N13222 - DESCENDING COLO INFLAMMATION, N COPIES TO: No Primary or Family Physician Self Referred Tayla Turcios MD [address] Cruz[address] Meka [place] [id number] [place] [address] [place] [address] Michelle Muñoz MD [address] Anthony Brown [place] [address] Brian Nuñez MD [address] [facility] [address] [place] [address] PROCEDURES: SURG PATH LVL 4 (02/10/20-1620) TISSUES: A. DESCENDING COLON - DESCENDING COLON BX CONTINUED ON NEXT PAGE -----RUN DATE: 02/11/20 [facility] PAGE 2 RUN TIME: 1600 Specimen Inquiry RUN USER: INTERFACE -----SPEC #: [id number]:FELDMAN:[id number] PATIENT: SURINDERADRIANA #[id number] (Continued) CPT CODES CPT CODE(S): 03051 , , , , , , FINAL [...] malignancy. /pdb --------- Signed SIGNATURE ON FILE Arin Rasmussen 02/11/20 1559 ----- END OF REPORT GLUCOSE BEDSIDE [id number] 15:37:00 Test Item Value Reference Range Interpretation Comments GLUCOSE BEDSIDE TESTING (test code 134 MG/DL 60-99 H = GLUBED) BASIC METABOLIC [id number] 12:30:00 Test Item Value Reference Range Interpretation [...] 8.0 MG/DL 8.4-10.2 L CA) BASIC METABOLIC [id number] 12:27:00 Test Item Value Reference Range Interpretation [...] code = CA) MG/DL 8.7-9.7 GLUCOSE BEDSIDE [id number] 10:38:00 Test Item Value Reference Range Interpretation Comments GLUCOSE BEDSIDE TESTING (test code 153 MG/DL 60-99 H = GLUBED) CBC W/O [id number] 08:45:00 Test Item Value Reference Range Interpretation [...] = 0.00 K/mm3 0.0-0.1 N NRBC#) WBC [id number] 08:45:00 Test Item Value Reference Range Interpretation [...] code = NORMAL NORMAL PLTMORPH) BASIC METABOLIC [id number] 06:55:00 Test Item Value Reference Range Interpretation [...] code = 7.9 MG/DL 8.4-10.2 L CA) [id number] 06:55:00 Test Item Value Reference Range Interpretation Comments MAGNESIUM (test code = MAG) 2.0 MG/DL 1.6-2.3 N GLUCOSE BEDSIDE [id number] 06:08:00 Test Item Value Reference Range Interpretation Comments GLUCOSE BEDSIDE TESTING (test code 150 MG/DL 60-99 H = GLUBED) CBC W/O [id number] 05:51:00 Test Item Value Reference Range Interpretation [...] = 0.00 K/mm3 0.0-0.1 N NRBC#) WBC [id number] 05:51:00 Test Item Value Reference Range Interpretation Comments RBC MORPHOLOGY REQUIRED (test code = RBCM) TOTAL CELLS COUNTED (test code = TCC) #CELLS SEGMENTED NEUTROPHILS (test code = % 36.2-73.8 SEG) LYMPHOCYTE (test code = LYMPH) % 12.9-45.1 MONOCYTE (test code = MON) % 0-11 PLATELET ESTIMATE (test code = ADEQUATE PLTEST) PLATELET MORPHOLOGY (test code = NORMAL PLTMORPH) CBC W/AUTO [id number] 05:51:00 Test Item Value Reference Range Interpretation [...] = 0.00 K/mm3 0.0-0.1 N NRBC#) WBC [id number] 05:51:00 Test Item Value Reference Range Interpretation Comments RBC MORPHOLOGY REQUIRED (test code = RBCM) TOTAL CELLS COUNTED (test code = TCC) #CELLS SEGMENTED NEUTROPHILS (test code = % 36.2-73.8 SEG) LYMPHOCYTE (test code = LYMPH) % 12.9-45.1 MONOCYTE (test code = MON) % 0-11 PLATELET ESTIMATE (test code = ADEQUATE PLTEST) PLATELET MORPHOLOGY (test code = NORMAL PLTMORPH) GLUCOSE BEDSIDE [id number] 20:09:00 Test Item Value Reference Range Interpretation Comments GLUCOSE BEDSIDE TESTING (test code 181 MG/DL 60-99 H = GLUBED) GLUCOSE BEDSIDE [id number] 16:00:00 Test Item Value Reference Range Interpretation Comments GLUCOSE BEDSIDE TESTING (test code 151 MG/DL 60-99 H = GLUBED) CBC W/O [id number] 12:34:00 Test Item Value Reference Range Interpretation [...] = 0.03 K/mm3 0.0-0.1 N NRBC#) WBC [id number] 12:34:00 Test Item Value Reference Range Interpretation [...] code = NORMAL NORMAL PLTMORPH) GLUCOSE BEDSIDE [id number] 10:47:00 Test Item Value Reference Range Interpretation Comments GLUCOSE BEDSIDE TESTING (test code 219 MG/DL 60-99 H = GLUBED) BASIC METABOLIC [id number] 07:26:00 Test Item Value Reference Range Interpretation [...] code = 8.0 MG/DL 8.4-10.2 L CA) [id number] 07:26:00 Test Item Value Reference Range Interpretation Comments MAGNESIUM (test code = MAG) 2.6 MG/DL 1.6-2.3 H BASIC METABOLIC [id number] 07:05:00 Test Item Value Reference Range Interpretation [...] code = 8.0 MG/DL 8.4-10.2 L CA) [id number] 07:05:00 Test Item Value Reference Range Interpretation Comments MAGNESIUM (test code = MAG) MG/DL 1.6-2.3 PROTHROMBIN [id number] 06:16:00 Test Item Value Reference Range Interpretation [...] myocar dial infarction. 2.0 - 3.0 3. Transporter Radiology al prosthesis hear t valves, recurre nt systemic emboli sm. 3.0 - 4.5 Comments to Light Coil Winder: ON PLAVIX AT HOME AND LOVENOX IN THE HOSPT ACTIVATED 2020-02-09 06:16:00 Test Item Value Reference Range Interpretation Comments PTT ACTIVATED (test code = APTT) 27.9 SECONDS 25.1-36.5 N Comments to Light Coil Winder: ON PLAVIX AT HOME AND LOVENOX IN THE [facility] W/O DIFF 2020-02-09 06:05:00 Test Item Value [...] = 0.03 K/mm3 0.0-0.1 N NRBC#) WBC [id number] 06:05:00 Test Item Value Reference Range Interpretation Comments RBC MORPHOLOGY REQUIRED (test code = RBCM) TOTAL CELLS COUNTED (test code = TCC) #CELLS SEGMENTED NEUTROPHILS (test code = % 36.2-73.8 SEG) LYMPHOCYTE (test code = LYMPH) % 12.9-45.1 MONOCYTE (test code = MON) % 0-11 PLATELET ESTIMATE (test code = ADEQUATE PLTEST) PLATELET MORPHOLOGY (test code = NORMAL PLTMORPH) CBC W/AUTO [id number] 06:05:00 Test Item Value Reference Range Interpretation [...] = 0.03 K/mm3 0.0-0.1 N NRBC#) WBC [id number] 06:05:00 Test Item Value Reference Range Interpretation Comments RBC MORPHOLOGY REQUIRED (test code = RBCM) TOTAL CELLS COUNTED (test code = TCC) #CELLS SEGMENTED NEUTROPHILS (test code = % 36.2-73.8 SEG) LYMPHOCYTE (test code = LYMPH) % 12.9-45.1 MONOCYTE (test code = MON) % 0-11 PLATELET ESTIMATE (test code = ADEQUATE PLTEST) PLATELET MORPHOLOGY (test code = NORMAL PLTMORPH) GLUCOSE BEDSIDE [id number] 05:55:00 Test Item Value Reference Range Interpretation Comments GLUCOSE BEDSIDE TESTING (test code 231 MG/DL 60-99 H = GLUBED) GLUCOSE BEDSIDE [id number] 22:14:00 Test Item Value Reference Range Interpretation Comments GLUCOSE BEDSIDE TESTING (test code 221 MG/DL 60-99 H = GLUBED) COVID 19 Asymptomatic IH [id number] 17:16:00 Test Item Value Reference Range Interpretation [...] of virus (antigen) in the sample." URINALYSIS [id number] 05:11:00 Test Item Value Reference Range Interpretation [...] code = UACULT) Spec Comments: [facility]: ESCOBAR CATHETERUA MICROSCOPIC 2020-02-08 05:11:00 Test Item Value Reference Range Interpretation Comments UA RBC (test code = RBCU) 3-5 RBC/HPF 0-3 A UA WBC (test code = XWBCU) 3-5 WBC/HPF 0-5 UA EPITHELIAL CELLS (test code = RARE EPI/HPF FEW EPIU) UA BACTERIA (test code = XBACU) RARE NONE Spec Comments: [facility]: ESCOBAR CATHETERURINALYSIS COMPLETE 2020-02-08 04:43:00 Test Item Value [...] Chk = UACULT) Spec Comments: [facility] URINE: ESCOBAR CATHETERUA MICROSCOPIC 2020-02-08 04:43:00 Test Item Value Reference Range Interpretation Comments UA RBC (test code = RBCU) RBC/HPF 0-3 UA WBC (test code = XWBCU) WBC/HPF 0-5 UA EPITHELIAL CELLS (test code = EPI/HPF FEW EPIU) UA BACTERIA (test code = XBACU) NONE Spec Comments[facility]: ESCOBAR CATHETERURINALYSIS COMPLETE 2020-02-08 04:43:00 Test Item Value [...] Spec Comments: [facility] URINE: ESCOBAR CATHETERUA MICROSCOPIC 2020-02-08 04:43:00 Test Item Value Reference Range Interpretation Comments UA RBC (test code = RBCU) RBC/HPF 0-3 UA WBC (test code = XWBCU) WBC/HPF 0-5 UA EPITHELIAL CELLS (test code = EPI/HPF FEW EPIU) UA BACTERIA (test code = XBACU) NONE Spec Comments: [facility]INE: ESCOBAR CATHETERCBC W/O DIFF 2020-02-07 23:55:00 Test Item [...] = 0.00 K/mm3 0.0-0.1 N NRBC#) WBC [id number] 23:55:00 Test Item Value Reference Range Interpretation [...] NORMAL NORMAL PLTMORPH) - CT ABD PELVIS [id number] 23:23:00 [facility] 1945 Sex: F Patient Name: ADRIANA CADENA Unit No: [id number] EXAMS: CPT CODE: [id number] CT ABD PELVIS W/CONT 35635 CT OF THE ABDOMEN AND PELVIS WITH [...] contains contrast and is partially collapsed runner Escobar catheter. No evidence of acute fracture. Marked levoscoliosis of the lower lumbar spine is noted. Scoliosis surgery hardware is noted. IMPRESSION: 1. Distention of the colon is noted concerning for constipation. No bowel obstruction. 2. Bilateral indeterminate adrenal gland lesions are noted. Consider further evaluation with contrast-enhanced adrenal gland protocol CT or [facility] [place] NAME: ADRIANA CADENA [id number] PHYS: [place] [address] : 1945 AGE: 74 SEX: F LOC: [facility] PHONE #: [phone] EXAM DATE: 02/07/2020 STATUS: REG ER FAX #: [phone] RAD #: D/C DT PAGE 1 Signed Report (CONTINUED) Patient Name: ADRIANA CADENA Unit No: [id number] EXAMS: CPT CODE: [id number] CT ABD PELVIS W/CONT 22144 (Continued) MRI. 3. Soft tissue swelling of the right breast is noted. Asymmetry correlate with mammographic history. at 2323 Reported and signed by: Conner Muniz M.D. CC: Alfred Puri MD Technologist: Mando Estrada RT (R) (CT); [place] CTDI: DLP: Trnscrpt: 02/07/2020 (2322) [id number] [facility] NAME: ADRIANA CADENA PHYS: Alfred Brown MD [place] [id number] : 1945 AGE: 74 SEX: F LOC: lifeIO PHONE #: [phone] EXAM DATE: 02/07/2020 STATUS: REG ER FAX #: [phone] RAD #: D/C DT PAGE 2 Signed Report Patient Name: ADRIANA CADENA Unit No: [id number] EXAMS: CPT CODE: [id number] CTABD PELVIS W/CONT 23668 (Continued) Orig Print D/T: S: 02/07/2020 (2325) [facility] NAME: ADRIANA CADNEA PHYS: [place] [address] : 1945 AGE: 74 SEX: F LOC: [facility] PHONE #: [phone] EXAM DATE: 02/07/2020 STATUS: REG ER FAX #: [phone] RAD #: D/C DT PAGE 3 Signed ReportCOMPREHENSIVE METABOLIC [id number] 22:32:00 Test Item Value Reference Range Interpretation [...] 38-126 N PHOSPHATASE (test code = ALKP) [id number] 22:32:00 Test Item Value Reference Range Interpretation Comments TROPONIN-I (test code = TROPI) < 0.012 NG/ML 0.012-0.033 L URINALYSIS [id number] 22:21:00 Test Item Value Reference Range Interpretation [...] = UACULT) SOURCE OF URINE: CLEAN CATCHUA [id number] 22:21:00 Test Item Value Reference Range Interpretation Comments UA RBC (test code = RBCU) 0-3 RBC/HPF 0-3 UA WBC (test code = XWBCU) 3-5 WBC/HPF 0-5 UA EPITHELIAL CELLS (test code = FEW EPI/HPF FEW EPIU) UA BACTERIA (test code = XBACU) FEW NONE SOURCE OF URINE: CLEAN CATCHCOMPREHENSIVE METABOLIC [id number] 22:19:00 Test Item Value Reference Range Interpretation [...] 38-126 N PHOSPHATASE (test code = ALKP) [id number] 22:19:00 Test Item Value Reference Range Interpretation Comments TROPONIN-I (test code = TROPI) NG/ML 0.0-0.045 CBC W/O [id number] 21:56:00 Test Item Value Reference Range Interpretation [...] = 0.00 K/mm3 0.0-0.1 N NRBC#) WBC [id number] 21:56:00 Test Item Value Reference Range Interpretation Comments RBC MORPHOLOGY REQUIRED (test code = RBCM) TOTAL CELLS COUNTED (test code = TCC) #CELLS SEGMENTED NEUTROPHILS (test code = % 36.2-73.8 SEG) LYMPHOCYTE (test code = LYMPH) % 12.9-45.1 MONOCYTE (test code = MON) % 0-11 PLATELET ESTIMATE (test code = ADEQUATE PLTEST) PLATELET MORPHOLOGY (test code = NORMAL PLTMORPH) URINALYSIS [id number] 21:56:00 Test Item Value Reference Range Interpretation [...] = UACULT) SOURCE OF URINE: CLEAN CATCHUA [id number] 21:56:00 Test Item Value Reference Range Interpretation Comments UA RBC (test code = RBCU) RBC/HPF 0-3 UA WBC (test code = XWBCU) WBC/HPF 0-5 UA EPITHELIAL CELLS (test code = EPI/HPF FEW EPIU) UA BACTERIA (test code = XBACU) NONE SOURCE OF URINE: CLEAN CATCHCBC W/AUTO [id number] 21:56:00 Test Item Value Reference Range Interpretation [...] = 0.00 K/mm3 0.0-0.1 N NRBC#) WBC [id number] 21:56:00 Test Item Value Reference Range Interpretation Comments RBC MORPHOLOGY REQUIRED (test code = RBCM) TOTAL CELLS COUNTED (test code = TCC) #CELLS SEGMENTED NEUTROPHILS (test code = % 36.2-73.8 SEG) LYMPHOCYTE (test code = LYMPH) % 12.9-45.1 MONOCYTE (test code = MON) % 0-11 PLATELET ESTIMATE (test code = ADEQUATE PLTEST) PLATELET MORPHOLOGY (test code = NORMAL PLTMORPH) URINALYSIS [id number] 21:56:00 Test Item Value Reference Range Interpretation [...] = UACULT) SOURCE OF URINE: CLEAN CATCHUA [id number] 21:56:00 Test Item Value Reference Range Interpretation Comments UA RBC (test code = RBCU) RBC/HPF 0-3 UA WBC (test code = XWBCU) WBC/HPF 0-5 UA EPITHELIAL CELLS (test code = EPI/HPF FEW EPIU) UA BACTERIA (test code = XBACU) NONE SOURCE OF URINE: CLEAN CATCHManual [id number] 11:30:29 Test Item Value Reference Range Interpretation [...] 0.5-4.6 H code = Lymph Man Abs) Cotton Man Abs (test 1.6 x10 0.0-1.2 H code = Cotton Man Abs) Eos Man Abs (test 0.27 [...] 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 IG [id number] 11:30:29 Test Item Value Reference Range Interpretation Comments IG (test code = IG) 0.4 % 0.0-5.0 IG Abs (test code = IG Abs) 0 x10 N Partial Thromboplastin [id number] 08:31:14 Test Item Value Reference Range Interpretation Comments Partial Thromboplastin Time 31.30 seconds 24.39-37.25 (test code = Partial Thromboplastin Time) Prothrombin Time and [id number] 08:31:12 Test Item Value Reference Range Interpretation Comments Prothrombin Time (test code = 11.6 seconds 9.8-13.4 Prothrombin Time) INR (test code = INR) 1.0 ratio 0.6-1.2 Comprehensive Metabolic [id number] 08:29:31 Test Item Value Reference Range Interpretation [...] Lipemia) 0 g/dL 1-2 H Comprehensive Metabolic [id number] 08:29:31 Test Item Value Reference Range Interpretation [...] 0 g/dL 1-2 H Lipemia) Comprehensive Metabolic [id number] 08:29:31 Test Item Value Reference Range Interpretation [...] 1-2 H Lipemia) Complete Blood Count with [id number] 08:08:50 Test Item Value Reference Range Interpretation [...] 0 % N Complete Blood Count with [id number] 08:08:50 Test Item Value Reference Range Interpretation [...] % N Resp Virus Panel (RVP) PCR [id number] 08:14:35 Test Item Value Reference Range Interpretation [...] Negative N Perf ormed At: [facility] Adenovirus) [facility] [id number] ra Zak DAILEY Ph:[phone] POC [id number] 08:24:15 Test Item Value Reference Range Interpretation Comments Glucose POC (test 79 mg/dL 70-115 Notify RN or MDIf you code = Glucose POC) consider your patient critically ill, the Sukhdev-Accu Chec k Infrom II meter should not be used for Glucos e determination. Draw a venous Glucose and send to the main Lab for analysis. Respiratory Culture w/ Gram [id number] 06:44:30 Test Item Value Reference Range Interpretation Comments Final Report (test Normal angela at 24 hours code = Final Report) Normal angela at 48 hours Few Yeast Gram Stain Report Few epithelial cells (test code = Gram Grams morphology Stain Report) consistent with normal angela with: Moderate White Blood Cells POC [id number] 20:50:19 Test Item Value Reference Range Interpretation Comments Glucose POC (test 85 mg/dL 70-115 If you con direct service provider your code = Glucose POC) patient critically ill, the Sukhdev-Accu Check Infrom II meter should not be used for Glucose determination. Draw a venous Glucose and send to the main Lab for analysis. POC [id number] 17:42:46 Test Item Value Reference Range Interpretation Comments Glucose POC (test 69 mg/dL 70-115 L Notify RN or MDIf you code = Glucose POC) consider your patient critically ill, the Sukhdev-Accu Chec k Infrom II meter should not be used for Glucos e determination. Draw a venous Glucose and send to the main Lab for analysis. POC [id number] 12:21:21 Test Item Value Reference Range Interpretation Comments Glucose POC (test 76 mg/dL 70-115 If you con direct service provider your code = Glucose POC) patient critically ill, the Sukhdev-Accu Check Infrom II meter should not be used for Glucose determination. Draw a venous Glucose and send to the main Lab for analysis. POC [id number] 09:01:48 Test Item Value Reference Range Interpretation Comments Glucose POC (test 89 mg/dL 70-115 If you con direct service provider your code = Glucose POC) patient critically ill, the Sukhdev-Accu Check Infrom II meter should not be used for Glucose determination. Draw a venous Glucose and send to the main Lab for analysis. Basic Metabolic [id number] 08:53:37 Test Item Value Reference Range Interpretation [...] mg/dL 8.3-10.5 L Calcium Level) Basic Metabolic [id number] 08:53:37 Test Item Value Reference Range Interpretation [...] National Kidney Foundation, http://nkdep.ni h.gov Basic Metabolic [id number] 08:53:37 Test Item Value Reference Range Interpretation [...] ag e have not been validated by [facility] MDRD study and should be interpreted wit [...] ag e have not been validated by [facility] MDRD study and should be interpreted wit h caution. eGFR R esult Interpretation: eGFR > or = 60 is in the Normal RangeeGF R < 60 may mean kid kiran diseaseeGFR < 1 5 may mean kidney failure Rang es recommended by the National Kidney Foundation, http://nkdep.ni h.gov Complete Blood Count without [id number] 06:22:01 Test Item Value Reference Range Interpretation [...] code = IPF) 0 % N POC [id number] 20:35:15 Test Item Value Reference Range Interpretation Comments Glucose POC (test 122 mg/dL 70-115 H If you con direct service provider your code = Glucose POC) patient critically ill, the Sukhdev-Accu Check Infrom II meter should not be used for Glucose determination. Draw a venous Glucose and send to the main Lab for analysis. Urinalysis with Culture, if [id number] 18:32:30 Test Item Value Reference Range Interpretation [...] Micro Ind?) rule GL_SJM_UA_MICRO _IN D POC [id number] 17:51:41 Test Item Value Reference Range Interpretation Comments Glucose POC (test 112 mg/dL 70-115 If you con direct service provider your code = Glucose POC) patient critically ill, the Sukhdev-Accu Check Infrom II meter should not be used for Glucose determination. Draw a venous Glucose and send to the main Lab for analysis. POC [id number] 12:25:12 Test Item Value Reference Range Interpretation Comments Glucose POC (test 133 mg/dL 70-115 H If you con direct service provider your code = Glucose POC) patient critically ill, the Sukhdev-Accu Check Infrom II meter should not be used for Glucose determination. Draw a venous Glucose and send to the main Lab for analysis. POC [id number] 08:57:45 Test Item Value Reference Range Interpretation Comments Glucose POC (test 92 mg/dL 70-115 If you con direct service provider your code = Glucose POC) patient critically ill, the Sukhdev-Accu Check Infrom II meter should not be used for Glucose determination. Draw a venous Glucose and send to the main Lab for analysis. Troponin [id number] 08:30:54 Test Item Value Reference Range Interpretation Comments Troponin-T (test 50.130 ng/L 0.000-14.000 Critical re sults called code = Troponin-T) to nurse Kelly Navarrete at 03/18/2019 08 :30:47 FORENSIC ANTHROPOLOGIST by SOPHIE. Read back and verified? YESTh [...] of chronic myocard ial injury. Basic Metabolic [id number] 08:17:38 Test Item Value Reference Range Interpretation [...] 8.5 mg/dL 8.3-10.5 Calcium Level) Basic Metabolic [id number] 08:17:38 Test Item Value Reference Range Interpretation [...] National Kidney Foundation, http://nkdep.ni h.gov Basic Metabolic [id number] 08:17:38 Test Item Value Reference Range Interpretation [...] ag e have not been validated by [facility] MDRD study and should be interpreted wit [...] ag e have not been validated by [facility] MDRD study and should be interpreted wit h caution. eGFR R esult Interpretation: eGFR > or = 60 is in the Normal RangeeGF R < 60 may mean kid kiran diseaseeGFR < 1 5 may mean kidney failure Rang es recommended by the National Kidney Foundation, http://nkdep.ni h.gov Manual [id number] 07:40:33 Test Item Value Reference Range Interpretation [...] Lymph Man 5.8 x10 0.5-4.6 H Abs) Cotton Man Abs (test code = Cotton Man 0.2 x10 0.0-1.2 Abs) RBC Morph (test code = RBC Morph) Normal Normal Plt Estimation (test code = Plt Normal Normal Estimation) Complete Blood Count with [id number] 06:50:27 Test Item Value Reference Range Interpretation [...] code = IPF) 0 % N IG [id number] 06:50:27 Test Item Value Reference Range Interpretation Comments IG (test code = IG) 0.2 % 0.0-5.0 IG Abs (test code = IG Abs) 0 x10 N XR Chest 1 View [id number] 02:24:19Patient: ADRIANA CADENA Date/Time03/18/2019 02:17 CSTReason for ExamChest painReportL ocation: Q27HYHHM, FRONTAL VIEWHISTORY: Chest painCOMPARISON: NoneFINDINGS:The lungs are underinflated with scattered areas of atelectasis. The more focal opacity in the right upper lobe. The heart size is normal. Mild scoliosis.IMPRESSION:Possible right upper lobe pneumonia. Final Dictated by: MD Bedolla SankamanDictated DT/TM: 03/18/2019 2:23 amSigned by: MD Bedolla SankamanSigned(Electronic Signature): 03/18/2019 2:24 amComprehensive Metabolic [id number] 00:39:20 Test Item Value Reference Range Interpretation [...] A/G 1.7 ratio N Ratio) Thyroid Stimulating [id number] 00:39:20 Test Item Value Reference Range Interpretation Comments TSH (test code = TSH) 0.656 mIU/mL 0.270-4.200 Comprehensive Metabolic [id number] 00:39:20 Test Item Value Reference Range Interpretation [...] the National Kidney Foundation, http://nkdep.ni h.gov Troponin [id number] 00:39:20 Test Item Value Reference Range Interpretation Comments Troponin-T (test 57.940 ng/L 0.000-14.000 Critical re sults called code = Troponin-T) to bobbi roy at 03/18/2019 00:39:13 FORENSIC ANTHROPOLOGIST by og. Read back and verifi ed? [...] of chronic myocard ial injury. Comprehensive Metabolic [id number] 00:39:20 Test Item Value Reference Range Interpretation [...] the National Kidney Foundation, http://nkdep.ni h.gov Manual Chyl9209-06-04 00:28:13 Test Item Value Reference Range Interpretation [...] (test code = Basophil 0.0 0.0-2.0 Man) [place] Man (test code = [place] Man) 1 % 0-2 Neut Man Abs (test code = Neut Man 4.8 x10 1.6-7.4 Abs) Lymph Man Abs (test code = Lymph Man 6.5 x10 0.5-4.6 H Abs) Cotton Man Abs (test code = Cotton Man 0.5 x10 0.0-1.2 Abs) Eos Man Abs (test code = Eos Man 0.00 x10 0.00-0.74 Abs) Baso Man Abs (test code = Baso Man 0.00 x10 0.00-0.21 Abs) RBC Morph (test code = RBC Morph) Normal Normal Plt Estimation (test code = Plt Normal Normal Estimation) Prothrombin Time and [id number] 00:19:37 Test Item Value Reference Range Interpretation Comments Prothrombin Time (test code = 13.9 seconds 9.8-13.4 H Prothrombin Time) INR (test code = INR) 1.2 ratio 0.6-1.2 D-Dimer [id number] 00:17:40 Test Item Value Reference Range Interpretation Comments D Dimer, (Quant.) (test code = D 503 ng/mL 0-500 H Dimer, (Quant.)) Complete Blood Count with Rxniibtjllss4547-37-53 00:01:05 Test Item Value Reference Range Interpretation [...] code = IPF) 0 % N IG [id number] 00:01:05 Test Item Value Reference Range Interpretation Comments IG (test code = IG) 0.5 % 0.0-5.0 IG Abs (test code = IG Abs) 0 x10 N POC [id number] 21:01:45 Test Item Value Reference Range Interpretation Comments Glucose POC (test 160 mg/dL 70-115 H Notify RN or MDIf you code = Glucose POC) consider your patient critically ill, the Sukhdev-Accu Chec k Infrom II meter should not be used for Glucos e determination. Draw a venous Glucose and send to the main Lab for analysis. Lipid [id number] 20:18:39 Test Item Value Reference Range Interpretation Comments Cholesterol Total 164 mg/dL 0-200 RISK OF HE ART (test code = DISEASEPublishe d by Cholesterol Total) [place] [employer] Nita lyte Optimal Borderl ine [...] Notes Date/Time Note Provider Source 2020-02-17 16:47:00-00:00 [id number] [place] [address] PATIENT NAME: ADRIANA CADENA ADMIT DATE: 02/07/20 ACCOUNT NO: [id number] ROOM NO: Z.[facility] AGE: 75 REPORT TYPE: DISCHARGE SUMMARY REPORT SEX: F ADMITTING PHYSICIAN:Tayla Turcios MD ATTENDING PHYSICIAN:Tayla Turcios MD ADMISSION DATE: 02/07/2020 DISCHARGE DATE: 02/10/2020 DISCHARGE DIAGNOSES: 1. Urinary tract infection. 2. Constipation. 3. Hypertension. 4. Type 2 diabetes. 5. 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 HOSPITAL COURSE: This is a 74-year-old f emale who came in our institution from [facility] for further evaluation of paral ytic colon ileus and moderate degree of fecal burden. The patient underwent a colonoscopy. According to the results, no further intervention is needed. The patient was not discharged properly. The patient was advised to sta y and be observed in the next 24 hours as the patient's Plavix has been held from the [facility]. The patient appears to have a history of coronary ar phyllis disease. We advised the patient to stay overnight to resume the Plavix and make sure that there are no other complications; however, the patient is ada mant to go home. Hence, the patient was not discharged properly. Dictated By: Tyler Colón NP for Tayla Turcios MD WT: DS:NAIMA/CELSO-YOEL/LIN Conf#: [id number]/DID#: [id number] Authenticated by Tyler Colón NP On 2020 11:34:17 AM Authenticated by Tayla Turcios MD On 02/23/2020 02:24:56 PM at 1425 at 1425 PATIENT NAME: ADRIANA CADENA 2020-02-10 16:36:00-00:00 [facility] ([facility] General Surgery Progress Note REPORT#:[id number] REPORT STATUS: Signed DATE:02/10/20 TIME: 163 PATIENT: ADRIANA CADENA UNIT #: [id number] ROOM/BED: [facility]-A : 46 AGE: 74 SEX: F ATTEND: Tayla Turcios MD ADM AUTHOR: Michelle Muñoz MD * ALL edits or amendments must be made on the el Revivn/computer document * Subjective Patient reports: Yes: bowel movement, flatus. No: abdominal pain. Objective General VS/I O: Last Documented: Result Date Time Pulse Ox 94 02/09 153 B/P 155/86 02/09 153 B/P Mean 108.8 02/09 153 O2 Delivery Room air 02/09 153 Temp 97.5 02/09 153 Pulse 98 02/09 153 Resp 16 02/09 153 O2 Flow Rate 10 02/09 1407 Vital Signs Date Temp Pulse Resp B/P B/P Mean Pulse Ox FiO2 02/08-02/09 97.1-98.2 82-112 15- 129-162/63-96 88.3-115.7 91-98 24 hour I O [...] 02/09 02/09 02/09 02/09 02/09 1536 1205 [facility] 0607 0450 Chemistry Sodium (137 - 145 [...] (Auto) (1.0 - 3.8 K/mm3) 19.58 H Cotton # (Auto) (0.1 - 0.8 K/mm3) 1.94 [...] surgica l intervention required. at 1638 RPT #:[id number] END OF REPORT 2020-02-10 12:43:00-00:00 9030-8073 [facility] [address] [place] [address] PATIENT NAME: ADRIANA CADENA ADMIT DATE: 02/07/20 ACCOUNT NO: [id number] ROOM NO: Z.530 AGE: 74 REPORT TYPE: ENDOSCOPY REPORT SEX: F ADMITTING PHYSICIAN:Tayla Turcios MD ATTENDING PHYSICIAN:Tayla Turcios MD Endoscopy Patient Name: Adriana Cadena Procedure Date: 020 12:43 PM Date of : 1945 Admit Type: Inpatient Age: 74 Room: Room 2 Gender: Female Attending MD: Brian Nuñez MD Instrument Name: [id number] Procedure: Colonoscopy Providers: Brian Nuñez MD, Ayesha Tate RN (Annalee trejo), Amanda Carrero (Stonecutter) Referring MD: Self Referred Medicines: See the [...] the patient. All questions were answered and infor med consent was obtained. - Patient identification and proposed procedure were verified prior to the procedure by the physici an and the nurse. The procedure was verified [...] the patient's blood pressure, pulse, and oxygen sa turations were monitored continuously. The Colonoscope wa s introduced through the anus and advanced to the ascending colon. The colonoscopy was performed without difficulty. The patient tolerated the procedure well. The quality of the bowel preparation was good. The PATIENT NAME: ADRIANA CADENA entire colon was well visualized. The quality o f the bowel preparation was evaluated using the BBPS ([place] Bowel Preparation Scale) with scores of: Right Colon = 3 (entire mucosa seen well with no residual stai vipul, small fragments of stool or opaque liquid), Tra nsverse Colon = 3 (entire mucosa seen well with no resi dual staining, small fragments of stool or opaque li quid) and Left Colon = 3 (entire mucosa seen well with no residual staining, small fragments of stool or opaque l iquid). The total BBPS score equals 9. The [...] previous diet. Procedure Code(s): --- Professional --- 34147, 52, Colonoscopy, flexible; with biopsy, single or multiple Diagnosis Code(s): --- Professional --- K63.3, Ulcer of intestine K57.30, Diverticulosis of large intestine witho ut perforation or abscess without bleeding CPT copyright 2018 [place]. All rights reserved. The codes documented in this report are prelimin alfredo and upon transcribing machine mechanic review may be revised to meet current compliance requiremen ts. Brian Nuñez MD Brian Nuñez MD 02/10/2020 2:19:45 PM This report has been signed electronically. Number of Addenda: 0 Note Initiated On: 02/10/2020 12:43 PM Procedure Date: 02/10/2020 12:43:52 PM PATIENT NAME: ADRIANA CADENA Estimated Blood Loss: Estimated blood loss: none. [address] [place] [address] Provation {[id number]}.pdf ProVation FT PDF Electronically Signed by Brian Nuñez MD on at 1420 PATIENT NAME: ADRIANA CADENA 2020-02-10 12:42:00-00:00 [id number] [place] [address] PATIENT NAME: ADRIANA CADENA ADMIT DATE: 02/07/20 ACCOUNT NO: [id number] ROOM NO: Z.530 AGE: 74 REPORT TYPE: [...] gastrointestinal bleeding Providers: Brian Nuñez MD, Ayesha Tate, FLOYD (Annalee trejo), Amanda Carrero (Stonecutter) Referring MD: Self Referred Medicines: See the [...] neck mobility. After obtaining informed consent, the endoscope was passed under direct vision. Throughout the proc edure, the patient's blood pressure, pulse, and oxygen saturations were monitored continuously. The E ndoscope was introduced through the mouth, and advanced [...] present medications. Procedure Code(s): --- Professional --- 93393, Esophagogastroduodenoscopy, flexible, tr ansoral; with biopsy, single or multiple Diagnosis Code(s): --- Professional --- K21.0, Gastro-esophageal reflux disease with es ophagitis K31.89, Other diseases of stomach and duodenum K26.9, Duodenal ulcer, unspecified as acute or chronic, without hemorrhage or perforation K92.2, Gastrointestinal hemorrhage, unspecified CPT copyright 2018 [place]. All rights reserved. The codes documented in this report are prelimin alfredo and upon transcribing machine mechanic review may be revised to meet current compliance requiremen ts. Brian Nuñez MD Brian Nuñez MD 02/10/2020 2:12:17 PM This report has been signed electronically. Number of Addenda: 0 Note Initiated On: 02/10/2020 12:42 PM Procedure Date: 02/10/2020 12:42:30 PM Estimated Blood Loss: Estimated blood loss: none. [address] [place], [place] [address] Provation {[id number]}.pdf ProVation FT PDF PATIENT NAME: ADRIANA CADENA Electronically Signed by Brian Nuñez MD on at 1412 PATIENT NAME: ADRIANA CADENA 2020-02-10 11:19:00-00:00 [id number] [place] [address] PATIENT NAME: ADRIANA CADENA ADMIT DATE: 02/07/20 ACCOUNT NO: [id number] ROOM NO: [facility] AGE: 75 REPORT TYPE: PROGRESS NOTE SEX: [...] and no gris ma noted. GENITOURINARY: With Escobar catheter. LABORATORY DATA: Has been reviewed. Magnesium [...] potassium today with 40 mEq IV as we ll as 40 mEq p.o. per GI. 3. [...] discussed with the patient, nursing staff, and [facility] Dr. Tayla Turcios. Dictated By: Tyler Colón NP for Tayla Turcios MD WT: PN:NAIMA/ABHINAV/LIN Conf#: [id number]/DID#: [id number] Authenticated by Tyler Colón NP On 2020 11:34:16 AM Authenticated by Tayla Turcios MD On 02/23/2020 02:24:55 PM at 1425 at 1425 PATIENT NAME: ADRIANA CADENA 2020-02-10 09:31:00-00:00 [phone] [place] [address] PATIENT NAME: ADRIANA CADENA ADMIT DATE: 02/07/20 ACCOUNT NO: [id number] ROOM NO: Z.530 AGE: 74 REPORT TYPE: ECHOCARDIOGRAM SEX: F ADMITTING PHYSICIAN:Tayla Turcios MD ATTENDING PHYSICIAN:Tayla Turcios MD *[facility]* [address] [place] [address] Transthoracic Echocardiogram Patient: Adriana Cadena Study Date: 02/08/2020 BP: 151 / 82 Location: [facility] URN: [id number] : 1945 Age: 74 Height: 62 in / 157.5 cm Gender: F Weight: 15 5 lb / 70.5 kg BMI/BSA: 28.4 kg/m 2 / 1.78 m 2 *Ordering Physician: Mark Centeno MD *Interpreting Physician: Mark Centeno MD *Fine Arts Model: * Florinda Puri, RVT Indications: Pre-operative Cardiovascular Evalua tion. Study data: Transthoracic echocardiogram. Proced ure: Transthoracic echocardiography was performed. Images were obta ined using a REBIScan cardiac ultrasound machine. Image quality was suboptimal . Complete 2D, complete spectral Doppler, and color Doppler. Location: [facility]. Patient status: Inpatient. Patient room [...] L/(min-m 2) --------- PATIENT NAME: ADRIANA CADENA SV/bsa 33 ml/m 2 --------- Ventricular septum [...] cm 2 --------- Pulmonic valve Value Ref ID v, ED 1.13 m/sec --------- ID grad, ED 5 mm Hg --------- PATIENT [...] identified. Prepared and electronically signed by Mark Barney MD 02/10/2020 09:31 at 0932 PATIENT NAME: ADRIANA CADENA 7 2020-02-09 20:08:00-00:00 [facility] ([facility] General Surgery Progress Note REPORT#:[id number] REPORT STATUS: Signed DATE:02/09/20 TIME: 2007 PATIENT: ADRIANA CADENA UNIT #: [id number] ROOM/BED: [address] : [birth year] AGE: 74 SEX: F ATTEND: Tayla Turcios MD ADM AUTHOR: Michelle Muñoz MD * ALL edits or amendments must be made on the [employer] document * Subjective Patient reports: Yes: bowel [...] Extremities: no edema Results Findings/Data: Laboratory Tests 02/09/20 0424: [Embedded Image Not Available] Laboratory Tests 02/08 [...] MG/DL) 151 H 219 H 231 H 221 H Calcium (8.4 - 10.2 MG/DL) 8.0 L Magnesium (1.6 - 2.3 MG/DL) 2.6 H Laboratory Tests 02/09 424 Coagulation INR 1.1 APTT (25.1 - 36.5 SECONDS) 27.9 PT Patient/Control Mix (9.4 - 12.5 SECONDS) 12. 6 H Laboratory Tests 02/084 Hematology WBC (3.8 - 9.8 K/MM3) 25.0 [...] (Auto) (1.0 - 3.8 K/mm3) 14.85 H Cotton # (Auto) (0.1 - 0.8 K/mm3) 2.46 [...] pending patient agreeing t o procedure tommorow. Electronically Signed by Michelle Muñoz MD on 1 04/11/19 at 2010 RPT #:[id number] END OF REPORT 2020-02-09 12:40:00-00:00 [id number] [address] PATIENT NAME: ADRIANA CADENA ADMIT DATE: 02/07/20 ACCOUNT NO: [id number] ROOM NO: Z.530 AGE: 75 REPORT TYPE: CONSULTATION REPORT SEX: F ADMITTING PHYSICIAN:Tayla Turcios MD ATTENDING PHYSICIAN:Tayla Turcios MD CONSULTATION DATE: CONSULTING PHYSICIAN: Brian Nuñez MD HISTORY OF PRESENT ILLNESS: Comes in with consti pation and generalized abdominal pain, nausea, vomiting, leukocytosis, [...] By: Brian Nuñez MD WT: CON:NAIMA/MARCY/LIN Conf#: [id number]/DID#: [id number] PATIENT NAME: ADRIANA CADENA Authenticated by Brian Nuñez MD On 11:25:06 AM Electronically Signed by Brian Nuñez MD on at 1125 PATIENT NAME: ADRIANA CADENA 7 2020-02-09 12:09:00-00:00 [id number] [place] [address] PATIENT NAME: ADRIANA CADENA ADMIT DATE: 02/07/20 ACCOUNT NO: [id number] ROOM NO: [facility] AGE: 74 REPORT TYPE: ELECTROCARDIOGRAM SEX: F ADMITTING PHYSICIAN:Tayla Turcios MD ATTENDING PHYSICIAN:Tayla Turcios MD Order: [id number] Test Reason : ARRYTHMMIA Test Date/Time Stamp: SatFeb 09 2020 12:09:03 Blood Pressure : / mmHG Vent. Rate : 117 BPM Atrial Rate : 117 BPM P-R Int : 096 ms QRS Dur : 094 ms QT Int : 452 ms P-R-T Axes : 007 029 065 degree s QTc Int : 630 ms Sinus tachycardia with short ID Nonspecific T wave abnormality Abnormal ECG No previous ECGs available Confirmed by MD ECTOR, MARK EDWARD ([id number]) on 02/10/2020 9:34:47 AM Referred By: Tayla Turcios Confirmed by:MARK BARNEY MD at 0935 PATIENT NAME: ADRIANA CADENA 2020-02-09 11:29:00-00:00 [id number] [place] [address] PATIENT NAME: ADRIANA CADENA ADMIT DATE: 02/07/20 ACCOUNT NO: [id number] ROOM NO: 530 AGE: 74 REPORT TYPE: PROGRESS NOTE SEX: [...] Colón NP for Tayla Turcios MD WT: PN:NAIMA/01-YOEL/NTS Conf#: [id number]/DID#: [id number] Authenticated by Tayla Turcios MD On 02/09/2020 02:39:46 PM Authenticated by Tyler Colón NP On 2019 11:52:22 AM at 1152 at 1152 PATIENT NAME: ADRIANA CADENA 2020-02-08 13:56:00-00:[id number] [place] [address] PATIENT NAME: ADRIANA CADENA ADMIT DATE: 02/07/20 ACCOUNT NO: [id number] ROOM NO: Z.530 AGE: 75 REPORT TYPE: CONSULTATION REPORT SEX: F ADMITTING PHYSICIAN:Tayla Turcios MD ATTENDING PHYSICIAN:Tayla Turcios MD CONSULTATION DATE: 02/08/2020 CONSULTING PHYSICIAN: Michelle Muñoz MD REASON FOR CONSULTATION: Evaluation for constipa tion and ileus. HISTORY OF PRESENT ILLNESS: The patient is a 74- year-old female who was transferred from [place] for findings of ileus. A ccording to the ER physician, there was no gastroenterolog ist available, so the patient was transferred to our ER for further evaluation. T he patient reports 10 days of generalized abdominal pain associated with nausea and vomiting. She paulson s not had any bowel movements for the past 5 days. She has had a CT scan of th e abdomen and pelvis, which showed constipation with [...] By: Michelle Muñoz MD WT: CON:NAIMA/OPAL/LIN Conf#: [id number]/DID#: [id number] Authenticated by Michelle Muñoz MD On 03/21/19 09:41:10 AM at 0941 PATIENT NAME: ADRIANA CADENA 2020-02-08 12:39:00-00:00 [facility] ([facility]) Cardiology Consultation REPORT#:[id number] REPORT STATUS: Signed DATE:02/08/20 TIME: 1239 PATIENT: ADRIANA CADENA UNIT #: [id number] ROOM/BED: [address] : 46 AGE: 74 SEX: F ATTEND: Tayla Turcios MD ADM AUTHOR: Mark Barney MD * ALL edits or amendments must be made on the el [employer]/computer document * History - Adult longitudinal Allergies: Coded Allergies: Penicillins (Intermediate, HIVES 02/07/20) levofloxacin (From LEVAQUIN) (Intermediate, JOIN T PAIN 02/07/20) Diagnosis, Assessment Plan Free Text DxA P Notes Free Text DxA P Notes: pt seen and examined. finds c/w paralytic ileus. ?bowel obstruction?? continue monitering support.full note dictated. at 1241 RPT #:[id number] END OF REPORT 2020-02-08 12:39:00-00:00 [id number] [facility] [address] [place] [address] PATIENT NAME: ADRIANA CADENA ADMIT DATE: 02/07/20 ACCOUNT NO: [id number] ROOM NO: Z.530 AGE: 74 REPORT TYPE: CONSULTATION REPORT SEX: F ADMITTING PHYSICIAN:Tayla Turcios MD ATTENDING PHYSICIAN:Tayla Turcios MD CONSULTATION DATE: CONSULTING PHYSICIAN: Mark Barney MD CARDIOLOGY CONSULTATION HISTORY OF PRESENT ILLNESS: A 74-year-old female comes in through the [facility] referral involving paralytic colon, ile us, and [...] PATIENT NAME: ADRIANA CADENA Dictated By: Mark Barney MD WT: CON:BriceVINCENZO/LUIS ANGEL/NTS Conf#: [id number]/DID#: [id number] Authenticated by Mark Barney MD On 020 01:20:09 PM at 1320 PATIENT NAME: ADRIANA CADENA 2020-02-08 08:45:00-00:00 [facility] ([facility]) Hospitalist Progress Note REPORT#:[id number] REPORT STATUS: Signed DATE:02/08/20 TIME: 08 PATIENT: ADRIANA CADENA UNIT #: [id number] ROOM/BED: [address] : 46 AGE: 74 SEX: F ATTEND: Tayla Turcios MD ADM AUTHOR: Tyler Colón NP * ALL edits or amendments must be made on the el [employer]computer document * Subjective Free Text Subj Notes Free Text Subj Notes: SEEN AND EXAMINED AT THE BEDSIDE. REVIEWED CHART FROM EFE ON HER ACTUAL CHART. SPOKE TO THE NURSE. DICTATED [id number] MELIZA ALEXANDRO WOLFE/ DR TAYLA TURCIOS Electronically Signed by Tyler Colón NP on 1 04/10/19 at 0846 RPT #:[id number] END OF REPORT 2020-02-08 08:45:00-00:00 [id number] [facility] [address] [place] [address] PATIENT NAME: ADRIANA CADENA ADMIT DATE: 02/07/20 ACCOUNT NO: [id number] ROOM NO: [facility] AGE: 74 REPORT TYPE: HISTORY AND [...] by anything. She was initially seen at [facility] with x-ra y of the abdomen showing [...] to the wall until further recommendations from t general surgeon as well as the GI doctor. 2. Consult made to the manufacturing project engineer, GI, and gen eral surgeon. 3. Continue [...] and 20 minutes which includes initiating the puri sfer from one hospital to the other; speaking to the transfer center housekeeper child care; coordinating p toño with the nursing team, consultants, and with my supervising physician, Dr. Tayla Turcios. Dictated By: Tyler Colón NP for Tayla Turcios MD WT: HP:NAIMA/ASHLEY.01-ELEKENIA/NTS Conf#: [id number]/DID#: [id number] Authenticated by Tayla Turcios MD On 02/09/2020 02:39:44 PM Authenticated by Tyler Colón NP On 2019 11:52:21 AM at 1152 at 1152 PATIENT NAME: ADRIANA CADENA 2020-02-07 21:21:00-00:00 [facility] ([facility]) EMERGENCY PROVIDER REPORT REPORT#:[id number] REPORT STATUS: Signed DATE:02/07/20 TIME: 2120 PATIENT: ADRIANA CADENA UNIT #: [id number] [facility] AGE: 74 SEX: F PCP PHYS: No Primary or Family Ph ysician SERVICE AUTHOR: Alfred Puri MD [place] [place] ALL edits or amendments must be made on the [employer] document * HPI-Abd Pain F 41 and [...] material. Elise schneider was transferred here from [facility] for ileus as well as obstipation. [...] 98 02/07 2140 Resp 18 02/07 2140 Last Documented: Result Date Time Pulse Ox 97 02/07 2140 B/P 154/67 02/07 2140 B/P Mean 96 12/20 2140 O2 Delivery Room air 02/07 2140 [...] (Auto) (1.0 - 3.8 K/mm3) 17.08 H Cotton # (Auto) (0.1 - 0.8 K/mm3) 1.08 H Eos # (Auto) (0.0 - 0.2 K/mm3) 0.02 Baso # (Auto) (0.0 - 0.2 K/mm3) 0.06 Nucleated RBCs # (Man) (0.0 - 0.1 K/mm3) 0.00 Urines Urine Color (YELLOW) ABEL Urine Appearance (CLEAR) CLEAR Urine pH (5.0 - 9.0) 5.0 Ur Specific [place] (1.003 - 1.030) 1.025 Urine Protein (NEGATIVE [...] SCAN - CT ABD PELVIS W/CONT 02/06 6877 Report Impression - Status: SIGNED Entered: 02/07/2020 6165 IMPRESSION: 1. Distention of the colon is noted concerning f or constipation. No bowel obstruction. 2. Bilateral indeterminate adrenal gland lesions are noted. Consider further evaluation with contrast-enhanced adrena l gland protocol CT or MRI. 3. Soft tissue swelling of the right breast is n oted. Asymmetry correlate with mammographic history. Impression By: [email or web address] - Conner Muniz M.D. Lab Imaging Statement Laboratory radiographic studies reviewed and con sidered in the medical decision-making. ECG #1 Interpretation [...] 2133 DC Sodium Chloride 10 ML IV 02/062 Vancomycin HCl 1,000 MG X1ED STA 02/063 DC 02/06 Sodium Chloride 250 ML IV 02/07 2332 2203 Blood Formation,Coagulation Sig/Blanca Start time Last Medication Dose Route Stop Time Status Admin Enoxaparin Sodium 70 MG Q12H 02/060 AC 12/ 0 SUBQ 03/08 2200 2221 Enoxaparin Sodium 70 MG Q12H 02/06 214 DC SUBQ 03/08 214 Diagnostic Agents Sig/Blanca [...] 98 02/07 2140 Resp 18 02/07 2140 Last Documented: Result [...] will see patient Electronically Signed by Alfred Puri MD on 01/19 07/07 at 1505 RPT #:[id number] END OF REPORT
[2022-10-07 19:00] LABS: Absolute Lymphocytes (CBC) 77.8 K/uL (0.7-4.9); Lymphocytes % 92.8 % (15.3-44.8); MCV 97.1 fL (80-100); MPV 6.8 fL (7.6-11.3); Platelets 478 thou/uL (152-406)
[2022-10-07 19:18] LABS: Albumin 2.7 g/dL (3.4-5.0); Bilirubin Total 0.2 mg/dL (0.2-1.0); Potassium 4.7 mEq/L (3.5-5.1); Protein, Total 6.6 g/dL (6.4-8.2)
[2022-10-07 19:32] LABS: Specific Gravity 1.024 (1.005-1.030); Urine Bacteria <20 /HPF (<20); Urine Bilirubin NEGATIVE (Negative); Urine Blood Negative (Negative); Urine Clarity Clear (Clear); Urine Color Yellow (Yellow); Urine Glucose NEGATIVE (Negative); Urine Protein TRACE (Negative); Urine RBC 21-50 /HPF (None Seen); Urine Urobilinogen Normal (Normal)
[2022-10-07 19:46] LABS: Blood Morphology Comment NOT SEEN (NOT SEEN); Platelet Estimate INCR
--- NOTE | 2022-10-07 19:53 | ER ---
Nurse's Notes [facility] Name: Adriana Lopez Age: 77 yrs Sex: Female : 1945 Arrival Date: 10/07/2022 Time: 17:48 Bed 12 Private MD: Diagnosis: Dash catheter complication Presentation: 10/07 18:30 Chief complaint: Patient states: "Catheter not working". She states she feels like she nj1 needs to urinate, dash catheter does not seem to be draining. 18:30 Coronavirus screen: Vaccine status: Patient reports receiving the 2nd dose of the covid nj1 vaccine. Ebola Screen: Patient denies travel to an Ebola-affected area in the 21 days before illness onset. Initial Sepsis Screen: Does the patient meet any 2 criteria? No. Patient's initial sepsis screen is negative. Does the patient have a suspected source of infection? No. Patient's initial sepsis screen is negative. Risk Assessment: Do you want to hurt yourself or someone else? Patient reports no desire to harm self or others. Onset of symptoms was October 07, 2022. 18:30 Method Of Arrival: Ambulatory [facility] 18:30 Acuity: DANTE 3 nj1 Historical: - Allergies: 18:40 Levaquin; nj1 18:40 PENICILLINS; nj1 18:40 azithromycin; nj1 - PMHx: 19:40 CLL; kl - Immunization history:: Client reports receiving the 2nd dose of the Covid vaccine. - Social history:: Smoking status: Patient/guardian denies using tobacco, Stopped _ months ago 0.5. Screenin:57 [facility] ED Fall Risk Assessment (Adult) Score/Fall Risk Level 0 - 2 = Low Risk hb Oriented to surroundings, Maintained a safe environment. Abuse screen: Denies threats or abuse. Denies injuries from another. Nutritional screening: No deficits noted. Tuberculosis screening: No symptoms or risk factors identified. Assessment: 18:57 General: Appears in no apparent distress. Behavior is calm, cooperative. Pain: Pain hb currently is 2 out of 10 on a pain scale. Neuro: Level of Consciousness is awake, alert, obeys commands, Oriented to person, place, time, situation. Cardiovascular: Patient's skin is warm and dry. Respiratory: Respiratory effort is even, unlabored, Respiratory pattern is regular, symmetrical. GI: No signs and/or symptoms were reported involving the gastrointestinal system. : Reports urinary retention. EENT: No signs and/or symptoms were reported regarding the EENT system. Derm: Skin is pink, warm \\T\\ dry. Musculoskeletal: No signs and/or symptoms reported regarding the musculoskeletal system. 19:28 Reassessment: Patient appears in no apparent distress at this time. Patient is alert, kl oriented x 3, equal unlabored respirations, skin warm/dry/pink. Patient states symptoms have improved. Vital Signs: 18:30 BP 149 / 65; Pulse 80; Resp 18; Temp 98.4(O); Pulse Ox 96% on R/A; Weight 56.7 kg; nj1 Height 5 ft. 2 in. ; 20:07 BP 155 / 75; Pulse 87; Resp 18; Pulse Ox 97% on 2 lpm NC; Pain 0/10; kl 18:30 Body Mass Index 22.86 (56.70 kg, 157.48 cm) nj1 20:07 Pain Scale: Adult ED Course: 17:55 Patient arrived in ED. mr 18:01 Álvaro Coto MD is Attending Physician. sp3 18:40 Triage completed. nj1 18:41 Melanie Palacios, FLOYD is Primary Nurse. hb 18:41 Arm band placed on. nj1 18:56 CBC with Diff Sent. hb 18:56 CMP Sent. hb 18:56 Inserted saline lock: 22 gauge in right antecubital area, using aseptic technique. hb Blood collected. 18:57 Patient has correct armband on for positive identification. Provided Education on: . hb 19:09 Attending Physician role handed off by Álvaro Coto MD rt 19:09 Johnny Nielsen MD is Attending Physician. rt 19:28 Urinalysis w/ reflexes Sent. kl 19:53 Jacob Flores MD is Referral Physician. rt 20:07 No provider procedures requiring assistance completed. IV discontinued, intact, kl bleeding controlled, No redness/swelling at site. Pressure dressing applied. Administered Medications: No medications were administered Medication: 18:57 VIS not applicable for this client. hb Outcome: 19:53 Discharge ordered by . rt 20:07 Discharged to home ambulatory, with family. kl 20:07 Condition: stable 20:07 Discharge instructions given to patient, family, Instructed on discharge instructions, follow up and referral plans. Demonstrated understanding of instructions, follow-up care. 20:08 Patient left the ED. kl Signatures: Lucía Flores RN RN kl Rivera, Mary mr Baxter, Heather, RN RN hb Patel, Setul, MD MD sp3 Johnny Nielsen MD MD rt Guerline Weems RN RN nj1
--- NOTE | 2022-10-07 19:53 | EDPHYS ---
Physician Documentation [facility] Name: Adriana Lopez Age: 77 yrs Sex: Female : 1945 Arrival Date: 10/07/2022 Time: 17:48 Bed 12 Private MD: ED Physician Johnny Nielsen HPI: 10/07 18:42 This 77 yrs old Female presents to ER via Ambulatory with complaints of Problem With sp3 Urinary Catheter. 18:42 77-year-old female with a history of urinary retention requiring Escobar catheters who sp3 presents to the ED with chief complaint of inability to void. Patient had a new catheter placed last week and states that she has not been unable to void since early this morning despite taking p.o. intake. She has the urge to void but is unable to do so. She is being taken care of by one of our hospitalists who referred her to the ED for Escobar swap and possible work-up if indicated. Patient denies fever, URI symptoms, chest pain, shortness of breath, back pain, upper abdominal pain, rash, diarrhea, neurological symptoms, or any other signs or symptoms on ROS at this time.. Historical: - Allergies: 18:40 Levaquin; nj1 18:40 PENICILLINS; nj1 18:40 azithromycin; nj1 - PMHx: 19:40 CLL; kl - Immunization history:: Client reports receiving the 2nd dose of the Covid vaccine. - Social history:: Smoking status: Patient/guardian denies using tobacco, Stopped _ months ago 0.5. ROS: 18:43 Constitutional: Negative for fever, chills, and weight loss, Eyes: Negative for injury, sp3 pain, redness, and discharge, ENT: Negative for injury, pain, and discharge, Neck: Negative for injury, pain, and swelling, Cardiovascular: Negative for chest pain, palpitations, and edema, Respiratory: Negative for shortness of breath, cough, wheezing, and pleuritic chest pain, MS/Extremity: Negative for injury and deformity, Skin: Negative for injury, rash, and discoloration, Neuro: Negative for headache, weakness, numbness, tingling, and seizure. 18:43 All other systems are negative. Exam: 18:44 Constitutional: This is a well developed, well nourished patient who is awake, alert, sp3 and in no acute distress. Head/Face: Normocephalic, atraumatic. Neck: Trachea midline, no thyromegaly or masses palpated, and no cervical lymphadenopathy. Supple, full range of motion without nuchal rigidity, or vertebral point tenderness. No Meningismus. Chest/axilla: Normal chest wall appearance and motion. Nontender with no deformity. No lesions are appreciated. Cardiovascular: Regular rate and rhythm with a normal S1 and S2. No gallops, murmurs, or rubs. Normal PMI, no JVD. No pulse deficits. Respiratory: Lungs have equal breath sounds bilaterally, clear to auscultation and percussion. No rales, rhonchi or wheezes noted. No increased work of breathing, no retractions or nasal flaring. Skin: Warm, dry with normal turgor. Normal color with no rashes, no lesions, and no evidence of cellulitis. MS/ Extremity: Pulses equal, no cyanosis. Neurovascular intact. Full, normal range of motion. Neuro: Awake and alert, GCS 15, oriented to person, place, time, and situation. Cranial nerves II-XII grossly intact. Motor strength 5/5 in all extremities. Sensory grossly intact. Cerebellar exam normal. Normal gait. Psych: Awake, alert, with orientation to person, place and time. Behavior, mood, and affect are within normal limits. 18:44 Abdomen/GI: Painful and distended bladder noted. Abdomen benign otherwise with no peritoneal signs, rebound or guarding. There is no CVA tenderness.. Vital Signs: 18:30 BP 149 / 65; Pulse 80; Resp 18; Temp 98.4(O); Pulse Ox 96% on R/A; Weight 56.7 kg; nj1 Height 5 ft. 2 in. ; 20:07 BP 155 / 75; Pulse 87; Resp 18; Pulse Ox 97% on 2 lpm NC; Pain 0/10; kl 18:30 Body Mass Index 22.86 (56.70 kg, 157.48 cm) nj1 20:07 Pain Scale: Adult kl MDM: 18:32 Patient medically screened. sp3 18:44 Data reviewed: vital signs, nurses notes, lab test result(s). ED course: Escobar catheter sp3 will be placed and we will obtain renal function given she has a single kidney and CBC as well as urinalysis. Antibiotics will be added if indicated patient will be signed out to Dr. Nielsen for cage shift manager disposition.. 20:24 ED course: I assumed care at shift change. Patient presents to the ED with a clogged rt Escobar catheter. Symptoms have completely resolved after Escobar catheter was changed, states that she feels well. UA shows no evidence of UTI, patient does not need to be started on antibiotics. Patient is found to have a leukocytosis to 80,000. She does have known CLL. I discussed with Dr. Castañeda who admitted her to the hospital recently, states that this is an expected finding given her recent steroid use. Patient states that she is strongly desirous of discharge. I discussed results of labs at length with the patient. She is comfortable discharge, return for any concerning symptoms.. 10/07 18:39 Order name: CBC with Diff; Complete Time: 19:49 sp3 10/07 18:39 Order name: CMP; Complete Time: 19:20 sp3 10/07 18:39 Order name: Urinalysis w/ reflexes; Complete Time: 19:49 sp3 10/07 19:06 Order name: Manual Differential; Complete Time: 19:49 EDMS 10/07 18:39 Order name: Labs collected and sent; Complete Time: 18:56 sp3 10/07 18:39 Order name: Escobar; Complete Time: 19:28 sp3 Administered Medications: No medications were administered Disposition Summary: 10/07/22 19:53 Discharge Ordered Location: Home rt Problem: new rt Symptoms: have improved rt Condition: Stable rt Diagnosis - Escobar catheter complication rt Followup: rt - With: Jacob Flores MD - When: 5 - 6 days - Reason: Discharge Instructions: - Discharge Summary Sheet rt - Indwelling Urinary Catheter Care, Adult rt Forms: - Medication Reconciliation Form rt - Thank You Letter rt - Antibiotic Education rt - Prescription Opioid Use rt - Patient Portal Instructions rt - Leadership Thank You Letter rt Signatures: Dispatcher [employer] Lucía Pope, RN Álvaro Talbert MD MD sp3 Johnny Nielsen MD MD rt Guerline Weems RN RN nj1
[2022-10-07 21:02] VITALS: TEMP 98.4
[2022-10-07 21:03] VITALS: BP 155/75; O2SAT 97
== END 2022-10-07 20:08 | disposition home or self-care (01) ==
LOC: ER 17:48
DX: T83.098A Other mechanical complication of other urinary catheter, initial encounter (principal); Z88.0 Allergy status to penicillin; Z88.1 Allergy status to other antibiotic agents; Z88.3 Allergy status to other anti-infective agents
CPT/HCPCS: 36415; 80053; 81001; 85025; 99283